=== PATIENT | female | born 1945 | race Caucasian/White ===

== ENCOUNTER 2016-05-12 14:23 | Inpatient (IN) | payer OTHER, MEDICAID ==
--- NOTE | 2016-05-12 14:24 | EDPHY ---
H & P Time Seen by Provider: 05/12/16 14:24 HPI/ROS: CHIEF COMPLAINT: Respiratory distress HISTORY OF PRESENT ILLNESS: This patient is an anticoagulated (Coumadin) 71 year old female arriving emergently via EMS in respiratory distress secondary to pulmonary aspiration. Per EMS, staff at [facility] witnessed aspiration of her soup during lunch at 1400 today. While she is normally alert and talkative, she became disoriented with decreased responsiveness prior to EMS arrival. She has remained unresponsive in transport. History obtained via EMS. Further history is unobtainable secondary to the patient's condition. Full code status. REVIEW OF SYSTEMS: ROS unobtainable secondary to the patient's condition. Past Medical/Surgical History: Hypertension, chronic hypoxemia, DVT, PE, dysphagia, bipolar disorder, hypothyroid, breast cancer, anemia. FULL CODE STATUS. Social History: Lives at [facility]. Physical Exam: General Appearance: Eyes open, does not look at me when I talk, Respiratory distress Eyes: Pupils equal and round, no conjunctival pallor or injection, left gaze preference ENT, Mouth: Mucous membranes dry Neck: Normal inspection Respiratory: Diminished breath sounds bilaterally Cardiovascular: Regular tachycardia Gastrointestinal: Abdomen is soft Neurological: Good gag reflex, unresponsive to painful stimuli, flaccid Skin: Warm and dry Extremities: No pedal edema Constitutional: Initial Vital Signs O2 Sat (%) 90 L 05/12/16 14:24 O2 Delivery Mode Non-Rebreather Mask O2 (L/minute) 15 Allergies/Adverse Reactions: Penicillins Allergy (Mild, Verified 12/04/15 13:00) Rash REG Inhibitors Allergy (Verified 12/04/15 13:00) Hives clavulanic acid Allergy (Verified 12/04/15 13:00) Home Medications: Medication Instructions Recorded ARIPiprazole [Abilify 10 mg (*)] 10 mg PO DAILY 05/16/15 Acetaminophen [Tylenol ES 500 mg 500 mg PO Q6 PRN 05/16/15 (*)] Albuterol [Proventil Neb] 3 ml IH Q6 PRN 05/16/15 Atorvastatin Calcium [Lipitor 40 40 mg PO HS 05/16/15 mg (*)] Calcium Carbonate [Tums 500MG (*)] 500 mg PO Q2 PRN 05/16/15 Divalproex Sodium [Depakote] 250 mg PO DAILY 05/16/15 Divalproex [Depakote] 500 mg PO HS 05/16/15 Ferrous Sulfate [Ferrous Sulf 325 325 mg PO BID 05/16/15 MG (*)] Gluc Oxid/l-Peroxid/Muramidase 30 ml MM DAILY 05/16/15 [Biotene Mouthwash (*)] LORazepam [Ativan (*)] 0.5 mg PO BID PRN 05/16/15 Levothyroxine [Synthroid 88 mcg 88 mcg PO DAILY06 05/16/15 (*)] Lidocaine [Lidocaine 5% oint] 1 van TP TID 05/16/15 Magnesium Hydroxide [Milk of 30 ml PO Q8 PRN 05/16/15 Magnesia (*)] Melatonin [Melatonin 3 MG (*)] 3 mg PO HS 05/16/15 Memantine HCl [Namenda 5 mg (*)] 10 mg PO BID 05/16/15 Nystatin Powder [Mycostatin Powder] 1 van TP Q6 PRN 05/16/15 Polyethylene Glycol 3350 [Miralax 17 gm PO DAILY 05/16/15 17 gm (*)] Sennosides/Docusate Sodium 2 each PO BID 05/16/15 [Senna-Docusate Sodium Tablet] guaiFENesin [Mucinex 600 MG (*)] 600 mg PO BID 05/16/15 guaiFENesin/DEXTROMETHORPHAN 10 ml PO Q6 PRN 05/16/15 [Robitussin Dm Oral Liquid (*)] Ondansetron HCl [Zofran] 4 mg PO Q4 PRN 08/15/15 Anastrozole [Arimidex 1 mg (*)] 1 mg PO DAILY 12/06/15 Calcium Carbonate [Tums 500MG (*)] 500 mg PO TID 12/06/15 Cholecalciferol Vit D3 [Vitamin D3 5,000 units PO DAILY 12/06/15 (*)] FLUoxetine [Prozac 20 MG (*)] 20 mg PO DAILY 12/06/15 Herbals/Supplements -Info Only 1 ea PO DAILY 12/06/15 Warfarin Sodium [Coumadin 3MG (*)] 6 mg PO DAILY16 12/06/15 oxyCODONE IR [Oxycodone Ir (*)] 5 mg PO BID 12/06/15 oxyCODONE IR [Oxycodone Ir (*)] 5 mg PO Q6 PRN 12/06/15 Loperamide HCl [Loperamide] 2 mg PO PRN PRN 05/12/16 Olopatadine 0.1% [Patanol 0.1% 1 drops EACHEYE BID PRN 05/12/16 Opht Drop (RX)] Sodium Cl Nasal Gel [[place] Saline 1 van TP TID PRN 05/12/16 Nasal Gel] Medical Decision Making - Diagnostics EKG Interpretation: EKG interpreted by me reveals sinus tachycardia, rate 138 left bundle branch block. ED Course/Re-evaluation: 1416: Emergent report obtained by phone from EMS. Respiratory therapy contacted. 1419: Respiratory therapy at bedside. 1423: Met EMS at bedside and took report: 100% O2 sat with BVM. IO in place to left tibia. BGL 103. 130/80. Sinus on monitor. HR 120. Code status: Full code. 1424: Patient placed on bus driver/monitor. HR 139. O2 sat 98% on BVM. Does not need intubation at this point. 1425: The patient is gagging, dry heaving, and vomiting with RTsuctioning. Rolled onto her side, vomiting stopped. She remains unresponsive to painful stimuli. 1427: Vomiting has subsided. Respiratory mask placed. 1429: IV established. Patient started on 1L IV NS. 1430: BP 155/86. HR 150. 1430: 4mg IV Zofran administered. 1431: Chest x-ray obtained and is negative. 1434: EKG obtained. No ischemia or dysrhythmia. Similar to prior EKG. 1440: Patient transferred to imaging for emergent CT of the head without contrast. 1458: CT is negative as reported to me by Dr. Jose Burroughs, radiology. Will proceed with CTA of the head and neck to eval for CVA. Unclear if pt had primary aspiration episode leading to hypoxia/AMS or if had CVA causing aspiration. Dr. Bro consulted for admission to step-down. Differential Diagnosis: Altered mental status including but not limited to CVA, hypoglycemia, infectious process, electrolyte abnormality, head injury and intoxicants. Critical Care Time: Critical care time spent by me, Dr. Armando, exclusively with this patient was 35 minutes, exclusive of PA time and exclusive of procedures. The organ system at risk was the pulmonary system . - Data Points Medications Given: Discontinued Medications Ceftriaxone Sodium/Dextrose (Rocephin 1 Gm (Premix)) 50 mls @ 100 mls/hr IV DAILY LIU PRN Reason: Protocol Stop: 06/11/16 18:59 Last Admin: 05/12/16 19:24 Dose: 50 mls Sodium Chloride (Ns) 2,700 mls @ 0 mls/hr IV ONCE ONE Stop: 05/12/16 18:46 Last Admin: 05/12/16 18:45 Dose: 2,700 mls Levothyroxine Sodium (Synthroid) 88 mcg PO DAILY06 LIU Stop: 11/09/16 05:59 Last Admin: 05/13/16 06:47 Dose: Not Given Naloxone HCl (Narcan) 0.4 mg IVP PRN ONE Stop: 05/12/16 16:21 Last Admin: 05/12/16 16:21 Dose: 0.4 mg Ondansetron HCl (Zofran) 4 mg IVP EDNOW ONE Stop: 05/12/16 14:28 Last Admin: 05/12/16 14:25 Dose: 4 mg Departure - Departure Disposition: [facility] Inpatient Acute Clinical Impression: Respiratory distress Aspiration of food Qualifiers: Encounter type: initial encounter Qualified Code(s): T17.890A - Other foreign object in other parts of respiratory tract causing asphyxiation, initial encounter Altered mental status Qualifiers: Altered mental status type: stupor Qualified Code(s): R40.1 - Stupor Condition: Critical Report Scribed for: Zeenat Armando Report Scribed by: Danyelle Estrada Date of Report: 05/12/16 Time of Report: 14:20 Physician Review and Approval Statement: 05/12/16 14:20 Portions of this note were transcribed by a medical reception. I personally performed a history, physical exam, medical decision making, and confirmed accuracy of information the transcribed note.
[2016-05-12] MEDS ORDERED: ONDANSETRON 4 MG/2 ML VIAL IVP ONE (14:27)
[2016-05-12] MEDS ORDERED: ONDANSETRON 4 MG/2 ML VIAL ONE (14:28)
--- NOTE | 2016-05-12 14:57 | CPEKG ---
Heart Rate: 138 RR Interval: 435 P-R Interval: 108 QRSD Interval: 130 QT Interval: 336 QTC Interval: 509 P Dover: 0 QRS Dover: 24 T Wave Dover: 206 EKG Severity - ABNORMAL ECG - EKG Impression: GIVEN WHAT APPEARS TO BE AV DISSOCIATION, VT IS PROBABLE EKG Impression: LEFT BUNDLE BRANCH BLOCK Electronically Signed By: Don Ruvalcaba 14-May-2016 09:02:33
[2016-05-12 15:21] LABS: % IMMATURE GRANULYOCYTES 0.4 % (0.0-1.1); ABSOLUTE IMMATURE GRANULOCYTES 0.03 10^3/uL (0.00-0.10); ADD DIFF? NO; ADD MORPH? NO; ADD SCAN? NO; ATYPICAL LYMPHOCYTE FLAG 0 (0-99); FRAGMENT RBC FLAG 0 (0-99); HEMOGLOBIN 13.3 g/dL (12.6-16.3); LEFT SHIFT FLG 0 (0-99); LIPEMIA HEMOLYSIS FLAG 80 (0-99); MEAN CELL HEMOGLOBIN 32.5 pg (27.9-34.1); MEAN CELL HEMOGLOBIN CONCENTR. 33.3 g/dL (32.4-36.7); MEAN CELL VOLUME 97.8 fL (81.5-99.8); MEAN PLATELET VOLUME 9.1 fL (8.7-11.7); PLATELET CLUMPS FLAG 0 (0-99); PLATELET COUNT 131 10^3/uL (150-400); RED BLOOD CELL COUNT 4.09 10^6/uL (4.18-5.33); RED CELL DISTRIBUTION WIDTH 13.8 % (11.5-15.2)
[2016-05-12] MEDS ORDERED: ONDANSETRON DISINTEGRATING 4 MG TAB PO PRN (15:26)
[2016-05-12] MEDS ORDERED: ONDANSETRON 4 MG/2 ML VIAL IVP PRN (15:26)
[2016-05-12 15:30] LABS: INR 2.61 (0.83-1.16); PROTIME(PATIENT) 28.2 SEC (12.0-15.0)
[2016-05-12] MEDS ORDERED: NALOXONE HCL 0.4 MG/ML INJ ONE (15:30)
[2016-05-12 15:32] LABS: ANION GAP 10 mEq/L (8-16); CALCIUM 8.8 mg/dL (8.5-10.4); CARBON DIOXIDE 26 mEq/l (22-31); CHLORIDE 99 mEq/L (97-110); CREATININE 0.8 mg/dL (0.6-1.0); GLOMERULAR FILTRATION RATE > 60; GLUCOSE 103 mg/dL (70-100); POTASSIUM 4.2 mEq/L (3.5-5.2); SODIUM 135 mEq/L (134-144)
[2016-05-12] MEDS ORDERED: IOPAMIDOL (ISOVUE 370) 100 ML BTL IV ONE (15:32)
[2016-05-12 15:43] LABS: TROPONIN I 0.016 ng/mL (0-0.034)
[2016-05-12] MEDS ORDERED: ETOMIDATE 40 MG/20 ML INJ ONE (16:15)
--- NOTE | 2016-05-12 16:20 | GHP ---
[f rep st] HISTORY AND PHYSICAL DATE OF ADMISSION: 05/12/2016 CHIEF COMPLAINT: Aspiration, unresponsive. HISTORY OF PRESENT ILLNESS: The patient is a 71-year-old female with history of invasive ductal carcinoma diagnosed September, bipolar disorder, dementia, history of pulmonary embolism, who was brought from [facility] after an aspiration event. Patient was eating soup with noodles at lunchtime and then aspirated. I spoke with RN there, and they stated they suctioned her well, and then she was sent here. Per her report, she was in a normal state of health prior to today. She is normally talkative and responsive. She does have dementia. Her baseline is alert and oriented times 1-2. The report states that she has been coughing for the past couple days. Her son Moreno spoke with on phone yesterday and she was talking like her normal self. REVIEW OF SYSTEMS: I unable to complete a 10-point review of system. History is from nursing staff as well as old medical records. PAST MEDICAL HISTORY: 1. Right renal stone. 2. Invasive ductal carcinoma diagnosed September 2015. 3. Bipolar disorder. 4. History of left bundle-branch block. 5. Dementia (A&O x 1-2 baseline) 6. Wheelchair bound. 7. Chronic pain with chronic narcotic dependency. 8. History of pulmonary embolism. 9.Lymphoma 10. Hypertension 11. HLD PAST SURGICAL HISTORY: 1. Bilateral mastectomy in September 2015. 2. Staghorn stone, status post stents. 3. Spinal fusion. 4. Right TKA. SOCIAL HISTORY: Wheelchair bound, lives at [facility], has to be moved with a Cecy lift. FAMILY HISTORY: Per review of prior H and P, no CAD or diabetes. ALLERGIES: Penicillins, REG inhibitors, clavulanic acid. HOME MEDICATIONS: 1. Oxycodone 5 mg t.i.d. 2. Oxycodone 5 mg p.o. q.6 hours p.r.n. 3. Guaifenesin. 4. Warfarin 3 mg daily. 5. Senna p.r.n. 6. MiraLAX p.r.n. 7. Zofran p.r.n. 8. Nystatin powder. 9. Namenda 10 mg b.i.d. 10. Melatonin as needed. 11. Lidocaine ointment. 12. Synthroid 88 mcg. 13. Lorazepam 0.5 mg b.i.d. p.r.n. 14. Prozac 20 mg daily. 15. Depakote 500 mg p.o. q.h.s. 16. Depakote 250 mg q.8h daily. 17. Tums p.r.n. 18. Lipitor 40. 19. Arimidex 1 mg daily. 20. Albuterol as needed. 21. Tylenol as needed. 22. Abilify 10 mg daily. PHYSICAL EXAM: VITAL SIGNS: Afebrile, heart rate 130s, blood pressure 140s over 80s, respirations 16, 98% on 10 L non-rebreather. GENERAL: Patient is nonresponsive. HEENT: Pupils are small, round, reactive. CV: Tachy, regular. No murmurs, gallops, or rubs. LUNGS: Clear to auscultation anteriorly. ABDOMEN: Obese, soft. No grimace with palpation. MUSCULOSKELETAL : Not participating in exam. NEURO: Nonresponsive, nonverbal, withdraws to noxious stimuli with flu swab. Will not follow simple commands such as grabbing my hands. Will open eyes minimally. LABS: Pending. Chest x-ray personally reviewed by me appears to be bronchitis. No opacity. EKG: Left bundle-branch block. Review of prior EKG shows an IVCD. CTA is pending. ASSESSMENT AND PLAN: 1. Aspiration event: while eating soup with noodles. Suctioned at the nursing facility as well as here in the emergency room. Initially on 8-10 L non- rebreather, now on 2L NC. No evidence of pneumonia on x-ray, afebrile. CBC is pending. Will not treat with antibiotics at this time. 2. Acute encephalopathy: minimally responsive, only withdraws to noxious stimuli. Differential includes aspiration event, CVA, opioid toxicity, infection. CTH/CTA normal. Flu swab, UA pending. Electrolytes WNL, troponin negative. Will admit to step-down for continuous monitoring. Check lactate, TSH. 3. History of pulmonary embolism, on chronic warfarin. INR is pending. 4. History of staghorn stones, status post stent. 5. History of invasive ductal carcinoma, status post bilateral mastectomy September 2015. 6. Dementia. Will hold Namenda. 7. Chronic pain. Will hold opioids. 8. Anxiety. Holding lorazepam with encephalopathy. 9. History of left bundle-branch block on EKG today, has history of this in the past. Troponin is pending. 10. Bipolar disorder. Hold medications until more alert. 11. h/o lymphoma: remission per son 12. Diet: N.p.o. 13. DVT prophylaxis: SCDs. DISPOSITION: Patient warrants inpatient admission given acute encephalopathy warranting step-down for telemetry and further evaluation. /[id number]/MODL MTDD
[2016-05-12] MEDS: NALOXONE HCL 0.4 MG/ML INJ IVP ONE ×2 (16:21→16:44)
[2016-05-12] MEDS ORDERED: OLOPATADINE 0.1% 5 ML OPHT.BTL EACHEYE PRN (17:00)
[2016-05-12] MEDS ORDERED: NYSTATIN POWDER 15 GM BTL TP PRN (17:00)
[2016-05-12 17:36] LABS: COLOR YELLOW; LEUKOCYTE ESTERASE,URINE 2+ (NEGATIVE); NITRITE,URINE POSITIVE (NEGATIVE)
[2016-05-12 17:40] LABS: AMORPHOUS PRESENT /hpf (NONE-1+); BACTERIA 4+ /hpf (NONE SEEN); RBC,URINE 25-50 /hpf (0-3); WBC,URINE 50-182 /hpf (0-3)
[2016-05-12] MEDS ORDERED: NS 2,700 ML IV ONE (18:45)
[2016-05-12] MEDS: NS 1,000 ML IV SCH (19:24)
[2016-05-12] MEDS ORDERED: ACETAMINOPHEN 650 MG SUPP PR PRN (19:35)
[2016-05-12 19:54] LABS: % IMMATURE GRANULYOCYTES 0.6 % (0.0-1.1); ABSOLUTE IMMATURE GRANULOCYTES 0.06 10^3/uL (0.00-0.10); ABSOLUTE NRBC COUNT 0.02 10^3/uL (0-0.01); ADD DIFF? NO; ADD MORPH? NO; ADD SCAN? NO; ATYPICAL LYMPHOCYTE FLAG 0 (0-99); FRAGMENT RBC FLAG 0 (0-99); HEMATOCRIT 35.4 % (38.0-47.0); HEMOGLOBIN 11.7 g/dL (12.6-16.3); LEFT SHIFT FLG 10 (0-99); LIPEMIA HEMOLYSIS FLAG 80 (0-99); MEAN CELL HEMOGLOBIN 32.7 pg (27.9-34.1); MEAN CELL HEMOGLOBIN CONCENTR. 33.1 g/dL (32.4-36.7); MEAN CELL VOLUME 98.9 fL (81.5-99.8); MEAN PLATELET VOLUME 9.4 fL (8.7-11.7); NRBC-AUTO% 0.2 % (0.0-0.2); PLATELET CLUMPS FLAG 0 (0-99); PLATELET COUNT 128 10^3/uL (150-400); RED BLOOD CELL COUNT 3.58 10^6/uL (4.18-5.33); RED CELL DISTRIBUTION WIDTH 13.8 % (11.5-15.2)
[2016-05-12 20:11] LABS: ALANINE AMINOTRANSFERASE 34 IU/L (9-52); ALBUMIN 2.7 g/dL (3.5-5.0); ALKALINE PHOSPHATASE 61 IU/L (38-126); ANION GAP 9 mEq/L (8-16); ASPARTATE AMINOTRANSFERASE 45 IU/L (14-46); BILIRUBIN,TOTAL 0.4 mg/dL (0.1-1.4); BILIRUBIN-CONJUGATED 0.4 mg/dL (0.0-0.5); CALCIUM 8.2 mg/dL (8.5-10.4); CARBON DIOXIDE 23 mEq/l (22-31); CHLORIDE 102 mEq/L (97-110); CREATININE 0.8 mg/dL (0.6-1.0); GLOMERULAR FILTRATION RATE > 60; GLUCOSE 105 mg/dL (70-100); POTASSIUM 3.9 mEq/L (3.5-5.2); SODIUM 134 mEq/L (134-144); TOTAL PROTEIN 5.3 g/dL (6.3-8.2)
[2016-05-12 20:26] LABS: INR 2.85 (0.83-1.16); PROTIME(PATIENT) 30.3 SEC (12.0-15.0)
[2016-05-12 20:27] LABS: APTT 41.9 SEC (23.0-38.0)
[2016-05-12 22:01] LABS: TROPONIN I 0.107 ng/mL (0-0.034)
[2016-05-12 22:17] LABS: MIXED VENOUS O2 SATURATION 65 % (65-75)
[2016-05-12] MEDS ORDERED: NOREPINEPHRINE/NS 500 ML IV SCH (23:00)
[2016-05-12] MEDS ORDERED: PHENYLEPHRINE HCL 50 MG in D5W 250 ML IV SCH (23:00)
[2016-05-12] MEDS ORDERED: DOBUTamine/DEXTROSE 250 ML IV SCH (23:00)
[2016-05-12] MEDS ORDERED: VASOPRESSIN/DEXTROSE 250 ML IV SCH (23:00)
[2016-05-12] MEDS: NOREPINEPHRINE/NS 500 ML IV SCH (23:11)
[2016-05-12 23:32] LABS: MIXED VENOUS O2 SATURATION 76 % (65-75)
[2016-05-13] MEDS: NS 1,000 ML IV SCH ×2 (04:19→14:10)
[2016-05-13 05:38] LABS: HEMATOCRIT 33.6 % (38.0-47.0); HEMOGLOBIN 11.2 g/dL (12.6-16.3); MEAN CELL HEMOGLOBIN 32.9 pg (27.9-34.1); MEAN CELL HEMOGLOBIN CONCENTR. 33.3 g/dL (32.4-36.7); MEAN CELL VOLUME 98.8 fL (81.5-99.8); RED BLOOD CELL COUNT 3.4 10^6/uL (4.18-5.33); RED CELL DISTRIBUTION WIDTH 13.9 % (11.5-15.2)
[2016-05-13 05:48] LABS: INR 2.58 (0.83-1.16)
[2016-05-13 05:58] LABS: ALANINE AMINOTRANSFERASE 85 IU/L (9-52); ALBUMIN 2.5 g/dL (3.5-5.0); ALKALINE PHOSPHATASE 56 IU/L (38-126); ANION GAP 6 mEq/L (8-16); ASPARTATE AMINOTRANSFERASE 100 IU/L (14-46); BILIRUBIN,TOTAL 0.4 mg/dL (0.1-1.4); CALCIUM 7.8 mg/dL (8.5-10.4); CARBON DIOXIDE 25 mEq/l (22-31); CHLORIDE 108 mEq/L (97-110); CREATININE 0.7 mg/dL (0.6-1.0); GLOMERULAR FILTRATION RATE > 60; GLUCOSE 91 mg/dL (70-100); POTASSIUM 3.6 mEq/L (3.5-5.2); SODIUM 139 mEq/L (134-144)
[2016-05-13] MEDS ORDERED: LEVOTHYROXINE 88 MCG TAB PO SCH (06:00)
[2016-05-13 08:09] LABS: BASE EXCESS -2.4 mEq/L (-2.5-2.5); BICARBONATE 22 mEq/L (22-26); MEASURED OXYGEN SATURATION 96 % (92-95); PCO2 42 mmHg (34-38); PO2 96 mmHg (65-75); TCO2 23 mEq/L (23-27)
[2016-05-13] MEDS: VANCOMYCIN 1.25 GM in D5W 250 ML IV SCH (11:35)
--- NOTE | 2016-05-13 13:20 | WOCRNPDOC ---
WOCRN Advanced Assessment Note - Skin Integrity Problem, Advanced Assess Bilateral Upper Ear Dressing Type: Open to Air Integumentary Issue Intervention: Dressing Applied (Mepilex non-bordered foam ) Janneth Wound Tissue: Blanching, Erythema Janneth Wound Swelling: None Site Odor: None Site Measurement - Head-to-Toe Length X Width X Depth (cm): 0.5 cm x 0.2 cm x 0 Skin Integrity Problem Comment: Blanchable erythema above ear, adjacent to elastic band securing O2 mask in place. Applied Cavilon skin prep and small segments of non-bordered foam to protect from pressure. Discussed w/FREDERICK Willoughby. Bilateral Cheek Pressure Sites Dressing Type: Open to Air Integumentary Issue Intervention: Dressing Applied (Mepilex non-bordered foam) Janneth Wound Tissue: Blanching, Erythema Site Measurement - Head-to-Toe Length X Width X Depth (cm): 3.5 x 0.2 x 0 Skin Integrity Problem Comment: Faint pink blanchable erythema at bilateral cheeks, underneath elastic band securing O2 mask in place. Applied Cavilon skin prep and non-bordered foam contoured to protect sites from pressure. Discussed w /FREDERICK Willoughby.
--- NOTE | 2016-05-13 13:22 | GCON ---
[f rep st] CONSULTATION PULMONARY CRITICAL CARE CONSULTATION DATE OF CONSULTATION: 05/13/2016 REASON FOR CONSULTATION: Aspiration, urinary tract infection, altered mental status. HISTORY: The patient is a 71-year old with multiple medical problems, as outlined below. She is a resident of [facility]. She aspirated soup with noodles mid day yesterday. She was suctioned at th e time, but because of ongoing respiratory difficulties and decreased mental status, she was brought to the emergency department. Chest x-ray showed minimal changes. Urinalysis showed pyuria. Her m ental status has remained significantly decreased. CT scan of the head including CT angiogram of th e head and neck were unremarkable. She has remained febrile. She was started on antibiotics, now o n meropenem. She was hypotensive initially with signs and symptoms consistent of sepsis. Hypotensi on has resolved with fluids. She is no longer on norepinephrine. Mental status seems to be somewha t improved but she remains quite lethargic and has a difficult time staying awake, answering questio ns, etc. Blood and urine cultures were obtained in the emergency department and are pending. Over the last year, she has had several hospitalizations for pneumonia and sepsis, presumably second roshan to aspiration. She has also had urinary infections and has a known renal calculus. PAST MEDICAL HISTORY: Remarkable for multiple medical problems including dementia, bed and wheelcha ir bound, chronic pain and narcotic use, previous pulmonary embolism, hypertension, history of lymph carrie, bipolar disorder, carcinoma of the breast and a renal calculus. PAST SURGICAL HISTORY: Ureteral stenting, bilateral mastectomies, spinal fusion, and right TKA. SOCIAL HISTORY: The patient is a resident of [facility], goes from bed to wheelchair with a Cecy l ift. Apparently is oriented x2 at baseline and conversant. She has family in this area, the son jose rafael valerio in earlier but I did not get a chance to talk to him. She is listed as a full COR. FAMILY HISTORY: Noncontributory. REVIEW OF ALLERGIES: Unobtainable. DRUG ALLERGIES: Penicillin, REG inhibitors, clavulanic acid. PHYSICAL EXAMINATION: GENERAL: Reveals an elderly woman who is lying comfortably in bed. She is i n no acute distress. VITAL SIGNS: Blood pressure is 105/60, heart rate 100 with sinus tachycardia on the monitor, respiratory rate is 24, on a 6 L oxy mask saturations are 98%. Her latest temperatu re is 39 degrees. HEENT: Remarkable for somewhat dry mucous membranes. She looks to voice. Pupil s appear equal. NECK: Unremarkable for obvious jugular venous distention. There is no lymphadenop athy or thyromegaly. CHEST: Clear anteriorly. Breath sounds are diminished at the bases and she w ill not take deep breaths. Some mild central congestion is present. There are a few rales at the l eft base. There are no wheezes and no obvious rhonchi. CARDIOVASCULAR: Heart tones are distant. The rhythm is tachycardic. There is a soft systolic murmur without obvious gallop. P2 cannot be as sessed. ABDOMEN: Obese, soft, nontender. Bowel sounds are diminished but present. There is no ob vious organomegaly. EXTREMITIES: Remarkable for trace plus edema. NEUROLOGIC: Remarkable for her obtundation. She will arouse and answer very simple questions prior to falling back to sleep. Joel entation is difficult to assess. She is nonfocal. She moves all extremities weakly to stimulation, perhaps better in the right than the left?. DATABASE: Chest x-ray shows no significant infiltrates or evidence of congestive heart failure. Th ere may be a small infiltrate above the left hemidiaphragm. Heart size appears normal. Hypoventila tory changes are noted. CT scans of the head and neck are as outlined above. LABORATORY: White blood cell count is 14,000, hematocrit 33.6, platelets 114,000. INR on admission was 2.61, 2.58 today. Arterial blood gas is 7.35, pCO2 of 42, and pO2 of 96 on 9 L of oxygen. Sod ium is 139, potassium 3.6, CO2 of 25, BUN 14 with a creatinine of 0.7. Glucose is 91, calcium 7.8, AST 100 with an ALT of 85, slightly elevated. Troponin is 0.1. Albumin 2.5. Urinalysis was positi ve for many white blood cells, as well as bacteria. Influenza was negative. Cultures are pending f rom blood and urine. ASSESSMENT: 1. Status post aspiration, without evidence of significant aspiration pneumonia. However, she does have intermittent cough and pulmonary congestion. Antibiotics for aspiration pneumonia should be c ontinued. She is currently on meropenem, which should adequately cover her for now. Bronchodilator therapy can be added to her regimen. 2. Urinary tract infection. She has pyuria. This is likely the source of sepsis. 3. Severe sepsis. She has received fluids, is on appropriate antibiotics, however, she remains fe rile. Vancomycin will be added to her regimen as she does have a history of methicillin-resistant S taphylococcus aureus in the past. Meropenem will be continued. Cultures will be awaited. Intraven ous fluids will be continued for now. Norepinephrine is currently off. 4. Abnormal mental status secondary to toxic/metabolic encephalopathy. She remains lethargic but a ppears to be somewhat better based on reports from last night. Sedative medications and narcotics a re being currently held. 5. History of multiple medical problems. These include a history of pulmonary embolism with chroni c anticoagulation, bipolar disorder, weakness, obesity, dementia, renal stone, etc. PLAN AND RECOMMENDATIONS: The patient will be kept in the intensive care unit. Intravenous fluids will be continued. Vancomycin will be added to her regimen. Meropenem will be continued. DuoNeb w ill be given. Chest x-ray and laboratory will be followed. Pressors can be restarted if needed for a mean arterial pressure of less than 60. CVP will be monitored. Discussions regarding her COR st atus will be undertaken with the patient's son when he is available. She will be kept n.p.o. for no w as swallow is unsafe. An NG tube will likely be needed. Further plans and recommendations will be made based on her progress over the next 12 to 24 hours. 55 minutes of critical care time was spent directly with the patient during this initial evaluation. /[id number]/MODL
--- NOTE | 2016-05-13 13:36 | HOSPPROG ---
Hospitalist Progress Note Assessment/Plan: * Septic shock - IV Levophed gtt -serial lactate until normalized -source - PNA vs. UTI - NH acquired -empiric meropenem, IV Vanco * UTI - h/o staghorn calculus s/p stent -given urosepsis with persistent fever - check CT eval kidney stone * Dysphagia - NPO until swallow eval * Acute respiratory failure - suspect shunting due to sepsis * Rising troponin - suspect due to sepsis - follow * Dementia with acute metabolic encephalopathy * Breast cancer -holding Arimidex due to NPO * Bipolar -restart Depakote when taking PO * h/o PE -therapeutic INR * Obesity BMI 32 * WC bound - Cecy lift transfers CC time - 40 minutes - initiating pressors, stabilizing sepsis, work-up for source Subjective: non verbal Objective: Vital Signs Temp Pulse Resp BP Pulse Ox 39 C H 100 21 H 109/46 L 100 05/13/16 09:00 05/13/16 13:00 05/13/16 13:00 05/13/16 13:00 05/13/16 13:00 Laboratory Results 05/13/16 05:25 05/13/16 05:25 05/12/16 05/13/16 05/14/16 05:59 05:59 05:59 Intake Total 4044 Output Total 770 Balance 3274 PT 28.0 SEC (12.0-15.0) H 05/13/16 05:25 INR 2.58 (0.83-1.16) H 05/13/16 05:25 CXR: negative - Physical Exam Constitutional: no apparent distress, appears nourished, not in pain Cardiovascular: regular rate and rhythym, no murmur, rub, or gallop Respiratory: no respiratory distress, no rales or rhonchi, clear to auscultation Gastrointestinal: normoactive bowel sounds, soft, non-tender abdomen, no palpable masses Skin: no rashes or abrasions, no fluctuance, no induration Neurologic: weakness, No AAOx3 Psychiatric: encephalopathic, flat affect, poor insight, poor judgement, poor memory, No interacting appropriately, No agitated ICD10 Worksheet Patient Problems: Problems Problem Status Onset Altered mental status Acute Aspiration of food Acute Respiratory distress Acute Altered mental status Acute Chronic Disease Mgmt/Transitional Care Acute History of DVT (deep vein thrombosis) Acute MRSA (methicillin resistant Staphylococcus aureus) Acute 05/16/15 Pneumonia Acute Sepsis Acute UTI (urinary tract infection) Acute
[2016-05-13] MEDS: MEROPENEM 1 GM in NS 100 ML IV SCH ×2 (14:06→21:40)
[2016-05-13] MEDS: LEVOTHYROXINE 100 MCG/5 ML SYR IVP SCH (14:46)
[2016-05-13] MEDS ORDERED: PHYTONADIONE 1 MG in NS 50 ML IV ONE (16:26)
[2016-05-13] MEDS: PANTOPRAZOLE SODIUM 80 MG in NS 100 ML IV SCH (17:34)
[2016-05-14 00:53] LABS: HEMATOCRIT 26.4 % (38.0-47.0); HEMOGLOBIN 8.8 g/dL (12.6-16.3)
[2016-05-14] MEDS: PANTOPRAZOLE SODIUM 80 MG in NS 100 ML IV SCH ×2 (02:01→13:42)
[2016-05-14] MEDS: NS 1,000 ML IV SCH ×2 (02:01→17:28)
[2016-05-14] MEDS: MEROPENEM 1 GM in NS 100 ML IV SCH ×3 (05:03→21:26)
[2016-05-14 05:15] LABS: % IMMATURE GRANULYOCYTES 0.8 % (0.0-1.1); ABSOLUTE IMMATURE GRANULOCYTES 0.04 10^3/uL (0.00-0.10); ADD DIFF? NO; ADD MORPH? NO; ADD SCAN? NO; ATYPICAL LYMPHOCYTE FLAG 0 (0-99); FRAGMENT RBC FLAG 0 (0-99); HEMATOCRIT 26.1 % (38.0-47.0); HEMOGLOBIN 8.6 g/dL (12.6-16.3); LEFT SHIFT FLG 20 (0-99); LIPEMIA HEMOLYSIS FLAG 80 (0-99); MEAN CELL HEMOGLOBIN 32.3 pg (27.9-34.1); MEAN CELL VOLUME 98.1 fL (81.5-99.8); PLATELET CLUMPS FLAG 40 (0-99); PLATELET COUNT 83 10^3/uL (150-400); RED BLOOD CELL COUNT 2.66 10^6/uL (4.18-5.33)
[2016-05-14 05:24] LABS: INR 1.65 (0.83-1.16); PROTIME(PATIENT) 19.6 SEC (12.0-15.0)
[2016-05-14 05:25] LABS: ANION GAP 6 mEq/L (8-16); CALCIUM 6.8 mg/dL (8.5-10.4); CARBON DIOXIDE 23 mEq/l (22-31); CHLORIDE 110 mEq/L (97-110); CREATININE 0.7 mg/dL (0.6-1.0); GLOMERULAR FILTRATION RATE > 60; GLUCOSE 80 mg/dL (70-100); POTASSIUM 3.4 mEq/L (3.5-5.2); SODIUM 139 mEq/L (134-144)
[2016-05-14] MEDS: LEVOTHYROXINE 100 MCG/5 ML SYR IVP SCH (05:53)
[2016-05-14] MEDS ORDERED: PROTOCOL POTASSIUM 1 DOSE MISC PRN (06:19)
[2016-05-14] MEDS ORDERED: PROTOCOL MAGNESIUM 1 DOSE IV PRN (06:19)
[2016-05-14] MEDS: POTASSIUM Cl (KCl) 50 ML IV SCH ×3 (06:42→17:19)
[2016-05-14] MEDS: VANCOMYCIN 1.25 GM in D5W 250 ML IV SCH (10:59)
--- NOTE | 2016-05-14 11:45 | GCON ---
[f rep st] CONSULTATION INFECTIOUS DISEASE CONSULTATION DATE OF CONSULTATION: 05/14/2016 REFERRING PHYSICIAN: Teressa Wiseman MD REASON FOR CONSULTATION: Fever and sepsis of unclear etiology. HISTORY OF PRESENT ILLNESS: A 71-year-old woman with a past medical history of invasive ductal cell carcinoma diagnosed in 09/2015 with bilateral mastectomy in the same month, who also has an underlying diagnosis of bipolar and dementia , who was brought to the emergency room on 05/12/2016 emergently from [facility] after witnessed aspiration and subsequently was unresponsive. Apparently, she was in her normal state of health the day prior. Her baseline is talkative and responsive, oriented times 1-2. Today, patient is complaining of midline back pain and bilateral leg pain. She is also noted to be coughing when she talks. Her son reported she was in her usual state of health on 05/11/2016. HOSPITAL COURSE: On admission, the patient had a workup for acute stroke without specific etiology identified and was admitted to the ICU, started on pressors, given a dose of cefepime, but subsequently transitioned to meropenem and vancomycin. Patient with blood and urine cultures pending. No growth to date. Since admission, patient has been essentially febrile until early on 07/2016. She was also noted to have a mild hepatitis and leukocytosis on admission. Flu swab PCR was negative and chest x-ray was negative for focal infiltrate. Patient with pertinent multiple recent ID issues including MRSA UTI, 05/16/2015 , with a noted staghorn calculus on the right. She received a 2-week course of doxycycline. This was followed by Proteus bacteremia and UTI, 08/15/2015, treated with levofloxacin. Again noted to have a staghorn calculus with hydronephrosis. At that time, a right ureteral stent was placed relieving obstruction. Subsequently, patient had her stone removed, 12/06/2015, which the calculus was sent for culture. Sarah Beth, Bacteroides, and enterococcus was grown. If patient received antibiotics, unclear type. PAST MEDICAL AND SURGICAL HISTORY: 1. Staghorn calculus, status post removal 12/06/2015, as above. 2. Invasive ductal carcinoma, 09/2015, status post bilateral mastectomy. 3. Bipolar disorder. 4. Left bundle branch block. 5. Dementia. 6. Wheelchair bound. 7. Chronic pain and narcotic dependency. 8. Pulmonary embolus. 9. Lymphoma. 10. Hypertension. 11. Spinal fusion. 12. Right total knee arthroplasty. SOCIAL HISTORY: She is wheelchair bound. Lives at [facility]. No current alcohol or tobacco. FAMILY HISTORY: No family history of CAD or diabetes. ALLERGIES: Penicillin, REG inhibitors, clavulanic acid. Unclear reaction. MEDICATIONS: Tylenol, Cathflo, Synthroid 50 mcg IV push, meropenem 1 g IV q.8 started 05/13/2016. Norepinephrine, nystatin, Protonix 80 mg IV, vancomycin 1.25 g IV q.24. REVIEW OF SYSTEMS: Per review of nursing notes and pointed questions to patient is negative. PHYSICAL EXAM: VITAL SIGNS: Blood pressure 118/57, heart rate 98, respiratory rate 19, saturation 95% on 2 L, temperature 37.7. T-max 39. GENERAL: This is an obese woman, sitting in bed, no acute distress. HEENT: She has dry mucous membranes, some crusting around the nares, poor dentition. NECK: Supple. No lymphadenopathy. No meningismus. CARDIOVASCULAR: Regular rate. No murmurs. CHEST: She had coarse breath sounds bilaterally with occasional crackles. ABDOMEN: Soft, nontender. Bowel sounds are present. EXTREMITIES: Revealed diffuse anasarca, 2 to 3+. : Hernández was in place. IV access, right upper extremity PIC, C/D/I. NEUROLOGIC: She is slow to respond to questions, but is able to tell me where she is and give some specific complaints. Appears to be moving all 4 extremities. LABORATORY: White count 14 on admission, 4.9 today. Platelets 114 on admission , 83 today. Creatinine 0.7. AST 100. ALT 85. Influenza PCR negative. Chest x-ray without focal infiltrate. Personally reviewed by me today. Blood and urine cultures were obtained on admission, 05/12/2016, and are no growth to date. CT of abdomen and pelvis, was personally reviewed by me, which shows no residual calculi in the kidneys, no hydronephrosis or ureteral dilation. She did have cholelithiasis without evidence of inflammation. ASSESSMENT: This is a 71-year-old woman who presents after found unresponsive at long-term, witnessed aspiration event, interestingly with no focal infiltrate on chest x-ray. Nonetheless, the patient has been essentially febrile since admission, has cough, and lab disturbances including: leukocytosis, thrombocytopenia, mild hepatitis, urinalysis that shows mild pyuria. Considerations for cause of her fever include viral bronchitis versus pneumonia etiology,aspiration pneumonia, recurrent urinary tract infection and/ or bacteremia. RECOMMENDATIONS: 1. Reasonable to continue meropenem and vancomycin while cultures mature. 2. Vancomycin dose 1.25 IV q.24 is an appropriate dose. check trough before 4th dose. 3. Would send respiratory viral PCR as persistent fever despite antibiotic therapy, mild hepatitis, and mild thrombocytopenia somewhat suggestive of viral etiology. 4. Could consider more extensive evaluation of elevated LFTs including: Hepatitis B, A, C, EBV and CMV. But will wait results of respiratory viral panel PCR. Thank you for this consultation. Care was coordinated with Dr. Wiseman and nursing. We will continue to follow on a daily basis. /[id number]/MODL MTDD
--- NOTE | 2016-05-14 13:58 | PDINTPN ---
Neckties Painter Progress Note Assessment/Plan: Assessment: Sepsis, with hypotension, resolving. Probably more secondary to a urinary source as opposed to pulmonary. However she did aspirate and does have cough and what appears to be an aspiration bronchitis/minimal pneumonia. Altered mental status: Improving. Hard to assess as we do not know her baseline. Apparently she is demented, somewhat slow, but conversant at her halfway. Status post aspiration: Please see the comments above. On appropriate antibiotics or an aspiration pneumonia. Urinary tract infection: No growth so far. On appropriate antibiotics. Id following. Edema/anasarca. She came in with much of this. Input greater than output. Will need diuresis once blood pressure permits. History of multiple medical problems including dementia, bipolar disorder, etc. History of pulmonary embolism: On Coumadin. INR however lower today. GI prophylaxis: Pantoprazole Plan: Continue care in the intensive care unit. Continue active bronchopulmonary therapies as her status is still marginal. Follow x-ray and pulmonary congestion. May need bronchoscopy if congestion continues to worsen. I believe this is secondary to her recent aspiration. Antibiotics will be continued. Avoid excessive intravenous fluids and diurese once possible. Follow chest x-ray and laboratory. Mobilize as possible. 35 minutes of critical care time spent directly with the patient. Discussed with respiratory, nursing, and the ICU multi disciplinary team. Subjective: More alert and more verbal today. Answer simple questions with the delay. Continues to cough. Able to bring up some mucus. Denies significant pain. Objective: Vital Signs Temp Pulse Resp BP Pulse Ox 38.1 C 88 20 108/50 L 93 05/14/16 13:00 05/14/16 13:00 05/14/16 13:00 05/14/16 13:00 05/14/16 13:00 Laboratory Results 05/14/16 05:00 05/14/16 05:00 05/13/16 05/14/16 05/15/16 05:59 05:59 05:59 Intake Total 4044 3334 Output Total 770 825 Balance 3274 2509 PT 19.6 SEC (12.0-15.0) H D 05/14/16 05:00 INR 1.65 (0.83-1.16) H 05/14/16 05:00 Laboratory Tests 05/14/16 05/14/16 05/14/16 00:30 05:00 05:00 PT INR VBG Lactic Acid 0.6 L D Calcium 6.8 L Troponin I 0.108 H 05/14/16 05:00 PT 19.6 H D INR 1.65 H VBG Lactic Acid Calcium Troponin I CXR: Hypoventilatory changes. Cannot rule out a small infiltrate at the left base. Physical Exam - Physical Exam General Appearance: no apparent distress, obese, other (Intermittent coughing) EENT: other (OxyMask in place but only at 2 L) Neck: normal inspection (No obvious JVD, relatively large neck, hard to assess) Respiratory: decreased breath sounds (And excursions), rales (Few rales at the posterior bases), rhonchi (Present with cough), No wheezing Cardiac/Chest: regular rate, rhythm (Distant heart tones. No obvious gallop) Abdomen: non-tender, soft (Obese), No normal bowel sounds Pelvic Exam: other (Hernández catheter in place: Input greater than output by a approximately 5.5 L last 2 days) Skin: warm/dry, pallor Extremities: pedal edema, swelling (2 to 3+) Neuro/Psych: no motor/sensory deficits (Moves all extremities equally, weak), cognition abnormalities (Hard to assess, by report appears to be close to baseline) ICD10 Worksheet Patient Problems: Problems Problem Status Onset Pneumonia Acute History of DVT (deep vein thrombosis) Acute UTI (urinary tract infection) Acute Chronic Disease Mgmt/Transitional Care Acute MRSA (methicillin resistant Staphylococcus aureus) Acute 05/16/15 Sepsis Acute Altered mental status Acute Respiratory distress Acute Aspiration of food Acute Altered mental status Acute
[2016-05-14] MEDS ORDERED: PROPOFOL/EMULSION 500 MG/50 ML BOTTLE IV ONE (13:59)
[2016-05-14] MEDS ORDERED: CALCIUM CARBONATE 500 MG CHEWABLE TAB PO PRN (14:03)
[2016-05-14] MEDS ORDERED: GUAIFENESIN/DM 10 ML UDCUP PO PRN (14:03)
[2016-05-14] MEDS ORDERED: LORazepam 0.5 MG TAB PO PRN (14:03)
[2016-05-14] MEDS: PANTOPRAZOLE SODIUM 40 MG in NS 100 ML IV SCH ×2 (14:34→20:02)
--- NOTE | 2016-05-14 15:01 | GCON ---
[f rep st] CONSULTATION DATE OF CONSULTATION: 05/14/2016 ASSESSMENT: A 71-year-old female with history of breast cancer, mastectomy, dementia, bipolar, history of PE on Coumadin who is presenting after being found unresponsive. She has septic shock and also a drop in hemoglobin. The differential includes esophagitis, gastric ulceration, duodenal ulceration, Dieulafoy's lesion as a cause for upper GI bleed. Small bowel or colonic source of GI bleed are also possible. RECOMMENDATIONS: 1. Continue IV PPI. 2. N.p.o. 3. Plan for emergent upper endoscopy. CHIEF COMPLAINT: I was asked to see the patient in consultation by Dr. Wiseman for a chief complaint of acute GI blood loss suspect upper GI bleeding. HISTORY OF PRESENT ILLNESS: The patient is a 71-year-old patient with a history of breast cancer and bilateral mastectomy, dementia and bipolar, PE with anticoagulation in the form of warfarin, obesity who presents after being found unresponsive and found to be in septic shock. The majority of her history is obtained from her chart, her nurse, and her son. The patient is nonverbal. The patient had 2 black stools overnight and a drop in her hemoglobin. There is suspicion for ongoing GI bleeding. She is afebrile. Her INR is now 1.6. REVIEW OF SYSTEMS: The patient is nonverbal and unable to give a 12 point review of systems. PAST MEDICAL HISTORY: 1. Right renal stone. 2. Invasive ductal carcinoma diagnosed in 2016. 3. Bipolar disorder. 4. History of left bundle branch block. 5. History of dementia. 6. Chronic pain on chronic narcotics. 7. History of pulmonary embolism. 8. Lymphoma. 9. Hypertension. PAST SURGICAL HISTORY: 1. Bilateral mastectomy in 2016. 2. Kidney stones status post stents. 3. Spinal fusion. 4. Right TKA. FAMILY HISTORY: There is no family history related to the patient's chief complaint. SOCIAL HISTORY: The patient is wheelchair bound and lives at [facility]. She does not smoke cigarettes or drink alcohol. ALLERGIES: She has allergies to penicillin, REG inhibitors and clavulanic acid. MEDICATIONS: 1. Tylenol. 2. Levothyroxine. 3. Magnesium sulfate. 4. Morphine. 5. Norepinephrine sodium chloride. 6. Nystatin. 7. Vasopressin. 8. Meropenem. PHYSICAL EXAMINATION: VITAL SIGNS: Blood pressure 97/45, pulse is 91. She is saturating 96% on room air. Her temperature is 38.2. GENERAL: She is asleep in bed, appears critically ill. HEENT: Oral mucosa is moist. CHEST: She has coarse breath sounds bilaterally, is moving air bilaterally. CARDIOVASCULAR: Regular rate and rhythm. No murmurs. ABDOMEN: Obese and distended but nontender. MUSCULOSKELETAL: She has full range of motion. SKIN: [place], warm, well perfused. No rashes. NEUROLOGIC: She has dementia and is nonverbal. LYMPH NODES: No palpable lymph nodes. PSYCHIATRIC: History of bipolar, nonverbal. LABORATORY DATA: Sodium 139, potassium 3.4, chloride 110, CO2 23, calcium 6.8. Troponin 0.1. Glucose is 80. Hemoglobin 8.6, hematocrit 26, platelet count 83. INR is 1.65. /[id number]/MODL MTDD
[2016-05-14 15:44] LABS: MAGNESIUM 1.5 mg/dL (1.6-2.3); POTASSIUM 3.4 mEq/L (3.5-5.2)
[2016-05-14] MEDS ORDERED: LIDOCAINE TP SCH (16:00)
--- NOTE | 2016-05-14 16:25 | HOSPPROG ---
Hospitalist Progress Note Assessment/Plan: * Septic shock (POA) -IV Levophed gtt - still at low dose -source - PNA vs. UTI - NH acquired -empiric meropenem, IV Vanco * Staghorn calculus - removed by Dr. Mcgarry -no recurrent stone on CT * UGIB - EGD without source -IV PPI -may need further investigation for proximal SB bleed of melena continues * ABL anemia - follow * Dysphagia - start PO per ST * Acute respiratory failure - due to sepsis -Improved * Elevated troponin - due to sepsis * Dementia with acute metabolic encephalopathy -returning to baseline * Breast cancer -Arimidex * Bipolar -Depakote * h/o PE -holding warfarin due to GIB * Obesity BMI 32 * WC bound - Cecy lift transfers Subjective: still with intermittent black tarry stools through day today Objective: Vital Signs Temp Pulse Resp BP Pulse Ox 38.1 C 88 20 108/50 L 93 05/14/16 13:00 05/14/16 13:00 05/14/16 13:00 05/14/16 13:00 05/14/16 13:00 Laboratory Results 05/14/16 05:00 05/14/16 05:00 05/13/16 05/14/16 05/15/16 05:59 05:59 05:59 Intake Total 4044 3334 Output Total 770 825 Balance 3274 2509 PT 19.6 SEC (12.0-15.0) H D 05/14/16 05:00 INR 1.65 (0.83-1.16) H 05/14/16 05:00 d/w Dr. calhoun regarding abx plan, d/w dr. moeller regarding GIBleed CXR viewed, my personal interpretation is - possible developing infiltrate - Physical Exam Constitutional: no apparent distress, appears nourished, not in pain Cardiovascular: regular rate and rhythym, no murmur, rub, or gallop Respiratory: no respiratory distress, no rales or rhonchi, clear to auscultation Gastrointestinal: normoactive bowel sounds, soft, non-tender abdomen, no palpable masses Skin: no rashes or abrasions, no fluctuance, no induration Neurologic: weakness, No AAOx3 Psychiatric: flat affect, poor insight, poor judgement, poor memory, No encephalopathic, No agitated ICD10 Worksheet Patient Problems: Problems Problem Status Onset Altered mental status Acute Aspiration of food Acute Respiratory distress Acute Altered mental status Acute Chronic Disease Mgmt/Transitional Care Acute History of DVT (deep vein thrombosis) Acute MRSA (methicillin resistant Staphylococcus aureus) Acute 05/16/15 Pneumonia Acute Sepsis Acute UTI (urinary tract infection) Acute
[2016-05-14] MEDS ORDERED: MAGNESIUM SULF 1 GM/DEXTROSE 100 ML IV ONE (17:24)
[2016-05-14] MEDS: CALCIUM CARBONATE 500 MG CHEWABLE TAB PO SCH ×2 (17:41→21:27)
[2016-05-14] MEDS: LIDOCAINE TP SCH ×2 (17:42→23:43)
[2016-05-14 17:45] LABS: HEMATOCRIT 27.4 % (38.0-47.0)
[2016-05-14] MEDS: SENNOSIDES/DOCUSATE SODIUM TAB PO SCH (19:13)
[2016-05-14] MEDS: MEMANTINE HCL 5 MG TAB PO SCH (20:01)
[2016-05-14] MEDS: oxyCODONE IR 5 MG TAB PO SCH (20:02)
[2016-05-14] MEDS: ATORVASTATIN CALCIUM 40 MG TAB PO SCH (20:02)
[2016-05-14] MEDS: FERROUS SULFATE 325 MG TAB PO SCH (20:02)
[2016-05-14] MEDS: MELATONIN 3 MG TAB PO SCH (20:02)
[2016-05-14] MEDS: guaiFENesin 600 MG TAB.ER PO SCH (20:02)
[2016-05-14] MEDS ORDERED: DIVALPROEX NA 500 MG TAB PO SCH (21:00)
[2016-05-15 02:14] LABS: % IMMATURE GRANULYOCYTES 0.3 % (0.0-1.1); ABSOLUTE IMMATURE GRANULOCYTES 0.02 10^3/uL (0.00-0.10); ADD DIFF? NO; ADD MORPH? NO; ADD SCAN? NO; ATYPICAL LYMPHOCYTE FLAG 50 (0-99); FRAGMENT RBC FLAG 0 (0-99); HEMATOCRIT 26.7 % (38.0-47.0); HEMOGLOBIN 8.7 g/dL (12.6-16.3); LEFT SHIFT FLG 0 (0-99); LIPEMIA HEMOLYSIS FLAG 80 (0-99); MEAN CELL HEMOGLOBIN 32.5 pg (27.9-34.1); MEAN CELL HEMOGLOBIN CONCENTR. 32.6 g/dL (32.4-36.7); MEAN CELL VOLUME 99.6 fL (81.5-99.8); PLATELET CLUMPS FLAG 0 (0-99); PLATELET COUNT 93 10^3/uL (150-400); RED BLOOD CELL COUNT 2.68 10^6/uL (4.18-5.33); RED CELL DISTRIBUTION WIDTH 14.2 % (11.5-15.2)
[2016-05-15 02:22] LABS: INR 1.23 (0.83-1.16); PROTIME(PATIENT) 15.5 SEC (12.0-15.0)
[2016-05-15 02:41] LABS: ALANINE AMINOTRANSFERASE 107 IU/L (9-52); ALBUMIN 2.1 g/dL (3.5-5.0); ALKALINE PHOSPHATASE 51 IU/L (38-126); ASPARTATE AMINOTRANSFERASE 83 IU/L (14-46); BILIRUBIN,TOTAL 0.5 mg/dL (0.1-1.4); BILIRUBIN-CONJUGATED 0.3 mg/dL (0.0-0.5); BILIRUBIN-UNCONJUGATED 0.2 mg/dL (0.0-1.1); CALCIUM 6.9 mg/dL (8.5-10.4); CARBON DIOXIDE 22 mEq/l (22-31); CHLORIDE 112 mEq/L (97-110); CREATININE 0.6 mg/dL (0.6-1.0); GLOMERULAR FILTRATION RATE > 60; GLUCOSE 114 mg/dL (70-100); MAGNESIUM 1.8 mg/dL (1.6-2.3); SODIUM 141 mEq/L (134-144); TOTAL PROTEIN 4.4 g/dL (6.3-8.2)
[2016-05-15 02:49] LABS: ANION GAP 7 mEq/L (8-16); POTASSIUM 3.8 mEq/L (3.5-5.2)
[2016-05-15] MEDS ORDERED: MAGNESIUM SULF 1 GM/DEXTROSE 100 ML IV ONE ×2 (02:51→09:58)
[2016-05-15] MEDS ORDERED: POTASSIUM Cl (KCl) 50 ML IV ONE (02:55)
[2016-05-15] MEDS: NS 1,000 ML IV SCH (03:09)
[2016-05-15] MEDS: NOREPINEPHRINE/NS 500 ML IV SCH (03:18)
[2016-05-15] MEDS: LEVOTHYROXINE 100 MCG/5 ML SYR IVP SCH (05:29)
[2016-05-15] MEDS: MEROPENEM 1 GM in NS 100 ML IV SCH ×3 (05:29→22:17)
[2016-05-15] MEDS ORDERED: ARIPiprazole 10 MG TAB PO SCH (09:00)
[2016-05-15] MEDS ORDERED: DIVALPROEX NA 250 MG TAB PO SCH (09:00)
[2016-05-15] MEDS: ALTEPLASE 2 MG VIAL IVP PRN (09:49)
[2016-05-15] MEDS: SENNOSIDES/DOCUSATE SODIUM TAB PO SCH ×2 (10:00→22:17)
[2016-05-15] MEDS: FERROUS SULFATE 325 MG TAB PO SCH ×2 (11:00→22:16)
[2016-05-15] MEDS: guaiFENesin 600 MG TAB.ER PO SCH ×2 (11:00→22:17)
[2016-05-15] MEDS: FLUoxetine 20 MG CAP PO SCH (11:00)
[2016-05-15] MEDS: CALCIUM CARBONATE 500 MG CHEWABLE TAB PO SCH ×3 (11:02→22:17)
[2016-05-15] MEDS: ANASTROZOLE 1 MG TAB PO SCH (11:02)
[2016-05-15] MEDS: LIDOCAINE TP SCH ×2 (11:03→15:29)
[2016-05-15] MEDS: BIOTENE DRY MOUTH MOUTHWASH 237 ML BTL MM SCH (11:04)
[2016-05-15] MEDS: MEMANTINE HCL 5 MG TAB PO SCH ×2 (11:04→17:32)
[2016-05-15] MEDS: oxyCODONE IR 5 MG TAB PO SCH (11:05)
[2016-05-15] MEDS: POLYETHYLENE GLYCOL 3350 17 GM PKT PO SCH (11:06)
--- NOTE | 2016-05-15 11:15 | PCMIDPN ---
Assessment/Plan: 1. Probable Parainfluenza 3 upper respiratory infection with consequential significant aspiration event: She is improving; Levophed his just been discontinued. Given extent of aspiration event, and the fact that the patient was critically ill on pressors and likely colonized with resistant pathogens, would favor treatment with antibiotics in the form of Meropenem alone for 7 days. Discontinue vancomycin. Continue droplet precautions for paraflu 3. Subjective: Doing better overall. Only on 1-2 L of oxygen. Was never intubated. Levophed was just discontinued this morning. Has significant cough. Parainfluenza 3 isolated from respiratory tract. Objective: Meropenem 1 g IV q.8 hours day 2. Vancomycin 1.25 g IV daily day 3. 99% on 1 L T-max 38.2degrees Vital Signs Temp Pulse Resp BP Pulse Ox 36.7 C 80 10 L 135/61 H 99 05/15/16 06:00 05/15/16 09:00 05/15/16 09:00 05/15/16 09:00 05/15/16 09:00 Microbiology 05/12/16 21:55 Urine Culture - Final Urine,Catheterized Laboratory Results 05/15/16 02:00 05/15/16 02:00 05/14/16 05/15/16 05/16/16 05:59 05:59 05:59 Intake Total 3334 2861 Output Total 825 700 125 Balance 2509 2161 -125 Respiratory viral PCR with para flu type 3 Blood cultures x2 are negative on May 12 as is a urine culture - Physical Exam General Appearance: alert, obese, other (Actively coughing.) EENT: other (Posterior oral for Chris erythema, no exudate or thrush) Respiratory: coarse breath sounds Extremities: other (PICC line right upper extremity. Fingertips both sides are cool and poorly perfused.) Abdomen: non-tender, soft Skin: No rash ICD10 Worksheet Patient Problems: Problems Problem Status Onset Altered mental status Acute Aspiration of food Acute Respiratory distress Acute Altered mental status Acute Chronic Disease Mgmt/Transitional Care Acute History of DVT (deep vein thrombosis) Acute MRSA (methicillin resistant Staphylococcus aureus) Acute 05/16/15 Pneumonia Acute Sepsis Acute UTI (urinary tract infection) Acute
[2016-05-15] MEDS: VANCOMYCIN 1.25 GM in D5W 250 ML IV SCH (11:46)
--- NOTE | 2016-05-15 12:47 | PDINTPN ---
Stencil Printer Progress Note Assessment/Plan: Assessment: Sepsis, with hypotension, resolving, on 1 of norepinephrine. Probably can DC.. Probably more secondary to a urinary source as opposed to pulmonary. However she did aspirate and does have cough and what appears to be an aspiration bronchitis/minimal pneumonia. Altered mental status: Improved. She is on multiple psych medications for bipolar disorder. Her family requests that these be re-evaluated and given only if needed. These may be suppressing her mental status. Will hold these today and see... She does have a diagnosis of underlying dementia and is reportedly oriented times two at baseline, but is conversant. Status post aspiration: Please see the comments above. On appropriate antibiotics for an aspiration pneumonia. Urinary tract infection: No growth so far. On appropriate antibiotics. Id following. Edema/anasarca. She came in with much of this. Input greater than output. Will need diuresis once blood pressure permits. History of multiple medical problems including dementia, bipolar disorder, etc. History of pulmonary embolism: On Coumadin. INR lower today. GI prophylaxis: Pantoprazole Plan: Continue care in the intensive care unit. Continue active bronchopulmonary therapies. I do not think she will need bronchoscopy as she has a good cough and is requiring only low-flow oxygen. Will follow x-ray and pulmonary congestion. Antibiotics will be continued. Avoid excessive intravenous fluids and diurese once possible. Follow chest x-ray and laboratory. Mobilize as possible. 30 minutes of critical care time spent directly with the patient. Discussed with nursing, RT, Hospitalist, and the ICU multi disciplinary team. Subjective: Doing better, more alert. Remains congested, with an adequate cough. She is able to bring up mucus. She denies pain. Objective: Vital Signs Temp Pulse Resp BP Pulse Ox 36.7 C 80 10 L 135/61 H 99 05/15/16 06:00 05/15/16 09:00 05/15/16 09:00 05/15/16 09:00 05/15/16 09:00 Microbiology 05/12/16 21:55 Urine Culture - Final Urine,Catheterized Laboratory Results 05/15/16 02:00 05/15/16 02:00 05/14/16 05/15/16 05/16/16 05:59 05:59 05:59 Intake Total 3334 2861 91 Output Total 825 700 125 Balance 2509 2161 -34 PT 15.5 SEC (12.0-15.0) H 05/15/16 02:00 INR 1.23 (0.83-1.16) H 05/15/16 02:00 Laboratory Tests 05/15/16 05/15/16 02:00 02:00 PT 15.5 H INR 1.23 H Calcium 6.9 L Magnesium 1.8 Conjugated Bilirubin 0.3 AST 83 H ALT 107 H Albumin 2.1 L Respiratory viral panel positive for parainfluenza. This is of unclear clinical significance at this time. Physical Exam - Physical Exam General Appearance: no apparent distress, obese, other (Lethargic, slow in terms a responses but clearly improved today.) EENT: PERRL/EOMI, other (Nasal cannula at 1 L) Neck: normal inspection (No stridor) Respiratory: decreased breath sounds (And excursions), rales (Few rales present at the bases), rhonchi (Rhonchi present centrally, especially with cough), wheezing (Minimal) Cardiac/Chest: regular rate, rhythm Abdomen: normal bowel sounds, non-tender, soft, other (Eating, no evidence of aspiration) Pelvic Exam: other (Hernández catheter in place. Urine output on the low side.) Skin: warm/dry, pallor Extremities: pedal edema, swelling Neuro/Psych: no motor/sensory deficits (Moves all extremities weakly. Sensation intact), No cognition abnormalities (Remains slow to respond. Oriented.) ICD10 Worksheet Patient Problems: Problems Problem Status Onset Pneumonia Acute History of DVT (deep vein thrombosis) Acute UTI (urinary tract infection) Acute Chronic Disease Mgmt/Transitional Care Acute MRSA (methicillin resistant Staphylococcus aureus) Acute 05/16/15 Sepsis Acute Altered mental status Acute Respiratory distress Acute Aspiration of food Acute Altered mental status Acute
[2016-05-15] MEDS ORDERED: WARFARIN SODIUM 5 MG TAB PO ONE (13:03)
--- NOTE | 2016-05-15 13:23 | PDPCPN ---
Palliative Care Progress Note Assessment/Plan: Referring provider: Dr Wiseman Reason for consult: Complex medical decision making Symptom control HPI: Jhonatan Bran is a 71 yo female with PMH dementia, bipolar, invasive ductal carcinoma, remote PE, and chronic pain admitted to the hospital with acute resp distress after aspiration episode during lunch. Being treated for septic shock from UTI vs PNA source. Required bipap support for resp distress now weaned to oxymask. Developed anemia and possible GI bleed. Palliative care consulted for complex medical decision making. Spoke with son moreno outside of the room. He shared that his mother has always had health issues with physical and mental issues her whole life. She was dx with early onset dementia 10 years ago and has lived at [facility] for almost 2 years now. He shared that she has been a very resilient person throughout her life and has always done well after hospitalizations in rehab. He feels she declines when she is not being engaged in therapies that help maintain her mobility. He understands her medical conditions and states his hope is just for maintenance of her life. She is still readily engaged in family and enjoys spending time with her family here in [place]. Her mother is 90 and still alive in [place]. Moreno lives here with his 7 children and who is expecting another child very soon. Moreno states his mother has been looking forward to this child being born for some time. He is hoping for her to improve to be able to go to rehab and then potentially look into private duty help to maintain her mobility. He states last hospitalization she did well with rehab and was able to stand and pivot into a chair and that would be his goal for her mobility now. He hopes for this as this will allow her to spend more time with the family going out to eat and visiting. Assessment: Physical: - Pain: chronic back pain - on oxycodone 5mg BID mauri with PRN available - continue lidocaine onitment - Dyspnea: - oxygen as needed - nebs and antibiotics per primary - a fan can also be helpful for dyspnea if needed - constipation - at risk while on opiates - bowel regimen with senna and colace. Emotional/psychological: Hx of bipolar: medications on hold to see if they are contributing to poor mental status. Advanced Care Planning: Is patient decisional?: no Code Status: Full MD POA: son Moreno is MDPOA. Plan: Would like her to rehab at discharge back at [facility]. Son is also interested in getting more information about possible private duty physical therapy or someone to help her maintain strength after medicare rehab stops. Subjective: I'm ok Objective: Social History: . 1 son involved. 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 Enjoys spending time with her family and soon to be 5th grandchild. Medication list reviewed ROS: General: fatigue, weakness ENT: negative Resp: dyspnea, cough GI: negative : negative MS: chronic back pain Skin: negative Neuro: negative Psych: confusion, short term memory loss Functional assessment: PPS: 40% Functional status: dependent on ADLs, IADLs Vital Signs Temp Pulse Resp BP Pulse Ox 36.7 C 82 10 L 102/63 97 05/15/16 06:00 05/15/16 12:00 05/15/16 12:00 05/15/16 12:00 05/15/16 12:00 Microbiology 05/12/16 21:55 Urine Culture - Final Urine,Catheterized Laboratory Results 05/15/16 02:00 05/15/16 02:00 05/14/16 05/15/16 05/16/16 05:59 05:59 05:59 Intake Total 3334 2861 91 Output Total 825 700 125 Balance 2509 2161 -34 PT 15.5 SEC (12.0-15.0) H 05/15/16 02:00 INR 1.23 (0.83-1.16) H 05/15/16 02:00 Physical Exam - Physical Exam General Appearance: alert, no apparent distress Respiratory: No respiratory distress, No accessory muscle use Skin: normal color, warm/dry Extremities: pedal edema Neuro/Psych: alert, disoriented to place, disoriented to time ICD10 Worksheet Patient Problems: Problems Problem Status Onset Altered mental status Acute Aspiration of food Acute Palliative care encounter Acute Respiratory distress Acute Altered mental status Acute Chronic Disease Mgmt/Transitional Care Acute History of DVT (deep vein thrombosis) Acute MRSA (methicillin resistant Staphylococcus aureus) Acute 05/16/15 Pneumonia Acute Sepsis Acute UTI (urinary tract infection) Acute - ICD10 Problem Qualifiers (1) Palliative care encounter
[2016-05-15] MEDS: PANTOPRAZOLE SODIUM 40 MG in NS 100 ML IV SCH ×2 (13:33→22:17)
[2016-05-15] MEDS: ENOXAPARIN 80 MG/0.8 ML SYR SC SCH ×2 (13:34→22:18)
--- NOTE | 2016-05-15 14:50 | HOSPPROG ---
Hospitalist Progress Note Assessment/Plan: * Septic shock (POA) -IV Levophed gtt - weaned off -source - PNA vs. UTI - NH acquired -empiric meropenem * Staghorn calculus - removed by Dr. Mcgarry -no recurrent stone on CT * UGIB - EGD without source -IV PPI -may need further investigation for proximal SB bleed of melena continues * ABL anemia - follow * Dysphagia - start PO per ST * Acute respiratory failure - due to sepsis -Improved * Parainfluenza - isolation * Elevated troponin - due to sepsis * Edema - start IV lasix * Dementia with acute metabolic encephalopathy -returning to baseline -son feels she is overmedicated at SNF -requests hold of Abilify, Depakote, scheduled narcotics * Breast cancer -Arimidex * Bipolar -hold Depakote * h/o PE -on lovenox - watch for recurrence of GIB -warfarin restarting * Obesity BMI 32 * WC bound - Cecy lift transfers -son desires rehab Subjective: Levophed off since this am, waking up. Objective: Vital Signs Temp Pulse Resp BP Pulse Ox 36.7 C 82 13 102/57 L 94 05/15/16 06:00 05/15/16 13:00 05/15/16 13:00 05/15/16 13:00 05/15/16 13:00 Microbiology 05/12/16 21:55 Urine Culture - Final Urine,Catheterized Laboratory Results 05/15/16 02:00 05/15/16 02:00 05/14/16 05/15/16 05/16/16 05:59 05:59 05:59 Intake Total 3334 2861 91 Output Total 825 700 125 Balance 2509 2161 -34 PT 15.5 SEC (12.0-15.0) H 05/15/16 02:00 INR 1.23 (0.83-1.16) H 05/15/16 02:00 d/w Dr. Gustafson regarding ICU status and progress forward tele reviewed - NSR - Physical Exam Constitutional: no apparent distress, appears nourished, not in pain Cardiovascular: regular rate and rhythym, no murmur, rub, or gallop, edema (3+) Respiratory: no respiratory distress, no rales or rhonchi, clear to auscultation Gastrointestinal: normoactive bowel sounds, soft, non-tender abdomen, no palpable masses Skin: no rashes or abrasions, no fluctuance, no induration Neurologic: weakness, No AAOx3 Psychiatric: encephalopathic, poor insight, poor judgement, poor memory, No interacting appropriately, No agitated ICD10 Worksheet Patient Problems: Problems Problem Status Onset Altered mental status Acute Aspiration of food Acute Palliative care encounter Acute Respiratory distress Acute Altered mental status Acute Chronic Disease Mgmt/Transitional Care Acute History of DVT (deep vein thrombosis) Acute MRSA (methicillin resistant Staphylococcus aureus) Acute 05/16/15 Pneumonia Acute Sepsis Acute UTI (urinary tract infection) Acute
[2016-05-15] MEDS: FUROSEMIDE 20 MG/2 ML VIAL IVP SCH (15:08)
[2016-05-15] MEDS: ACETAMINOPHEN 325 MG TAB PO PRN (15:26)
[2016-05-15] MEDS: WARFARIN SODIUM 3 MG TAB PO SCH (15:26)
[2016-05-15] MEDS ORDERED: WARFARIN SODIUM 4 MG TAB PO SCH (16:00)
[2016-05-15 19:19] LABS: POTASSIUM 3.7 mEq/L (3.5-5.2)
[2016-05-15] MEDS ORDERED: POTASSIUM CL 10 MEQ TAB PO ONE (22:02)
[2016-05-15] MEDS: MELATONIN 3 MG TAB PO SCH (22:16)
[2016-05-15] MEDS: ATORVASTATIN CALCIUM 40 MG TAB PO SCH (22:17)
[2016-05-16] MEDS: LIDOCAINE TP SCH ×4 (01:12→21:09)
[2016-05-16] MEDS: MEROPENEM 1 GM in NS 100 ML IV SCH ×3 (05:36→21:08)
[2016-05-16] MEDS: LEVOTHYROXINE 88 MCG TAB PO SCH (05:36)
[2016-05-16] MEDS: LEVOTHYROXINE 100 MCG/5 ML SYR IVP SCH (06:00)
[2016-05-16 06:05] LABS: % IMMATURE GRANULYOCYTES 0.3 % (0.0-1.1); ABSOLUTE IMMATURE GRANULOCYTES 0.01 10^3/uL (0.00-0.10); ADD DIFF? NO; ADD MORPH? YES; ADD SCAN? NO; ATYPICAL LYMPHOCYTE FLAG 90 (0-99); FRAGMENT RBC FLAG 0 (0-99); HEMATOCRIT 21.1 % (38.0-47.0); LEFT SHIFT FLG 0 (0-99); LIPEMIA HEMOLYSIS FLAG 80 (0-99); MEAN CELL HEMOGLOBIN 32.2 pg (27.9-34.1); MEAN CELL HEMOGLOBIN CONCENTR. 32.2 g/dL (32.4-36.7); MEAN PLATELET VOLUME 9.4 fL (8.7-11.7); PLATELET CLUMPS FLAG 0 (0-99); PLATELET COUNT 76 10^3/uL (150-400); RED BLOOD CELL COUNT 2.11 10^6/uL (4.18-5.33); RED CELL DISTRIBUTION WIDTH 14.1 % (11.5-15.2)
[2016-05-16 06:06] LABS: HEMOGLOBIN 6.8 g/dL (12.6-16.3)
[2016-05-16 06:14] LABS: INR 1.23 (0.83-1.16); PROTIME(PATIENT) 15.5 SEC (12.0-15.0)
[2016-05-16 06:17] LABS: ANION GAP 7 mEq/L (8-16); CALCIUM 6.2 mg/dL (8.5-10.4); CARBON DIOXIDE 20 mEq/l (22-31); CHLORIDE 118 mEq/L (97-110); CREATININE 0.5 mg/dL (0.6-1.0); GLOMERULAR FILTRATION RATE > 60; GLUCOSE 74 mg/dL (70-100); MAGNESIUM 1.7 mg/dL (1.6-2.3); POTASSIUM 3.3 mEq/L (3.5-5.2); SODIUM 145 mEq/L (134-144)
[2016-05-16 06:45] LABS: PLATELET ESTIMATE DECREASED (ADEQ); POLYCHROMASIA 1+
[2016-05-16 08:07] LABS: HEMATOCRIT 25.2 % (38.0-47.0); HEMOGLOBIN 8.3 g/dL (12.6-16.3); MEAN CELL HEMOGLOBIN CONCENTR. 32.9 g/dL (32.4-36.7); MEAN CELL VOLUME 97.3 fL (81.5-99.8); RED BLOOD CELL COUNT 2.59 10^6/uL (4.18-5.33); RED CELL DISTRIBUTION WIDTH 13.9 % (11.5-15.2)
[2016-05-16 08:54] LABS: ANION GAP 4 mEq/L (8-16); CALCIUM 7.2 mg/dL (8.5-10.4); CARBON DIOXIDE 23 mEq/l (22-31); CHLORIDE 115 mEq/L (97-110); CREATININE 0.6 mg/dL (0.6-1.0); GLOMERULAR FILTRATION RATE > 60; GLUCOSE 79 mg/dL (70-100); POTASSIUM 3.7 mEq/L (3.5-5.2); SODIUM 142 mEq/L (134-144)
[2016-05-16] MEDS ORDERED: PANTOPRAZOLE SODIUM 40 MG TAB PO SCH (09:00)
[2016-05-16] MEDS: guaiFENesin 600 MG TAB.ER PO SCH ×2 (10:25→21:07)
[2016-05-16] MEDS: ANASTROZOLE 1 MG TAB PO SCH (10:25)
[2016-05-16] MEDS: FLUoxetine 20 MG CAP PO SCH (10:26)
[2016-05-16] MEDS: MEMANTINE HCL 5 MG TAB PO SCH ×2 (10:26→21:07)
[2016-05-16] MEDS: CALCIUM CARBONATE 500 MG CHEWABLE TAB PO SCH ×3 (10:26→21:08)
[2016-05-16] MEDS: ENOXAPARIN 80 MG/0.8 ML SYR SC SCH ×2 (10:26→21:08)
[2016-05-16] MEDS: FERROUS SULFATE 325 MG TAB PO SCH ×2 (10:26→21:07)
[2016-05-16] MEDS: FUROSEMIDE 20 MG/2 ML VIAL IVP SCH (10:28)
[2016-05-16] MEDS: SENNOSIDES/DOCUSATE SODIUM TAB PO SCH ×2 (10:29→21:08)
[2016-05-16] MEDS: POLYETHYLENE GLYCOL 3350 17 GM PKT PO SCH (10:29)
[2016-05-16] MEDS ORDERED: POTASSIUM CL 10 MEQ TAB PO ONE ×3 (10:33→21:10)
[2016-05-16] MEDS: BIOTENE DRY MOUTH MOUTHWASH 237 ML BTL MM SCH (10:35)
[2016-05-16] MEDS ORDERED: FUROSEMIDE 20 MG/2 ML VIAL IVP SCH (11:25)
--- NOTE | 2016-05-16 13:38 | PCMIDPN ---
Assessment/Plan: 1. Parainfluenza 3 upper respiratory infection with secondary aspiration pneumonia: She is much better. Continue droplet precautions for parainfluenza. Continue meropenem to complete a 7 day course in the setting of a significant aspiration event and critical illness upon presentation. She is now off pressors, and doing much better. 05/16/16 13:34 Subjective: Psychiatric medications have been removed; the patient is much more alert and able to have a conversation with me. States she is only coughing when she moves. Overall feels much better. Denies diarrhea. Objective: Vital Signs Meropenem 1 g IV q.8 hours day 3 Out of 7 T-max 37.1degrees 94% on 2 L Temp Pulse Resp BP Pulse Ox 36.4 C 72 16 116/62 94 05/16/16 04:00 05/16/16 08:00 05/16/16 08:00 05/16/16 08:00 05/16/16 08:00 Laboratory Results 05/16/16 08:00 05/16/16 08:00 05/15/16 05/16/16 05/17/16 05:59 05:59 05:59 Intake Total 2861 1431 Output Total 700 125 Balance 2161 1306 Cultures negative, urine cultures negative Respiratory viral PCR positive for parainfluenza 3 - Physical Exam General Appearance: no apparent distress, obese EENT: No scleral icterus, No thrush Respiratory: crackles (Bilateral lung hector) Cardiac/Chest: regular rate, rhythm Extremities: other Abdomen: non-tender, soft Skin: No rash ICD10 Worksheet Patient Problems: Problems Problem Status Onset Altered mental status Acute Aspiration of food Acute Palliative care encounter Acute Respiratory distress Acute Altered mental status Acute Chronic Disease Mgmt/Transitional Care Acute History of DVT (deep vein thrombosis) Acute MRSA (methicillin resistant Staphylococcus aureus) Acute 05/16/15 Pneumonia Acute Sepsis Acute UTI (urinary tract infection) Acute
--- NOTE | 2016-05-16 14:27 | PDINTPN ---
Diving Board Assembler Progress Note Assessment/Plan: Assessment: Sepsis, with hypotension, resolved. Admitted from senior care on 05/12. Probably more secondary to a urinary source as opposed to pulmonary. However she did aspirate and does have cough and what appears to be an aspiration bronchitis/minimal pneumonia. Altered mental status: Improved. She is on multiple psych medications for bipolar disorder. Her family requests that these be re-evaluated and given only if needed. 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 She does have a diagnosis of underlying dementia as well as bipolar, but apparently no significant adjustments in medications have been made for many years. Status post aspiration: Improving pulmonary status. Please see the comments above. On appropriate antibiotics for an aspiration pneumonia. Urinary tract infection: No growth but clear pyuria on admission. On appropriate antibiotics. Id following. Edema/anasarca. She came in with much of this. Input greater than output. Will need diuresis. History of multiple medical problems including dementia, bipolar disorder, etc. History of pulmonary embolism: On Coumadin. INR remains low. On enoxaparin as well until INR comes up.. GI prophylaxis: Pantoprazole Plan: Can transfer to a medical-surgical bed today. Continue active bronchopulmonary therapies. Antibiotics will be continued to complete a 7 day course. Per Infectious Disease. Avoid excessive intravenous fluids and continue diuresis. Follow chest x-ray intermittently and laboratory. Mobilize as possible. 35 minutes of critical care time spent directly with the patient. Discussed with patient's son, nursing, RT, Hospitalist, and the ICU multi disciplinary team. Subjective: Feels better. More alert. Much less coughing. No mucus. Denies shortness of breath. Denies significant pain Objective: Vital Signs Temp Pulse Resp BP Pulse Ox 36.4 C 72 16 116/62 94 05/16/16 04:00 05/16/16 08:00 05/16/16 08:00 05/16/16 08:00 05/16/16 08:00 Laboratory Results 05/16/16 08:00 05/16/16 08:00 05/15/16 05/16/16 05/17/16 05:59 05:59 05:59 Intake Total 2861 1431 Output Total 700 125 Balance 2161 1306 PT 15.5 SEC (12.0-15.0) H 05/16/16 05:50 INR 1.23 (0.83-1.16) H 05/16/16 05:50 Physical Exam - Physical Exam General Appearance: alert, no apparent distress, obese EENT: PERRL/EOMI, other (Nasal cannula in place at 2 L) Neck: normal inspection (Large neck, short. No obvious JVD) Respiratory: lungs clear (Anteriorly), decreased breath sounds (At bases), rales (Few, present at bases), No rhonchi, No wheezing Cardiac/Chest: regular rate, rhythm Abdomen: normal bowel sounds, non-tender, soft (Obese) Pelvic Exam: other (Hernández catheter in place, decreased urine output. Input greater than output over the last several days.) Skin: warm/dry, pallor Extremities: pedal edema, swelling (Anasarca) Neuro/Psych: no motor/sensory deficits (Moves all extremities weakly), alert, oriented x 3, No cognition abnormalities (Much improved, brighter, quicker responses) ICD10 Worksheet Patient Problems: Problems Problem Status Onset Pneumonia Acute History of DVT (deep vein thrombosis) Acute UTI (urinary tract infection) Acute Chronic Disease Mgmt/Transitional Care Acute MRSA (methicillin resistant Staphylococcus aureus) Acute 05/16/15 Sepsis Acute Altered mental status Acute Respiratory distress Acute Aspiration of food Acute Altered mental status Acute Palliative care encounter Acute
[2016-05-16] MEDS: FUROSEMIDE 40 MG/4 ML VIAL IVP SCH ×2 (14:43)
--- NOTE | 2016-05-16 14:46 | HOSPPROG ---
Hospitalist Progress Note Assessment/Plan: * Septic shock (POA) -IV Levophed gtt - weaned off -source - PNA vs. UTI - NH acquired -empiric meropenem x 7 days * Staghorn calculus - removed by Dr. Mcgarry -no recurrent stone on CT * UGIB - EGD without source - unclear if truely GIB vs. iron therapy -PPI -tolerating resumption of anticoagulation * ABL anemia - follow * Acute respiratory failure - due to sepsis -Improved * Parainfluenza - isolation * Elevated troponin - due to sepsis * Edema - IV lasix * Metabolic encephalopathy -son feels she is overmedicated at [facility] -requests hold of Abilify, Depakote, scheduled narcotics * Breast cancer -Arimidex * Bipolar -hold Depakote * h/o PE -on lovenox - watch for recurrence of GIB -warfarin restarting * Obesity BMI 32 * WC bound - Cecy lift transfers -son desires rehab Subjective: no new complaints Objective: Vital Signs Temp Pulse Resp BP Pulse Ox 36.4 C 72 16 116/62 92 05/16/16 04:00 05/16/16 08:00 05/16/16 08:00 05/16/16 08:00 05/16/16 11:33 Laboratory Results 05/16/16 08:00 05/16/16 08:00 05/15/16 05/16/16 05/17/16 05:59 05:59 05:59 Intake Total 2861 1431 Output Total 700 125 Balance 2161 1306 PT 15.5 SEC (12.0-15.0) H 05/16/16 05:50 INR 1.23 (0.83-1.16) H 05/16/16 05:50 d/w Alexander Gustafson regarding stability for med/surg tele: NSR - Physical Exam Constitutional: no apparent distress, appears nourished, not in pain Cardiovascular: regular rate and rhythym, no murmur, rub, or gallop, edema (3+) Respiratory: no respiratory distress, no rales or rhonchi, clear to auscultation Gastrointestinal: normoactive bowel sounds, soft, non-tender abdomen, no palpable masses Skin: no rashes or abrasions, no fluctuance, no induration Neurologic: AAOx3, sensation intact bilaterally Psychiatric: interacting appropriately, not anxious, not encephalopathic, thought process linear ICD10 Worksheet Patient Problems: Problems Problem Status Onset Altered mental status Acute Aspiration of food Acute Palliative care encounter Acute Respiratory distress Acute Altered mental status Acute Chronic Disease Mgmt/Transitional Care Acute History of DVT (deep vein thrombosis) Acute MRSA (methicillin resistant Staphylococcus aureus) Acute 05/16/15 Pneumonia Acute Sepsis Acute UTI (urinary tract infection) Acute
[2016-05-16] MEDS: WARFARIN SODIUM 3 MG TAB PO SCH (15:47)
[2016-05-16 21:00] LABS: POTASSIUM 3.5 mEq/L (3.5-5.2)
[2016-05-16] MEDS: MELATONIN 3 MG TAB PO SCH (21:07)
[2016-05-16] MEDS: ATORVASTATIN CALCIUM 40 MG TAB PO SCH (21:07)
[2016-05-16] MEDS: oxyCODONE IR 5 MG TAB PO PRN (21:26)
[2016-05-17 04:20] LABS: % IMMATURE GRANULYOCYTES 0.5 % (0.0-1.1); ABSOLUTE IMMATURE GRANULOCYTES 0.02 10^3/uL (0.00-0.10); ADD DIFF? NO; ADD MORPH? NO; ADD SCAN? NO; ATYPICAL LYMPHOCYTE FLAG 90 (0-99); FRAGMENT RBC FLAG 0 (0-99); HEMATOCRIT 26.7 % (38.0-47.0); HEMOGLOBIN 8.9 g/dL (12.6-16.3); LEFT SHIFT FLG 0 (0-99); LIPEMIA HEMOLYSIS FLAG 80 (0-99); MEAN CELL HEMOGLOBIN CONCENTR. 33.3 g/dL (32.4-36.7); MEAN PLATELET VOLUME 9.4 fL (8.7-11.7); PLATELET CLUMPS FLAG 30 (0-99); PLATELET COUNT 112 10^3/uL (150-400); RED BLOOD CELL COUNT 2.78 10^6/uL (4.18-5.33); RED CELL DISTRIBUTION WIDTH 13.6 % (11.5-15.2)
[2016-05-17 04:29] LABS: INR 1.12 (0.83-1.16); PROTIME(PATIENT) 14.3 SEC (12.0-15.0)
[2016-05-17 04:37] LABS: ANION GAP 8 mEq/L (8-16); CALCIUM 7.4 mg/dL (8.5-10.4); CARBON DIOXIDE 25 mEq/l (22-31); CHLORIDE 111 mEq/L (97-110); CREATININE 0.6 mg/dL (0.6-1.0); GLOMERULAR FILTRATION RATE > 60; GLUCOSE 82 mg/dL (70-100); MAGNESIUM 1.6 mg/dL (1.6-2.3); POTASSIUM 3.5 mEq/L (3.5-5.2); SODIUM 144 mEq/L (134-144)
[2016-05-17] MEDS: MEROPENEM 1 GM in NS 100 ML IV SCH ×3 (06:25→21:45)
[2016-05-17] MEDS: LEVOTHYROXINE 88 MCG TAB PO SCH (06:25)
[2016-05-17] MEDS ORDERED: POTASSIUM CL 10 MEQ TAB PO ONE (07:13)
[2016-05-17] MEDS: ANASTROZOLE 1 MG TAB PO SCH (08:21)
[2016-05-17] MEDS: SENNOSIDES/DOCUSATE SODIUM TAB PO SCH (08:21)
[2016-05-17] MEDS: PANTOPRAZOLE SODIUM 40 MG TAB PO SCH (08:22)
[2016-05-17] MEDS: MEMANTINE HCL 5 MG TAB PO SCH ×2 (08:22→21:44)
[2016-05-17] MEDS: FERROUS SULFATE 325 MG TAB PO SCH ×2 (08:22→21:44)
[2016-05-17] MEDS: ENOXAPARIN 80 MG/0.8 ML SYR SC SCH ×2 (08:22→21:44)
[2016-05-17] MEDS: FLUoxetine 20 MG CAP PO SCH (08:22)
[2016-05-17] MEDS: FUROSEMIDE 40 MG/4 ML VIAL IVP SCH ×2 (08:23→14:08)
[2016-05-17] MEDS: POLYETHYLENE GLYCOL 3350 17 GM PKT PO SCH (08:30)
[2016-05-17] MEDS: guaiFENesin 600 MG TAB.ER PO SCH ×2 (08:33→21:44)
[2016-05-17] MEDS: BIOTENE DRY MOUTH MOUTHWASH 237 ML BTL MM SCH (08:33)
[2016-05-17] MEDS: CALCIUM CARBONATE 500 MG CHEWABLE TAB PO SCH ×3 (08:33→21:44)
[2016-05-17] MEDS: LIDOCAINE TP SCH ×3 (08:34→17:20)
--- NOTE | 2016-05-17 12:18 | PCMIDPN ---
Assessment/Plan: 1. Parainfluenza 3 upper respiratory infection with secondary aspiration pneumonia: She is much better. Continue droplet precautions for parainfluenza. Continue meropenem to complete a 7 day course in the setting of a significant aspiration event and critical illness upon presentation. No new recommendations. 05/16/16 13:34 05/17/16 12:16 Subjective: Much better overall. Still coughing, but less. No diarrhea. Marked improvement in her level of alertness after antipsychotics were stopped. Objective: Meropenem 1 g IV q.8 hours day 4. Out of 7 Afebrile Vital Signs Temp Pulse Resp BP Pulse Ox 36.5 C 78 16 115/71 97 05/17/16 07:59 05/17/16 07:59 05/17/16 07:59 05/17/16 07:59 05/17/16 07:59 Laboratory Results 05/17/16 04:10 05/17/16 04:10 05/16/16 05/17/16 05/18/16 05:59 05:59 05:59 Intake Total 1431 880 Output Total 125 Balance 1306 880 - Physical Exam General Appearance: alert, no apparent distress, obese Respiratory: crackles (Poor inspiratory effort) Skin: other (PICC line right upper extremity looks fine.), No rash ICD10 Worksheet Patient Problems: Problems Problem Status Onset Altered mental status Acute Aspiration of food Acute Palliative care encounter Acute Respiratory distress Acute Altered mental status Acute Chronic Disease Mgmt/Transitional Care Acute History of DVT (deep vein thrombosis) Acute MRSA (methicillin resistant Staphylococcus aureus) Acute 05/16/15 Pneumonia Acute Sepsis Acute UTI (urinary tract infection) Acute
--- NOTE | 2016-05-17 12:58 | PDINTPN ---
Employment Manager Progress Note Assessment/Plan: Assessment: Sepsis, with hypotension, resolved. Admitted from longterm on 05/12. Probably more secondary to a urinary source as opposed to pulmonary. However she did aspirate and did have a clinical aspiration bronchitis/minimal pneumonia. Altered mental status: Improved. She was on multiple psych medications for bipolar disorder. Her family has requested that these be re-evaluated and given only if needed. 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 She does have a diagnosis of underlying dementia as well as bipolar, but apparently no significant adjustments in medications have been made for many years. Status post aspiration: Improving pulmonary status. Please see the comments above. On meropenem. She has some residual congestion on the right side but relatively normal pulmonary status otherwise. Urinary tract infection: No growth but clear pyuria on admission. On meropenem. Id following. Edema/anasarca. She came in with much of this. On Lasix. Will need ongoing diuresis.. History of multiple medical problems including dementia, bipolar disorder, wheelchair bound, obesity, etc. History of pulmonary embolism: On Coumadin. INR continues to drop despite increased Coumadin. On enoxaparin as well until INR comes up.. GI prophylaxis: Pantoprazole Plan: Can transfer to a medical-surgical bed today. Continue active bronchopulmonary therapies. Antibiotics will be continued to complete a 7 day course. Per Infectious Disease. Avoid excessive intravenous fluids and continue diuresis. Follow chest x-ray intermittently as needed, and laboratory. Mobilize as possible. 30 minutes of critical care time spent directly with the patient. Discussed with pt, nursing, RT, Hospitalist, and the ICU multi disciplinary team. Subjective: Up in the chair. Brighter, quicker in her responses. Appropriate. Denies significant pulmonary congestion. Still has some. Able to bring up a small amount of mucus. Objective: Vital Signs Temp Pulse Resp BP Pulse Ox 36.5 C 78 16 115/71 97 05/17/16 07:59 05/17/16 07:59 05/17/16 07:59 05/17/16 07:59 05/17/16 07:59 Laboratory Results 05/17/16 04:10 05/17/16 04:10 05/16/16 05/17/16 05/18/16 05:59 05:59 05:59 Intake Total 1431 880 Output Total 125 Balance 1306 880 PT 14.3 SEC (12.0-15.0) 05/17/16 04:10 INR 1.12 (0.83-1.16) 05/17/16 04:10 Laboratory Tests 05/17/16 04:10 Calcium 7.4 L Magnesium 1.6 Physical Exam - Physical Exam General Appearance: alert, no apparent distress, obese EENT: PERRL/EOMI, other (Nasal cannula at 2 L) Neck: normal inspection (Short neck, no obvious JVD) Respiratory: decreased breath sounds (In decreased exertion), rhonchi (Some rhonchi, congestion on the right side), No wheezing Cardiac/Chest: regular rate, rhythm, other (Distant heart tones) Abdomen: normal bowel sounds, non-tender, soft (Obese) Pelvic Exam: other Skin: warm/dry, pallor Extremities: pedal edema, swelling Neuro/Psych: cognition abnormalities (Improving mental status. Still responds slowly), No no motor/sensory deficits (Moves slowly, tremor more on the left, globally weak) ICD10 Worksheet Patient Problems: Problems Problem Status Onset Pneumonia Acute History of DVT (deep vein thrombosis) Acute UTI (urinary tract infection) Acute Chronic Disease Mgmt/Transitional Care Acute MRSA (methicillin resistant Staphylococcus aureus) Acute 05/16/15 Sepsis Acute Altered mental status Acute Respiratory distress Acute Aspiration of food Acute Altered mental status Acute Palliative care encounter Acute
[2016-05-17] MEDS ORDERED: WARFARIN SODIUM 3 MG TAB PO SCH (13:00)
[2016-05-17] MEDS ORDERED: POLYETHYLENE GLYCOL 3350 17 GM PKT PO PRN (13:00)
--- NOTE | 2016-05-17 13:04 | HOSPPROG ---
Hospitalist Progress Note Assessment/Plan: * Septic shock (POA) -IV Levophed gtt - weaned off -source - aspiration PNA vs. UTI - NH acquired -empiric meropenem x 7 days * Acute respiratory failure - due to sepsis -Improved * Parainfluenza - isolation * Elevated troponin - due to sepsis * Edema - IV lasix -check US RUE * Metabolic encephalopathy -son feels she is overmedicated at SNF -requests hold of Abilify, Depakote, scheduled narcotics -much more alert - now alert and orientated x 4 -son requests PT/OT at discharge * Staghorn calculus - removed by Dr. Mcgarry -no recurrent stone on CT * UGIB - EGD without source - unclear if truely GIB vs. iron therapy -PPI -tolerating resumption of anticoagulation * ABL anemia - follow * Breast cancer -Arimidex * Bipolar -hold Depakote as above -has been on Depakote for years with re-evaluation of ongoing need * h/o PE -on lovenox - watch for recurrence of GIB -warfarin restarting * Non-Hodgkin lymphoma s/p stem cell transplant -in remission for years * Obesity BMI 32 * WC bound - Cecy lift transfers -son desires rehab - PT/OT * Diarrhea - hold scheduled laxatives -check Cdiff Subjective: No complaints. Objective: Vital Signs Temp Pulse Resp BP Pulse Ox 36.5 C 78 16 115/71 97 05/17/16 07:59 05/17/16 07:59 05/17/16 07:59 05/17/16 07:59 05/17/16 07:59 Laboratory Results 05/17/16 04:10 05/17/16 04:10 05/16/16 05/17/16 05/18/16 05:59 05:59 05:59 Intake Total 1431 880 Output Total 125 Balance 1306 880 PT 14.3 SEC (12.0-15.0) 05/17/16 04:10 INR 1.12 (0.83-1.16) 05/17/16 04:10 case d/w Dr. Baxter - patient has PICC and my go back to SNF any time from ID standpoint - Physical Exam Constitutional: no apparent distress, appears nourished, not in pain Cardiovascular: regular rate and rhythym, no murmur, rub, or gallop, edema (3+) Respiratory: no respiratory distress, no rales or rhonchi, clear to auscultation Gastrointestinal: normoactive bowel sounds, soft, non-tender abdomen, no palpable masses Skin: no rashes or abrasions, no fluctuance, no induration Neurologic: AAOx3, sensation intact bilaterally Psychiatric: interacting appropriately, not anxious, not encephalopathic, thought process linear ICD10 Worksheet Patient Problems: Problems Problem Status Onset Altered mental status Acute Aspiration of food Acute Palliative care encounter Acute Respiratory distress Acute Altered mental status Acute Chronic Disease Mgmt/Transitional Care Acute History of DVT (deep vein thrombosis) Acute MRSA (methicillin resistant Staphylococcus aureus) Acute 05/16/15 Pneumonia Acute Sepsis Acute UTI (urinary tract infection) Acute
[2016-05-17] MEDS: WARFARIN SODIUM 4 MG TAB PO SCH (17:04)
[2016-05-17 19:10] LABS: POTASSIUM 3.6 mEq/L (3.5-5.2)
[2016-05-17] MEDS: ATORVASTATIN CALCIUM 40 MG TAB PO SCH (21:44)
[2016-05-17] MEDS: MELATONIN 3 MG TAB PO SCH (21:44)
[2016-05-18] MEDS ORDERED: POTASSIUM CL 10 MEQ TAB PO ONE ×3 (00:08→20:00)
[2016-05-18 04:44] LABS: % IMMATURE GRANULYOCYTES 1.1 % (0.0-1.1); ABSOLUTE IMMATURE GRANULOCYTES 0.05 10^3/uL (0.00-0.10); ABSOLUTE NRBC COUNT 0.03 10^3/uL (0-0.01); ADD DIFF? NO; ADD MORPH? NO; ADD SCAN? NO; ATYPICAL LYMPHOCYTE FLAG 70 (0-99); FRAGMENT RBC FLAG 0 (0-99); HEMATOCRIT 26.8 % (38.0-47.0); LEFT SHIFT FLG 10 (0-99); LIPEMIA HEMOLYSIS FLAG 80 (0-99); MEAN CELL HEMOGLOBIN 32.6 pg (27.9-34.1); MEAN CELL HEMOGLOBIN CONCENTR. 33.6 g/dL (32.4-36.7); MEAN CELL VOLUME 97.1 fL (81.5-99.8); MEAN PLATELET VOLUME 9.8 fL (8.7-11.7); NRBC-AUTO% 0.7 % (0.0-0.2); PLATELET CLUMPS FLAG 0 (0-99); PLATELET COUNT 126 10^3/uL (150-400); RED BLOOD CELL COUNT 2.76 10^6/uL (4.18-5.33); RED CELL DISTRIBUTION WIDTH 13.4 % (11.5-15.2)
[2016-05-18] MEDS: LEVOTHYROXINE 88 MCG TAB PO SCH (05:03)
[2016-05-18] MEDS: MEROPENEM 1 GM in NS 100 ML IV SCH ×2 (05:03→14:57)
[2016-05-18 05:04] LABS: ANION GAP 6 mEq/L (8-16); CALCIUM 7.6 mg/dL (8.5-10.4); CARBON DIOXIDE 31 mEq/l (22-31); CHLORIDE 107 mEq/L (97-110); CREATININE 0.6 mg/dL (0.6-1.0); GLOMERULAR FILTRATION RATE > 60; GLUCOSE 85 mg/dL (70-100); MAGNESIUM 1.4 mg/dL (1.6-2.3); POTASSIUM 3.5 mEq/L (3.5-5.2); SODIUM 144 mEq/L (134-144)
[2016-05-18 05:08] LABS: INR 1.17 (0.83-1.16); PROTIME(PATIENT) 14.9 SEC (12.0-15.0)
[2016-05-18] MEDS: HYDROCORTISONE 100 MG/2 ML VIAL IVP SCH (07:43)
--- NOTE | 2016-05-18 08:25 | HOSPPROG ---
Hospitalist Progress Note Assessment/Plan: #Septic shock: UTI vs. Aspiration PNA. Meropenem x 7 days #Acute hypoxemic resp failure: improved, on 1L #Acute metabolic/toxic encephalopathy: resolved -per son, overmedicated at SNF #Edema -RUE U/S negative. Cont IV lasix #UGIB: unclear source. Cont PPI, H/H stable #Staghorn calculus: removed by Dr. Mcgarry #Elevated troponin: due to demand with acute critical illness #Breast cancer: Arimidex #h/o PE: restarted coumadin, on Lovenox. Watch for bleeding #Bipolar: per son, requests Abilify and Depakote to be held due to oversedation #Non-Hodgkins: s/p stem cell transplant, remission #Wheelchair bound #Acute blood loss anemia: H/H stable #Diet: dysphagia #DVT ppx: coumadin, Lovenox #Disp: med-surg Patient is new to my care today; I have reviewed prior notes, lab, and imaging. Subjective: mild cough today Objective: Vital Signs Temp Pulse Resp BP Pulse Ox 36.4 C 83 16 155/83 H 94 05/18/16 07:48 05/18/16 07:48 05/18/16 07:48 05/18/16 07:48 05/18/16 07:48 Microbiology 05/12/16 19:15 Blood Culture - Final Blood 05/12/16 18:40 Blood Culture - Final Blood Laboratory Results 05/18/16 04:23 05/18/16 04:23 05/17/16 05/18/16 05/19/16 05:59 05:59 05:59 Intake Total 880 436 Output Total 1 Balance 880 435 PT 14.9 SEC (12.0-15.0) 05/18/16 04:23 INR 1.17 (0.83-1.16) H 05/18/16 04:23 - Physical Exam Constitutional: no apparent distress, other (sitting up in chair) Eyes: PERRL, EOMI Ears, Nose, Mouth, Throat: moist mucous membranes, hearing normal Cardiovascular: regular rate and rhythym, no murmur, rub, or gallop, edema ( ankles, BL feet) Respiratory: no respiratory distress, reduced air movement (decreased at bases) Gastrointestinal: normoactive bowel sounds Genitourinary: no bladder fullness Skin: warm Musculoskeletal: generalized weakness Neurologic: AAOx3, CN II-XII Intact ICD10 Worksheet Patient Problems: Problems Problem Status Onset Altered mental status Acute Aspiration of food Acute Palliative care encounter Acute Respiratory distress Acute Altered mental status Acute Chronic Disease Mgmt/Transitional Care Acute History of DVT (deep vein thrombosis) Acute MRSA (methicillin resistant Staphylococcus aureus) Acute 05/16/15 Pneumonia Acute Sepsis Acute UTI (urinary tract infection) Acute
[2016-05-18] MEDS: PANTOPRAZOLE SODIUM 40 MG TAB PO SCH (08:47)
[2016-05-18] MEDS: ANASTROZOLE 1 MG TAB PO SCH (08:47)
[2016-05-18] MEDS: FERROUS SULFATE 325 MG TAB PO SCH ×2 (08:47→21:23)
[2016-05-18] MEDS: ENOXAPARIN 80 MG/0.8 ML SYR SC SCH ×2 (08:47→21:22)
[2016-05-18] MEDS: CALCIUM CARBONATE 500 MG CHEWABLE TAB PO SCH ×3 (08:47→21:22)
[2016-05-18] MEDS: MEMANTINE HCL 5 MG TAB PO SCH ×2 (08:48→22:36)
[2016-05-18] MEDS: FUROSEMIDE 40 MG/4 ML VIAL IVP SCH ×2 (08:48→16:03)
[2016-05-18] MEDS: FLUoxetine 20 MG CAP PO SCH (08:48)
[2016-05-18] MEDS: guaiFENesin 600 MG TAB.ER PO SCH ×2 (08:48→21:23)
[2016-05-18] MEDS: BIOTENE DRY MOUTH MOUTHWASH 237 ML BTL MM SCH (08:48)
[2016-05-18] MEDS ORDERED: MAGNESIUM SULF 2 GM/WATER 50 ML IV ONE (10:21)
[2016-05-18] MEDS: LIDOCAINE TP SCH ×3 (10:52→22:43)
--- NOTE | 2016-05-18 12:03 | PCMIDPN ---
Assessment/Plan: Assessment/Plan: * Parainfluenza pneumonitis with superimposed aspiration pneumonia: Now completed 5 days of meropenem. White blood cell count decreased with more lymphocytic predominance. 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 Will therefore discontinue meropenem after 5 days given prominent diarrhea and clinical improvement. * Diarrhea: Likely antibiotic associated. C difficile toxin is negative. Will sign off. Please call with questions or for recurrent symptomatology. 05/18/16 11:59 Subjective: Patient feels clinically improved with decreased cough. Complains of frequent diarrhea. Objective: Vital Signs Temp Pulse Resp BP Pulse Ox 36.4 C 83 16 155/83 H 94 05/18/16 07:48 05/18/16 07:48 05/18/16 07:48 05/18/16 07:48 05/18/16 07:48 Microbiology 05/12/16 19:15 Blood Culture - Final Blood 05/12/16 18:40 Blood Culture - Final Blood Laboratory Results 05/18/16 04:23 05/18/16 04:23 05/17/16 05/18/16 05/19/16 05:59 05:59 05:59 Intake Total 880 436 Output Total 1 Balance 880 435 Meropenem # 5 Stool C difficile toxin PCR negative - Physical Exam General Appearance: alert, no apparent distress EENT: No scleral icterus, No thrush Respiratory: coarse breath sounds (Bilaterally) Cardiac/Chest: regular rate, rhythm, systolic murmur (2/6 left upper sternal border) Extremities: No inflammation Abdomen: non-tender, No distended ICD10 Worksheet Patient Problems: Problems Problem Status Onset Altered mental status Acute Aspiration of food Acute Palliative care encounter Acute Respiratory distress Acute Altered mental status Acute Chronic Disease Mgmt/Transitional Care Acute History of DVT (deep vein thrombosis) Acute MRSA (methicillin resistant Staphylococcus aureus) Acute 05/16/15 Pneumonia Acute Sepsis Acute UTI (urinary tract infection) Acute
[2016-05-18] MEDS: WARFARIN SODIUM 4 MG TAB PO SCH (15:59)
[2016-05-18 19:04] LABS: POTASSIUM 3.5 mEq/L (3.5-5.2)
[2016-05-18] MEDS: MELATONIN 3 MG TAB PO SCH (21:22)
[2016-05-18] MEDS: ATORVASTATIN CALCIUM 40 MG TAB PO SCH (21:22)
[2016-05-19] MEDS: LEVOTHYROXINE 88 MCG TAB PO SCH (05:59)
[2016-05-19 06:12] LABS: HEMATOCRIT 27.6 % (38.0-47.0); HEMOGLOBIN 9.1 g/dL (12.6-16.3); MEAN CELL HEMOGLOBIN 32.4 pg (27.9-34.1); MEAN CELL VOLUME 98.2 fL (81.5-99.8); RED BLOOD CELL COUNT 2.81 10^6/uL (4.18-5.33); RED CELL DISTRIBUTION WIDTH 13.6 % (11.5-15.2)
[2016-05-19 06:54] LABS: MAGNESIUM 1.8 mg/dL (1.6-2.3); POTASSIUM 4.1 mEq/L (3.5-5.2)
--- NOTE | 2016-05-19 08:38 | HOSPPROG ---
Hospitalist Progress Note Assessment/Plan: #Septic shock: UTI vs. Aspiration PNA. Meropenem x 7 days #Acute hypoxemic resp failure: improved, on 1L #Acute metabolic/toxic encephalopathy: resolved -per son, overmedicated at [facility] #Septic shock: resolved. From parainfluenza and superimposed PNA. Completed 5- days Meropenem #Edema -RUE U/S negative. Cont IV lasix #UGIB: unclear source. Cont PPI, H/H stable #Staghorn calculus: removed by Dr. Mcgarry #Elevated troponin: due to demand with acute critical illness #Breast cancer: Arimidex #h/o PE: restarted coumadin, on Lovenox. Watch for bleeding #Bipolar: per son, requests Abilify and Depakote to be held due to oversedation #Non-Hodgkins: s/p stem cell transplant, remission #Wheelchair bound #Acute blood loss anemia: H/H stable #Diet: dysphagia #DVT ppx: coumadin, Lovenox #Disp: med-surg Patient is new to my care today; I have reviewed prior notes, lab, and imaging. Objective: Vital Signs Temp Pulse Resp BP Pulse Ox 36.3 C 73 18 152/86 H 93 05/19/16 08:00 05/19/16 08:00 05/19/16 08:00 05/19/16 08:00 05/19/16 08:00 Microbiology 05/12/16 19:15 Blood Culture - Final Blood 05/12/16 18:40 Blood Culture - Final Blood Laboratory Results 05/19/16 06:00 05/19/16 06:00 05/18/16 05/19/16 05/20/16 05:59 05:59 05:59 Intake Total 436 118 Output Total 1 Balance 435 118 PT 14.9 SEC (12.0-15.0) 05/18/16 04:23 INR 1.17 (0.83-1.16) H 05/18/16 04:23 ICD10 Worksheet Patient Problems: Problems Problem Status Onset Altered mental status Acute Aspiration of food Acute Palliative care encounter Acute Respiratory distress Acute Altered mental status Acute Chronic Disease Mgmt/Transitional Care Acute History of DVT (deep vein thrombosis) Acute MRSA (methicillin resistant Staphylococcus aureus) Acute 05/16/15 Pneumonia Acute Sepsis Acute UTI (urinary tract infection) Acute
[2016-05-19] MEDS ORDERED: MAGNESIUM SULF 1 GM/DEXTROSE 100 ML IV ONE (09:32)
--- NOTE | 2016-05-19 09:48 | WOCRNPDOC ---
WOCRN Advanced Assessment Note - Skin Integrity Problem, Advanced Assess Pannus Dermatitis Dressing Type: Open to Air Exudate Amount: None Exudate Characteristic(s): None Janneth Wound Tissue: Intact Janneth Wound Swelling: None Wound Bed Color: Red Skin Integrity Problem Comment: Partial-thickness tissue loss noted in base of pannus crease, consistent in appearance with itertriginous dermatitis. Supplied cytotechnologist/cytology supervisorFREDERICK Vanegas with clear zinc to reduce moisture and friction.
[2016-05-19] MEDS: guaiFENesin 600 MG TAB.ER PO SCH ×2 (10:18→21:21)
[2016-05-19] MEDS: ANASTROZOLE 1 MG TAB PO SCH (10:19)
[2016-05-19] MEDS: PANTOPRAZOLE SODIUM 40 MG TAB PO SCH (10:19)
[2016-05-19] MEDS: CALCIUM CARBONATE 500 MG CHEWABLE TAB PO SCH ×3 (10:19→21:28)
[2016-05-19] MEDS: FERROUS SULFATE 325 MG TAB PO SCH ×2 (10:20→21:21)
[2016-05-19] MEDS: FLUoxetine 20 MG CAP PO SCH (10:20)
[2016-05-19] MEDS: ACETAMINOPHEN 325 MG TAB PO PRN ×2 (10:23→18:33)
[2016-05-19] MEDS: ENOXAPARIN 80 MG/0.8 ML SYR SC SCH ×2 (10:27→21:21)
[2016-05-19] MEDS: FUROSEMIDE 40 MG/4 ML VIAL IVP SCH (10:28)
[2016-05-19] MEDS: BIOTENE DRY MOUTH MOUTHWASH 237 ML BTL MM SCH (10:46)
--- NOTE | 2016-05-19 11:10 | HOSPPROG ---
Hospitalist Progress Note Assessment/Plan: #Septic shock: UTI vs. Aspiration PNA. Meropenem x 7 days #Acute hypoxemic resp failure: improved, on 1L #Acute metabolic/toxic encephalopathy: resolved -per son, overmedicated at SNF -cont only Prozac #Septic shock: resolved. From parainfluenza and superimposed PNA. Completed 5- days Meropenem #Edema -RUE U/S negative. Change to PO Lasix #UGIB: unclear source. Cont PPI, H/H stable #Staghorn calculus: removed by Dr. Mcgarry #Elevated troponin: due to demand with acute critical illness #Breast cancer: Arimidex. Followed by [facility]. Per son has CT scan scheduled outpatient that she missed #h/o PE: restarted coumadin, on Lovenox. Will take time since was reversed with Vit K Watch for bleeding #Bipolar: per son, requests Abilify and Depakote to be held due to oversedation. Cont Prozac only #Non-Hodgkins: s/p stem cell transplant, remission #Wheelchair bound #Pannus dermatitis: wound care consulting #Acute blood loss anemia: H/H stable #Diet: dysphagia #DVT ppx: coumadin, Lovenox #Disp: if clinically stable, will DC to SNF tomorrow Goals: I spoke with son and updated him on clinical status and DC plan and he agreed with plan Subjective: minimal cough Objective: Vital Signs Temp Pulse Resp BP Pulse Ox 36.3 C 73 18 152/86 H 93 05/19/16 08:00 05/19/16 08:00 05/19/16 08:00 05/19/16 08:00 05/19/16 08:00 Microbiology 05/12/16 19:15 Blood Culture - Final Blood 05/12/16 18:40 Blood Culture - Final Blood Laboratory Results 05/19/16 06:00 05/19/16 06:00 05/18/16 05/19/16 05/20/16 05:59 05:59 05:59 Intake Total 436 118 Output Total 1 Balance 435 118 PT 14.9 SEC (12.0-15.0) 05/18/16 04:23 INR 1.17 (0.83-1.16) H 05/18/16 04:23 - Physical Exam Constitutional: no apparent distress Eyes: PERRL Ears, Nose, Mouth, Throat: moist mucous membranes Cardiovascular: regular rate and rhythym, edema (+2-3 edema in feet and ankles) Respiratory: no respiratory distress, rhonchi Gastrointestinal: normoactive bowel sounds, soft, non-tender abdomen Genitourinary: no bladder fullness Skin: warm Neurologic: AAOx3, CN II-XII Intact Psychiatric: interacting appropriately ICD10 Worksheet Patient Problems: Problems Problem Status Onset Altered mental status Acute Aspiration of food Acute Palliative care encounter Acute Respiratory distress Acute Altered mental status Acute Chronic Disease Mgmt/Transitional Care Acute History of DVT (deep vein thrombosis) Acute MRSA (methicillin resistant Staphylococcus aureus) Acute 05/16/15 Pneumonia Acute Sepsis Acute UTI (urinary tract infection) Acute
[2016-05-19] MEDS: MEMANTINE HCL 5 MG TAB PO SCH ×2 (12:59→21:21)
[2016-05-19] MEDS: LIDOCAINE TP SCH ×3 (12:59→21:29)
[2016-05-19] MEDS: ALTEPLASE 2 MG VIAL IVP PRN (13:01)
[2016-05-19 15:35] LABS: INR 1.49 (0.83-1.16)
[2016-05-19] MEDS: FUROSEMIDE 40 MG TAB PO SCH (18:31)
[2016-05-19] MEDS: WARFARIN SODIUM 4 MG TAB PO SCH (18:31)
[2016-05-19] MEDS: oxyCODONE IR 5 MG TAB PO PRN (19:53)
[2016-05-19] MEDS: ATORVASTATIN CALCIUM 40 MG TAB PO SCH (21:21)
[2016-05-19] MEDS: MELATONIN 3 MG TAB PO SCH (21:21)
[2016-05-20] MEDS: LEVOTHYROXINE 88 MCG TAB PO SCH (04:50)
[2016-05-20 05:05] LABS: INR 1.75 (0.83-1.16); PROTIME(PATIENT) 20.5 SEC (12.0-15.0)
[2016-05-20 08:26] VITALS: BP 133/88; PULSE 75; RESP 18; TEMP 97.9; O2SAT 94
[2016-05-20] MEDS: MEMANTINE HCL 5 MG TAB PO SCH (08:40)
[2016-05-20] MEDS: FERROUS SULFATE 325 MG TAB PO SCH (08:42)
[2016-05-20] MEDS: FLUoxetine 20 MG CAP PO SCH (08:43)
[2016-05-20] MEDS: ANASTROZOLE 1 MG TAB PO SCH (08:43)
[2016-05-20] MEDS: FUROSEMIDE 40 MG TAB PO SCH (08:44)
[2016-05-20] MEDS: guaiFENesin 600 MG TAB.ER PO SCH (08:46)
[2016-05-20] MEDS: PANTOPRAZOLE SODIUM 40 MG TAB PO SCH (08:46)
[2016-05-20] MEDS: ENOXAPARIN 80 MG/0.8 ML SYR SC SCH (08:47)
[2016-05-20] MEDS: CALCIUM CARBONATE 500 MG CHEWABLE TAB PO SCH (08:49)
[2016-05-20] MEDS: BIOTENE DRY MOUTH MOUTHWASH 237 ML BTL MM SCH (08:51)
--- NOTE | 2016-05-20 09:37 | PDIAF ---
- Diagnosis Diagnosis: Sepsis, Parainfluenza Code Status: Full Code - Medication Management Discharge Medications: Medications to Continue on Transfer Acetaminophen [Tylenol ES 500 mg (*)] 500 mg PO Q6 PRN 05/16/15 [Last Taken ] Albuterol [Proventil Neb] 3 ml IH Q6 PRN 05/16/15 [Last Taken Unknown] Atorvastatin Calcium [Lipitor 40 mg (*)] 40 mg PO HS 05/16/15 [Last Taken ] Calcium Carbonate [Tums 500MG (*)] 500 mg PO Q2 PRN 05/16/15 [Last Taken Unknown ] Ferrous Sulfate [Ferrous Sulf 325 MG (*)] 325 mg PO BID 05/16/15 [Last Taken 09:00] Gluc Oxid/l-Peroxid/Muramidase [Biotene Mouthwash (*)] 30 ml MM DAILY 05/16/15 [ Last Taken 12/06/15] LORazepam [Ativan (*)] 0.5 mg PO BID PRN 05/16/15 [Last Taken 12/05/15] Levothyroxine [Synthroid 88 mcg (*)] 88 mcg PO DAILY06 05/16/15 [Last Taken ] Lidocaine [Lidocaine 5% oint] 1 van TP TID 05/16/15 [Last Taken 12/06/15 12:00] Magnesium Hydroxide [Milk of Magnesia (*)] 30 ml PO Q8 PRN 05/16/15 [Last Taken 11/19/15] Melatonin [Melatonin 3 MG (*)] 3 mg PO HS 05/16/15 [Last Taken 12/05/15] Nystatin Powder [Mycostatin Powder] 1 van TP Q6 PRN 05/16/15 [Last Taken Unknown ] Sennosides/Docusate Sodium [Senna-Docusate Sodium Tablet] 2 each PO BID [Last Taken Unknown] guaiFENesin [Mucinex 600 MG (*)] 600 mg PO BID 05/16/15 [Last Taken 12/06/15 09: 00] guaiFENesin/DEXTROMETHORPHAN [Robitussin Dm Oral Liquid (*)] 10 ml PO Q6 PRN 08/23 [Last Taken Unknown] Ondansetron HCl [Zofran] 4 mg PO Q4 PRN 08/15/15 [Last Taken 11/20/15] Anastrozole [Arimidex 1 mg (*)] 1 mg PO DAILY 12/06/15 [Last Taken 12/06/15] Cholecalciferol Vit D3 [Vitamin D3 (*)] 5,000 units PO DAILY 12/06/15 [Last Taken 12/06/15] FLUoxetine [Prozac 20 MG (*)] 20 mg PO DAILY 12/06/15 [Last Taken 12/06/15] Herbals/Supplements -Info Only 1 ea PO DAILY 12/06/15 [Last Taken Unknown] oxyCODONE IR [Oxycodone Ir (*)] 5 mg PO BID 12/06/15 [Last Taken 12/06/15 12:00] oxyCODONE IR [Oxycodone Ir (*)] 5 mg PO Q6 PRN 12/06/15 [Last Taken Unknown] Loperamide HCl [Loperamide] 2 mg PO PRN PRN 05/12/16 [Last Taken Unknown] Olopatadine 0.1% [Patanol 0.1%] 1 drops EACHEYE BID PRN 05/12/16 [Last Taken Unknown] Sodium Cl Nasal Gel [Pulteney Saline Nasal Gel] 1 van TP TID PRN 05/12/16 [Last Taken Unknown] Calcium Carbonate [Tums 500MG (*)] 500 mg PO TID #0 tab.chew 05/19/16 [Last Taken Unknown] Enoxaparin [Lovenox 80 MG (*)] 80 mg SC BID #0 syr 05/19/16 [Last Taken Unknown] Melatonin [Melatonin 3 MG (*)] 3 mg PO HS #0 tab 05/19/16 [Last Taken Unknown] Memantine HCl [Namenda 5 mg (*)] 10 mg PO BID #0 tab 05/19/16 [Last Taken Unknown] Pantoprazole Sodium [Protonix 40mg (*)] 40 mg PO DAILY #0 tab 05/19/16 [Last Taken Unknown] Warfarin Sodium [Coumadin 4MG (*)] 8 mg PO DAILY16 #0 tab 05/19/16 [Last Taken Unknown] Discharge Medications: Refer to the Discharge Home Medication list for PRN reason. - Orders Services needed: Registered Nurse, Certified Gis Geographer, Master Malt House Kiln Operator , Physical Therapy, Occupational Therapy Diet Recommendation: other (dysphagia) Diet Texture: Dysphagia 3 - Advanced - Moist, Bite-Size, Thin Liquids, Meds Whole in Puree - Labs/Radiology PT/INR Date: 05/21/16 (goal 2-3 with h/o PE. ) - Follow Up Care Current Providers and Referrals: Patient,NotPresent [Unknown] - As per Instructions Cory Sharpe MD [Medical Doctor] -
[2016-05-20] MEDS: LIDOCAINE TP SCH (10:49)
[2016-05-20] MEDS: oxyCODONE IR 5 MG TAB PO PRN (12:51)
--- NOTE | 2016-05-20 13:27 | GDS ---
[f rep st] DISCHARGE SUMMARY DISCHARGE DIAGNOSES: 1. Septic shock. 2. Acute hypoxemic respiratory failure. 3. Parainfluenza. 4. Acute metabolic/toxic encephalopathy. 5. Edema. 6. Upper GI bleed. 7. Staghorn calculus. 8. Elevated troponin. 9. Breast cancer. 10. History of pulmonary embolism. 11. Bipolar disorder. 12. History of non Hodgkin disease status post stem cell transplant, in remission. 13. Wheelchair bound. 14. Pannus dermatitis. 15. Acute blood loss anemia. HISTORY OF PRESENT ILLNESS: Patient is a 71-year-old female with history of invasive ductal carcinoma, bipolar disorder, dementia and history of PE who was brought from [facility] after an aspiration event. She was eating soup with noodles at lunchtime and then aspirated. She was suctioned well but was subsequently sent here. Per nurse at [facility], patient was in normal state of health the day prior and she is normally talkative and responsive. She does have dementia but she is normally alert and oriented times 1-2. Also reports of a cough for the past several days. HOSPITAL COURSE BY PROBLEM: 1. Aspiration event: Patient was initially requiring 8-10 L on nonrebreather at admission. There was no evidence of pneumonia initially on x-ray. 2. Acute hypoxemic respiratory failure secondary to parainfluenza pneumonitis and superimposed aspiration pneumonia: Patient was evaluated by Infectious Disease. Completed 5 days of meropenem. 3. Diarrhea likely secondary to antibiotics: C difficile was negative. 4. Acute metabolic/toxic encephalopathy: This is secondary initially to infection. Also per son's report, she is overmedicated at the SNF with her bipolar medications. This has since resolved. Patient is now alert and oriented x3. The only psych medication we will continue at this time will be Prozac and Namenda. 5. Septic shock secondary to parainfluenza and superimposed pneumonia. Completed antibiotics as stated above. 6. Edema: There was more concern of the right upper extremity. Ultrasound was negative for DVT. Patient was diuresed with IV Lasix here. Will change to low-dose oral at discharge. 7. Staghorn calculus: This was removed by Dr. Badillo. 8. Elevated troponin: Initially elevated to 0.1. This is likely demand in the setting of acute illness. No ischemic changes on EKG. Patient does not warrant further cardiac evaluation at this time. On second day of admission, patient had a significant drop in her hemoglobin with less than 7. EGD was performed without evidence of acute bleeding. Patient's H and H has been stable. 9. Acute blood loss anemia: Again suspected upper GI bleed with no evidence of active bleeding on scope. 10. Dysphagia: Continue dysphagia diet. 11. Dementia: Just continuing her Namenda. 12. History of breast cancer: Continue Arimidex. Patient is followed by Dr. Sharpe and is to follow up for CT in next couple of weeks. 13. History of pulmonary embolism: Coumadin was reversed with FFP given and has required a bridge. INR today is 1.75. Stop Lovenox once INR 2. 14. Bipolar disease: was on several sedating medications and son voiced concerned. Have held most of her medications and her mental status is the best he has seen in years. Per discussion, will continue Namenda and Prozac. 15. Wheelchair bound: Continue PT/OT as tolerated. 16. Patient is stable for discharge. FOLLOWUP: 1. Check INR. Once 2, may discontinue low. 2. Follow up with Dr. Sharpe for routine screening CT for breast cancer. 3. CBC to ensure anemia is stable. /[id number]/MODL MTDD
--- NOTE | 2016-05-20 14:29 | HOSPPROG ---
Hospitalist Progress Note Assessment/Plan: S: minimal cough today O: Gen NAD HEENT: PERRLA, EOMI CV: RRR, +1- ankle/pedal edema Lungs: few crackles at bases GI: soft, NT, ND, +BS : no lo [place]: moving all 4 extremities Neuro: no focal deficits Psych: A&O x 3 Plan: see DC summary. DC to [facility] care today Objective: Vital Signs Temp Pulse Resp BP Pulse Ox 36.6 C 75 18 133/88 H 94 05/20/16 08:00 05/20/16 08:00 05/20/16 08:00 05/20/16 08:00 05/20/16 08:00 Laboratory Results 05/19/16 06:00 05/19/16 06:00 05/19/16 05/20/16 05/21/16 05:59 05:59 05:59 Intake Total 768 Balance 768 PT 20.5 SEC (12.0-15.0) H 05/20/16 04:45 INR 1.75 (0.83-1.16) H 05/20/16 04:45 ICD10 Worksheet Patient Problems: Problems Problem Status Onset Altered mental status Acute Altered mental status Acute Aspiration of food Acute Chronic Disease Mgmt/Transitional Care Acute History of DVT (deep vein thrombosis) Acute MRSA (methicillin resistant Staphylococcus aureus) Acute 05/16/15 Palliative care encounter Acute Pneumonia Acute Respiratory distress Acute Sepsis Acute UTI (urinary tract infection) Acute
--- NOTE | 2016-06-09 08:44 | GPN ---
[f rep st] PROCEDURE NOTE DATE OF PROCEDURE: 05/14/2016 PREPROCEDURE DIAGNOSIS: Upper gastrointestinal bleeding. POSTPROCEDURE DIAGNOSIS: Normal upper endoscopy, unexplained source of gastrointestinal bleeding. PROCEDURE: Upper endoscopy. MEDICATIONS: Monitored anesthesia care. INDICATIONS: The patient is a 71-year-old female with a history of breast cancer, mastectomy, dementia, bipolar, and history of pulmonary embolism on Coumadin, who was unresponsive and in septic shock. She also had a drop in hemoglobin and melena. We were asked to do an emergent upper endoscopy for evaluation of possible upper GI blood loss. The risks and the benefits of the procedure were discussed with the patient's power of attorney lawyer and consent obtained. The risks include, but not limited to, bleeding, perforation, and risk related to sedation. The patient is ASA class 3. DESCRIPTION OF PROCEDURE: The upper endoscope was inserted into the esophagus, into the stomach, and the second portion of the duodenum. The esophagus appears normal. There is no evidence of esophagitis, varices, or Rosas's. The stomach is normal. There is no evidence of a bleeding source. The duodenum and second portion were normal. No blood found in the upper GI tract. IMPRESSION: Normal upper endoscopy without source of gastrointestinal bleeding found. RECOMMENDATIONS: 1. Continue IV PPI drip. 2. Serial hemoglobin checks. 3. Depending on her clinical course and if she bleeding continues, we may need to proceed with further investigation for the source of GI bleeding, which may include a tagged red blood cell scan versus capsule endoscopy. 4. Thank you for the consultation. /[id number]/MODL MTDD
== END 2016-05-20 13:43 | DRG 871 ==
LOC: EDUNIT# → F2N 16:33 → F3E 05-18 14:45
PROVIDERS: ADMIT Internal Medicine; ATTEND Internal Medicine
PROC: 02HV33Z Insertion of Infusion Device into Superior Vena Cava, Percutaneous Approach (ICD-10-PCS; 2016-05-12)
PROC: 0DJ08ZZ Inspection of Upper Intestinal Tract, Via Natural or Artificial Opening Endoscopic (ICD-10-PCS; principal; 2016-05-15)
DX: A41.9 Sepsis, unspecified organism (principal); R65.21 Severe sepsis with septic shock; N39.0 Urinary tract infection, site not specified; J69.0 Pneumonitis due to inhalation of food and vomit; J10.1 Influenza due to other identified influenza virus with other respiratory manifestations; J96.01 Acute respiratory failure with hypoxia; G92 Toxic encephalopathy; R13.10 Dysphagia, unspecified; K92.2 Gastrointestinal hemorrhage, unspecified; D62 Acute posthemorrhagic anemia; N20.0 Calculus of kidney; I10 Essential (primary) hypertension; M79.3 Panniculitis, unspecified; F31.9 Bipolar disorder, unspecified; E03.9 Hypothyroidism, unspecified; F03.90 Unspecified dementia, unspecified severity, without behavioral disturbance, psychotic disturbance, mood disturbance, and anxiety; Z86.711 Personal history of pulmonary embolism; Z79.01 Long term (current) use of anticoagulants; Z85.72 Personal history of non-Hodgkin lymphomas; Z99.3 Dependence on wheelchair; Z85.3 Personal history of malignant neoplasm of breast
CPT/HCPCS: 82947-QW; 92523-GN; 92526-GN; 92610-GN; 96374; 97110-GP; 97162-GP; 97167-GO; 97530-GO; 97530-GP; 97532-GO; 97535-GO; C1751; G8978-GP-CN; G8979-GP-CL; G8987-GO-CL; G8988-GO-CJ; G8996-GN-CJ; G8997-GN-CI; G9168-GO-CI; G9169-GN-CI; G9170-GN-CI; J0171; J0696; J1650; J2185; J2310; J2405; J2704; J2997; J3370; J3430; J3475; P9017; Q9967

== ENCOUNTER → 2016-12-30 | Outpatient (CLI) | payer OTHER, MEDICAID | LOC: BRMIMAGING 13:01 | PROVIDERS: ATTEND Internal Medicine Hematology & Oncology | DX: Z13.820 Encounter for screening for osteoporosis (principal); M81.0 Age-related osteoporosis without current pathological fracture; C50.411 Malignant neoplasm of upper-outer quadrant of right female breast; E07.9 Disorder of thyroid, unspecified ==

== ENCOUNTER 2017-05-26 08:38 | Inpatient (IN) | payer MEDICAID, OTHER ==
[2017-05-26] MEDS ORDERED: NS 1,000 ML IV ONE (08:54)
--- NOTE | 2017-05-26 08:54 | EDPHY ---
[facility] Time Seen by Provider: 05/26/17 08:38 HPI/ROS: CHIEF COMPLAINT: Altered mental status HISTORY OF PRESENT ILLNESS: Patient was brought in by EMS after being found altered at [facility]. Apparently she was her normal self at 7:30 a.m.. On arrival the EMS reports a lateral gaze and unresponsive not moving any extremities. Further history and review of systems is unobtainable on arrival because the patient is obtunded. PAST MEDICAL HISTORY: History and physical dated 05/12/2016 and discharge summary dated 05/23/2016 personally reviewed includes breast cancer, bipolar, left bundle branch block, dementia, wheelchair bound with chronic pain, history of pulmonary embolism, lymphoma, hypertension. Bilateral mastectomy, spinal fusion, right total knee. Social history: Social history from the &P notes wheelchair bound and lives at [facility]. Per EMS she is still full code. General Appearance: Patient is obtunded Eyes: Pupils are reactive but right lateral gaze intermittently on my exam ENT, Mouth: Patient has some blood in her oral pharynx from a nasal airway placed in the pre-hospital setting. Respiratory: Bilateral rhonchi and abdominal breathing with increased respiratory rate and decreased air movement. Cardiovascular: Regular rate and rhythm. Tachycardic Gastrointestinal: Abdomen is soft and non tender. Neurological: Patient is obtunded and will not open her eyes spontaneously or to voice or to pain. Will not move any extremity. Does not vocalize. Skin: Warm and dry, no rashes. Musculoskeletal: No peripheral edema. Psychiatric: Unobtainable, nonverbal. Emergency Department course/MDM: Patient is gurgling on arrival and is not protecting her airway. Patient is intubated emergently for airway protection and transport to CT delayed because of that. Her temperature initially is 40.5 degrees C rectally, I think that acute infection is much more likely than stroke, stroke activation is downgraded. 914: Patient has bilateral chest infiltrates on x-ray, had tolerated meropenem during previous admission. Most likely to be aspiration as this happened just after eating. IV meropenem 1 g after blood and urine cultures. 924: Lactate noted as 2.2, repeated with sepsis fluid bolus. ICU admission. Discussed with the son who is present at this time. He does relate a history of her having some respiratory distress yesterday or even the day before and chest x-ray being performed yesterday. His account is that the symptoms of lethargy and respiratory difficulty of been going on for more than just this morning. 1005: 93% oxygen saturation on 60% FiO2, urinalysis reviewed but should be covered by meropenem. Culture sent, her elevated temperature could be due to urosepsis or also pulmonary infection. On Xarelto, PE would be unlikely. 1036: Up until now patient has been tolerating the endotracheal tube but now has a couple extra spontaneous breaths, 50 mcg IV fentanyl. Smoking Status: Never smoked Constitutional: Initial Vital Signs Temperature (C) 40.5 C H 05/26/17 08:40 Heart Rate 132 H 05/26/17 08:40 Respiratory Rate 14 05/26/17 08:40 Blood Pressure 148/80 H 05/26/17 08:40 O2 Sat (%) 99 05/26/17 08:40 O2 Delivery Mode Ventilator,Humidified O2 (L/minute) 15 Allergies/Adverse Reactions: Penicillins Allergy (Mild, Verified 12/04/15 13:00) Rash REG Inhibitors Allergy (Verified 12/04/15 13:00) Hives clavulanic acid Allergy (Verified 12/04/15 13:00) Home Medications: Medication Instructions Recorded Acetaminophen [Tylenol ES 500 mg 500 mg PO Q6 PRN 05/16/15 (*)] Albuterol [Proventil Neb] 3 ml IH Q6HRS 05/16/15 Atorvastatin Calcium [Lipitor 40 40 mg PO HS 05/16/15 mg (*)] Calcium Carbonate [Tums 500MG (*)] 500 mg PO Q2 PRN 05/16/15 Ferrous Sulfate [Ferrous Sulf 325 325 mg PO BID 05/16/15 MG (*)] Gluc Oxid/l-Peroxid/Muramidase 30 ml MM DAILY 05/16/15 [Biotene Mouthwash (*)] LORazepam [Ativan (*)] 0.5 mg PO HS 05/16/15 Levothyroxine [Synthroid 88 mcg 88 mcg PO DAILY06 05/16/15 (*)] Lidocaine [Lidocaine 5% oint] 1 van TP TID 05/16/15 Magnesium Hydroxide [Milk of 30 ml PO Q8 PRN 05/16/15 Magnesia (*)] Melatonin [Melatonin 3 MG (*)] 3 mg PO HS 05/16/15 guaiFENesin [Mucinex 600 MG (*)] 600 mg PO BID 05/16/15 guaiFENesin/DEXTROMETHORPHAN 10 ml PO Q6 PRN 05/16/15 [Robitussin Dm Oral Liquid (*)] Ondansetron HCl [Zofran] 4 mg PO Q4 PRN 08/15/15 Anastrozole [Arimidex 1 mg (*)] 1 mg PO DAILY 12/06/15 Cholecalciferol Vit D3 [Vitamin D3 5,000 units PO DAILY 12/06/15 (*)] FLUoxetine [Prozac 20 MG (*)] 20 mg PO DAILY 12/06/15 oxyCODONE IR [Oxycodone Ir (*)] 5 mg PO BID 12/06/15 oxyCODONE IR [Oxycodone Ir (*)] 5 mg PO Q6 PRN 12/06/15 Loperamide HCl [Loperamide] 2 mg PO PRN PRN 05/12/16 Olopatadine 0.1% [Patanol 0.1%] 1 drops EACHEYE BID PRN 05/12/16 Sodium Cl Nasal Gel [Lithia Saline 1 van TP TID PRN 05/12/16 Nasal Gel] Pantoprazole Sodium [Protonix 40mg 40 mg PO DAILY #0 tab 05/19/16 (*)] Furosemide [Lasix 20 MG (*)] 20 mg PO DAILY #30 tab 05/20/16 ARIPiprazole [Abilify 10 mg (*)] 10 mg PO DAILY 05/26/17 Carboxymethylcellulose 1% [Refresh 1 drop EACHEYE TID 05/26/17 Celluvisc (*)] Diclofenac Sodium 1% [Voltaren Gel 4 gm TD TID 05/26/17 (*)] Divalproex ER [Depakote ER 250 MG 250 mg PO DAILY 05/26/17 (*)] Divalproex ER [Depakote ER 500 MG 500 mg PO HS 05/26/17 (*)] Memantine HCl [Namenda 10 mg] 10 mg PO BID 05/26/17 Polyethylene Glycol 3350 [Miralax 17 gm PO DAILY PRN 05/26/17 17 gm (*)] Rivaroxaban [Xarelto 10mg (*)] 20 mg PO DAILY@14 05/26/17 Medical Decision Making - Diagnostics EKG Interpretation: 12-lead EKG interpreted by me; official reading is in trace master. My interpretation is sinus tachycardia rate 134 with left bundle branch block. Imaging Results: Imaging Impressions Chest X-Ray 05/26/17 08:54 Impression: Acceptable ET tube position. Head CT 05/26/17 08:54 Impression: 1. No acute intracranial pathology. 2. Stable mild parenchymal atrophy and chronic microvascular white matter changes. 3. Chronic fluid opacification of the mastoid air cells. Findings were communicated by telephone with Dr. SUHA EDWARDS at 05/26/2017 9:18 Imaging: Discussed imaging studies w/ family practice nurse practitioner Radiologist, I viewed and interpreted images myself Procedures: Indication for the procedure was airway protection. Consent is implied as the patient is obtunded and per EMS she is full cor. The patient was preoxygenated with 100% oxygen by face mask. The patient was sedated with etomidate and paralyzed with Justin around a.m.. The patient was orally endotracheally intubated under direct visualization with a 8.0 ETT. Tracheal intubation was confirmed with misting on the tube; breath sounds were auscultated equally bilaterally; appropriate color change with [place] Tidal CO2 detector, capnography waveform is appropriate, oxygen saturation after procedure is 98%. Chest X-ray shows ETT in good position. The procedure was performed by myself. Consult/Admit Bed Type: [place] [id number] Critical Care Time: Critical care time spent by me, Dr. Edwards, exclusively with the care of this patient was 45 minutes, exclusive of PA or PRODUCT MARKETING CONSULTANT time and exclusive of separate procedures including intubation. The organ system at risk was pulmonary and infectious and I ordered IV fluids and multiple diagnostics, IV antibiotics, supplemental oxygen to stabilize the patient and prevent worsening of the patient's condition. - Data Points Laboratory Results: Laboratory Results 05/26/17 08:45 05/26/17 08:45 05/26/17 05/26/17 05/26/17 09:20 09:20 08:49 WBC RBC Hgb POC Hgb 13.9 gm/dL gm/dL (12.6-16.3) Hct POC Hct 41 % % (38-47) MCV MCH MCHC RDW Plt Count MPV Neut % (Auto) Lymph % (Auto) [place] % (Auto) Eos % (Auto) Baso % (Auto) Nucleat RBC Rel Count Absolute Neuts (auto) Absolute Lymphs (auto) Absolute Monos (auto) Absolute Eos (auto) Absolute Basos (auto) Absolute Nucleated RBC Immature Gran % Immature Gran # PT INR APTT Puncture Site RIGHT RADIAL Patient Temperature 40.0 DEGREES DEGREES pCO2 53 mmHg H mmHg (34-38) pO2 217 mmHg H mmHg (65-75) Total CO2 26 mEq/L mEq/L (23-27) ABG pH 7.31 L (7.35-7.45) ABG PO2/FiO2 Ratio 217 RATIO RATIO ABG HCO3 25 mEq/L mEq/L (22-26) ABG O2 Saturation 99 % H % (92-95) ABG Base Excess -0.5 mEq/L mEq/L (-2.5-2.5) VBG Lactic Acid 2.7 mmol/L H mmol/L (0.7-2.1) O2 Concentration % 100 % % (0-100) Set Respiration Rate 12 SIMV YES Tidal Volume 440 PEEP 5 Pressure Support 7 POC Sodium 133 mEq/L L mEq/L (135-145) Sodium POC Potassium 4.0 mEq/L mEq/L (3.3-5.0) Potassium POC Chloride 92 mEq/L L mEq/L (97-110) Chloride Carbon Dioxide Anion Gap POC BUN 19 mg/dL mg/dL (7-23) BUN Creatinine POC Creatinine 1.0 mg/dL mg/dL (0.6-1.0) Estimated GFR Glucose POC Glucose 106 mg/dL H mg/dL (70-100) Calcium Total Bilirubin Troponin I 05/26/17 05/26/17 05/26/17 08:45 08:45 08:45 WBC 7.97 10^3/uL 10^3/uL (3.80-9.50) RBC 3.87 10^6/uL L 10^6/uL (4.18-5.33) Hgb 13.1 g/dL g/dL (12.6-16.3) POC Hgb Hct 39.0 % % (38.0-47.0) POC Hct MCV 100.8 fL H fL (81.5-99.8) MCH 33.9 pg pg (27.9-34.1) MCHC 33.6 g/dL g/dL (32.4-36.7) RDW 13.2 % % (11.5-15.2) Plt Count 103 10^3/uL L 10^3/uL (150-400) MPV 9.4 fL fL (8.7-11.7) Neut % (Auto) 64.4 % % (39.3-74.2) Lymph % (Auto) 29.9 % % (15.0-45.0) [place] % (Auto) 3.8 % L % (4.5-13.0) Eos % (Auto) 1.1 % % (0.6-7.6) Baso % (Auto) 0.3 % % (0.3-1.7) Nucleat RBC Rel Count 0.0 % % (0.0-0.2) Absolute Neuts (auto) 5.14 10^3/uL 10^3/uL (1.70-6.50) Absolute Lymphs (auto) 2.38 10^3/uL 10^3/uL (1.00-3.00) Absolute Monos (auto) 0.30 10^3/uL 10^3/uL (0.30-0.80) Absolute Eos (auto) 0.09 10^3/uL 10^3/uL (0.03-0.40) Absolute Basos (auto) 0.02 10^3/uL 10^3/uL (0.02-0.10) Absolute Nucleated RBC 0.00 10^3/uL 10^3/uL (0-0.01) Immature Gran % 0.5 % % (0.0-1.1) Immature Gran # 0.04 10^3/uL 10^3/uL (0.00-0.10) PT 18.4 SEC H SEC (12.0-15.0) INR 1.51 H (0.83-1.16) APTT 40.5 SEC H SEC (23.0-38.0) Puncture Site Patient Temperature pCO2 pO2 Total CO2 ABG pH ABG PO2/FiO2 Ratio ABG HCO3 ABG O2 Saturation ABG Base Excess VBG Lactic Acid O2 Concentration % Set Respiration Rate SIMV Tidal Volume PEEP Pressure Support POC Sodium Sodium 132 mEq/L L mEq/L (135-145) POC Potassium Potassium 4.6 mEq/L mEq/L (3.5-5.2) POC Chloride Chloride 92 mEq/L L mEq/L (97-110) Carbon Dioxide 27 mEq/l mEq/l (22-31) Anion Gap 13 mEq/L mEq/L (8-16) POC BUN BUN 18 mg/dL mg/dL (7-23) Creatinine 0.9 mg/dL mg/dL (0.6-1.0) POC Creatinine Estimated GFR > 60 Glucose 95 mg/dL mg/dL (70-100) POC Glucose Calcium 8.7 mg/dL mg/dL (8.5-10.4) Total Bilirubin 0.7 mg/dL mg/dL (0.1-1.4) Troponin I 0.025 ng/mL ng/mL (0.000-0.034) 05/26/17 08:45 WBC RBC Hgb POC Hgb Hct POC Hct MCV MCH MCHC RDW Plt Count MPV Neut % (Auto) Lymph % (Auto) [place] % (Auto) Eos % (Auto) Baso % (Auto) Nucleat RBC Rel Count Absolute Neuts (auto) Absolute Lymphs (auto) Absolute Monos (auto) Absolute Eos (auto) Absolute Basos (auto) Absolute Nucleated RBC Immature Gran % Immature Gran # PT INR APTT Puncture Site Patient Temperature pCO2 pO2 Total CO2 ABG pH ABG PO2/FiO2 Ratio ABG HCO3 ABG O2 Saturation ABG Base Excess VBG Lactic Acid 2.2 mmol/L H mmol/L (0.7-2.1) O2 Concentration % Set Respiration Rate SIMV Tidal Volume PEEP Pressure Support POC Sodium Sodium POC Potassium Potassium POC Chloride Chloride Carbon Dioxide Anion Gap POC BUN BUN Creatinine POC Creatinine Estimated GFR Glucose POC Glucose Calcium Total Bilirubin Troponin I Medications Given: Acetaminophen (Tylenol Rectal) 650 mg [place] Q4HRS PRN PRN Reason: Pain, Mild/Fever,Can't Take PO Stop: 11/22/17 10:10 Last Admin: 05/26/17 10:13 Dose: 650 mg Discontinued Medications Fentanyl (Sublimaze) 50 mcg IVP EDNOW ONE Stop: 05/26/17 10:35 Last Admin: 05/26/17 10:37 Dose: 50 mcg Sodium Chloride (Ns) 1,000 mls @ 0 mls/hr IV ONCE ONE; Wide Open PRN Reason: Protocol Stop: 05/26/17 08:55 Last Admin: 05/26/17 08:54 Dose: 1,000 mls Meropenem 1 gm/ Sterile Water 20 mls @ 240 mls/hr IV EDNOW ONE PRN Reason: Protocol Stop: 05/26/17 09:24 Last Admin: 05/26/17 09:36 Dose: 20 mls Sodium Chloride (Ns) 2,800 mls @ 5,600 mls/hr 30 ml/kg infuse over 30 min ( 2800 ml) IV EDNOW ONE PRN Reason: Protocol Stop: 05/26/17 10:03 Last Admin: 05/26/17 09:40 Dose: 2,800 mls Point of Care Test Results: 05/26/17 08:49 POC Sodium 133 L POC Potassium 4.0 POC Chloride 92 L POC BUN 19 POC Creatinine 1.0 POC Glucose 106 H Departure - Departure Disposition: [facility] Inpatient Acute Clinical Impression: Encephalopathy acute Pneumonia Qualifiers: Pneumonia type: aspiration pneumonia Aspiration pneumonia type: unspecified Laterality: bilateral Lung location: unspecified part of lung Qualified Code(s) : J69.0 - Pneumonitis due to inhalation of food and vomit Sepsis Qualifiers: Sepsis type: sepsis due to unspecified organism Qualified Code(s): A41.9 - Sepsis, unspecified organism Urinary tract infection Qualifiers: Urinary tract infection type: site unspecified Hematuria presence: with hematuria Qualified Code(s): N39.0 - Urinary tract infection, site not specified ; R31.9 - Hematuria, unspecified; R31.9 - Hematuria, unspecified Respiratory failure Qualifiers: Chronicity: acute on chronic Respiratory failure complication: hypoxia Qualified Code(s): J96.21 - Acute and chronic respiratory failure with hypoxia Condition: Critical
[2017-05-26] MEDS ORDERED: ROCURONIUM 100 MG/10 ML VIAL IVP ONE (08:55)
[2017-05-26] MEDS ORDERED: ETOMIDATE 40 MG/20 ML INJ IVP ONE ×2 (08:55→16:00)
[2017-05-26 09:00] LABS: PLATELET COUNT 103 10^3/uL (150-400)
[2017-05-26 09:11] LABS: INR 1.51 (0.83-1.16); PROTIME(PATIENT) 18.4 SEC (12.0-15.0)
[2017-05-26] MEDS ORDERED: MEROPENEM 1 GM in STERILE WATER INJ 20 ML IV ONE (09:20)
--- NOTE | 2017-05-26 09:27 | CPEKG ---
Heart Rate: 134 RR Interval: 448 P-R Interval: 224 QRSD Interval: 128 QT Interval: 348 QTC Interval: 520 P [place]: 0 QRS [place]: 12 T Wave [place]: 174 EKG Severity - ABNORMAL ECG - EKG Impression: SINUS TACHYCARDIA EKG Impression: FIRST DEGREE AV BLOCK EKG Impression: SHABBIR, CONSIDER BIATRIAL ABNORMALITIES EKG Impression: LEFT BUNDLE BRANCH BLOCK Electronically Signed By: Eamon Maldonado 26-May-2017 09:34:22
[2017-05-26] MEDS ORDERED: NS 2,800 ML IV ONE (09:34)
[2017-05-26] MEDS ORDERED: ALTEPLASE 2 MG VIAL IVP PRN (09:50)
[2017-05-26] MEDS ORDERED: ACETAMINOPHEN 650 MG SUPP PR PRN (10:11)
[2017-05-26] MEDS ORDERED: ACETAMINOPHEN 650 MG SUPP PR ONE (10:12)
[2017-05-26] MEDS ORDERED: fentaNYL 100 MCG/2 ML INJ IVP ONE (10:34)
[2017-05-26] MEDS ORDERED: ONDANSETRON 4 MG/2 ML VIAL IVP PRN (11:17)
[2017-05-26] MEDS ORDERED: ONDANSETRON DISINTEGRATING 4 MG TAB PO PRN (11:17)
[2017-05-26] MEDS ORDERED: ACETAMINOPHEN 325 MG TAB PO PRN (11:17)
[2017-05-26] MEDS: ENOXAPARIN 100 MG/ML SYR SC SCH ×2 (11:42→22:14)
[2017-05-26] MEDS: NS 1,000 ML IV SCH (11:51)
[2017-05-26] MEDS: VANCOMYCIN 1 GM in NS 250 ML IV SCH (12:01)
--- NOTE | 2017-05-26 12:05 | GHP ---
[f rep st] HISTORY AND PHYSICAL DATE OF ADMISSION: 05/26/2017 CHIEF COMPLAINT: Stroke alert. HISTORY OF PRESENT ILLNESS: This is a 72-year-old female who resides at [facility], who was brought in after being found unresponsive. EMS reported a lateral gaze, not moving any extremities. Thus, s he was brought in as a stroke alert. Apparently she was eating breakfast. There was some questionab le coughing prior to her becoming unresponsive. Also per chart review, her son had noted that she bass d been having some shortness of breath for a few days. When I am seeing her, she is completely unres ponsive. Notably, she is on Xarelto. She was last seen normal at 7:30 this morning. She had a similar sounding presentation here approximately 1 year ago. Her diagnoses at that time we re septic shock, respiratory failure and encephalopathy. Report per discharge summary that she was a lert and oriented x3 at baseline. She arrived to the ED with a nasal trumpet in place. There was noted to be some nasal trauma with so me bleeding. She was intubated shortly after arriving in the ED. PAST MEDICAL/SURGICAL HISTORY: 1. History of a right renal stone. 2. Invasive ductal carcinoma, status post mastectomy. 3. Bipolar disorder. 4. History of left bundle branch block. 5. Dementia. Reported in previous H and P as A and O x1-2 at baseline. 6. Wheelchair bound. 7. Chronic pain with continuous narcotic use. 8. History of pulmonary embolism, on anticoagulation. 9. Lymphoma. 10. Hypertension. 11. Hyperlipidemia. 12. Renal stents. 13. Spinal fusion. 14. Right TKA. MEDICATIONS: Please see medication reconciliation. ALLERGIES: Penicillin, REG inhibitors and clavulanic acid. SOCIAL HISTORY: She lives at [facility]. She is wheelchair bound. FAMILY HISTORY: Reviewed and noncontributory. REVIEW OF SYSTEMS: 10-point review of systems is unobtainable, given her current obtundation. PHYSICAL EXAM: VITAL SIGNS: Blood pressure 128/88, heart rate 138, respiration rate 16, saturating at 93% on ventilator settings 40% FiO2 and 5 of PEEP, temperature is 40.2. GENERAL: The patient is an obtunded female who is lying in bed. She opens her left eye to loud voice as well as a sternal ru b. HEENT: Shows her to have an endotracheal tube in place. She has some mild nasal trauma in her r ight naris. OG tube is being placed. CARDIOVASCULAR: Shows her to be tachycardic. I do not apprec iate any murmurs, rubs, or gallops. PULMONARY: Shows her to have diffuse rhonchi versus rales. She has coarse breath sounds. ABDOMEN: Soft. She does not grimace to deep palpation. SKIN: Shows no rash. : Shows no Hernández in place. NEUROLOGIC: Shows her to be completely obtunded. She did ope n her left eye to loud voice. I have not seen her move any extremities. LABS: White count is 7.9, platelets are 103. INR is 1.5. ABG is 7.31/53/25. Sodium is 132, creati nine is 0.9, potassium 4.6. Urinalysis shows 50-182 reds as well as whites, 3+ blood, 4+ bacteria. DATA: 1. I reviewed her chart including her previous admission as well as previous microbiology. 2. Head CT shows nothing acute. 3. Chest x-ray, which I personally reviewed and interpreted, shows potentially bilateral infiltrates , though she does not have a deep inspiration. Given everything, however, I do think that there are true infiltrates here. 4. EKG, which I personally reviewed and interpreted, shows sinus tachycardia with left bundle branch block, which is chronic. IMPRESSION AND PLAN: 1. Acute encephalopathy. Suspect that this is likely due to infection, given her significant fever. She is anticoagulated which would give her an absolute contraindication to tPA regardless. There w as no seizure-like activity reported. I think it is reasonable to treat her infection at this point and follow her clinical course. 2. Suspected aspiration pneumonia. Agree with Merrem as ordered in the emergency department. She h as previously had MRSA in her urine. Given her degree of illness, I will add vancomycin for coverage at this point. Blood cultures have been drawn and are pending. Respiratory pathogen panel is also pending at this time. 3. Acute hypoxic respiratory failure likely secondary to the above. She is currently intubated for airway protection. Will continue mechanical ventilation. Appreciate Pulmonary involvement. 4. Severe sepsis likely due to aspiration pneumonia. Also, consider urinary tract infection given t he appearance of her UA. She is broadly covered with antibiotics. She has received an appropriate b olus. She continues to be tachycardic, which may be either due to ongoing sepsis. Would consider an emia given her bleeding with what I believe is nasal trauma during potentially intubation. I think p ulmonary embolus is unlikely given her Xarelto use. Will follow her heart rate with appropriate flui d resuscitation. 5. Lactic acidosis. Lactate was rising after her initial check. Will put in a repeat check after h er fluid bolus is completed. 6. History of pulmonary embolism. She is on Xarelto. I will put her on Lovenox while she is intuba emma. 7. Dementia, holding Namenda. Will need to get her baseline. I am seeing differing reports in the chart of either A and O x1-2 versus A and O x3. 8. Chronic pain. Will hold opioids in the setting of encephalopathy. 9. Anxiety. Will hold her Ativan. 10. Bipolar disorder. Will give her psychiatric medications through her tube. 11. Left bundle branch block. Her EKG appears very similar to her previous. Will trend troponins. BILLING: I spent a total of 60 minutes of floor critical care time managing encephalopathy as well a s respiratory failure. /[id number]/MODL
[2017-05-26] MEDS ORDERED: NS 500 ML IV ONE (13:30)
[2017-05-26] MEDS: NOREPINEPHRINE BITARTRATE 4 MG in D5W 500 ML IV SCH ×2 (13:43→19:39)
[2017-05-26] MEDS: LANSOPRAZOLE SUSP 30MG/10ML UDSYR (Adult) TUBE SCH (14:05)
[2017-05-26] MEDS: VALPROIC ACID 250 MG/5 ML UDCUP TUBE SCH ×3 (14:05→22:59)
[2017-05-26] MEDS: PROPOFOL/EMULSION 100 ML IV SCH (14:06)
[2017-05-26] MEDS ORDERED: ACETAMINOPHEN 650 MG/20.3 ML UDCUP PO PRN (14:15)
[2017-05-26] MEDS ORDERED: LIDOCAINE 2% JELLY 5 ML TUBE TP ONE ×2 (14:15→14:20)
[2017-05-26] MEDS ORDERED: LIDOCAINE 1% 300 MG/30 ML SDV MISC ONE ×2 (14:15→14:20)
[2017-05-26] MEDS: MEROPENEM 1 GM in STERILE WATER INJ 20 ML IV SCH ×2 (14:55→22:59)
[2017-05-26] MEDS ORDERED: ONDANSETRON DISINTEGRATING 4 MG TAB TUBE PRN (15:00)
--- NOTE | 2017-05-26 15:06 | GCON ---
[f rep st] CONSULTATION CRITICAL CARE CONSULT DATE OF CONSULTATION: 05/26/2017 HISTORY OF PRESENT ILLNESS: This patient is a 72-year-old female, who is wheelchair bound, living, I believe, at [facility], who was brought in by EMS today because of obtundation and respiratory distr ess. She is intubated in the emergency department, so historical details are obtained from the emerg ency department records, as well as the patient's son. He said that he last spoke to her about a wee k ago. She seemed to be doing quite fine, was her normal self, with some fluctuation in mental statu s. Today, she apparently was found to be obtunded during shift change, but the ED report says that s he was her normal self at 0730. In any case, EMS was called and brought her to the hospital. Appare ntly, a nasal airway was attempted in route, resulting in some epistaxis and, when she arrived in the emergency department, was not protecting her airway and required intubation without difficulty. The re was blood reported in the posterior pharynx. In any case, she was also febrile to 40.5, and chest x-ray showed probable early perihilar infiltrates, though Radiology thought the x-ray was clear. Diana irizarry had a head CT which was negative. There was some discussion about whether or not she had been eati ng just prior to this event. It is very unclear to me if this is true. Last year in May, she did have an aspiration event, was treated with meropenem, needed a non-rebreather, but was not intubated. She had parainfluenza at that time. During that hospital stay, her hematocrit did drop. She had a n EGD which was negative. She was brought up to the intensive care unit, where she appeared to be relatively stable. Some darin r adjustments were made to her ventilator, but her blood pressure, which was normal on arrival, had d ropped to the mid 60s. She was given 500 of normal saline. Levophed was started but only 2 mcg/kg p er minute, and a NICOM showed a 30% improvement in stroke volume with a volume challenge. At that po int, she had already received a total of 4 L of normal saline. Additional volume was, therefore, rec ommended at that time. REVIEW OF SYSTEMS: Otherwise negative. PAST MEDICAL HISTORY: Includes: 1. Breast cancer which has been in remission, and she had mastectomies and Arimidex therapy. 2. She also had lymphoma quite a few years ago and eventually underwent chemotherapy and a stem cell transplant. Had no evidence of disease since 2008. 3. She has had frequent urinary tract infections. She did not have a indwelling catheter, but this is a frequent occurrence, according to her son. 4. Kidney stones. 5. Bipolar disorder. 6. Pulmonary embolism, the details of which are uncertain, but I think she was on Xarelto at the [facility]. There was oxygen involved in her care, but it is very unclear to me if that was daytime oxygen, n ighttime oxygen, or just with ambulation. 7. Left bundle branch block. 8. Chronic pain and some narcotic usage. 9. Hypertension. 10. Hyperlipidemia. 11. Dementia. 12. Thrombocytopenia. Her platelets were 118 in January of 2017, have been in the low 80s in the d istan past, and details of that are certainly unknown at this time. PAST SURGICAL HISTORY: Includes: 1. Bilateral mastectomy. 2. Total knee arthroplasty on the right. 3. Spinal fusion in the past. SOCIAL HISTORY: She is a nonsmoker. No alcohol or IV drug use and is wheelchair bound as described. FAMILY HISTORY: Noncontributory at this time. MEDICATIONS: Include Arimidex, Abilify, Lovenox, Prozac, Prevacid, Synthroid, meropenem, Levophed at 2 mcg as described, Zofran p.r.n., propofol drip, normal saline at 125 cc/hour, Depakene, and vancom ycin. PHYSICAL EXAMINATION: VITAL SIGNS: Her T-max and T current are 40.7. Blood pressure now is 93/60, heart rate of 124, appears to be sinus rhythm, respiratory rate 28, oxygen saturation 98% on 60% and 5 of PEEP on the ventilator. GENERAL: She was sedated and in no apparent distress at the time of my evaluation. HEENT: Pupils are equally round and reactive to light, nonicteric, and noninjected. T here was some blood in her Hi-Lo endotracheal tube output but none around her nares at this time. NE CK: Supple without adenopathy or jugular vein distention. LUNGS: Breath sounds were coarse bilater al without wheezing. HEART: Appeared to have a regular rate and rhythm without obvious murmur. ABD OMEN: Soft, nontender, nondistended without hepatosplenomegaly or palpable masses. EXTREMITIES: 2+ edema bilaterally without venous stasis changes. NEUROLOGIC: Grossly nonfocal. SKIN: Warm and dr y without rash. DATA REVIEWED: Includes the chest x-ray as described above. White count 7.9, hematocrit 39, platele ts of 103. INR 1.5. Blood gas shows pH 7.31, pCO2 of 53, PO2 of 217, bicarb 25, saturation 99% on V C Plus with a rate of 12, tidal volume 440, PEEP of 5. Sodium was 132, potassium 4.6, chloride 92, b icarb 27, BUN 18, creatinine 0.9, total bilirubin 0.7. Troponin was negative. Urinalysis shows 50-1 80 red cells and white cells, but 3+ leukocyte esterase and 4+ bacteria. Head CT was negative. EKG was negative. ASSESSMENT/PLAN: 1. Septic shock. She is certainly febrile at this time and has dropped her blood pressure since arr ival in the intensive care unit. Sepsis protocol has been initiated. Repeat lactate was 2.7 which w as the same as the initial lactate. She appears to be fluid responsive by noninvasive testing and so will give her some more fluids now, though her Levophed requirement is fairly low. I will also chec k an echocardiogram to make sure that there are no issues related to that. She will continue with Le vophed. We should titrate to a systolic blood pressure of at least 90. Continue with her antibiotic s. Follow up on her cultures. 2. Acute respiratory failure, requiring mechanical ventilation. This could be related to her human metapneumovirus or an as yet determined bacterial infection and/or pneumonia. She has had aspiration issues in the past that were quite similar, though did not require a ventilator. I think a bronchos copy is warranted at this time to either remove any blood that may be there and look for other food p articles. I discussed that with her son. He has given consent to do so. She is being treated with meropenem and vancomycin which I think is appropriate at this time. Her support currently is not exc essive. There is no evidence of adult respiratory distress syndrome at this time. 3. Positive urinalysis. This may be a urinary tract infection. She is treated with reasonable anti biotics. Will follow up on her urine cultures. 4. History of pulmonary embolism and possibly deep venous thrombosis in the past. She apparently wa s on Xarelto coming in. She is on Lovenox now. I will discuss this with the hospitalist team about w merrillher ongoing anticoagulation would be indicated. She already got the dose of Lovenox but, if she h as a lot of blood in her airways and shows evidence of ongoing bleeding, will have to hold that and ladonna yañezue other ideas. 5. Hypertension. She is obviously hypotensive now. Will continue to hold her medications. 6. Thrombocytopenia. This appears to be quite stable, chronic of hers. I am not sure exactly where that is from, but it has been there for several years and is at its baseline. A total of 75 minutes of critical care time was required in the evaluation of this patient, separate from procedures which are dictated separately. /[id number]/MODL
--- NOTE | 2017-05-26 15:11 | GPN ---
[f rep st] PROCEDURE NOTE DATE OF PROCEDURE: 05/26/2017 PROCEDURE PERFORMED: Bronchial washings. INDICATION: Respiratory failure and suspicion for aspiration. CONSENT: Informed consent was obtained from the patient's son prior to the administration of anesthe preston. The risks and benefits of conscious sedation, as well as the procedure, were explained in detai l. He agreed to proceed. SEDATION: Achieved using an existing propofol drip and topical lidocaine only. DESCRIPTION OF PROCEDURE: The bronchoscope was easily passed through a recently placed endotracheal tube without difficulty. The main trachea appeared to be relatively normal, though there were frothy , somewhat bloody secretions seen throughout the bronchial tree. There was no active bleeding seen. There were no clots within the airways. There were no food particles observed in either lung down t o the segmental airways. Specimens were collected and sent for culture, but otherwise, the patient t olerated the procedure well and there were no complications. /[id number]/MODL
[2017-05-26] MEDS ORDERED: ETOMIDATE 40 MG/20 ML INJ ONE (15:14)
--- NOTE | 2017-05-26 15:14 | PDMN ---
Medical Necessity Medical necessity: Pt meets IP criteria per MD; est los >2 mn for eval/tx of severe sepsis likely r/t suspected aspiration pneumonia, acute encephalopathy & hypoxic respiratory failure requiring mechanical ventilation; admit to ICU for further workup/close monitoring, Pulmonary consult, IV Propofol, IV abx & IVFs ; hx breast cancer, dementia, wheelchair bound, PE on AC, lymphoma, HTN; per H& P & order 05/26/17
[2017-05-26] MEDS ORDERED: ROCURONIUM 100 MG/10 ML VIAL ONE (15:15)
[2017-05-26] MEDS: ACETAMINOPHEN 650 MG/20.3 ML UDCUP TUBE PRN ×2 (15:53→23:44)
[2017-05-26] MEDS ORDERED: IBUPROFEN 600 MG TAB PO PRN (16:29)
[2017-05-26] MEDS ORDERED: IBUPROFEN SUSP 100 MG/5 ML UDCUP TUBE PRN (16:36)
[2017-05-26] MEDS ORDERED: VASOPRESSIN 25 UNIT in NS 250 ML IV SCH (19:00)
[2017-05-26] MEDS ORDERED: ALBUMIN 5% 500 ML BOTTLE IV ONE (21:09)
[2017-05-26] MEDS ORDERED: ALBUMIN 5% 500 ML IV ONE ×2 (21:30→23:00)
[2017-05-26] MEDS: CHLORHEXIDINE GLUCONATE 15 ML UDL PO SCH (22:59)
[2017-05-27] MEDS: VANCOMYCIN 1 GM in NS 250 ML IV SCH ×2 (00:39→12:14)
[2017-05-27] MEDS: NOREPINEPHRINE BITARTRATE 4 MG in D5W 500 ML IV SCH ×3 (03:08→15:11)
[2017-05-27] MEDS: VALPROIC ACID 250 MG/5 ML UDCUP TUBE SCH ×3 (05:52→22:50)
[2017-05-27] MEDS: MEROPENEM 1 GM in STERILE WATER INJ 20 ML IV SCH ×3 (06:00→23:38)
[2017-05-27] MEDS: LEVOTHYROXINE 88 MCG TAB TUBE SCH (06:00)
[2017-05-27] MEDS: PROPOFOL/EMULSION 100 ML IV SCH (06:18)
[2017-05-27 06:34] LABS: PLATELET COUNT 79 10^3/uL (150-400)
[2017-05-27 07:23] LABS: INR 1.56 (0.83-1.16); PROTIME(PATIENT) 18.8 SEC (12.0-15.0)
[2017-05-27] MEDS: ENOXAPARIN 100 MG/ML SYR SC SCH (08:51)
[2017-05-27] MEDS: ACETAMINOPHEN 650 MG/20.3 ML UDCUP TUBE PRN ×3 (08:56→21:16)
[2017-05-27] MEDS: CHLORHEXIDINE GLUCONATE 15 ML UDL PO SCH ×2 (08:56→21:18)
[2017-05-27] MEDS: FLUoxetine 20 MG CAP TUBE SCH (08:56)
[2017-05-27] MEDS: LANSOPRAZOLE SUSP 30MG/10ML UDSYR (Adult) TUBE SCH (08:56)
[2017-05-27] MEDS: ARIPiprazole 10 MG TAB TUBE SCH (08:56)
[2017-05-27] MEDS: ANASTROZOLE 1 MG TAB TUBE SCH (08:56)
[2017-05-27] MEDS: NS 1,000 ML IV SCH (08:58)
--- NOTE | 2017-05-27 11:06 | PDINTPN ---
Qa Test Lead Progress Note Assessment/Plan: Assessment/plan: 72 F with history of aspiration PNA 2017 admitted 05/25/17 after being found obtunded at SNF with rumor of additional aspiration (undocumented). An attempt at nasal intubation en route was unsucessful and she required ETT in the ED for airway protection. She apparently had cough several days prior to arival and has tested for human metapneumovirus. She also has a GNR growing from her urine with a history of frequent UTIs, and is wheel chair bound for unclear reasons ( no spinal cord injury). Shortly after arrival she became hypotensive with a lactate of 2.7 and required levophed to maintain BP. * Septic shock presumably from cystitis/UTI as well as hMPV. Her levo is at 8 mcg and vasopressin was added last PM. Target BP should be SBP>90. UOP OK and no KHUSHI. Echo pending * Acute respiratory failure with hypoxia and ventilatory support 2/2 MPV and contribution from epistaxis. She is more stable today and has been weaning on PS5/CPAP5 with an acceptable ABG. CXR with pulmonary edema likely from IVF ( additional albumin given last pm) vs MPV. S/P bronch 05/26 with thin frothy and bloody secretions c/w edema. Continue weaning for now until epistaxis addressed * epistaxis- likely related to traumatic nasal airway attempt. Hold lovenox and place rhino rocket for next 1-2 days. * UTI with GNR covered with meropenem. DC vancomycin. Interesting finding that procalcitonin is 0.09 in setting of UTI * Anemia- she was aggressively volume resuscitated and her epistaxis would not account for her drop in Hct from 39 to 27. No GIB apparent. Recheck HH this afternoon. * LFTs mildly elevated likely related to shock. Continue to observe. * thrombocytopenia- appears chronic and mild, though slightly lower today (? LMWH effect). Continue to observe * * critical care time 75 minutes 05/27/17 11:08 Subjective: Required increasing pressors overnight Objective: Vital Signs Temp Pulse Resp BP Pulse Ox 37.8 C 100 18 99/59 L 98 05/27/17 10:00 05/27/17 10:00 05/27/17 10:00 05/27/17 10:00 05/27/17 10:00 Microbiology 05/26/17 14:45 Gram Stain - Final Lung Bilateral - Bronchial Washings 05/26/17 09:43 Respiratory Panel (PCR) - Final Nasal, Sinus - Swab Human Metapneumovirus Detected Laboratory Results 05/27/17 06:12 05/27/17 06:12 05/26/17 05/27/17 05/28/17 05:59 05:59 05:59 Intake Total 4695.3 Output Total 725 Balance 3970.3 PT 18.8 SEC (12.0-15.0) H 05/27/17 06:45 INR 1.56 (0.83-1.16) H 05/27/17 06:45 Physical Exam - Physical Exam General Appearance: alert, no apparent distress EENT: PERRL/EOMI, ET tube Neck: supple Respiratory: lungs clear, normal breath sounds, decreased breath sounds, No respiratory distress, No accessory muscle use, No wheezing Cardiac/Chest: regular rate, rhythm, edema Abdomen: non-tender, soft, No distended Skin: normal color, warm/dry, No cyanosis Lymphatic: no adenopathy Extremities: pedal edema Neuro/Psych: alert, cognition abnormalities ICD10 Worksheet Patient Problems: Problems Problem Status Onset Encephalopathy acute Acute Pneumonia Acute Respiratory failure Acute Sepsis Acute UTI (urinary tract infection) Acute Altered mental status Acute Altered mental status Acute Aspiration of food Acute Chronic Disease Mgmt/Transitional Care Acute History of DVT (deep vein thrombosis) Acute MRSA (methicillin resistant Staphylococcus aureus) Acute 05/16/15 Palliative care encounter Acute Respiratory distress Acute
[2017-05-27] MEDS ORDERED: PROTOCOL POTASSIUM 1 DOSE MISC PRN (11:15)
--- NOTE | 2017-05-27 11:17 | HOSPPROG ---
Hospitalist Progress Note Assessment/Plan: # septic shock (fever, tachycardia, source UTI or pna) with lactic acidosis - cont levophed - adequately volume resuscitated - cont abx; consider stopping vanc soon - low procalcitonin noted, but would not stop abx at this point given severity of illness # viral pneumonia with hMNV - cont supportive care # possible aspiration pna - covered with merrem and vanc # possible UTI with 2 GNR's - covered with merrem and vanc (hx MRSA in urine) # bilat pulm infiltrates - echo pending, but suspect more d/t viral pna or aspiration than pulm eedma # acute hypoxic resp failure - d/t above; cont mechanical ventilation # type II NSTEMI - echo pending; continue to trend trops until peak - LBBB is chronic # acute encephalopathy - likely d/t above # epistaxis - likely d/t nasal trauma (either attempt at intubation or placement of trumpet) - will place rhino rocket - hold lovenox # hx PE - was on xarelto - hold AC until epistaxis resolves # dementia - on namenda # chronic pain on continuous narcotics - restart when taking PO # bipolar d/o - cont home meds # LFTs - d/t shock # ppx - lansoprazole and SCDs (start AC madelyn when epistaxis better) Subjective: more alert today Objective: Vital Signs Temp Pulse Resp BP Pulse Ox 37.8 C 100 18 99/59 L 98 05/27/17 10:00 05/27/17 10:00 05/27/17 10:00 05/27/17 10:00 05/27/17 10:00 Microbiology 05/26/17 14:45 Gram Stain - Final Lung Bilateral - Bronchial Washings 05/26/17 09:43 Respiratory Panel (PCR) - Final Nasal, Sinus - Swab Human Metapneumovirus Detected Laboratory Results 05/27/17 06:12 05/27/17 06:12 05/26/17 05/27/17 05/28/17 05:59 05:59 05:59 Intake Total 4695.3 Output Total 725 Balance 3970.3 PT 18.8 SEC (12.0-15.0) H 05/27/17 06:45 INR 1.56 (0.83-1.16) H 05/27/17 06:45 40 mins of floor CC time spent managing septic shock and resp failure - Physical Exam Constitutional: uncomfortable Ears, Nose, Mouth, Throat: other (ETT) Respiratory: other (coarse, no rales/rhonchi), No reduced air movement, No aegophony Gastrointestinal: soft, non-tender abdomen, no palpable masses, No guarding, No rebound, No distension Genitourinary: lo in urethra ICD10 Worksheet Patient Problems: Problems Problem Status Onset Pneumonia Acute History of DVT (deep vein thrombosis) Acute UTI (urinary tract infection) Acute Chronic Disease Mgmt/Transitional Care Acute MRSA (methicillin resistant Staphylococcus aureus) Acute 05/16/15 Sepsis Acute Altered mental status Acute Respiratory distress Acute Aspiration of food Acute Altered mental status Acute Palliative care encounter Acute Respiratory failure Acute Encephalopathy acute Acute
[2017-05-27] MEDS: POTASSIUM Cl (KCl) 50 ML IV SCH ×4 (14:08→23:00)
--- NOTE | 2017-05-27 15:04 | ASMTCMCOM ---
CM Note CM Note Notes: Patient admitted with septic shock, viral PNA, possible aspiration PNA, and possible UTI. She is intubated and sedated. Patient resides at [facility] where she is wheelchair bound. Her son Moreno is her MDPOA. He says "unfortunately, this happens about once a year." Patient should return to [facility] when medically stable. Date Signed: 05/27/2017 03:04 PM Electronically Signed By:Otilia Lopez RN
[2017-05-28] MEDS: VANCOMYCIN 1 GM in NS 250 ML IV SCH (01:00)
[2017-05-28 04:40] LABS: PLATELET COUNT 101 10^3/uL (150-400)
[2017-05-28] MEDS: MEROPENEM 1 GM in STERILE WATER INJ 20 ML IV SCH ×3 (06:52→20:50)
[2017-05-28] MEDS: LEVOTHYROXINE 88 MCG TAB TUBE SCH (06:52)
[2017-05-28] MEDS: NS 1,000 ML IV SCH (06:52)
[2017-05-28] MEDS: VALPROIC ACID 250 MG/5 ML UDCUP TUBE SCH (06:54)
[2017-05-28] MEDS: ACETAMINOPHEN 650 MG/20.3 ML UDCUP TUBE PRN (06:57)
[2017-05-28] MEDS: ANASTROZOLE 1 MG TAB TUBE SCH (08:01)
[2017-05-28] MEDS: FLUoxetine 20 MG CAP TUBE SCH (08:01)
[2017-05-28] MEDS: ARIPiprazole 10 MG TAB TUBE SCH (08:01)
[2017-05-28] MEDS: CHLORHEXIDINE GLUCONATE 15 ML UDL PO SCH ×2 (08:01→19:23)
[2017-05-28] MEDS: LANSOPRAZOLE SUSP 30MG/10ML UDSYR (Adult) TUBE SCH (09:57)
--- NOTE | 2017-05-28 10:52 | HOSPPROG ---
Hospitalist Progress Note Assessment/Plan: 72 y/o female new to my care 05/28/17 # septic shock (fever, tachycardia, source UTI or pna) with lactic acidosis - cont levophed - adequately volume resuscitated - dc vanco. BAL with MSSA. will cont merrem - low procalcitonin noted, but would not stop abx at this point given severity of illness # viral pneumonia with hMNV - cont supportive care # possible aspiration pna - covered with merrem (pcn allergy) # possible UTI with 2 GNR's - covered with merrem # bilat pulm infiltrates - echo pending, but suspect more d/t viral pna or aspiration than pulm eedma # acute hypoxic resp failure - d/t above; cont mechanical ventilation # type II NSTEMI - echo pending; continue to trend trops until peak - LBBB is chronic # acute encephalopathy - likely d/t above # epistaxis - likely d/t nasal trauma (either attempt at intubation or placement of trumpet) - will place rhino rocket - hold lovenox # hx PE - was on xarelto - will resume AC with lovenox 05/28 # dementia - on namenda # chronic pain on continuous narcotics - restart when taking PO # bipolar d/o - cont home meds # LFTs - d/t shock # ppx - lansoprazole and SCDs (start AC madelyn when epistaxis better) Subjective: pt is somnolent. not answeing questions. Objective: Vital Signs Temp Pulse Resp BP Pulse Ox 37.4 C 93 22 H 99/52 L 98 05/28/17 10:00 05/28/17 10:00 05/28/17 10:00 05/28/17 10:00 05/28/17 10:00 Microbiology 05/26/17 14:45 Gram Stain - Final Lung Bilateral - Bronchial Washings Laboratory Results 05/28/17 04:00 05/28/17 04:00 05/27/17 05/28/17 05/29/17 05:59 05:59 05:59 Intake Total 4695.3 3352.4 Output Total 725 1675 Balance 3970.3 1677.4 PT 18.8 SEC (12.0-15.0) H 05/27/17 06:45 INR 1.56 (0.83-1.16) H 05/27/17 06:45 - Physical Exam Constitutional: no apparent distress, appears nourished, not in pain Cardiovascular: regular rate and rhythym, no murmur, rub, or gallop, edema ( bilat feet) Respiratory: no respiratory distress, no rales or rhonchi, clear to auscultation , reduced air movement Gastrointestinal: normoactive bowel sounds, soft, non-tender abdomen, no palpable masses, No guarding, No rebound Skin: other (cool extremities) Neurologic: other (aaox0 not following commands) ICD10 Worksheet Patient Problems: Problems Problem Status Onset Pneumonia Acute History of DVT (deep vein thrombosis) Acute UTI (urinary tract infection) Acute Chronic Disease Mgmt/Transitional Care Acute MRSA (methicillin resistant Staphylococcus aureus) Acute 05/16/15 Sepsis Acute Altered mental status Acute Respiratory distress Acute Aspiration of food Acute Altered mental status Acute Palliative care encounter Acute Respiratory failure Acute Encephalopathy acute Acute
--- NOTE | 2017-05-28 13:26 | PDINTPN ---
Heel Cover Splitter Progress Note Assessment/Plan: Assessment/plan: 72 F with history of aspiration PNA 2017 admitted 05/25/17 after being found obtunded at SNF with rumor of additional aspiration (undocumented). An attempt at nasal intubation en route was unsucessful and she required ETT in the ED for airway protection. She apparently had cough several days prior to arival and has tested for human metapneumovirus. She also has a GNR growing from her urine with a history of frequent UTIs, and is wheel chair bound for unclear reasons ( no spinal cord injury). Shortly after arrival she became hypotensive with a lactate of 2.7 and required levophed to maintain BP. * Septic shock presumably from cystitis/UTI as well as hMPV. Her pressor requirement is improving. Target BP should be SBP>90. UOP OK and no KHUSHI. Echo pending * Acute respiratory failure with hypoxia and ventilatory support 2/2 MPV and contribution from epistaxis. Extubated today without difficulty. CXR with pulmonary edema likely from IVF (additional albumin given last pm) vs MPV, but hesitant to give diuretics given pressors. S/P bronch 05/26 with thin frothy and bloody secretions c/w edema. * epistaxis- likely related to traumatic nasal airway attempt. Resolved * UTI with GNR covered with meropenem. DC vancomycin. Interesting finding that procalcitonin is 0.09 in setting of UTI * Anemia- she was aggressively volume resuscitated and her epistaxis would not account for her drop in Hct from 39 to 27. No GIB apparent. Recheck HH this afternoon. * LFTs mildly elevated likely related to shock. Continue to observe. * thrombocytopenia- appears chronic and mild, though slightly lower today (? LMWH effect). Continue to observe * * critical care time 35 minutes 05/27/17 11:08 05/28/17 13:23 Subjective: Extubated this am Objective: Vital Signs Temp Pulse Resp BP Pulse Ox 37.9 C 106 H 25 H 122/79 H 96 05/28/17 13:00 05/28/17 13:00 05/28/17 13:00 05/28/17 13:00 05/28/17 13:00 Microbiology 05/26/17 14:45 Gram Stain - Final Lung Bilateral - Bronchial Washings Laboratory Results 05/28/17 04:00 05/28/17 04:00 05/27/17 05/28/17 05/29/17 05:59 05:59 05:59 Intake Total 4695.3 3352.4 Output Total 725 1675 Balance 3970.3 1677.4 PT 18.8 SEC (12.0-15.0) H 05/27/17 06:45 INR 1.56 (0.83-1.16) H 05/27/17 06:45 Physical Exam - Physical Exam General Appearance: no apparent distress, obtunded EENT: PERRL/EOMI, ET tube Neck: supple Respiratory: lungs clear, normal breath sounds, No respiratory distress, No accessory muscle use Cardiac/Chest: regular rate, rhythm, No edema Abdomen: non-tender, soft, No distended Skin: normal color, warm/dry, No cyanosis Lymphatic: no adenopathy Extremities: No pedal edema Neuro/Psych: cognition abnormalities ICD10 Worksheet Patient Problems: Problems Problem Status Onset Encephalopathy acute Acute Pneumonia Acute Respiratory failure Acute Sepsis Acute UTI (urinary tract infection) Acute Altered mental status Acute Altered mental status Acute Aspiration of food Acute Chronic Disease Mgmt/Transitional Care Acute History of DVT (deep vein thrombosis) Acute MRSA (methicillin resistant Staphylococcus aureus) Acute 05/16/15 Palliative care encounter Acute Respiratory distress Acute
[2017-05-28] MEDS: ALBUTEROL 3 ML DEYVIAL IH PRN (13:28)
[2017-05-28] MEDS ORDERED: IBUPROFEN 600 MG TAB PO PRN (13:40)
[2017-05-28] MEDS ORDERED: ONDANSETRON DISINTEGRATING 4 MG TAB PO PRN (14:00)
[2017-05-28] MEDS: ACETAMINOPHEN 325 MG TAB PO PRN (14:37)
[2017-05-28] MEDS: NOREPINEPHRINE BITARTRATE 4 MG in D5W 500 ML IV SCH (18:24)
[2017-05-28] MEDS: ENOXAPARIN 100 MG/ML SYR SC SCH (20:50)
[2017-05-28] MEDS ORDERED: DIVALPROEX ER 500 MG TAB PO SCH (21:00)
[2017-05-28] MEDS: POTASSIUM Cl (KCl) 10 MEQ in NS 50 ML IV SCH ×3 (22:04→23:18)
[2017-05-29] MEDS: ALBUTEROL 3 ML DEYVIAL IH PRN (00:34)
[2017-05-29] MEDS: MEROPENEM 1 GM in STERILE WATER INJ 20 ML IV SCH ×3 (06:18→23:09)
[2017-05-29] MEDS: LEVOTHYROXINE 88 MCG TAB PO SCH (06:18)
[2017-05-29] MEDS ORDERED: POTASSIUM Cl (KCl) 50 ML IV SCH (06:30)
[2017-05-29] MEDS: POTASSIUM Cl (KCl) 10 MEQ in D5W 50 ML IV SCH ×3 (07:29→09:38)
[2017-05-29] MEDS: NOREPINEPHRINE BITARTRATE 4 MG in D5W 500 ML IV SCH (08:26)
[2017-05-29] MEDS ORDERED: DIVALPROEX ER 250 MG TAB PO SCH (09:00)
[2017-05-29] MEDS ORDERED: PANTOPRAZOLE SODIUM 40 MG TAB PO SCH (09:00)
[2017-05-29 09:51] LABS: PLATELET COUNT 85 10^3/uL (150-400)
[2017-05-29] MEDS ORDERED: ALBUMIN 25% 100 ML IV ONE (10:45)
[2017-05-29] MEDS ORDERED: FUROSEMIDE 40 MG/4 ML VIAL IVP ONE (10:45)
[2017-05-29] MEDS: CHLORHEXIDINE GLUCONATE 15 ML UDL PO SCH ×2 (10:53→23:12)
[2017-05-29] MEDS: FLUoxetine 20 MG CAP PO SCH (10:54)
[2017-05-29] MEDS: ARIPiprazole 10 MG TAB PO SCH (10:54)
[2017-05-29] MEDS: ENOXAPARIN 100 MG/ML SYR SC SCH ×2 (10:55→23:06)
--- NOTE | 2017-05-29 11:13 | PDINTPN ---
[employer] Progress Note Assessment/Plan: Assessment/plan: 72 F with history of aspiration PNA 2017 admitted 05/25/17 after being found obtunded at SNF with rumor of additional aspiration (undocumented). An attempt at nasal intubation en route was unsucessful and she required ETT in the ED for airway protection. She apparently had cough several days prior to arival and has tested for human metapneumovirus. She also has a GNR growing from her urine with a history of frequent UTIs, and is wheel chair bound for unclear reasons ( no spinal cord injury). Shortly after arrival she became hypotensive with a lactate of 2.7 and required levophed to maintain BP. * Septic shock presumably from cystitis/UTI as well as hMPV. Her pressor requirement is improving. Target BP should be SBP>90. UOP OK and no KHUSHI. Echo pending * Acute respiratory failure with hypoxia and ventilatory support 2/2 MPV and contribution from epistaxis. Extubated 05/28 without difficulty. CXR with pulmonary edema likely from IVF (additional albumin given 05/27) vs MPV. S/P bronch 05/26 with thin frothy and bloody secretions c/w edema. Albumin and lasix given this am for persistent edema/wheezing * epistaxis- likely related to traumatic nasal airway attempt. Resolved * UTI with GNR covered with meropenem. Interesting finding that procalcitonin is 0.09 in setting of UTI. Still febrile but wbc decreased. Continue cristiano * Anemia- stable. * LFTs mildly elevated likely related to shock. Continue to observe. * thrombocytopenia- appears chronic and mild, though slightly lower today (? LMWH effect). Continue to observe * Subjective: somnolent, but conversant Objective: Vital Signs Temp Pulse Resp BP Pulse Ox 37.9 C 93 30 H 112/64 99 05/29/17 10:00 05/29/17 11:00 05/29/17 11:00 05/29/17 11:00 05/29/17 11:00 Microbiology 05/26/17 09:43 Urine Culture - Final Urine,Clean Catch Escherichia Coli Klebsiella Pneumoniae Ssp Pneu 05/26/17 14:45 Gram Stain - Final Lung Bilateral - Bronchial Washings Bronchial Washings Culture - Final Staphylococcus Aureus Laboratory Results 05/29/17 09:40 05/29/17 04:35 0405/29/17 05/30/17 05:59 05:59 05:59 Intake Total 3352.4 3196 Output Total 1675 1475 Balance 1677.4 1721 PT 18.8 SEC (12.0-15.0) H 05/27/17 06:45 INR 1.56 (0.83-1.16) H 05/27/17 06:45 Physical Exam - Physical Exam General Appearance: no apparent distress, other (somnolent) EENT: PERRL/EOMI Neck: supple Respiratory: respiratory distress, decreased breath sounds, wheezing (diffuse bilateral), No accessory muscle use Cardiac/Chest: regular rate, rhythm, edema Abdomen: non-tender, soft, No distended Skin: normal color, warm/dry, No cyanosis Lymphatic: no adenopathy Extremities: pedal edema Neuro/Psych: alert, normal mood/affect, cognition abnormalities ICD10 Worksheet Patient Problems: Problems Problem Status Onset Encephalopathy acute Acute Pneumonia Acute Respiratory failure Acute Sepsis Acute UTI (urinary tract infection) Acute Altered mental status Acute Altered mental status Acute Aspiration of food Acute Chronic Disease Mgmt/Transitional Care Acute History of DVT (deep vein thrombosis) Acute MRSA (methicillin resistant Staphylococcus aureus) Acute 05/16/15 Palliative care encounter Acute Respiratory distress Acute
--- NOTE | 2017-05-29 12:22 | HOSPPROG ---
Hospitalist Progress Note Assessment/Plan: 72 y/o female new to my care 05/28/17 # septic shock (fever, tachycardia, source UTI or pna) with lactic acidosis - cont levophed - adequately volume resuscitated - dc vanco. BAL with MSSA. will cont merrem - low procalcitonin noted, but would not stop abx at this point given severity of illness # viral pneumonia with hMNV - cont supportive care # persistent fever most likely due to above versus drug fever # diarrhea (C diff negative) -consider viral PCR if persistent # hypoalbuminemia with swelling -agree with trying IV albumin and Lasix per Dr. Tenorio # possible aspiration pna - covered with merrem (pcn allergy) # possible UTI with 2 GNR's - covered with merrem # bilat pulm infiltrates - echo pending, but suspect more d/t viral pna or aspiration than pulm eedma # acute hypoxic resp failure - d/t above; cont mechanical ventilation # type II NSTEMI - echo pending; continue to trend trops until peak - LBBB is chronic # acute encephalopathy - likely d/t above # epistaxis - likely d/t nasal trauma (either attempt at intubation or placement of trumpet) - will place rhino rocket # hx PE - was on xarelto - continue lovenox # chronic pain on continuous narcotics - restart when taking PO # bipolar d/o - cont home meds # LFTs - d/t shock # ppx - lansoprazole and SCDs Subjective: Patient is still minimally responsive. Not answering questions or following commands Objective: Vital Signs Temp Pulse Resp BP Pulse Ox 37.9 C 93 30 H 112/64 99 05/29/17 10:00 05/29/17 11:00 05/29/17 11:00 05/29/17 11:00 05/29/17 11:00 Microbiology 05/26/17 09:43 Urine Culture - Final Urine,Clean Catch Escherichia Coli Klebsiella Pneumoniae Ssp Pneu 05/26/17 14:45 Gram Stain - Final Lung Bilateral - Bronchial Washings Bronchial Washings Culture - Final Staphylococcus Aureus Laboratory Results 05/29/17 09:40 05/29/17 04:35 05/28/17 05/29/17 05/30/17 05:59 05:59 05:59 Intake Total 3352.4 3196 Output Total 1675 1475 Balance 1677.4 1721 PT 18.8 SEC (12.0-15.0) H 05/27/17 06:45 INR 1.56 (0.83-1.16) H 05/27/17 06:45 - Physical Exam Constitutional: chronically ill appearing Ears, Nose, Mouth, Throat: moist mucous membranes, hearing normal, ears appear normal, no oral mucosal ulcers Cardiovascular: regular rate and rhythym, no murmur, rub, or gallop Respiratory: no respiratory distress, no rales or rhonchi, clear to auscultation Gastrointestinal: normoactive bowel sounds, soft, non-tender abdomen, no palpable masses, No guarding, No rebound Neurologic: CN II-XII Intact, other (aaox0) ICD10 Worksheet Patient Problems: Problems Problem Status Onset Pneumonia Acute History of DVT (deep vein thrombosis) Acute UTI (urinary tract infection) Acute Chronic Disease Mgmt/Transitional Care Acute MRSA (methicillin resistant Staphylococcus aureus) Acute 05/16/15 Sepsis Acute Altered mental status Acute Respiratory distress Acute Aspiration of food Acute Altered mental status Acute Palliative care encounter Acute Respiratory failure Acute Encephalopathy acute Acute
[2017-05-29] MEDS: ANASTROZOLE 1 MG TAB PO SCH (12:43)
--- NOTE | 2017-05-29 13:05 | ASMTCMCOM ---
CM Note CM Note Notes: Spoke with Jayshree Rock from [facility] and forwarded clinical info on pt at her request. Date Signed: 05/29/2017 01:05 PM Electronically Signed By:LUCIUS Roca
[2017-05-29] MEDS: DIVALPROEX NA 125 MG CAP.SPRINKLE PO SCH ×2 (13:11→23:07)
[2017-05-29] MEDS: PANTOPRAZOLE SODIUM 40 MG VIAL IVP SCH (13:12)
[2017-05-29] MEDS ORDERED: POTASSIUM Cl (KCl) 100 ML IV ONE (21:00)
[2017-05-29] MEDS ORDERED: POTASSIUM Cl (KCl) 10 MEQ in NS 50 ML IV SCH (23:00)
[2017-05-30 05:54] LABS: PLATELET COUNT 66 10^3/uL (150-400)
[2017-05-30] MEDS: LEVOTHYROXINE 88 MCG TAB PO SCH (07:03)
[2017-05-30] MEDS: MEROPENEM 1 GM in STERILE WATER INJ 20 ML IV SCH ×3 (07:03→21:00)
[2017-05-30] MEDS: CHLORHEXIDINE GLUCONATE 15 ML UDL PO SCH (09:29)
[2017-05-30] MEDS: DIVALPROEX NA 125 MG CAP.SPRINKLE PO SCH ×2 (09:29→20:49)
[2017-05-30] MEDS: PANTOPRAZOLE SODIUM 40 MG VIAL IVP SCH (09:30)
[2017-05-30] MEDS: ARIPiprazole 10 MG TAB PO SCH (09:30)
[2017-05-30] MEDS: FLUoxetine 20 MG CAP PO SCH (09:30)
--- NOTE | 2017-05-30 09:31 | PDINTPN ---
[employer] Progress Note Assessment/Plan: Assessment/plan: 72 F with history of aspiration PNA 2017 admitted 05/25/17 after being found obtunded at SNF with rumor of additional aspiration (undocumented). An attempt at nasal intubation en route was unsucessful and she required ETT in the ED for airway protection. She apparently had cough several days prior to arival and has tested for human metapneumovirus. She also has a GNR growing from her urine with a history of frequent UTIs, and is wheel chair bound for unclear reasons ( no spinal cord injury). Shortly after arrival she became hypotensive with a lactate of 2.7 and required levophed to maintain BP. * Septic shock presumably from cystitis/UTI as well as hMPV. Her pressor requirement has resolved. Target BP should be SBP>90. UOP OK and no KHUSHI. Echo pending * Acute respiratory failure with hypoxia and ventilatory support 2/2 MPV and contribution from epistaxis. Extubated 05/28 without difficulty. CXR with pulmonary edema likely from IVF (additional albumin given 05/27) vs MPV. S/P bronch 05/26 with thin frothy and bloody secretions c/w edema. Albumin and lasix given 05/29 with significant improvement in BP, wheezing, and O2 requirement. No additional diuretic necessary today * epistaxis- likely related to traumatic nasal airway attempt. Resolved * UTI with E. Coli, Klebsiella; covered with meropenem. Interesting finding that procalcitonin is 0.09 in setting of UTI. Afebrile. Continue cristiano for ?days * Anemia- stable. * LFTs mildly elevated likely related to shock. Continue to observe. * thrombocytopenia- appears chronic and mild, though slightly lower today (? LMWH effect). Continue to observe * OK for SDU 05/30/17 09:28 Subjective: complain of mild abdominal pain. Decreased stool output last 24 hrs. Objective: Vital Signs Temp Pulse Resp BP Pulse Ox 37.3 C 101 H 22 H 108/61 95 05/30/17 08:00 05/30/17 08:00 05/30/17 08:00 05/30/17 08:00 05/30/17 08:00 Microbiology 05/26/17 09:43 Urine Culture - Final Urine,Clean Catch Escherichia Coli Klebsiella Pneumoniae Ssp Pneu Laboratory Results 05/30/17 05:20 05/30/17 05:20 05/29/17 05/30/17 05/31/17 05:59 05:59 05:59 Intake Total 3196 885 Output Total 1475 2800 Balance 1721 -1915 PT 18.8 SEC (12.0-15.0) H 05/27/17 06:45 INR 1.56 (0.83-1.16) H 05/27/17 06:45 Physical Exam - Physical Exam General Appearance: alert, no apparent distress EENT: PERRL/EOMI Neck: supple Respiratory: lungs clear, normal breath sounds, No respiratory distress, No accessory muscle use Cardiac/Chest: regular rate, rhythm, edema Abdomen: non-tender, soft, No distended Skin: normal color, warm/dry, No cyanosis Lymphatic: no adenopathy Extremities: No pedal edema Neuro/Psych: alert, normal mood/affect, cognition abnormalities ICD10 Worksheet Patient Problems: Problems Problem Status Onset Encephalopathy acute Acute Pneumonia Acute Respiratory failure Acute Sepsis Acute UTI (urinary tract infection) Acute Altered mental status Acute Altered mental status Acute Aspiration of food Acute Chronic Disease Mgmt/Transitional Care Acute History of DVT (deep vein thrombosis) Acute MRSA (methicillin resistant Staphylococcus aureus) Acute 05/16/15 Palliative care encounter Acute Respiratory distress Acute
[2017-05-30] MEDS: ENOXAPARIN 100 MG/ML SYR SC SCH ×2 (10:39→20:48)
[2017-05-30] MEDS: ANASTROZOLE 1 MG TAB PO SCH (11:51)
--- NOTE | 2017-05-30 12:38 | HOSPPROG ---
Hospitalist Progress Note Assessment/Plan: 72 y/o female new to my care 05/28/17 # septic shock (fever, tachycardia, source UTI or pna) with lactic acidosis - levophed now off - adequately volume resuscitated - dc vanco. BAL with MSSA. will cont merrem day 06/14 - low procalcitonin noted, but would not stop abx at this point given severity of illness # viral pneumonia with hMNV - cont supportive care # persistent fever (imprvoing) # diarrhea (C diff negative) -consider viral PCR if persistent #thrombocytopenia -agree with holding lmwh for now # hypoalbuminemia with swelling -improving s/p IV albumin and Lasix 05/29 # possible aspiration pna - covered with merrem (pcn allergy) # possible UTI with 2 GNR's - covered with merrem # bilat pulm infiltrates - echo pending, but suspect more d/t viral pna or aspiration than pulm eedma # acute hypoxic resp failure - d/t above; cont mechanical ventilation # type II NSTEMI - echo pending; continue to trend trops until peak - LBBB is chronic # acute encephalopathy - likely d/t above # epistaxis - likely d/t nasal trauma (either attempt at intubation or placement of trumpet) - will place rhino rocket # hx PE -hold anticoagulation today and plan on resuming doac tomorrow # chronic pain on continuous narcotics - restart when taking PO # bipolar d/o - cont home meds # LFTs - d/t shock # ppx - lansoprazole and SCDs Subjective: reports to be doing better today. wants to eat. continues to have diarrhea. improved fevers. Objective: Vital Signs Temp Pulse Resp BP Pulse Ox 37.5 C 92 22 H 115/84 H 95 05/30/17 12:00 05/30/17 12:00 05/30/17 12:00 05/30/17 12:00 05/30/17 12:00 Microbiology 05/26/17 09:43 Urine Culture - Final Urine,Clean Catch Escherichia Coli Klebsiella Pneumoniae Ssp Pneu Laboratory Results 05/30/17 05:20 05/30/17 05:20 05/29/17 05/30/17 05/31/17 05:59 05:59 05:59 Intake Total 3196 885 Output Total 6285 2800 Balance 1721 -1915 PT 18.8 SEC (12.0-15.0) H 05/27/17 06:45 INR 1.56 (0.83-1.16) H 05/27/17 06:45 - Physical Exam Constitutional: chronically ill appearing Cardiovascular: regular rate and rhythym, no murmur, rub, or gallop Respiratory: no respiratory distress, no rales or rhonchi, clear to auscultation Gastrointestinal: normoactive bowel sounds, soft, non-tender abdomen, no palpable masses, other (rectal tube in place) ICD10 Worksheet Patient Problems: Problems Problem Status Onset Pneumonia Acute History of DVT (deep vein thrombosis) Acute UTI (urinary tract infection) Acute Chronic Disease Mgmt/Transitional Care Acute MRSA (methicillin resistant Staphylococcus aureus) Acute 05/16/15 Sepsis Acute Altered mental status Acute Respiratory distress Acute Aspiration of food Acute Altered mental status Acute Palliative care encounter Acute Respiratory failure Acute Encephalopathy acute Acute
[2017-05-31 05:47] LABS: PLATELET COUNT 73 10^3/uL (150-400)
[2017-05-31] MEDS: MEROPENEM 1 GM in STERILE WATER INJ 20 ML IV SCH (06:43)
[2017-05-31] MEDS: LEVOTHYROXINE 88 MCG TAB PO SCH (06:44)
[2017-05-31] MEDS: ANASTROZOLE 1 MG TAB PO SCH (09:04)
[2017-05-31] MEDS: DIVALPROEX NA 125 MG CAP.SPRINKLE PO SCH ×2 (09:04→21:24)
[2017-05-31] MEDS: ARIPiprazole 10 MG TAB PO SCH (09:04)
[2017-05-31] MEDS: ENOXAPARIN 100 MG/ML SYR SC SCH (09:05)
[2017-05-31] MEDS: FLUoxetine 20 MG CAP PO SCH (09:05)
[2017-05-31] MEDS: LANSOPRAZOLE SUSP 30MG/10ML UDSYR (Adult) TUBE SCH (09:05)
[2017-05-31] MEDS ORDERED: POTASSIUM CL 10 MEQ TAB PO ONE ×2 (09:07→21:25)
--- NOTE | 2017-05-31 09:44 | PDINTPN ---
[employer] Progress Note Assessment/Plan: Assessment: 72 F with history of aspiration PNA 2017 admitted 05/25/17 after being found obtunded at SNF with rumor of additional aspiration (undocumented). An attempt at nasal intubation en route was unsuccessful and she required ETT in the ED for airway protection. She apparently had cough several days prior to arrival and has tested for human metapneumovirus. She also has a GNR growing from her urine with a history of frequent UTIs, and is wheel chair bound for unclear reasons (no spinal cord injury). Shortly after arrival she became hypotensive with a lactate of 2.7 and required levophed to maintain BP. * Septic shock presumably from cystitis/UTI as well as hMPV. Her pressor requirement has resolved. Target BP should be SBP>90. UOP OK and no KHUSHI. Echo pending * Acute respiratory failure with hypoxia and ventilatory support 2/2 MPV and contribution from epistaxis. Extubated 05/28 without difficulty. CXR with pulmonary edema likely from IVF (additional albumin given 05/27) vs MPV. S/P bronch 05/26 with thin frothy and bloody secretions c/w edema. Albumin and lasix given 05/29 with significant improvement in BP, wheezing, and O2 requirement. * epistaxis- likely related to traumatic nasal airway attempt. Resolved * UTI with E. Coli, Klebsiella; covered with meropenem, day# 6. Interesting finding that procalcitonin is 0.09 in setting of UTI. Afebrile. * Anemia- trending down. * LFTs mildly elevated likely related to shock. Continue to observe. * thrombocytopenia- appears chronic and mild, though slightly lower today (? LMWH effect). * Diarrhea: 200ml out overnight. C. diff negative Plan: Increae activity Imodium, then d/c/ rectal tube. Lasix/albumin. Follow Hgb. hopefully will increase with diuresis. FeSO4 Follow platelets. Probably can change Lovenox to Xarelto Probably can stop Meropenem. 05/31/17 09:58 Subjective: C/O thirst, cough. Minimal pain Objective: Vital Signs Temp Pulse Resp BP Pulse Ox 36.4 C 85 17 106/54 L 97 05/31/17 08:00 05/31/17 08:00 05/31/17 08:00 05/31/17 08:00 05/31/17 08:00 Laboratory Results 05/31/17 05:40 05/31/17 05:40 05/30/17 05/31/17 06/01/17 05:59 05:59 05:59 Intake Total 885 1218 Output Total 2800 1275 Balance -1915 -57 PT 18.8 SEC (12.0-15.0) H 05/27/17 06:45 INR 1.56 (0.83-1.16) H 05/27/17 06:45 Physical Exam - Physical Exam General Appearance: alert, no apparent distress EENT: normal ENT inspection Neck: normal inspection Respiratory: chest non-tender, normal breath sounds Cardiac/Chest: regular rate, rhythm, edema (2+) Abdomen: normal bowel sounds, non-tender Skin: normal color, warm/dry Extremities: normal inspection Neuro/Psych: alert, normal mood/affect, oriented x 3 ICD10 Worksheet Patient Problems: Problems Problem Status Onset Encephalopathy acute Acute Pneumonia Acute Respiratory failure Acute Sepsis Acute UTI (urinary tract infection) Acute Altered mental status Acute Altered mental status Acute Aspiration of food Acute Chronic Disease Mgmt/Transitional Care Acute History of DVT (deep vein thrombosis) Acute MRSA (methicillin resistant Staphylococcus aureus) Acute 05/16/15 Palliative care encounter Acute Respiratory distress Acute
[2017-05-31] MEDS ORDERED: ALBUMIN 25% 200 ML IV ONE (10:00)
[2017-05-31] MEDS ORDERED: FUROSEMIDE 40 MG/4 ML VIAL IVP ONE (10:00)
[2017-05-31] MEDS: LOPERAMIDE HCL 1 MG/5 ML UDL PO PRN ×2 (10:31→15:36)
[2017-05-31] MEDS: FERROUS SULFATE 325 MG TAB PO SCH ×2 (10:31→21:24)
--- NOTE | 2017-05-31 12:32 | HOSPPROG ---
Hospitalist Progress Note Assessment/Plan: 72 y/o female new to my care 05/28/17 # septic shock (fever, tachycardia, source UTI or pna) with lactic acidosis - levophed now off - adequately volume resuscitated - dc vanco. BAL with MSSA. will merrem day 6 -Will DC merrem and monitor off antibiotics # viral pneumonia with hMNV - cont supportive care # persistent fever (improving) # diarrhea (C diff negative) -consider viral PCR if persistent -dc rectal tube #thrombocytopenia -agree with holding lmwh for now but will resume oral anticoagulation # hypoalbuminemia with swelling -improving s/p IV albumin and Lasix # possible aspiration pna - covered with merrem (pcn allergy) # possible UTI with 2 GNR's s/p 6 days of Merrem # bilat pulm infiltrates -will repeat cxr today # acute hypoxic resp failure s/p extubation # type II NSTEMI - echo pending; continue to trend trops until peak - LBBB is chronic # acute encephalopathy - likely d/t above (improving) # epistaxis - likely d/t nasal trauma (resolved) # hx PE -resume anticoagulation today # chronic pain on continuous narcotics # bipolar d/o - cont home meds # LFTs - d/t shock # ppx - lansoprazole and SCDs dispo transfer out of ICU in the next 24-48 hours. Subjective: still very weak. Pt without new complaints today Objective: Vital Signs Temp Pulse Resp BP Pulse Ox 36.8 C 97 17 149/102 H 93 05/31/17 11:31 05/31/17 11:31 05/31/17 11:31 05/31/17 11:31 05/31/17 11:31 Microbiology 05/26/17 09:34 Blood Culture - Final Blood Laboratory Results 05/31/17 05:40 05/31/17 05:40 05/30/17 05/31/17 06/01/17 05:59 05:59 05:59 Intake Total 885 1218 200 Output Total 2800 1275 900 Balance -1915 -57 -700 PT 18.8 SEC (12.0-15.0) H 05/27/17 06:45 INR 1.56 (0.83-1.16) H 05/27/17 06:45 - Physical Exam Constitutional: chronically ill appearing Ears, Nose, Mouth, Throat: moist mucous membranes, hearing normal, ears appear normal, no oral mucosal ulcers Cardiovascular: regular rate and rhythym, no murmur, rub, or gallop, edema ( bilat feet) Respiratory: no respiratory distress, no rales or rhonchi, clear to auscultation Gastrointestinal: normoactive bowel sounds, soft, non-tender abdomen, no palpable masses, No guarding, No rebound Genitourinary: no bladder fullness, no bladder tenderness, no renal bruits, lo in urethra Skin: no rashes or abrasions, no fluctuance, no induration Neurologic: CN II-XII Intact, No facial droop Psychiatric: flat affect ICD10 Worksheet Patient Problems: Problems Problem Status Onset Pneumonia Acute History of DVT (deep vein thrombosis) Acute UTI (urinary tract infection) Acute Chronic Disease Mgmt/Transitional Care Acute MRSA (methicillin resistant Staphylococcus aureus) Acute 05/16/15 Sepsis Acute Altered mental status Acute Respiratory distress Acute Aspiration of food Acute Altered mental status Acute Palliative care encounter Acute Respiratory failure Acute Encephalopathy acute Acute
--- NOTE | 2017-05-31 14:06 | WOCRNPDOC ---
WOCRN Advanced Assessment Note - Skin Integrity Problem, Advanced Assess Bilateral Perineum Denuded Janneth Wound Tissue: Erythema, Raw Wound Bed Color: Lazear, Red Skin Integrity Problem Comment: Patient has mild to moderate incontinence associated dermatitis with small areas of partial thickness openings bilaterally to buttocks and perineum. Requested MD for order for MAD cream to be applied to area BID. No pressure injury present. Stephani LAY assisted/ supervised. Wound care will sign off on this patient.
[2017-05-31] MEDS: RIVAROXABAN 20 MG TAB PO SCH (18:28)
[2017-06-01 04:35] LABS: PLATELET COUNT 74 10^3/uL (150-400)
[2017-06-01] MEDS: LEVOTHYROXINE 88 MCG TAB PO SCH (06:38)
[2017-06-01] MEDS: DIVALPROEX NA 125 MG CAP.SPRINKLE PO SCH ×2 (08:27→21:43)
[2017-06-01] MEDS: FLUoxetine 20 MG CAP PO SCH (08:27)
[2017-06-01] MEDS: ANASTROZOLE 1 MG TAB PO SCH (08:28)
[2017-06-01] MEDS: FERROUS SULFATE 325 MG TAB PO SCH ×2 (08:28→21:43)
[2017-06-01] MEDS: ARIPiprazole 10 MG TAB PO SCH (08:28)
[2017-06-01] MEDS: LANSOPRAZOLE SUSP 30MG/10ML UDSYR (Adult) TUBE SCH (10:02)
[2017-06-01] MEDS ORDERED: FUROSEMIDE 40 MG/4 ML VIAL IVP ONE ×2 (10:17→13:11)
[2017-06-01] MEDS: PANTOPRAZOLE SODIUM 40 MG TAB PO SCH (11:00)
--- NOTE | 2017-06-01 11:07 | ASMTCMCOM ---
CM Note CM Note Notes: Patient has a rectal tube, red skin-followed by wound care, Patient is Full Cor, Son is her MPOA. Palliative brought up in ICU Rounds, to talk to son. Date Signed: 06/01/2017 11:06 AM Electronically Signed By:Kanika Manley LCSW
[2017-06-01] MEDS: ACETAMINOPHEN 325 MG TAB PO PRN (11:31)
--- NOTE | 2017-06-01 11:31 | HOSPPROG ---
Hospitalist Progress Note Assessment/Plan: DIAGNOSES: # septic shock (fever, tachycardia, source UTI or pna) with lactic acidosis -pressure is now stable off pressors; some post resuscitation edema present -status post vanco, meropenem # viral pneumonia with hMNV; ? Also possible aspiration pna # acute hypoxemic respiratory failure due to above; requiring mechanical ventilation, now extubated # possible UTI (E coli and Klebsiella in urine) s/p 6 days of Merrem # anemia, macrocytic -worsening with hemoglobin now below 7 -her macrocytosis has worsened over the past 2 years as I review her previous blood tests; I do not see that she has been tested for B12 or folate deficiency though given her age would suspect this is more likely a marrow disorder then add vitamin deficiency # hypoalbuminemia with swelling -improving s/p IV albumin and Lasix # acute encephalopathy - multifactorial etiology from above -still does not have normal mentation and conversation, question what her baseline is and if there could be some dementia underlying -would also be concerned about possible nutritional factors acute and chronic -? Impact of her chronic narcotics on this issue # type II NSTEMI (myocardial strain from acute noncardiac illness) - echo pending; continue to trend trops until peak - LBBB is chronic # severe deconditioning and gait instability, multifactorial -at present largely bed-bound at least on her own # hx PE -is on her usual anticoagulant -will need to follow closely due to her low platelets; is more anemic at this time but currently no signs of bleeding # chronic pain on continuous narcotics -given her mentation issues, her severely impaired mobility and high fall risk, and her bipolar disorder I believe that ongoing use of narcotics should be stopped if possible # bipolar d/o - cont home meds # elevated hepatic transaminases- d/t shock; resolved # ppx - lansoprazole and SCDs Aside from hospitalist rounds I did see this patient on multidisciplinary rounds today and I reviewed in detail with Dr. Castro We did have discussion about palliative issues. This patient lives in a nursing facility, has been here for multiple hospital admissions. Her functional status is very poor at this point in her recovery as far as that goes is expected to be limited. Future hospitalizations will be highly likely. At this point we do not feel that she is able to productive leading engage in a palliative discussion. Will try and contact her son and review these ideas with him. PLANS: -continue supportive care -continue diuresis -transfusion 1 unit red blood cells today and follow hemoglobin closely -check B12 levels and will give her some B12 supplementation -check folate levels -check valproate level as she is on that and make sure that she is not elevated which would affect her mentation -continue off narcotics, which she had been taking at home chronically but is doing well without at this time -palliative discussion with son if we can contact him, and with patient if she improves and is able to engage productively in that schedule in SUBJECTIVE: States she feels better today Unable however to describe in what way she feels better Very difficult to get a meaningful conversation from her still OBJECTIVE Vitals reviewed: Blood pressures remain somewhat low in the 90s but otherwise stable vitals without fever Skiver Counter, my review: Sinus Remains on 2 L nasal cannula oxygen Exam: alert somewhat disoriented, very slow in conversation and clearly not entirely aware of her full situation skin warm dry color ok resps mildly labored lungs very diminished but otherwise clear BSs heart regular abd soft nondistended nontender, bowel sounds present limbs warm, still with diffuse anasarca iv site ok Laboratory data: Hemoglobin continues to decrease now that 6.8 MCV is at 1:03 a.m., and I have reviewed her previous records from the outpatient and inpatient setting, this has gradually increased over the last 2 years from the mid Platelets still low but stable at 74 Sodium has increased to 147 today but chemistries otherwise stable Objective: Vital Signs Temp Pulse Resp BP Pulse Ox 36.7 C 74 16 94/56 L 91 L 06/01/17 07:37 06/01/17 11:01 06/01/17 07:37 06/01/17 11:01 06/01/17 07:37 Microbiology 05/26/17 09:34 Blood Culture - Final Blood Laboratory Results 06/01/17 04:20 06/01/17 04:20 05/31/17 06/01/17 06/02/17 06:59 06:59 06:59 Intake Total 1218 1235 Output Total 1275 2800 Balance -57 -1565 PT 18.8 SEC (12.0-15.0) H 05/27/17 06:45 INR 1.56 (0.83-1.16) H 05/27/17 06:45 - Time Spent With Patient Time Spent with Patient: greater than 35 minutes Time Spent with Patient: Greater than 35 minutes spent on this patients care, greater than 50% of time spent counseling, educating, and coordinating care regarding the above mentioned plan. ICD10 Worksheet Patient Problems: Problems Problem Status Onset Encephalopathy acute Acute Pneumonia Acute Respiratory failure Acute Sepsis Acute UTI (urinary tract infection) Acute Altered mental status Acute Altered mental status Acute Aspiration of food Acute Chronic Disease Mgmt/Transitional Care Acute History of DVT (deep vein thrombosis) Acute MRSA (methicillin resistant Staphylococcus aureus) Acute 05/16/15 Palliative care encounter Acute Respiratory distress Acute
--- NOTE | 2017-06-01 12:54 | PDINTPN ---
[employer]ce[employer] Executive Progress Note Assessment/Plan: Assessment: 72 F with history of aspiration PNA 2017 admitted 05/25/17 after being found obtunded at SNF with rumor of additional aspiration (undocumented). An attempt at nasal intubation en route was unsuccessful and she required ETT in the ED for airway protection. She apparently had cough several days prior to arrival and has tested for human metapneumovirus. She also has a GNR growing from her urine with a history of frequent UTIs, and is wheel chair bound for unclear reasons (no spinal cord injury). Shortly after arrival she became hypotensive with a lactate of 2.7 and required levophed to maintain BP. * Septic shock presumably from cystitis/UTI as well as hMPV. Her pressor requirement has resolved. Target BP should be SBP>90. UOP OK and no KHUSHI. * Acute respiratory failure with hypoxia and ventilatory support 2/2 MPV and contribution from epistaxis. Extubated 05/28 without difficulty. CXR with pulmonary edema likely from IVF (additional albumin given 05/27) vs MPV. S/P bronch 05/26 with thin frothy and bloody secretions c/w edema. Albumin and lasix given 05/29 with significant improvement in BP, wheezing, and O2 requirement. * epistaxis- likely related to traumatic nasal airway attempt. Resolved * UTI with E. Coli, Klebsiella; Completed 6d of meropenem. Interesting finding that procalcitonin is 0.09 in setting of UTI. Afebrile. * Anemia- trending down. * LFTs mildly elevated likely related to shock. Continue to observe. * thrombocytopenia- appears chronic and mild, stable. * Diarrhea: Improved. Rectal tube out. * Bipolar: On Prozac, Abilify * Hypernatremia: Likely hypervolemic Plan: Increase activity Lasix, PRBCs. Follow Hgb. Continue FeSO4 Follow platelets. Will give D5 for hypernatremia Transfer to Medical/Surgical floor 06/01/17 13:06 Subjective: Denies pain. Poor appetite. Objective: Vital Signs Temp Pulse Resp BP Pulse Ox 36.7 C 74 16 94/56 L 91 L 06/01/17 07:37 06/01/17 11:01 06/01/17 07:37 06/01/17 11:01 06/01/17 07:37 Microbiology 05/26/17 09:34 Blood Culture - Final Blood Laboratory Results 06/01/17 04:20 06/01/17 04:20 05/31/17 06/01/17 06/02/17 05:59 05:59 05:59 Intake Total 1218 1235 Output Total 1275 2800 Balance -57 -1565 PT 18.8 SEC (12.0-15.0) H 05/27/17 06:45 INR 1.56 (0.83-1.16) H 05/27/17 06:45 Physical Exam - Physical Exam General Appearance: alert, no apparent distress EENT: normal ENT inspection Neck: normal inspection Respiratory: normal breath sounds Cardiac/Chest: regular rate, rhythm, No edema Abdomen: normal bowel sounds, non-tender Skin: normal color, warm/dry Extremities: normal inspection Neuro/Psych: alert, motor weakness, No normal mood/affect ICD10 Worksheet Patient Problems: Problems Problem Status Onset Encephalopathy acute Acute Pneumonia Acute Respiratory failure Acute Sepsis Acute UTI (urinary tract infection) Acute Altered mental status Acute Altered mental status Acute Aspiration of food Acute Chronic Disease Mgmt/Transitional Care Acute History of DVT (deep vein thrombosis) Acute MRSA (methicillin resistant Staphylococcus aureus) Acute 05/16/15 Palliative care encounter Acute Respiratory distress Acute
[2017-06-01] MEDS ORDERED: D5W 1,000 ML IV SCH (13:15)
[2017-06-01] MEDS: RIVAROXABAN 20 MG TAB PO SCH (17:56)
[2017-06-01] MEDS ORDERED: POTASSIUM CL 10 MEQ TAB PO ONE (21:55)
[2017-06-02 05:07] LABS: PLATELET COUNT 79 10^3/uL (150-400)
[2017-06-02] MEDS: LEVOTHYROXINE 88 MCG TAB PO SCH (06:06)
[2017-06-02] MEDS ORDERED: POTASSIUM CL 10 MEQ TAB PO ONE ×2 (08:26→19:26)
[2017-06-02] MEDS: DIVALPROEX NA 125 MG CAP.SPRINKLE PO SCH ×2 (08:53→21:03)
[2017-06-02] MEDS: FERROUS SULFATE 325 MG TAB PO SCH ×2 (08:53→21:03)
[2017-06-02] MEDS: PANTOPRAZOLE SODIUM 40 MG TAB PO SCH (08:53)
[2017-06-02] MEDS: ARIPiprazole 10 MG TAB PO SCH (08:53)
[2017-06-02] MEDS: ANASTROZOLE 1 MG TAB PO SCH (08:53)
[2017-06-02] MEDS: FLUoxetine 20 MG CAP PO SCH (08:53)
--- NOTE | 2017-06-02 12:58 | ECHO ---
[email or web address] [address] [address] Main: [phone] Fax: [email or web address] Echocardiogram Name: YANICK RODRIGUEZ MR#: [id number] Study Date: 05/26/2017 Study Time: 03:08 PM Date of : 1945 Age: 72 year(s) Height: 175.3 cm (69 in.) Weight: 91.17 kg (201 lb.) BSA: 2.07 m2 Gender: Female Examination: Echo Indication: Image Quality: Adequate Contrast: Requested by: Mainor Tenorio BP: / Heart Rate: Rhythm: Indication: Procedure Staff Consumer Recruiter: Ann Marie Farah [facility] Reading Physician: Don Ruvalcaba MD Requesting Provider: Conclusions: Normal size left ventricle. Borderline concentric LV hypertrophy. Normal global systolic LV function. EF is 35 %. Regional wall motion abnormality noted. Basal, mid, apical septum appear hypokinetic. Mild mitral valve regurgitation is present. The aortic valve is normal in appearance and function. Mild-moderate aortic valve stenosis. The tricuspid valve is normal in appearance and function. Mild tricuspid regurgitation is present. Right ventricular systolic pressure measures 39mmHg. There is no pulmonic regurgitation seen. Normal size ascending aorta measuring 2.5 cm. No pericardial effusion. Measurements: Chambers Valvular Assessment AV/MV Valvular Assessment TV/PV Normal Normal Normal Name Value Range Name Value Range Name Value Range Ao Felisa (2D): 3.1 cm (1.4 cm-2.6 AV meanP mmHg ( - ) TR Vmax: 2.92 mm/s ( - ) cm) CJ (VTI): 0.9 cm ( - ) TR PGmax: 34 mmHg ( - ) IVSd (2D): 1.2 cm (0.6 cm-1.1 MV E Vmax: 1.18 m/s ( - ) syst. PAP: 39 mmHg ( - ) cm) MV PHT: 0.039 s ( - ) PV Vmax: 1.26 m/s (0.6 m/s-0.9 LVDd (2D): 3.5 cm (3.9 cm-5.3 MVA (PHT): 5.6 s ( - ) m/s) cm) PV PGmax: 6 mmHg ( - ) LVDs (2D): 2.5 cm (2.1 cm-4 cm) LVPWd (2D): 1.1 cm ( - ) LVOTd 2.0 cm 2.0 cm mm Patient: YANICK RODRIGUEZ Study Date: 05/26/2017 Page 1 of 2 03:08 PM LVEF (BP): 35 % (>=55 %) RVDd(2D): 3.1 cm (1.9 cm-3.8 cmmm) Continued Measurements: Chambers Valvular Assessment AV/MV Valvular Assessment TV/PV Name Value Name Value Name Value LADs: 3.9 cm MV DecTime: 116 m/s CVP (est.): 5 mmHg LADs Lon.9 cm MV E' Septal: 0.11 m/s LA Area: 17.3 cm2 MV E/E' Septal: 10.90 LA Volume: 64 ml MV E/E' Lateral: 8.30 LA Volume Index: 30.9 ml/m2 RA Area: 13.0 cm2 Additional Vessels Name Value Ao Ascendin.5 cm Inferior Vena Cava: 1.1 cm Findings: Left Ventricle: Normal size left ventricle. Borderline concentric LV hypertrophy. Normal global systolic LV function. EF is 35 %. Regional wall motion abnormality noted. Unable to assess diastolic dysfunction. Basal, mid, apical septum appear hypokinetic. Right Ventricle: Normal size right ventricle. Normal RV function. Left Atrium: The left atrium is normal in size. Right Atrium: The right atrium is normal in size. Mitral Valve: The mitral valve is normal in appearance and function. Mild mitral valve regurgitation is present. No mitral stenosis is present. Aortic Valve: The aortic valve is normal in appearance and function. Mild-moderate aortic valve stenosis. There is no significant aortic valve regurgitation. Tricuspid Valve: The tricuspid valve is normal in appearance and function. Mild tricuspid regurgitation is present. The pulmonary artery pressure is normal. Right ventricular systolic pressure measures 39mmHg. Pulmonic Valve: Pulmonary valve not well visualized. There is no pulmonic regurgitation seen. Aorta: The aorta is normal. Normal size aortic root measuring 3.1 cm. Normal size ascending aorta measuring 2.5 cm. IVC: The IVC is normal sized. Pericardium: No pericardial effusion. No pleural effusion. Exam Comments: Patient supine on vent in ICU. (No Signature Object) Patient: YANICK RODRIGUEZ Study Date: 05/26/2017 Page 2 of 2 03:08 PM [id number]
--- NOTE | 2017-06-02 15:26 | HOSPPROG ---
Hospitalist Progress Note Assessment/Plan: DIAGNOSES: # septic shock (fever, tachycardia, source UTI or pna) with lactic acidosis -pressure is now stable off pressors; some post resuscitation edema present -status post vanco, meropenem # viral pneumonia with hMNV; ? Also possible aspiration pna # acute hypoxemic respiratory failure due to above; requiring mechanical ventilation, now extubated # possible UTI (E coli and Klebsiella in urine) s/p 6 days of Merrem # anemia, macrocytic -suspected marrow disease underlying disorder along with acute inflammatory affects of her present illness as causes -normal B12 levels -improved after transfusion from yesterday # volume overload/anasarca related to resuscitation fluids, malnutrition, inflammation, etc -improving s/p IV albumin and Lasix # acute encephalopathy - multifactorial etiology from above -still does not have normal mentation and conversation, question what her baseline is and if there could be some dementia underlying -would also be concerned about possible nutritional factors acute and chronic -? Impact of her chronic narcotics on this issue # type II NSTEMI (myocardial strain from acute noncardiac illness) with minimal elevations of troponin -suspect this is all due to her severe acute noncardiac illness -however she does have reduced ejection fraction 35% with wall motion abnormalities noted; concern for underlying coronary disease which will need further assessment # severe deconditioning and gait instability, multifactorial -at present largely bed-bound at least on her own # hx PE -is on her usual anticoagulant -will need to follow closely due to her low platelets; is more anemic at this time but currently no signs of bleeding # chronic pain on continuous narcotics -given her mentation issues, her severely impaired mobility and high fall risk, and her bipolar disorder I believe that ongoing use of narcotics should be stopped if possible (is not on them now and I will not plan on resuming them) # bipolar d/o - cont home meds # elevated hepatic transaminases- d/t shock; resolved # ppx - lansoprazole and SCDs Aside from hospitalist rounds I did see this patient on multidisciplinary rounds today and I reviewed in detail with Dr. Castro Little change overall between yesterday and today though she has responded to diuresis and her blood count is better after transfusion. PLANS: -continue supportive care -continue diuresis -follow hemoglobin closely; depending on her recovery and care plan decision process, could consider Hematology consult for the cause of her macrocytosis -for her wall motion abnormalities and minimally elevated troponins here,, would consider myocardial perfusion imaging stress test if that fits in with the overall goals and care plan decision process that we come to with her over time -continue off narcotics, which she had been taking at home chronically but is doing well without at this time -continue anticoagulant -continue PT, OT, fall risk precautions -nutritional support -palliative discussion with son if we can contact him, and with patient if she improves and is able to engage productively in that schedule in SUBJECTIVE: States she feels better today Again today is unable to describe to me in what way she feels better Does admit to some discomfort but unable to elaborate where in her body or what it feels like OBJECTIVE Vitals reviewed: Blood pressures notably better today, T-max 37.5 degrees, otherwise stable vitals Color Corrector, my review: Sinus Remains on 2 L nasal cannula oxygen Exam: alert still with some degree of disorientation, very slow in conversation and clearly not entirely aware of her full situation skin warm dry color ok resps mildly labored lungs very diminished but otherwise clear BSs heart regular abd soft nondistended nontender, bowel sounds present limbs warm, still with diffuse anasarca iv site ok Laboratory data: Hemoglobin better today at 8+ Otherwise stable CBC and chemistry panels B12 levels normal at 800+ Valproic acid level 18.6 Objective: Vital Signs Temp Pulse Resp BP Pulse Ox 37.5 C 85 19 117/70 92 06/02/17 07:43 06/02/17 07:43 06/02/17 07:43 06/02/17 07:43 06/02/17 07:43 Laboratory Results 06/02/17 04:40 06/02/17 04:40 06/01/17 06/02/17 06/03/17 06:59 06:59 06:59 Intake Total 1235 2816 Output Total 2800 7855 Balance -1565 -2209 PT 18.8 SEC (12.0-15.0) H 05/27/17 06:45 INR 1.56 (0.83-1.16) H 05/27/17 06:45 - Time Spent With Patient Time Spent with Patient: greater than 35 minutes Time Spent with Patient: Greater than 35 minutes spent on this patients care, greater than 50% of time spent counseling, educating, and coordinating care regarding the above mentioned plan. ICD10 Worksheet Patient Problems: Problems Problem Status Onset Encephalopathy acute Acute Pneumonia Acute Respiratory failure Acute Sepsis Acute UTI (urinary tract infection) Acute Altered mental status Acute Altered mental status Acute Aspiration of food Acute Chronic Disease Mgmt/Transitional Care Acute History of DVT (deep vein thrombosis) Acute MRSA (methicillin resistant Staphylococcus aureus) Acute 05/16/15 Palliative care encounter Acute Respiratory distress Acute
[2017-06-02] MEDS: RIVAROXABAN 20 MG TAB PO SCH (18:37)
[2017-06-03] MEDS: LEVOTHYROXINE 88 MCG TAB PO SCH (05:16)
[2017-06-03 05:59] LABS: PLATELET COUNT 73 10^3/uL (150-400)
[2017-06-03] MEDS ORDERED: POTASSIUM CL 10 MEQ TAB PO ONE ×2 (07:46→20:56)
--- NOTE | 2017-06-03 08:39 | HOSPPROG ---
Hospitalist Progress Note Assessment/Plan: # septic shock (fever, tachycardia, source UTI or pna) with lactic acidosis, off pressors. -status post vanco, meropenem # viral pneumonia with hMNV; Also possible aspiration pna # acute hypoxemic respiratory failure due to above; required mechanical ventilation, now extubated, stable on 2 LPM # possible UTI (E coli and Klebsiella in urine) s/p 6 days of Merrem # pancytopenia - plts chronically low, around baseline. anemia is chronic. unclear if she has had previous GI evaluation. -consider marrow dz, recommend outpt hematology f/u # volume overload/anasarca related to resuscitation fluids, malnutrition, inflammation, etc -improving s/p IV albumin and Lasix # acute encephalopathy - multifactorial etiology from above, possible underlying dementia, malnutrition may be playing a role. Seems she may be near baseline -off opiates # type II NSTEMI (myocardial strain from acute noncardiac illness), trop peaked at 1.2. Suspect related to acute illness. Echo reviewed, EF 35% with hypokinesis, so concern for CAD exists. Likely warrants angiogram vs alexa depending on goals of care. She is currently full code. Chest pain free. -requested cardiology consult for opinion regarding inpt vs outpt risk stratification noting chronic anemia -need to better define goals of care # severe deconditioning and gait instability, multifactorial -wheelchair bound at baseline # hx PE - tolerating anticoagulation despite low plts -monitor closely for bleeding -if plts drop below 50, would reduce xarelto dose or hold # chronic pain on continuous narcotics - she has been weaned off opiates, agree with this given concern for dementia, bipolar and acute encephalopathy # bipolar d/o - cont home meds # elevated hepatic transaminases- d/t shock; resolved # ppx - lansoprazole and SCDs # dispo - cont inpt, needs PT/OT, ordered today. Lives at [facility]. Subjective: Pt feels fine. She is awake, alert to person and place. Denies pain. No fevers. No CP or SOB. Has a bit of a wet cough. Objective: Vital Signs Temp Pulse Resp BP Pulse Ox 37.1 C 88 16 108/61 100 06/03/17 08:00 06/03/17 08:00 06/03/17 08:00 06/03/17 08:00 06/03/17 08:00 Laboratory Results 06/03/17 05:20 06/03/17 05:20 06/02/17 06/03/17 06/04/17 05:59 05:59 05:59 Intake Total 2816 Output Total 5025 1000 Balance -2209 -1000 PT 18.8 SEC (12.0-15.0) H 05/27/17 06:45 INR 1.56 (0.83-1.16) H 05/27/17 06:45 - Physical Exam Constitutional: no apparent distress Eyes: PERRL Ears, Nose, Mouth, Throat: moist mucous membranes Cardiovascular: regular rate and rhythym Respiratory: no respiratory distress, reduced air movement Gastrointestinal: normoactive bowel sounds, soft, non-tender abdomen Skin: warm Musculoskeletal: generalized weakness Neurologic: AAOx3 Psychiatric: interacting appropriately, poor memory ICD10 Worksheet Patient Problems: Problems Problem Status Onset Encephalopathy acute Acute Pneumonia Acute Respiratory failure Acute Sepsis Acute UTI (urinary tract infection) Acute Altered mental status Acute Altered mental status Acute Aspiration of food Acute Chronic Disease Mgmt/Transitional Care Acute History of DVT (deep vein thrombosis) Acute MRSA (methicillin resistant Staphylococcus aureus) Acute 05/16/15 Palliative care encounter Acute Respiratory distress Acute
[2017-06-03] MEDS: FERROUS SULFATE 325 MG TAB PO SCH ×2 (10:02→22:05)
[2017-06-03] MEDS: PANTOPRAZOLE SODIUM 40 MG TAB PO SCH (10:02)
[2017-06-03] MEDS: FLUoxetine 20 MG CAP PO SCH (10:02)
[2017-06-03] MEDS: ARIPiprazole 10 MG TAB PO SCH (11:01)
[2017-06-03] MEDS: ANASTROZOLE 1 MG TAB PO SCH (11:02)
[2017-06-03] MEDS: DIVALPROEX NA 125 MG CAP.SPRINKLE PO SCH ×2 (11:02→22:05)
[2017-06-03] MEDS: RIVAROXABAN 20 MG TAB PO SCH (17:31)
[2017-06-04] MEDS: LEVOTHYROXINE 88 MCG TAB PO SCH (05:33)
[2017-06-04 05:52] LABS: PLATELET COUNT 71 10^3/uL (150-400)
[2017-06-04] MEDS: DIVALPROEX NA 125 MG CAP.SPRINKLE PO SCH ×2 (09:00→20:38)
[2017-06-04] MEDS: ARIPiprazole 10 MG TAB PO SCH (09:00)
[2017-06-04] MEDS: FLUoxetine 20 MG CAP PO SCH (09:01)
[2017-06-04] MEDS: ANASTROZOLE 1 MG TAB PO SCH (09:01)
[2017-06-04] MEDS: PANTOPRAZOLE SODIUM 40 MG TAB PO SCH (09:01)
[2017-06-04] MEDS: FERROUS SULFATE 325 MG TAB PO SCH ×2 (09:01→20:37)
--- NOTE | 2017-06-04 15:20 | HOSPPROG ---
Hospitalist Progress Note Assessment/Plan: 72 yo F with hx of dementia, chronic pain on cont narcs presenting with septic shock in setting of respiratory source # septic shock (fever, tachycardia, source UTI or pna) with lactic acidosis, off pressors. -status post vanco, meropenem # viral pneumonia with hMNV; Also component of aspiration pna # acute hypoxemic respiratory failure due to above also possible component of chf; required mechanical ventilation, now extubated, stable on 2 LPM and continuing to wean # possible UTI (E coli and Klebsiella in urine) s/p 6 days of Merrem # pancytopenia - plts chronically low, around baseline. anemia is chronic. unclear if she has had previous GI evaluation. Given stability this can likely be deferred to OP setting, she shows no signs of active bleeding # volume overload/anasarca related to resuscitation fluids, malnutrition, inflammation, etc, improving # acute on chronic encephalopathy - with underlying dementia and reportedly a & o x 0-1 at baseline, seems to be back to baseline, acute decline on presentation with lack of responsiveness likely due to sepsis # acute systolic heart failure: new EF of 35% from prior 60% with regional wall motion abnormality and trop elevation during this stay. Notes report cardiology was consulted but do not see any report from them--will re consult cardiology in am. # NSTEMI : trop peaked at 1.2. Suspect related to acute illness however given regional wall motion changes and drop in EF concern for ACS. As above, will ask cardiology to weigh in. # severe deconditioning and gait instability, multifactorial -wheelchair bound at baseline # hx PE - tolerating anticoagulation despite low plts -monitor closely for bleeding -if plts drop below 50, would reduce xarelto dose or hold # chronic pain on continuous narcotics - she has been weaned off opiates, agree with this given concern for dementia, bipolar and acute encephalopathy # bipolar d/o - cont home meds # elevated hepatic transaminases- d/t shock; resolved # ppx - lansoprazole and SCDs # dispo - cont inpt, needs further eval of cardiac issues etc Lives at [facility]. [place] to [facility] [place]. Old records reviewed and summarized as above. Subjective: no signfiicant overnight events, patient states she is feeling better, notes her bottom hurts Objective: Vital Signs Temp Pulse Resp BP Pulse Ox 36.7 C 91 18 123/77 H 96 04/27/18 08:00 06/04/17 08:00 06/04/17 08:00 06/04/17 08:00 06/04/17 08:00 Laboratory Results 06/04/17 05:30 06/04/17 05:30 06/03/17 06/04/17 06/05/17 05:59 05:59 05:59 Intake Total 700 Output Total 1000 1100 Balance -1000 -400 PT 18.8 SEC (12.0-15.0) H 05/27/17 06:45 INR 1.56 (0.83-1.16) H 05/27/17 06:45 awake alert oriented x 1 anicteric op clear rrr no mrg coarse upper airway bs soft nt nd no cce warm dry well perfused oriented x 1, pleasant ICD10 Worksheet Patient Problems: Problems Problem Status Onset Encephalopathy acute Acute Pneumonia Acute Respiratory failure Acute Sepsis Acute UTI (urinary tract infection) Acute Altered mental status Acute Altered mental status Acute Aspiration of food Acute Chronic Disease Mgmt/Transitional Care Acute History of DVT (deep vein thrombosis) Acute MRSA (methicillin resistant Staphylococcus aureus) Acute 05/16/15 Palliative care encounter Acute Respiratory distress Acute
--- NOTE | 2017-06-04 16:37 | ASMTCMCOM ---
ELISSA Note CM Note Notes: Pt lives at [facility], will return when medically stable, update faxed to ELISSA ZAMARRIPA w/f. DC Plan: SNF/ LTC [facility] Date Signed: 06/04/2017 04:36 PM Electronically Signed By:Sanjuanita Allen RN
[2017-06-04] MEDS: RIVAROXABAN 20 MG TAB PO SCH (18:31)
[2017-06-04] MEDS: ACETAMINOPHEN 325 MG TAB PO PRN (21:03)
[2017-06-05] MEDS: LEVOTHYROXINE 88 MCG TAB PO SCH (05:04)
[2017-06-05 05:35] LABS: PLATELET COUNT 64 10^3/uL (150-400)
[2017-06-05] MEDS ORDERED: POTASSIUM CL 10 MEQ TAB PO ONE (08:44)
[2017-06-05] MEDS: DIVALPROEX NA 125 MG CAP.SPRINKLE PO SCH ×2 (09:57→21:14)
[2017-06-05] MEDS: ARIPiprazole 10 MG TAB PO SCH (09:57)
[2017-06-05] MEDS: FERROUS SULFATE 325 MG TAB PO SCH ×2 (09:57→21:14)
[2017-06-05] MEDS: PANTOPRAZOLE SODIUM 40 MG TAB PO SCH (09:57)
[2017-06-05] MEDS: FLUoxetine 20 MG CAP PO SCH (09:57)
[2017-06-05] MEDS: ANASTROZOLE 1 MG TAB PO SCH (09:57)
[2017-06-05] MEDS: ACETAMINOPHEN 325 MG TAB PO PRN ×2 (10:19→21:14)
[2017-06-05] MEDS ORDERED: ASPIRIN 81 MG CHEWABLE TAB PO SCH (13:45)
--- NOTE | 2017-06-05 14:53 | GCON ---
[f rep st] CONSULTATION CARDIOLOGY CONSULT DATE OF CONSULTATION: 06/05/2017 PRIMARY CARE: Unknown. CHIEF COMPLAINT: Cardiomyopathy. HISTORY OF PRESENT ILLNESS: We were asked by Dr. Santiago to visit with the patient. The patient i s a 72-year-old female with known left bundle branch block, dementia, bipolar disease, valvular heart disease, mild to moderate aortic stenosis. She denies any known history of coronary disease or hear t failure. She was admitted on May 26 from [facility] where she was found to have altered mental status and respiratory distress. She was intubated in the emergency department and found to have sepsis related to a UTI as well as aspiration and viral pneumonia. She was in the ICU and ultimately extubated. Her course has further been complicated by anemia of unclear etiology, requiring 1 unit of packed red blood cells. She did have a peak troponin of 1.2 and an echocardiogram the day of admission showed a new cardiomyopathy with an ejection fraction of 35% and anterior, anteroseptal, apical, and mid to distal inferior hypokinesis. She does have gcnl-lf-nzztvyep aortic stenosis. We are therefore asked to comment further on cardiac management of her new echocardiographic finding. Her cardiomyopathy i s new compared to 2016 echo. Upon my evaluation today, she reports that she is not having any angina. She gives a history of shor tness of breath that she states started 6 months ago. She also states that sometimes her lower extre mities do swell at home. She occasionally gets palpitations as well. Given her history of dementia, I am not sure how accurate her history is. REVIEW OF SYSTEMS: Unable. PAST MEDICAL HISTORY: 1. Left bundle branch block. 2. Mild to moderate aortic stenosis. 3. Bipolar disease. 4. Chronic pain on narcotics. 5. Breast cancer. 6. Lymphoma. 7. History of PE, previously on Xarelto therapy as an outpatient. 8. Hypothyroidism. 9. Dementia. 10. Hypertension. SURGICAL HISTORY: Mastectomy, spinal fusion, and right total knee replacement. OUTPATIENT MEDICATIONS: Are reviewed and not repeated here. SOCIAL HISTORY: The patient lives at [facility]. FAMILY HISTORY: Not applicable to the current case. PHYSICAL EXAMINATION: VITAL SIGNS: Blood pressure 130/77, heart rate oxygen saturation i s 93% on room air. She is afebrile. GENERAL: Chronically ill-appearing older female. Overweight. HEENT: Sclerae clear and free of jaundice. Mucous membranes are moist. CARDIOVASCULAR: JVP is le ss than 10. Regular rate and rhythm. A 2/6 systolic ejection murmur at the base. No rub or gallop. LUNGS: Clear to auscultation without wheeze or rales. ABDOMEN: Slightly distended but nontender. No obvious masses or hepatosplenomegaly. EXTREMITIES: Warm and perfused with trace bilateral lower extremity edema. EKG upon admission shows sinus tachycardia with left bundle branch block. Also EKG reviewed by me. Chest x-ray reviewed by me. ET tube in place. Fullness in the yudelka. Head CT: Stable parenchymal atrophy and chronic microvascular change. Echocardiogram reviewed by me: LV systolic function is depressed at 35% with regional wall motion ab normalities as detailed above. Mild to moderate aortic stenosis. Top normal estimated pulmonary pre ssure at 39. LABORATORY: White count 2.59, hematocrit 26.6, and platelets are 64. INR 1.56. Sodium 140, potassi um 3.8, chloride 105, BUN 13, creatinine 0.6, and ALT 53. Albumin is 2.7. Urinalysis showed white c ells and red cells as well as leukocyte esterase upon admission. Stool occult blood is negative and Clostridium difficile is negative. Troponin peak was 1.2 on May 26. ASSESSMENT AND PLAN: A 72-year-old female with multiple medical problems, admitted with sepsis from urinary and lung source. She was found to have new onset cardiomyopathy and a minimally elevated tro ponin. It is possible that this is a takotsubo stress-induced cardiomyopathy related to her infectio n. She is currently not having chest discomfort and does not appear overtly volume overloaded. 1. Cardiomyopathy: Coronary artery disease versus takotsubo. Would repeat limited echocardiogram in the morning. We will add low-dose aspirin in the event that this is coronary disease, with careful attention to her platelet count. If her ejection fraction remains low, would consider adding lisinop ril and beta ruthie therapy. Would favor medical management given her multiple comorbidities and wh eelchair-bound status. 2. Positive troponin: Likely demand in the setting of sepsis and tachycardia. Could have underlyin g coronary disease. Add low-dose aspirin. Consideration for beta blockers and REG inhibitors as det qiana above. 3. Sepsis: Resolved. On appropriate antibiotic therapy per Internal Medicine. 4. Valvular heart disease: Mild to moderate aortic stenosis. This can be followed serially. 5. Hypothyroidism: Check TSH. 6. Bipolar disease: She is on medical therapy for this. Thank you for allowing us to participate in the patient's care. Will follow with you. /[id number]/MODL
--- NOTE | 2017-06-05 15:17 | HOSPPROG ---
Hospitalist Progress Note Assessment/Plan: 72 yo F with hx of dementia, chronic pain on cont narcs presenting with septic shock in setting of respiratory source # septic shock: resolved(fever, tachycardia, source UTI or pna) with lactic acidosis, off pressors. # viral pneumonia with hMNV; Also component of aspiration pna, sp merrem/vanc. # acute hypoxemic respiratory failure due to above also possible component of chf; required mechanical ventilation, now extubated, stable on 2 LPM and continuing to wean # possible UTI (E coli and Klebsiella in urine) s/p 6 days of Merrem # pancytopenia - plts chronically low, around baseline. anemia is chronic. unclear if she has had previous GI evaluation. Given stability this can likely be deferred to OP setting, she shows no signs of active bleeding # volume overload/anasarca related to resuscitation fluids, malnutrition, inflammation, etc, improving # acute on chronic encephalopathy - with underlying dementia and reportedly a & o x 0-1 at baseline, seems to be back to baseline, acute decline on presentation with lack of responsiveness likely due to sepsis # acute systolic heart failure: new EF of 35% from prior 60% with regional wall motion abnormality and trop elevation during this stay. Consulted cardiology and appreciate their input, per Dr. Ram possibly related to Takotsubo's in setting of sepsis. Will need repeat echo. # NSTEMI : trop peaked at 1.2. Suspect related to acute illness however given regional wall motion changes and drop in EF concern for ACS. given her baseline functional status and lack of chest pain no plan for cath. # severe deconditioning and gait instability, multifactorial, wheelchair bound at baseline, resides in SNF and will return there at baseline # hx PE - tolerating anticoagulation despite low plts, monitoring # chronic pain on continuous narcotics - she has been weaned off opiates, agree with this given concern for dementia, bipolar and acute encephalopathy # bipolar d/o - cont home meds # elevated hepatic transaminases- d/t shock; resolved # ppx - lansoprazole and SCDs # dispo - cont inpt, needs further eval of cardiac issues etc Lives at [facility]. [place] new to [facility] [place]. Old records reviewed and summarized as above. Objective: Vital Signs Temp Pulse Resp BP Pulse Ox 36.7 C 81 16 137/87 H 93 06/05/17 14:37 06/05/17 14:37 06/05/17 14:37 06/05/17 14:37 06/05/17 14:37 Laboratory Results 06/05/17 05:23 06/05/17 05:23 06/04/17 06/05/17 06/06/17 05:59 05:59 05:59 Intake Total 700 400 300 Output Total 1100 1450 Balance -400 -1050 300 PT 18.8 SEC (12.0-15.0) H 05/27/17 06:45 INR 1.56 (0.83-1.16) H 05/27/17 06:45 awake alert oriented x 1 anicteric op clear rrr no mrg coarse upper airway bs soft nt nd no cce warm dry well perfused oriented x 1, pleasant ICD10 Worksheet Patient Problems: Problems Problem Status Onset Pneumonia Acute History of DVT (deep vein thrombosis) Acute UTI (urinary tract infection) Acute Chronic Disease Mgmt/Transitional Care Acute MRSA (methicillin resistant Staphylococcus aureus) Acute 05/16/15 Sepsis Acute Altered mental status Acute Respiratory distress Acute Aspiration of food Acute Altered mental status Acute Palliative care encounter Acute Respiratory failure Acute Encephalopathy acute Acute
[2017-06-05] MEDS: RIVAROXABAN 20 MG TAB PO SCH (17:53)
[2017-06-06] MEDS: LEVOTHYROXINE 88 MCG TAB PO SCH (05:26)
[2017-06-06] MEDS: ANASTROZOLE 1 MG TAB PO SCH (08:43)
[2017-06-06] MEDS: ACETAMINOPHEN 325 MG TAB PO PRN ×2 (08:43→20:51)
[2017-06-06] MEDS: FLUoxetine 20 MG CAP PO SCH (08:43)
[2017-06-06] MEDS: PANTOPRAZOLE SODIUM 40 MG TAB PO SCH (08:44)
[2017-06-06] MEDS: DIVALPROEX NA 125 MG CAP.SPRINKLE PO SCH ×2 (08:44→20:51)
[2017-06-06] MEDS: ARIPiprazole 10 MG TAB PO SCH (08:44)
[2017-06-06] MEDS: FERROUS SULFATE 325 MG TAB PO SCH ×2 (08:44→20:51)
--- NOTE | 2017-06-06 11:04 | ECHO ---
[email or web address] [address] [address] Main: [phone] Fax: Transthoracic Echocardiogram Name: YANICK RODRIGUEZ MR#: [id number] Study Date: 06/06/2017 Study Time: 09:48 AM Date of : 1945 Age: 72 year(s) Height: 175.3 cm (69 in.) Weight: 95.71 kg (211 lb.) BSA: 2.11 m2 Gender: Female Examination: Limited Echo Indication: Cardiomyopathy Image Quality: Contrast: Requested by: Keisha Ram BP: 119 mmHg/70 mmHg Heart Rate: Rhythm: Indication: Cardiomyopathy Procedure Staff Utility System Operator: Ann Marie Farah [facility] Reading Physician: Keisha Ram MD Requesting Provider: Sheryl Santiago Conclusions: Normal size left ventricle. Low normal left ventricular systolic function. The ejection fraction is visually estimated to be 50 %. Septal dyskinesis and mild apical hypokinesis. Directed study to re-evaluate LV systolic function. Compared with 05/26/2017 LVEF and wall motion abnormalities have improved. Measurements: Chambers Valvular Assessment AV/MV Valvular Assessment TV/PV Normal Normal Normal Name Value Range Name Value Range Name Value Range Visual EF: 50 % Continued Measurements: Findings: Left Ventricle: Normal size left ventricle. No LV hypertrophy. Low normal left ventricular systolic function. The ejection fraction is visually estimated to be 50 %. Septal dyskinesis and mild apical hypokinesis. Right Ventricle: Normal size right ventricle. Left Atrium: The left atrium is normal in size. Right Atrium: The right atrium is normal in size. Mitral Valve: The mitral valve is normal in appearance and function. Aortic Valve: Patient: YANICK RODRIGUEZ Study Date: 06/06/2017 Page 1 of 2 09:48 AM The aortic valve is normal in appearance and function. Tricuspid Valve: The tricuspid valve is normal in appearance and function. Pulmonic Valve: The pulmonic valve is normal in appearance and function. Aorta: The aorta is normal. Pericardium: No pericardial effusion. (No Signature Object) Patient: YANICK RODRIGUEZ Study Date: 06/06/2017 Page 2 of 2 09:48 AM [id number]
--- NOTE | 2017-06-06 11:34 | PDCARPN ---
Cardiology Progress Note Assessment/Plan: Assessment/Plan: 72-year-old female with past history of left bundle branch block, dementia, chronic pain. She was admitted on May 26 with septic shock related to UTI and pneumonia and respiratory failure requiring intubation. She is now recovering on the floor overall doing clinically fairly well. The day of admission she did have an echocardiogram with an ejection fraction of 35% and regional wall motion abnormalities. Peak troponin was 1.2. Repeat echocardiogram today shows improvement in ejection fraction and improvement in wall motion abnormalities. Other history includes mild-to- moderate aortic stenosis. 1. CMP: Echo today is improved. She may have had takotsubo/stress related, myopathy in the setting of sepsis. Not a candidate for aspirin therapy given her thrombocytopenia and the fact that she is already on Xarelto for past history of pulmonary emboli. Would also not add beta blockers to her regimen given polypharmacy at this time. Not a candidate for stress testing or coronary angiography given her baseline functional status and multiple medical problems. 2. Positive troponin: Type 2 MT in the setting of sepsis and respiratory distress. No further evaluation at this time. She is not having chest pain. 3. Hypertension: Currently well controlled 4. Aortic stenosis [id number] and unlikely to have contributed to her initial picture. 5. Sepsis and respiratory failure now resolved 6. Pancytopenia: This is chronic. Outpatient evaluation. 7. Hypothyroidism: TSH is slightly elevated this admission. Will defer to Hospital Medicine. Will sign off, please call with questions or concerns. Thank you 06/06/17 11:31 Subjective: She denies chest pain. She reports a little bit of dyspnea which is chronic. Objective: Vital Signs (8 Hrs) Temp Pulse Resp BP Pulse Ox 06/06/17 08:00 36.6 C 80 16 119/70 94 Intake/Output (24 Hrs) 06/05/17 06/06/17 06/07/17 05:59 05:59 05:59 Intake Total 400 550 Output Total 1450 650 Balance -1050 -100 Intake: Oral (ml) 400 550 Output: Urine (ml) 1450 650 Catheter 1450 650 Other: Intake Quantity Yes Sufficient Number of Stools Incontinence 2 No acute distress. Regular rate and rhythm with 2/6 early peaking systolic ejection murmur at the base. Lungs clear bilaterally without wheeze rhonchi or rales Trace lower extremity edema bilaterally Result Diagrams: 06/05/17 05:23 06/05/17 17:17 Echocardiogram: Reviewed: Improvement in LV systolic function to 50%. Septal dyskinesis and mild apical hypokinesis. ICD10 Worksheet Patient Problems: Problems Problem Status Onset Pneumonia Acute History of DVT (deep vein thrombosis) Acute UTI (urinary tract infection) Acute Chronic Disease Mgmt/Transitional Care Acute MRSA (methicillin resistant Staphylococcus aureus) Acute 05/16/15 Sepsis Acute Altered mental status Acute Respiratory distress Acute Aspiration of food Acute Altered mental status Acute Palliative care encounter Acute Respiratory failure Acute Encephalopathy acute Acute
--- NOTE | 2017-06-06 16:53 | HOSPPROG ---
Hospitalist Progress Note Assessment/Plan: 72 yo F with hx of dementia, chronic pain on cont narcs presenting with septic shock in setting of respiratory source # septic shock: resolved, source UTI or pna # viral pneumonia with hMNV; Also component of aspiration pna, sp merrem/vanc. # acute hypoxemic respiratory failure: due to above, required mechanical ventilation, now extubated, stable on 2 LPM and continuing to wean # possible UTI (E coli and Klebsiella in urine) s/p 6 days of Merrem # pancytopenia - plts chronically low, around baseline. anemia is chronic. unclear if she has had previous GI evaluation. Given stability this can likely be deferred to OP setting, she shows no signs of active bleeding # volume overload/anasarca related to resuscitation fluids, malnutrition, inflammation, etc, improving # acute on chronic encephalopathy - with underlying dementia and reportedly a & o x 0-1 at baseline, seems to be back to baseline, acute decline on presentation with lack of responsiveness likely due to sepsis # acute systolic heart failure: repeat echo today showing EF has improved form 35 to 50%, this is c/w Takotsubo's/stress CM due to sepsis. Appreciate cardiology consultation. No asa given low plts # NSTEMI : trop peaked at 1.2. No further testing or intervention given her baseline functional status and lack of sxs # severe deconditioning and gait instability, multifactorial, wheelchair bound at baseline, resides in SNF and will return there at baseline # hx PE - tolerating anticoagulation despite low plts, monitoring # chronic pain on continuous narcotics - she has been weaned off opiates, agree with this given concern for dementia, bipolar and acute encephalopathy # bipolar d/o - cont home meds # elevated hepatic transaminases- d/t shock; resolved # ppx - lansoprazole and SCDs # dispo - cont inpt, needs further eval of cardiac issues etc Lives at [facility]. Likely dc in am back to [facility] Subjective: no significant overnight events, patient denies any complaints currently Objective: Vital Signs Temp Pulse Resp BP Pulse Ox 36.6 C 83 16 121/78 H 92 06/06/17 15:24 06/06/17 15:24 06/06/17 15:24 06/06/17 15:24 06/06/17 15:24 Laboratory Results 06/05/17 05:23 06/05/17 17:17 06/05/17 06/06/17 06/07/17 05:59 05:59 05:59 Intake Total 400 550 Output Total 1450 650 Balance -1050 -100 PT 18.8 SEC (12.0-15.0) H 05/27/17 06:45 INR 1.56 (0.83-1.16) H 05/27/17 06:45 awake alert oriented x 1 anicteric op clear rrr no mrg coarse upper airway bs soft nt nd no cce warm dry well perfused oriented x 1, pleasant ICD10 Worksheet Patient Problems: Problems Problem Status Onset Encephalopathy acute Acute Pneumonia Acute Respiratory failure Acute Sepsis Acute UTI (urinary tract infection) Acute Altered mental status Acute Altered mental status Acute Aspiration of food Acute Chronic Disease Mgmt/Transitional Care Acute History of DVT (deep vein thrombosis) Acute MRSA (methicillin resistant Staphylococcus aureus) Acute 05/16/15 Palliative care encounter Acute Respiratory distress Acute
[2017-06-06] MEDS: RIVAROXABAN 20 MG TAB PO SCH (17:09)
[2017-06-07] MEDS: LEVOTHYROXINE 88 MCG TAB PO SCH (05:56)
[2017-06-07] MEDS: FLUoxetine 20 MG CAP PO SCH (09:12)
[2017-06-07] MEDS: ANASTROZOLE 1 MG TAB PO SCH (09:13)
[2017-06-07] MEDS: FERROUS SULFATE 325 MG TAB PO SCH (09:13)
[2017-06-07] MEDS: DIVALPROEX NA 125 MG CAP.SPRINKLE PO SCH (09:13)
[2017-06-07] MEDS: PANTOPRAZOLE SODIUM 40 MG TAB PO SCH (09:13)
[2017-06-07] MEDS: ARIPiprazole 10 MG TAB PO SCH (09:14)
[2017-06-07 09:34] VITALS: BP 130/79
--- NOTE | 2017-06-07 13:05 | PDDCSUM ---
Discharge Summary Discharge Summary: Dates of service 05/26-06/07/17 Discharge dx: # septic shock # viral (hMNV) pnemonia # AHRF # pancytopenia # UTI # acute encephalopathy # type 2 NSTEMI # acute systolic CHF # chronic pain with continuous narcotic use and dependency Consultations: cardiology, pulmonary Procedures performed: PICC line placement, ETT placement, bronchoscopy, echocardiogram Hospital course by problem: 72 yo F with hx of dementia, chronic pain on cont narcs presenting with septic shock in setting of respiratory source # septic shock: resolved, source UTI or pna # viral pneumonia with hMNV; Also component of aspiration pna, sp merrem/vanc. # acute hypoxemic respiratory failure: due to above, required mechanical ventilation, now extubated, stable on 2 LPM # possible UTI (E coli and Klebsiella in urine) s/p 6 days of Merrem # pancytopenia - plts chronically low, around baseline. anemia is chronic. unclear if she has had previous GI evaluation. Given stability this will be deferred to OP setting, she shows no signs of active bleeding # volume overload/anasarca related to resuscitation fluids, malnutrition, inflammation, etc, improving # acute on chronic encephalopathy - with underlying dementia and reportedly a & o x 0-1 at baseline, seems to be back to baseline, acute decline on presentation with lack of responsiveness likely due to sepsis # acute systolic heart failure: repeat echo today showing EF has improved form 35 to 50%, this is c/w Takotsubo's/stress CM due to sepsis. Appreciate cardiology consultation. No asa given low plts, no BB given polypharmacy. # NSTEMI : trop peaked at 1.2. No further testing or intervention given her baseline functional status and lack of sxs # severe deconditioning and gait instability, multifactorial, wheelchair bound at baseline, resides in SNF and will return there at baseline # hx PE - tolerating anticoagulation despite low plts, monitoring # chronic pain on continuous narcotics - she has been weaned off opiates, agree with this given concern for dementia, bipolar and acute encephalopathy # bipolar d/o - cont home meds # elevated hepatic transaminases- d/t shock; resolved # ppx - lansoprazole and SCDs DC back to SNF Items for f/u: further w/u of anemia > 35 min spent in dc more than half in coordination of care
--- NOTE | 2017-06-07 13:05 | PDIAF ---
- Diagnosis Code Status: Full Code - Medication Management Discharge Medications: Medications to Continue on Transfer Acetaminophen [Tylenol ES 500 mg (*)] 500 mg PO Q6 PRN 05/16/15 [Last Taken ] Albuterol [Proventil Neb] 3 ml IH Q6HRS 05/16/15 [Last Taken Unknown] Atorvastatin Calcium [Lipitor 40 mg (*)] 40 mg PO HS 05/16/15 [Last Taken ] Calcium Carbonate [Tums 500MG (*)] 500 mg PO Q2 PRN 05/16/15 [Last Taken Unknown ] Ferrous Sulfate [Ferrous Sulf 325 MG (*)] 325 mg PO BID 05/16/15 [Last Taken 09:00] Gluc Oxid/l-Peroxid/Muramidase [Biotene Mouthwash (*)] 30 ml MM DAILY 05/16/15 [ Last Taken 12/06/15] LORazepam [Ativan (*)] 0.5 mg PO HS 05/16/15 [Last Taken 12/05/15] Levothyroxine [Synthroid 88 mcg (*)] 88 mcg PO DAILY06 05/16/15 [Last Taken ] Lidocaine [Lidocaine 5% oint] 1 van TP TID 05/16/15 [Last Taken 12/06/15 12:00] Magnesium Hydroxide [Milk of Magnesia (*)] 30 ml PO Q8 PRN 05/16/15 [Last Taken 11/19/15] Melatonin [Melatonin 3 MG (*)] 3 mg PO HS 05/16/15 [Last Taken 12/05/15] guaiFENesin [Mucinex 600 MG (*)] 600 mg PO BID 05/16/15 [Last Taken 12/06/15 09: 00] guaiFENesin/DEXTROMETHORPHAN [Robitussin Dm Oral Liquid (*)] 10 ml PO Q6 PRN 08/23 [Last Taken Unknown] Ondansetron HCl [Zofran] 4 mg PO Q4 PRN 08/15/15 [Last Taken 11/20/15] Anastrozole [Arimidex 1 mg (*)] 1 mg PO DAILY 12/06/15 [Last Taken 12/06/15] Cholecalciferol Vit D3 [Vitamin D3 (*)] 5,000 units PO DAILY 12/06/15 [Last Taken 12/06/15] FLUoxetine [Prozac 20 MG (*)] 20 mg PO DAILY 12/06/15 [Last Taken 12/06/15] Loperamide HCl [Loperamide] 2 mg PO PRN PRN 05/12/16 [Last Taken Unknown] Olopatadine 0.1% [Patanol 0.1%] 1 drops EACHEYE BID PRN 05/12/16 [Last Taken Unknown] Sodium Cl Nasal Gel [[place] Saline Nasal Gel] 1 van TP TID PRN 05/12/16 [Last Taken Unknown] Pantoprazole Sodium [Protonix 40mg (*)] 40 mg PO DAILY #0 tab 05/19/16 [Last Taken Unknown] Furosemide [Lasix 20 MG (*)] 20 mg PO DAILY #30 tab 05/20/16 [Last Taken Unknown ] ARIPiprazole [Abilify 10 mg (*)] 10 mg PO DAILY 05/26/17 [Last Taken Unknown] Carboxymethylcellulose 1% [Refresh Celluvisc (*)] 1 drop EACHEYE TID 05/26/17 [ Last Taken Unknown] Diclofenac Sodium 1% [Voltaren Gel (*)] 4 gm TD TID 05/26/17 [Last Taken Unknown ] Memantine HCl [Namenda 10 mg] 10 mg PO BID 05/26/17 [Last Taken Unknown] Polyethylene Glycol 3350 [Miralax 17 gm (*)] 17 gm PO DAILY PRN 05/26/17 [Last Taken Unknown] Rivaroxaban [Xarelto 10mg (*)] 20 mg PO DAILY@14 05/26/17 [Last Taken Unknown] Divalproex Sodium 250 mg PO DAILY 05/29/17 [Last Taken Unknown] Divalproex Sodium 500 mg PO HS 05/29/17 [Last Taken Unknown] Acetaminophen [Tylenol 325mg (*)] 650 mg PO Q4HRS PRN tab 06/07/17 [Last Taken Unknown] Acetaminophen [Tylenol Rectal] 650 mg MO Q4HRS PRN supp 06/07/17 [Last Taken Unknown] Albuterol [Proventil Neb] 3 ml IH Q4 PRN deyvial 06/07/17 [Last Taken Unknown] Ferrous Sulfate [Ferrous Sulf 325 MG (*)] 325 mg PO BID tab 06/07/17 [Last Taken Unknown] Ondansetron Odt [Zofran Odt 4 mg (*)] 4 mg PO Q4HRS PRN tab 06/07/17 [Last Taken Unknown] Discharge Medications: Refer to the Discharge Home Medication list for PRN reason. - Orders Services needed: Registered Nurse, Certified Metalizer, Physical Therapy, Occupational Therapy Isolation Type: Chemotherapy Isolation, Contact Isolation, Droplet Isolation Diet Texture: Dysphagia 3 - Advanced - Moist, Bite-Size, Thin Liquids, Meds Whole in Puree - Follow Up Care Current Providers and Referrals: Patient,NotPresent [Unknown] - As per Instructions
--- NOTE | 2017-06-07 15:35 | ASDISCHSUM ---
Discharge Information Plan Status:SNF Medically Cleared to Leave:06/07/2017 Discharge Date:06/07/2017 03:23 PM CM D/C Disposition: ADT D/C Disposition:[facility] Facility Projected Discharge Date:06/07/2017 11:00 AM Transportation at D/C: Discharge Delay Reason: Follow-Up Date:06/07/2017 11:00 AM Discharge Slot: Final Diagnosis:Septic shock, Tachy, UTI, PNA Placement Information Referral Type:*Fpc/SNF Referral ID:[facility]-[id number] Provider Name:[facility] Address 1:[address] Address 2: City:[place] Selection Factors: State:[place] Patient Contact Information Contact Name:SANIA Relationship:Son Address: Work Phone: [facility]:[place] Alternate Phone: [facility]/Zip Code:[place] [address] Email: Financial Information Financial Class:Medicare Primary Plan Desc:MEDICARE INPATIENT Primary Plan Number:[id number] Secondary Plan Desc: Secondary Plan Number: Assessment Information [facility] CM Progress Note CM Note CM Note Notes: Patient admitted with septic shock, viral PNA, possible aspiration PNA, and possible UTI. She is intubated and sedated. Patient resides at [facility] where she is wheelchair bound. Her son Moreno is her MDPOA. He says "unfortunately, this happens about once a year." Patient should return to [facility] when medically stable. Date Signed: 05/27/2017 03:04 PM Electronically Signed By:Otilia Lopez RN [facility] CM Progress Note CM Note CM Note Notes: Spoke with Jayshree Rock from [facility] and forwarded clinical info on pt at her request. Date Signed: 05/29/2017 01:05 PM Electronically Signed By:LUCIUS Roca [facility] CM Progress Note CM Note CM Note Notes: Patient has a rectal tube, red skin-followed by wound care, Patient is Full Cor, Son is her MPOA. Palliative brought up in ICU Rounds, to talk to son. Date Signed: 06/01/2017 11:06 AM Electronically Signed By:Kanika Manley LCSW [facility] CM Progress Note CM Note CM Note Notes: Pt lives at [facility], will return when medically stable, update faxed to ELISSA ZAMARRIPA w/miky [facility] Plan: SNF/ LTC [facility] Date Signed: 06/04/2017 04:36 PM Electronically Signed By:Sanjuanita Allen RN Case Management Discharge Plan Note Case Management Discharge Discharge Order Complete? Answers: Yes Patient to Obtain Answers: Other Notes: [facility] Medications Transportation Arranged Answers: Other Notes: [facility] EMTALA Complete Answers: No Case Management Transport Answers: Yes Form Complete Faxed Final Orders Answers: Yes Agency/Facility Transfer Answers: Yes Report Printed & Faxed to Receiving Agency Family Notified Answers: No Discharge Comments Notes: CM spoke w/ FREDERICK Narvaez and Dr. Santiago regarding d/c POC. Pt is being discharged today back to [facility]. CM sent d/c orders. CM provided FREDERICK Narvaez w/ phone number to give report. CM completed the PCS form and a copy is in pts chart. CM available for changes. Plan: [facility] Date Signed: 06/07/2017 02:18 PM Electronically Signed By:CORRY Xiong Intervention Information Intervention Type:*IM-Signed Date of Service:06/07/2017 02:30 PM Patient Type:Inpatient Staff Member:Rula Villasenor Hours: Discipline: Severity: Comment:
== END 2017-06-07 15:23 | DRG 871 ==
LOC: EDBD → EDUNIT# → F2N 10:50 → F3E 06-02 17:17
PROVIDERS: ADMIT Student in an Organized Health Care Education/Training Program; ATTEND Internal Medicine
PROC: 5A1945Z Respiratory Ventilation, 24-96 Consecutive Hours (ICD-10-PCS; principal; 2017-05-26)
PROC: 0BH17EZ Insertion of Endotracheal Airway into Trachea, Via Natural or Artificial Opening (ICD-10-PCS; principal; 2017-05-26)
PROC: 3E043XZ Introduction of Vasopressor into Central Vein, Percutaneous Approach (ICD-10-PCS; principal; 2017-05-26)
PROC: 3E1F88Z Irrigation of Respiratory Tract using Irrigating Substance, Via Natural or Artificial Opening Endoscopic (ICD-10-PCS; 2017-05-26)
PROC: 02HV33Z Insertion of Infusion Device into Superior Vena Cava, Percutaneous Approach (ICD-10-PCS; 2017-05-26)
PROC: 2Y41X5Z Packing of Nasal Region using Packing Material (ICD-10-PCS; 2017-05-27)
PROC: 30233N1 Transfusion of Nonautologous Red Blood Cells into Peripheral Vein, Percutaneous Approach (ICD-10-PCS; 2017-06-01)
DX: A41.9 Sepsis, unspecified organism (principal); R65.21 Severe sepsis with septic shock; E87.2 Acidosis; J12.3 Human metapneumovirus pneumonia; J96.01 Acute respiratory failure with hypoxia; J69.0 Pneumonitis due to inhalation of food and vomit; N39.0 Urinary tract infection, site not specified; B96.20 Unspecified Escherichia coli [E. coli] as the cause of diseases classified elsewhere; B96.1 Klebsiella pneumoniae [K. pneumoniae] as the cause of diseases classified elsewhere; R31.0 Gross hematuria; G93.41 Metabolic encephalopathy; I21.A1 Myocardial infarction type 2; I50.21 Acute systolic (congestive) heart failure; I42.8 Other cardiomyopathies; I35.0 Nonrheumatic aortic (valve) stenosis; R04.0 Epistaxis; I44.7 Left bundle-branch block, unspecified; D64.9 Anemia, unspecified; D69.6 Thrombocytopenia, unspecified; F03.90 Unspecified dementia, unspecified severity, without behavioral disturbance, psychotic disturbance, mood disturbance, and anxiety; E87.0 Hyperosmolality and hypernatremia; I11.0 Hypertensive heart disease with heart failure; F31.9 Bipolar disorder, unspecified; G89.29 Other chronic pain; Z79.891 Long term (current) use of opiate analgesic; Z99.3 Dependence on wheelchair; E03.9 Hypothyroidism, unspecified; Z86.711 Personal history of pulmonary embolism; Z79.01 Long term (current) use of anticoagulants; Z85.3 Personal history of malignant neoplasm of breast; Z90.13 Acquired absence of bilateral breasts and nipples; Z85.72 Personal history of non-Hodgkin lymphomas; Z94.84 Stem cells transplant status; Z96.651 Presence of right artificial knee joint; Z98.1 Arthrodesis status
CPT/HCPCS: 82607-90; 82947-QW; 92526-GN; 92610-GN; 96374; C1751; G8996-GN-CH; G8996-GN-CJ; G8996-GN-CK; G8997-GN-CH; G8997-GN-CI; G8998-GN-CH; J1650; J1940; J2185; J2704; J3010; J3370; J3480; J7613; P9016; P9041; P9047

== ENCOUNTER 2017-11-25 09:46 | Inpatient (IN) | payer OTHER ==
--- NOTE | 2017-11-25 09:57 | EDPHY ---
H & P Stated Complaint: fever, AMS Time Seen by Provider: 11/25/17 09:52 HPI/ROS: CHIEF COMPLAINT: Fever, altered mental status Limitations: Altered mental status, unable to provide any clinical history HISTORY OF PRESENT ILLNESS: 72-year-old female presents with fever and altered mental status. She was found by senior living staff this morning in bed and unresponsive. She had a fever and rectal Tylenol was given. On EMS arrival, pt obtunded, NPA was placed. Blood pressure adequate, patient was tachycardiac and febrile. Per senior living staff, no known recent fever or cough. She is usually ambulatory and talkative. REVIEW OF SYSTEMS: Unable to obtain Source: EMS - Personal History Tetanus Vaccine Date: < 10 YEARS - Medical/Surgical History Hx Asthma: No Hx Chronic Respiratory Disease: Yes Hx Diabetes: Yes Hx Cardiac Disease: Yes Hx Renal Disease: No Hx Cirrhosis: No Hx Alcoholism: No Hx HIV/AIDS: No Hx Splenectomy or Spleen Trauma: No Other PMH: PMH: UTI, Bipolar, DVT, HTN, Hypoxemia, breast cancer and double mastectomy, dysphagia, difficulty walking, non- hodkins lymphoma, right knee replacement, right ankle reconstruction, spinal fusion, PE, total hysterectomy, MRSA 05/2015 - Social History Smoking Status: Never smoked - Physical Exam Exam: General Appearance: Lethargic, looks at me when I speak to her, but does not speak Eyes: Pupils equal and round, no conjunctival pallor or injection ENT, Mouth: Mucous membranes dry Neck: Normal inspection Respiratory: Lungs are clear to auscultation anteriorly Cardiovascular: Regular rate and rhythm Gastrointestinal: Abdomen is soft and nontender Neurological: Lethargic, not moving extremities and not moving to command Skin: Warm and dry, no rash Extremities: Her right hip is externally rotated, no apparent pain with right hip range of motion Psychiatric: unable to determine Constitutional: Initial Vital Signs Temperature (C) 38.1 C 11/25/17 09:47 Heart Rate 120 H 11/25/17 09:47 Respiratory Rate 18 11/25/17 09:47 Blood Pressure 110/93 H 11/25/17 09:47 O2 Sat (%) 93 11/25/17 09:47 O2 Delivery Mode Nasal Cannula O2 (L/minute) 2 Allergies/Adverse Reactions: Penicillins Allergy (Mild, Verified 11/25/17 09:49) Rash REG Inhibitors Allergy (Verified 11/25/17 09:49) Hives clavulanic acid Allergy (Verified 11/25/17 09:49) Home Medications: Medication Instructions Recorded Acetaminophen [Tylenol ES 500 mg 500 mg PO Q6 PRN 05/16/15 (*)] Albuterol [Proventil Neb] 3 ml IH Q6HRS 05/16/15 Atorvastatin Calcium [Lipitor 40 40 mg PO HS 05/16/15 mg (*)] Calcium Carbonate [Tums 500MG (*)] 500 mg PO Q2 PRN 05/16/15 LORazepam [Ativan (*)] 0.5 mg PO HS 05/16/15 Levothyroxine [Synthroid 88 mcg 88 mcg PO DAILY06 05/16/15 (*)] Lidocaine [Lidocaine 5% oint] 1 van TP TID PRN 05/16/15 Magnesium Hydroxide [Milk of 30 ml PO Q8 PRN 05/16/15 Magnesia (*)] Melatonin [Melatonin 3 MG (*)] 6 mg PO HS 05/16/15 guaiFENesin [Mucinex 600 MG (*)] 600 mg PO BID 05/16/15 guaiFENesin/DEXTROMETHORPHAN 10 ml PO Q6 PRN 05/16/15 [Robitussin Dm Oral Liquid (*)] Anastrozole [Arimidex 1 mg (*)] 1 mg PO DAILY 12/06/15 Cholecalciferol Vit D3 [Vitamin D3 5,000 units PO DAILY 12/06/15 (*)] FLUoxetine [Prozac 20 MG (*)] 20 mg PO DAILY 12/06/15 Olopatadine 0.1% [Patanol 0.1%] 1 drops EACHEYE BID PRN 05/12/16 Sodium Cl Nasal Gel [[place] Saline 1 van TP TID PRN 05/12/16 Nasal Gel] Pantoprazole Sodium [Protonix 40mg 40 mg PO DAILY #0 tab 05/19/16 (*)] ARIPiprazole [Abilify 10 mg (*)] 10 mg PO DAILY 05/26/17 Carboxymethylcellulose 1% [Refresh 1 drop EACHEYE TID 05/26/17 Celluvisc (*)] Diclofenac Sodium 1% [Voltaren Gel 4 gm TD TID 05/26/17 (*)] Memantine HCl [Namenda 10 mg] 10 mg PO BID 05/26/17 Polyethylene Glycol 3350 [Miralax 17 gm PO DAILY PRN 05/26/17 17 gm (*)] Rivaroxaban [Xarelto 10mg (*)] 20 mg PO DAILY@14 05/26/17 Divalproex Sodium 250 mg PO DAILY 05/29/17 Divalproex Sodium 500 mg PO HS 05/29/17 Ferrous Sulfate [Ferrous Sulf 325 325 mg PO BID tab 06/07/17 MG (*)] Ondansetron Odt [Zofran Odt 4 mg 4 mg PO Q4HRS PRN tab 06/07/17 (*)] FENOFIBRATE 160 mg PO DAILY 11/25/17 Nystatin Powder [Mycostatin Powder 1 van TP Q8HRS PRN 11/25/17 (RX)] Polyethylene Glycol 3350 [Miralax 8.5 gm PO DAILY 11/25/17 17 gm (*)] Saliva Substitute Combo No.9 30 ml MM DAILY 11/25/17 [Biotene (*)] diphenhydrAMINE [Benadryl 25 MG 25 mg PO HS PRN 11/25/17 (*)] traMADol [Ultram 50 mg (*)] 50 mg PO BID 11/25/17 Medical Decision Making - Diagnostics Imaging Results: Chest X-Ray 11/25/17 09:51 Impression: 1. Poor inspiration with compressive changes at the lung bases right side greater than left. Imaging: I viewed and interpreted images myself ED Course/Re-evaluation: This pt presents with fever and AMS. Nasal airway removed on arrival, pt maintaining O2 sat 90%, placed on O2 NC. 1030: more alert, answers a few questions with one word answers, BP stable, HR 112, initial lactate normal. 1045: UA c/w UTI. Meets SIRS criteria, normal lactate and normal BP. Urine and blood cultures sent. Ceftriaxone 1 g IV given. The hospitalist service was consulted for admission. Vital signs remained stable throughout. Differential Diagnosis: Differential diagnosis includes pyelonephritis, cholecystitis, influenza, cellulitis, pneumonia, abscess, meningitis. - Data Points Laboratory Results: Laboratory Results 11/25/17 10:30 11/25/17 09:57 Microbiology Results: MICROBIOLOGY 11/25/17 10:20 Urine,Catheterized Urine Culture - Preliminary Gram Neg Jayson Lactose Ctrs Gram Neg Jayson Nonlactose Ferm. 11/25/17 10:30 Blood Blood Culture - Preliminary Escherichia Coli 11/25/17 10:30 Blood Blood Panel (PCR) - Final Escherichia Coli Medications Given: Acetaminophen (Tylenol Rectal) 650 mg IA Q4HRS PRN PRN Reason: Pain, Mild/Fever,Can't Take PO Stop: 05/24/18 12:20 Last Admin: 11/26/17 12:21 Dose: 650 mg Anastrozole (Arimidex) 1 mg PO DAILY LIU Stop: 05/25/18 08:59 Last Admin: 11/26/17 07:41 Dose: Not Given Aripiprazole (Abilify) 10 mg PO DAILY LIU Stop: 05/25/18 08:59 Last Admin: 11/26/17 07:41 Dose: Not Given Atorvastatin Calcium (Lipitor) 40 mg PO HS LIU Stop: 05/24/18 20:59 Last Admin: 11/26/17 22:28 Dose: 40 mg Carboxymethylcellulose (Refresh Celluvisc) 1 drop EACHEYE TID LIU Stop: 05/24/18 15:59 Last Admin: 11/26/17 15:42 Dose: 1 drop Cholecalciferol (Vitamin D) 5,000 units PO DAILY LIU Stop: 05/25/18 08:59 Last Admin: 11/26/17 07:41 Dose: Not Given Diclofenac Sodium (Diclofenac Sodium 1% Gel) 4 gm TP TID LIU Stop: 05/24/18 15:59 Last Admin: 11/26/17 15:43 Dose: 4 gm Divalproex Sodium (Depakote) 250 mg PO DAILY LIU Stop: 05/25/18 08:59 Last Admin: 11/26/17 07:42 Dose: Not Given Divalproex Sodium (Depakote) 500 mg PO HS LIU Stop: 05/24/18 20:59 Last Admin: 11/26/17 22:27 Dose: 500 mg Fenofibrate (Tricor) 145 mg PO DAILY LIU Stop: 05/25/18 08:59 Last Admin: 11/26/17 07:42 Dose: Not Given Ferrous Sulfate (Ferrous Sulfate) 325 mg PO BID LIU Stop: 05/24/18 20:59 Last Admin: 11/26/17 22:29 Dose: 325 mg Fluoxetine HCl (Prozac) 20 mg PO DAILY LIU Stop: 05/25/18 08:59 Last Admin: 11/26/17 07:42 Dose: Not Given Sodium Chloride (Ns) 1,000 mls @ 100 mls/hr IV CONT LIU Stop: 05/24/18 12:44 Last Admin: 11/26/17 22:19 Dose: 1,000 mls Ertapenem 1 gm/ Sodium (Chloride) 100 mls @ 200 mls/hr IV DAILY@2100 LIU PRN Reason: Protocol Stop: 12/25/17 22:14 Last Admin: 11/26/17 22:18 Dose: 100 mls Levothyroxine Sodium (Synthroid) 88 mcg PO DAILY06 LIU Stop: 05/25/18 05:59 Last Admin: 11/26/17 05:55 Dose: Not Given Melatonin (Melatonin) 6 mg PO HS LIU Stop: 05/24/18 20:59 Last Admin: 11/26/17 22:28 Dose: 6 mg Memantine (Namenda) 10 mg PO BID LIU Stop: 05/24/18 20:59 Last Admin: 11/26/17 22:26 Dose: 10 mg Pantoprazole Sodium (Protonix) 40 mg PO DAILY LIU Stop: 05/25/18 08:59 Last Admin: 11/26/17 07:42 Dose: Not Given Rivaroxaban (Xarelto) 20 mg PO DAILY@14 LIU Stop: 05/24/18 13:59 Last Admin: 11/26/17 13:35 Dose: Not Given Saliva Substitute (Biotene) 30 ml MM DAILY LIU Stop: 05/25/18 08:59 Last Admin: 11/26/17 07:42 Dose: Not Given Discontinued Medications Albuterol (Proventil Neb) 3 ml IH Q6HRS LIU Stop: 05/24/18 17:59 Last Admin: 11/26/17 10:08 Dose: 3 ml Ceftriaxone Sodium/Dextrose (Rocephin 1 Gm (Premix)) 50 mls @ 100 mls/hr IV EDNOW ONE PRN Reason: Protocol Stop: 11/25/17 11:17 Last Admin: 11/25/17 11:04 Dose: 50 mls Sodium Chloride (Ns) 500 mls @ 1,500 mls/hr IV ONCE ONE Stop: 11/25/17 13:00 Last Admin: 11/25/17 13:35 Dose: 500 mls Departure - Departure Disposition: [facility] Acute Clinical Impression: UTI (urinary tract infection) Qualifiers: Urinary tract infection type: acute pyelonephritis Qualified Code(s): N10 - Acute pyelonephritis Condition: Fair
[2017-11-25 10:47] LABS: PLATELET COUNT 136 10^3/uL (150-400)
[2017-11-25] MEDS ORDERED: ONDANSETRON 4 MG/2 ML VIAL IVP PRN (11:26)
[2017-11-25] MEDS ORDERED: ONDANSETRON DISINTEGRATING 4 MG TAB PO PRN (11:26)
--- NOTE | 2017-11-25 11:58 | ASMTCMCOM ---
CM Note CM Note Notes: Pt presented to the ED via EMS from [facility] after she was found unresponsive in her bed by staff. Pt admitted for AMS, fever, UTI/acute pyelonephritis. ED RN spoke w/pt's son and Moreno ZHOU ([phone]); notified of pt's status and admission; Moreno said he will be coming to [facility] later today. Pt was admitted to [facility] ICU back in May 2017 for septic shock, PNA, and UTI. If pt stabilizes, anticipate DC back to [facility]. CM to follow. Date Signed: 11/25/2017 11:58 AM Electronically Signed By:Naty Pascual RN
--- NOTE | 2017-11-25 12:18 | ASMTLACE ---
NANCY Acuity / Level of Answers: Yes Care: Did the patient have an inpatient admission? Comorbidities - select Answers: Any tumor (including all that apply lymphoma or leukemia) Opioid dependence / Chronic pain Other Notes: HTN, hypoxemia, dysphag ia, Hx of breast cancer, H x of DVT, spinal fusion, right knee and ankle ortho surgeries, hysterectomy , # of Emergency department Answers: 1-2 visits in the last 6 months Social determinants Answers: Mental health diagnosis (anxiety, depression, pers onality disorders, etc.) Score: 14 Date Signed: 11/25/2017 12:17 PM Electronically Signed By:Naty Pascual RN
[2017-11-25] MEDS ORDERED: ACETAMINOPHEN 650 MG SUPP PR ONE (12:24)
[2017-11-25] MEDS: ACETAMINOPHEN 650 MG SUPP PR PRN (12:30)
[2017-11-25] MEDS ORDERED: NS 500 ML IV ONE (12:41)
--- NOTE | 2017-11-25 12:42 | PDGENHP ---
History and Physical - Chief Complaint Fever, AMS - History of Present Illness Jhonatan Bran is a 72-year-old female with a PMHx of bipolar d/o, hx of PE, admission 06/07/2017 with sepstic shock 2/2 to UTI/PNA, CHF who presents to [facility] with fever and altered mental status. Per ED report, patient was found by long-term staff this morning in bed and unresponsive. She had a fever and rectal Tylenol was given. On EMS arrival, pt obtunded, NPA was placed. Patient remains obtunded at my time of examination, unable to obtain additional HPI. History Information - Allergies/Home Medication List Allergies/Adverse Reactions: Penicillins Allergy (Mild, Verified 11/25/17 09:49) Rash REG Inhibitors Allergy (Verified 11/25/17 09:49) Hives clavulanic acid Allergy (Verified 11/25/17 09:49) Home Medications: Acetaminophen [Tylenol ES 500 mg (*)] 500 mg PO Q6 PRN 05/16/15 [Last Taken ] Albuterol [Proventil Neb] 3 ml IH Q6HRS 05/16/15 [Last Taken Unknown] Atorvastatin Calcium [Lipitor 40 mg (*)] 40 mg PO HS 05/16/15 [Last Taken ] Calcium Carbonate [Tums 500MG (*)] 500 mg PO Q2 PRN 05/16/15 [Last Taken Unknown ] LORazepam [Ativan (*)] 0.5 mg PO HS 05/16/15 [Last Taken 12/05/15] Levothyroxine [Synthroid 88 mcg (*)] 88 mcg PO DAILY06 05/16/15 [Last Taken ] Lidocaine [Lidocaine 5% oint] 1 van TP TID PRN 05/16/15 [Last Taken 12/06/15 12: 00] Magnesium Hydroxide [Milk of Magnesia (*)] 30 ml PO Q8 PRN 05/16/15 [Last Taken 11/19/15] Melatonin [Melatonin 3 MG (*)] 6 mg PO HS 05/16/15 [Last Taken 12/05/15] guaiFENesin [Mucinex 600 MG (*)] 600 mg PO BID 05/16/15 [Last Taken 12/06/15 09: 00] guaiFENesin/DEXTROMETHORPHAN [Robitussin Dm Oral Liquid (*)] 10 ml PO Q6 PRN 08/23 [Last Taken Unknown] Anastrozole [Arimidex 1 mg (*)] 1 mg PO DAILY 12/06/15 [Last Taken 12/06/15] Cholecalciferol Vit D3 [Vitamin D3 (*)] 5,000 units PO DAILY 12/06/15 [Last Taken 12/06/15] FLUoxetine [Prozac 20 MG (*)] 20 mg PO DAILY 12/06/15 [Last Taken 12/06/15] Olopatadine 0.1% [Patanol 0.1%] 1 drops EACHEYE BID PRN 05/12/16 [Last Taken Unknown] Sodium Cl Nasal Gel [Sebago Saline Nasal Gel] 1 van TP TID PRN 05/12/16 [Last Taken Unknown] ARIPiprazole [Abilify 10 mg (*)] 10 mg PO DAILY 05/26/17 [Last Taken Unknown] Carboxymethylcellulose 1% [Refresh Celluvisc (*)] 1 drop EACHEYE TID 05/26/17 [ Last Taken Unknown] Diclofenac Sodium 1% [Voltaren Gel (*)] 4 gm TD TID 05/26/17 [Last Taken Unknown ] Memantine HCl [Namenda 10 mg] 10 mg PO BID 05/26/17 [Last Taken Unknown] Polyethylene Glycol 3350 [Miralax 17 gm (*)] 17 gm PO DAILY PRN 05/26/17 [Last Taken Unknown] Rivaroxaban [Xarelto 10mg (*)] 20 mg PO DAILY@14 05/26/17 [Last Taken Unknown] Divalproex Sodium 250 mg PO DAILY 05/29/17 [Last Taken Unknown] Divalproex Sodium 500 mg PO HS 05/29/17 [Last Taken Unknown] FENOFIBRATE 160 mg PO DAILY 11/25/17 [Last Taken Unknown] Nystatin Powder [Mycostatin Powder (RX)] 1 van TP Q8HRS PRN 11/25/17 [Last Taken Unknown] Polyethylene Glycol 3350 [Miralax 17 gm (*)] 8.5 gm PO DAILY 11/25/17 [Last Taken Unknown] Saliva Substitute Combo No.9 [Biotene (*)] 30 ml MM DAILY 11/25/17 [Last Taken Unknown] diphenhydrAMINE [Benadryl 25 MG (*)] 25 mg PO HS PRN 11/25/17 [Last Taken Unknown] traMADol [Ultram 50 mg (*)] 50 mg PO BID 11/25/17 [Last Taken Unknown] I have personally reviewed and updated: family history, medical history, social history, surgical history - Past Medical History dementia, pulmonary embolism Additional medical history: Bipolar d/o, invasiva ductal carcinoma - Surgical History Reports: mastectomy - Family History Positive for: non-pertinent - Social History Smoking Status: Never smoked Review of Systems Review of Systems: Unable to obtain 2/2 to AMS Physical Exam Physical Exam: Temp Pulse Resp BP Pulse Ox 39.0 C H 109 H 18 126/86 H 100 11/25/17 12:12 11/25/17 12:12 11/25/17 12:12 11/25/17 12:12 11/25/17 12:12 O2 (L/minute) 2 Constitutional: chronically ill appearing, obese, unkempt Eyes: anicteric sclera Ears, Nose, Mouth, Throat: dry mucous membranes Cardiovascular: tachycardia Respiratory: no respiratory distress, reduced air movement Gastrointestinal: soft, non-tender abdomen Genitourinary: lo in urethra Skin: warm Musculoskeletal: no joint effusions Neurologic: No AAOx3 Psychiatric: encephalopathic, No interacting appropriately Lab Data & Imaging Review 11/25/17 10:30 11/25/17 09:57 WBC 10.66 10^3/uL (3.80-9.50) H 11/25/17 10:30 RBC 3.20 10^6/uL (4.18-5.33) L 11/25/17 10:30 Hgb 10.9 g/dL (12.6-16.3) L 11/25/17 10:30 Hct 33.3 % (38.0-47.0) L 11/25/17 10:30 MCV 104.1 fL (81.5-99.8) H 11/25/17 10:30 MCH 34.1 pg (27.9-34.1) 11/25/17 10:30 MCHC 32.7 g/dL (32.4-36.7) 11/25/17 10:30 RDW 13.6 % (11.5-15.2) 11/25/17 10:30 Plt Count 136 10^3/uL (150-400) L 11/25/17 10:30 MPV 9.0 fL (8.7-11.7) 11/25/17 10:30 Neut % (Auto) 77.9 % (39.3-74.2) H 11/25/17 10:30 Lymph % (Auto) 12.0 % (15.0-45.0) L 11/25/17 10:30 Ogle % (Auto) 9.5 % (4.5-13.0) 11/25/17 10:30 Eos % (Auto) 0.0 % (0.6-7.6) L 11/25/17 10:30 Baso % (Auto) 0.1 % (0.3-1.7) L 11/25/17 10:30 Nucleat RBC Rel Count 0.0 % (0.0-0.2) 11/25/17 10:30 Absolute Neuts (auto) 8.31 10^3/uL (1.70-6.50) H 11/25/17 10:30 Absolute Lymphs (auto) 1.28 10^3/uL (1.00-3.00) 11/25/17 10:30 Absolute Monos (auto) 1.01 10^3/uL (0.30-0.80) H 11/25/17 10:30 Absolute Eos (auto) 0.00 10^3/uL (0.03-0.40) L 11/25/17 10:30 Absolute Basos (auto) 0.01 10^3/uL (0.02-0.10) L 11/25/17 10:30 Absolute Nucleated RBC 0.00 10^3/uL (0-0.01) 11/25/17 10:30 Immature Gran % 0.5 % (0.0-1.1) 11/25/17 10:30 Immature Gran # 0.05 10^3/uL (0.00-0.10) 11/25/17 10:30 VBG Lactic Acid 0.9 mmol/L (0.7-2.1) 11/25/17 09:57 Sodium 134 mEq/L (135-145) L 11/25/17 09:57 Potassium 4.6 mEq/L (3.3-5.0) 11/25/17 09:57 Chloride 103 mEq/L (97-110) 11/25/17 09:57 Carbon Dioxide 20 mEq/l (22-31) L 11/25/17 09:57 Anion Gap 11 mEq/L (6-14) 11/25/17 09:57 BUN 31 mg/dL (7-23) H 11/25/17 09:57 Creatinine 1.5 mg/dL (0.6-1.0) H 11/25/17 09:57 Estimated GFR 34 11/25/17 09:57 Glucose 95 mg/dL (70-100) 11/25/17 09:57 Calcium 8.5 mg/dL (8.5-10.4) 11/25/17 09:57 Urine Color SONIA 11/25/17 10:20 Urine Appearance TURBID 11/25/17 10:20 Urine pH 7.0 (5.0-7.5) 11/25/17 10:20 Ur Specific Harmony 1.015 (1.002-1.030) 11/25/17 10:20 Urine Protein 2+ (NEGATIVE) H 11/25/17 10:20 Urine Ketones NEGATIVE (NEGATIVE) 11/25/17 10:20 Urine Blood 3+ (NEGATIVE) H 11/25/17 10:20 Urine Nitrate NEGATIVE (NEGATIVE) 11/25/17 10:20 Urine Bilirubin NEGATIVE (NEGATIVE) 11/25/17 10:20 Urine Urobilinogen NEGATIVE EU (0.2-1.0) 11/25/17 10:20 Ur Leukocyte Esterase 2+ (NEGATIVE) H 11/25/17 10:20 Urine RBC 50-182 /hpf (0-3) H 11/25/17 10:20 Urine WBC 50-182 /hpf (0-3) H 11/25/17 10:20 Ur Epithelial Cells NONE SEEN /lpf (NONE-1+) 11/25/17 10:20 Urine Bacteria 4+ /hpf (NONE SEEN) H 11/25/17 10:20 Urine Mucus TRACE /lpf (NONE-1+) 11/25/17 10:20 Urine Glucose NEGATIVE (NEGATIVE) 11/25/17 10:20 Nasal Influenza A PCR NEGATIVE FOR FLU A (NEGATIVE) 11/25/17 10:05 Nasal Influenza B PCR NEGATIVE FOR FLU B (NEGATIVE) 11/25/17 10:05 Visualized and Interpreted Chest x-ray results: Yes Chest X-Ray results: no infiltrate Assessment & Plan Assessment: Sepsis - Febrile on admission with tachycardia, WBC 10.6 - Source likely UTI given positive UA - Treatment of UTI as below, s/p dose fo Ceftriaxone in ED - Will give 500 ml fluid bolus (hx of CHF), no IVF given in ED, 30 cc/kg per sepsis protocol - Blood cultures collected - BP WNL - Tylenol PRN for fever - LA 0.9 on admission UTI (urinary tract infection) (Acute) - Not able to obtain hx of dysuria - UA 2+ LE, 50-182 WBC, 4+ Bacteria - S/p dose of Rocephin in ED, will continue for now - Urine cultures collected Encephalopathy - Obtunded upon arrival, per ED MD, Dr. Armando, she was able to speak and make eye contact at one point, obtunded at my time of evaluation - Likely 2/2 to UTI/Sepsis as above - Hx of dementia, unsure of baseline mental status - Ordered CT Head w/o IVC to further evaluate, if mental status does not improve with tx of infection, perform Brain MRI - Will order TSH - Patient is on multiple psychoactive medications including Abilify, Divalproex , Prozac, Tramadol, Namenda, Ativan at home which may be contributing, will hold Tramadol and Ativan, continue other medications, if no improvement in MS consider d/c KHUSHI - Cr 1.5 on admission (baseline 0.6) - Likely elevated in setting of UTI/Sepsis - IVF as above - Continue to monitor BMP, I/O, avoid nephrotoxins Hyponatremia - Na 134 on admission - Likely hypotonic hyponatremia - Continue to monitor Bipolar d/o - Continue home medications Abilify, Prozac, Divalproex Hx of PE - Continue home Xarelto Dementia - Continue home Namenda Anemia - H/H appears at baseline - Continue home Fe Sulfate Hx of Invasive Ductal Carcinoma - Continue home Anastrazole Hypothyroidism - Continue home Synthroid - Checking TSH as above FEN: IVF, NPO until MS improves Ppx: Patient was on AC at time of last discharge, await med reconciliation Code: FULL per MOST form Dispo: Admit to Medicine, pending clinical course
[2017-11-25] MEDS ORDERED: LIDOCAINE 5% TP PRN (13:23)
[2017-11-25] MEDS ORDERED: OLOPATADINE 0.1% 5 ML OPHT.BTL EACHEYE PRN (13:23)
[2017-11-25] MEDS ORDERED: SODIUM CL NASAL GEL 14.1 GM TUBE TP PRN (13:23)
[2017-11-25] MEDS ORDERED: diphenhydrAMINE 25 MG CAP PO PRN (13:23)
[2017-11-25] MEDS ORDERED: CALCIUM CARBONATE 500 MG CHEWABLE TAB PO PRN (13:23)
--- NOTE | 2017-11-25 14:27 | CPEKG ---
Test Reason : OPEN Blood Pressure : / mmHG Vent. Rate : 110 BPM Atrial Rate : 110 BPM P-R Int : 142 ms QRS Dur : 144 ms QT Int : 373 ms P-R-T Axes : -35 001 181 degrees QTc Int : 505 ms Sinus tachycardia Left bundle branch block Confirmed by Zeenat Armando ([id number]) on 11/25/2017 2:26:59 PM Referred By: Confirmed By:Zeenat Armando
[2017-11-25] MEDS: RIVAROXABAN 10 MG TAB PO SCH (16:00)
--- NOTE | 2017-11-25 16:25 | PDMN ---
Medical Necessity Medical necessity: Pt meets IP criteria per MD & MCG M-160; est los >2 mn for eval/tx of sepsis likely r/t UTI w/tachycardia, fever, elevated WBC, encephalopathy & acute kidney injury; requiring further workup/monitoring, IVFs & IV abx; comorbid advanced age, dementia, PE on AC, invasive ductal carcinoma; per H&P & order 11/25/17
[2017-11-25] MEDS: ALBUTEROL 3 ML DEYVIAL IH SCH ×2 (16:43→22:14)
[2017-11-25] MEDS: CARBOXYMETHYLCELLULOSE 1% 0.4 ML DROPERETTE EACHEYE SCH ×2 (17:24→21:58)
[2017-11-25] MEDS: DICLOFENAC SODIUM 1% 100 GM GEL TP SCH ×2 (17:25→22:00)
[2017-11-25] MEDS: ATORVASTATIN CALCIUM 40 MG TAB PO SCH (21:57)
[2017-11-25] MEDS: DIVALPROEX NA 500 MG TAB PO SCH (22:01)
[2017-11-25] MEDS: MELATONIN 3 MG TAB PO SCH (22:01)
[2017-11-25] MEDS: FERROUS SULFATE 325 MG TAB PO SCH (22:01)
[2017-11-25] MEDS: MEMANTINE HCL 5 MG TAB PO SCH (22:01)
--- NOTE | 2017-11-25 22:05 | HOSPPROG ---
Hospitalist Progress Note Assessment/Plan: Called by lab for BCID of E coli. Given her past history of E coli and living in [facility], she is at risk for resistant organism so will broaden to ertapenem. Objective: Vital Signs Temp Pulse Resp BP Pulse Ox 36.9 C 111 H 20 116/64 96 11/25/17 20:19 11/25/17 20:19 11/25/17 20:19 11/25/17 20:19 11/25/17 20:19 11/24/17 11/25/17 11/26/17 05:59 05:59 05:59 Output Total 250 Balance -250 ICD10 Worksheet Patient Problems: Problems Problem Status Onset UTI (urinary tract infection) Acute Altered mental status Acute Altered mental status Acute Aspiration of food Acute Chronic Disease Mgmt/Transitional Care Acute Encephalopathy acute Acute History of DVT (deep vein thrombosis) Acute MRSA (methicillin resistant Staphylococcus aureus) Acute 05/16/15 Palliative care encounter Acute Pneumonia Acute Respiratory distress Acute Respiratory failure Acute Sepsis Acute
[2017-11-25] MEDS: ERTAPENEM 1 GM in NS 100 ML IV SCH (22:24)
[2017-11-26 05:13] LABS: PLATELET COUNT 148 10^3/uL (150-400)
[2017-11-26] MEDS: LEVOTHYROXINE 88 MCG TAB PO SCH (05:55)
[2017-11-26] MEDS: ALBUTEROL 3 ML DEYVIAL IH SCH ×2 (06:05→10:08)
[2017-11-26] MEDS: ANASTROZOLE 1 MG TAB PO SCH (07:41)
[2017-11-26] MEDS: DICLOFENAC SODIUM 1% 100 GM GEL TP SCH ×2 (07:41→15:43)
[2017-11-26] MEDS: CHOLECALCIFEROL VIT D3 1,000 UNITS TAB PO SCH (07:41)
[2017-11-26] MEDS: ARIPiprazole 10 MG TAB PO SCH (07:41)
[2017-11-26] MEDS: FERROUS SULFATE 325 MG TAB PO SCH ×2 (07:42→22:29)
[2017-11-26] MEDS: PANTOPRAZOLE SODIUM 40 MG TAB PO SCH (07:42)
[2017-11-26] MEDS: FENOFIBRATE 145 MG TAB PO SCH (07:42)
[2017-11-26] MEDS: MEMANTINE HCL 5 MG TAB PO SCH ×2 (07:42→22:26)
[2017-11-26] MEDS: DIVALPROEX NA 250 MG TAB PO SCH (07:42)
[2017-11-26] MEDS: FLUoxetine 20 MG CAP PO SCH (07:42)
[2017-11-26] MEDS: BIOTENE DRY MOUTH ORAL RINSE 237 ML BTL MM SCH (07:42)
[2017-11-26] MEDS: CARBOXYMETHYLCELLULOSE 1% 0.4 ML DROPERETTE EACHEYE SCH ×2 (07:53→15:42)
[2017-11-26] MEDS: NS 1,000 ML IV SCH ×2 (10:36→22:19)
[2017-11-26] MEDS: ACETAMINOPHEN 650 MG SUPP PR PRN (12:21)
[2017-11-26] MEDS: RIVAROXABAN 10 MG TAB PO SCH (13:35)
--- NOTE | 2017-11-26 16:32 | HOSPPROG ---
Hospitalist Progress Note Assessment/Plan: Sepsis, E-Coli Bacteremia - Febrile on admission with tachycardia, WBC 10.6 - Source likely UTI - Ertapenem, (ab change last night) -IVF Hypotension from Sepsis: persists. cont with IVF UTI causing sepsis: -E coli -abx per above -await sensitivities Dehydration acute Encephalopathy due to infection/sepsis - Hx of dementia, unsure of baseline mental status - Patient is on multiple psychoactive medications including Abilify, Divalproex , Prozac, Tramadol, Namenda, Ativan at home which may be contributing, will hold Tramadol and Ativan, continue other medications, if no improvement in MS consider d/c KHUSHI - persists Hyponatremia -improved Bipolar d/o - Continue home medications Abilify, Prozac, Divalproex Hx of PE - Continue home Xarelto Dementia - Continue home Namenda Anemia - H/H appears at baseline - Continue home Fe Sulfate Hx of Invasive Ductal Carcinoma - Continue home Anastrazole Hypothyroidism - Continue home Synthroid - Checking TSH as above FEN: IVF, NPO until MS improves Code: FULL per MOST form Dispo: The patient is very ill. cont with IVF. Will need to monitor closely given her cardiac history. cont abx. She is still hypotensive. total critical care time spent on the mgmt of this pt with active sepsis is 40 mins. d/w nurse, pharmacy, cm. Subjective: bp still soft. follows some commands. no cp or sob Objective: Vital Signs Temp Pulse Resp BP Pulse Ox 36.6 C 77 16 93/56 L 99 11/26/17 16:14 11/26/17 16:14 11/26/17 16:14 11/26/17 16:14 11/26/17 16:14 Laboratory Results 11/26/17 04:44 11/26/17 04:44 11/25/17 11/26/17 11/27/17 05:59 05:59 05:59 Output Total 600 Balance -600 - Physical Exam Constitutional: no apparent distress, chronically ill appearing Eyes: PERRL Ears, Nose, Mouth, Throat: moist mucous membranes Cardiovascular: regular rate and rhythym, edema Respiratory: reduced air movement Gastrointestinal: normoactive bowel sounds, soft, non-tender abdomen, No rebound , No distension Skin: warm Musculoskeletal: generalized weakness Neurologic: No AAOx3 Psychiatric: encephalopathic Lymph, Heme, Immunologic: No petechiae ICD10 Worksheet Patient Problems: Problems Problem Status Onset UTI (urinary tract infection) Acute Altered mental status Acute Altered mental status Acute Aspiration of food Acute Chronic Disease Mgmt/Transitional Care Acute Encephalopathy acute Acute History of DVT (deep vein thrombosis) Acute MRSA (methicillin resistant Staphylococcus aureus) Acute 05/16/15 Palliative care encounter Acute Pneumonia Acute Respiratory distress Acute Respiratory failure Acute Sepsis Acute
[2017-11-26] MEDS: ERTAPENEM 1 GM in NS 100 ML IV SCH (22:18)
[2017-11-26] MEDS: DIVALPROEX NA 500 MG TAB PO SCH (22:27)
[2017-11-26] MEDS: ATORVASTATIN CALCIUM 40 MG TAB PO SCH (22:28)
[2017-11-26] MEDS: MELATONIN 3 MG TAB PO SCH (22:28)
[2017-11-27 04:59] LABS: PLATELET COUNT 107 10^3/uL (150-400)
[2017-11-27] MEDS: LEVOTHYROXINE 88 MCG TAB PO SCH (05:33)
[2017-11-27] MEDS: DICLOFENAC SODIUM 1% 100 GM GEL TP SCH ×4 (05:33→22:30)
[2017-11-27] MEDS: CARBOXYMETHYLCELLULOSE 1% 0.4 ML DROPERETTE EACHEYE SCH ×4 (05:33→22:30)
--- NOTE | 2017-11-27 09:52 | ASMTCMCOM ---
CM Note CM Note Notes: Chart reviewed. Patient cognitive baseline is questionable. May be at baseline. CM to follow for needs. Plan to SNF when medically cleared for discharge. Plan: Back to [facility] when cleared for dc. Date Signed: 11/27/2017 09:51 AM Electronically Signed By:Kathrin Santamaria RN
[2017-11-27] MEDS: ARIPiprazole 10 MG TAB PO SCH (10:33)
[2017-11-27] MEDS: FLUoxetine 20 MG CAP PO SCH (10:33)
[2017-11-27] MEDS: ANASTROZOLE 1 MG TAB PO SCH (10:34)
[2017-11-27] MEDS: CHOLECALCIFEROL VIT D3 1,000 UNITS TAB PO SCH (10:34)
[2017-11-27] MEDS: MEMANTINE HCL 5 MG TAB PO SCH ×2 (10:34→21:36)
[2017-11-27] MEDS: DIVALPROEX NA 250 MG TAB PO SCH (10:34)
[2017-11-27] MEDS: PANTOPRAZOLE SODIUM 40 MG TAB PO SCH (10:35)
[2017-11-27] MEDS: FENOFIBRATE 145 MG TAB PO SCH (10:35)
[2017-11-27] MEDS: FERROUS SULFATE 325 MG TAB PO SCH ×2 (10:35→21:35)
--- NOTE | 2017-11-27 15:13 | HOSPPROG ---
Hospitalist Progress Note Assessment/Plan: Sepsis, E-Coli Bacteremia - Febrile on admission with tachycardia, WBC 10.6 - Source likely UTI - Rocephin -IVF Hypotension from Sepsis: improved UTI causing sepsis: -E coli -abx per above Dehydration: resolved acute Encephalopathy due to infection/sepsis - Hx of dementia, unsure of baseline mental status -improving KHUSHI - improving Hyponatremia -improved Bipolar d/o - Continue home medications Abilify, Prozac, Divalproex Hx of PE - Continue home Xarelto Dementia - Continue home Namenda Anemia - H/H appears at baseline - Continue home Fe Sulfate Hx of Invasive Ductal Carcinoma - Continue home Anastrazole Hypothyroidism - Continue home Synthroid - Checking TSH as above FEN: IVF, NPO until MS improves Code: FULL per MOST form Plan: per above decrease IVF start a regular diet as mentation has improved cont IV abx. change to Rocephin Objective: Vital Signs Temp Pulse Resp BP Pulse Ox 36.3 C 62 16 117/64 98 11/27/17 12:00 11/27/17 12:00 11/27/17 12:00 11/27/17 12:00 11/27/17 12:00 Laboratory Results 11/27/17 04:52 11/27/17 04:52 11/26/17 11/27/17 11/28/17 05:59 05:59 05:59 Intake Total 2237 Output Total 600 850 Balance -600 1387 - Physical Exam Constitutional: chronically ill appearing Eyes: PERRL Ears, Nose, Mouth, Throat: moist mucous membranes, hearing normal Cardiovascular: regular rate and rhythym, No edema Respiratory: no respiratory distress, no rales or rhonchi, clear to auscultation Gastrointestinal: normoactive bowel sounds, soft, non-tender abdomen Skin: warm Psychiatric: encephalopathic Lymph, Heme, Immunologic: No petechiae ICD10 Worksheet Patient Problems: Problems Problem Status Onset UTI (urinary tract infection) Acute Altered mental status Acute Altered mental status Acute Aspiration of food Acute Chronic Disease Mgmt/Transitional Care Acute Encephalopathy acute Acute History of DVT (deep vein thrombosis) Acute MRSA (methicillin resistant Staphylococcus aureus) Acute 05/16/15 Palliative care encounter Acute Pneumonia Acute Respiratory distress Acute Respiratory failure Acute Sepsis Acute
[2017-11-27] MEDS: BIOTENE DRY MOUTH ORAL RINSE 237 ML BTL MM SCH (17:35)
[2017-11-27] MEDS: RIVAROXABAN 10 MG TAB PO SCH (17:35)
[2017-11-27] MEDS: MELATONIN 3 MG TAB PO SCH (21:35)
[2017-11-27] MEDS: DIVALPROEX NA 500 MG TAB PO SCH (21:35)
[2017-11-27] MEDS: ATORVASTATIN CALCIUM 40 MG TAB PO SCH (21:35)
[2017-11-27] MEDS: ACETAMINOPHEN 325 MG TAB PO PRN (21:36)
[2017-11-28] MEDS: LEVOTHYROXINE 88 MCG TAB PO SCH (06:14)
[2017-11-28] MEDS: ARIPiprazole 10 MG TAB PO SCH (11:22)
[2017-11-28] MEDS: FLUoxetine 20 MG CAP PO SCH (11:22)
[2017-11-28] MEDS: FENOFIBRATE 145 MG TAB PO SCH (11:22)
[2017-11-28] MEDS: FERROUS SULFATE 325 MG TAB PO SCH ×2 (11:23→21:36)
[2017-11-28] MEDS: MEMANTINE HCL 5 MG TAB PO SCH ×2 (11:23→21:36)
[2017-11-28] MEDS: PANTOPRAZOLE SODIUM 40 MG TAB PO SCH (11:24)
[2017-11-28] MEDS: ANASTROZOLE 1 MG TAB PO SCH (11:25)
[2017-11-28] MEDS: CARBOXYMETHYLCELLULOSE 1% 0.4 ML DROPERETTE EACHEYE SCH ×3 (11:26→21:38)
[2017-11-28] MEDS: CHOLECALCIFEROL VIT D3 1,000 UNITS TAB PO SCH (11:32)
[2017-11-28] MEDS: LOPERAMIDE HCL 1 MG/5 ML UDL PO PRN ×2 (11:36→21:34)
[2017-11-28] MEDS: DIVALPROEX NA 250 MG TAB PO SCH (11:40)
[2017-11-28] MEDS: DICLOFENAC SODIUM 1% 100 GM GEL TP SCH ×3 (11:46→21:38)
[2017-11-28] MEDS: BIOTENE DRY MOUTH ORAL RINSE 237 ML BTL MM SCH (11:47)
[2017-11-28] MEDS: RIVAROXABAN 10 MG TAB PO SCH (16:46)
[2017-11-28] MEDS: NS 1,000 ML IV SCH (18:41)
--- NOTE | 2017-11-28 19:36 | HOSPPROG ---
Hospitalist Progress Note Assessment/Plan: #Diarrhea: likely from abx. C diff negative. Loperamide #Sepsis: from E-Coli Bacteremia. Day 4 abx #Hypotension from Sepsis: improved UTI causing sepsis: -E coli -abx per above Dehydration: resolved #Acute encephalopathy: improving. Underlying dementia #KHUSHI: Cr 1.1. Will stop IVFs #Hyponatremia: resolved #Bipolar d/o Abilify, Prozac, Divalproex #Hx of PE Xarelto #Dementia -Namenda #Anemia - H/H appears at baseline - Continue home Fe Sulfate #Hx of Invasive Ductal Carcinoma: Anastrazole Hypothyroidism - Continue home Synthroid - TSH pending FEN: dysphagia Inpatient admission for IV abx, PT/OT Subjective: several loose stools this morning Objective: Vital Signs Temp Pulse Resp BP Pulse Ox 36.7 C 62 17 121/57 H 98 11/28/17 19:31 11/28/17 19:31 11/28/17 19:31 11/28/17 19:31 11/28/17 19:31 Microbiology 11/27/17 16:00 Gastrointestinal Tract Panel (PCR) - Final Stool No Organism Detected Laboratory Results 11/27/17 04:52 11/27/17 04:52 11/27/17 11/28/17 11/29/17 05:59 05:59 05:59 Intake Total 2237 3042 1254 Output Total 850 675 545 Balance 1387 2367 709 - Time Spent With Patient Time Spent with Patient: greater than 35 minutes Time Spent with Patient: Greater than 35 minutes spent on this patients care, greater than 50% of time spent counseling, educating, and coordinating care regarding the above mentioned plan. ICD10 Worksheet Patient Problems: Problems Problem Status Onset UTI (urinary tract infection) Acute Altered mental status Acute Altered mental status Acute Aspiration of food Acute Chronic Disease Mgmt/Transitional Care Acute Encephalopathy acute Acute History of DVT (deep vein thrombosis) Acute MRSA (methicillin resistant Staphylococcus aureus) Acute 05/16/15 Palliative care encounter Acute Pneumonia Acute Respiratory distress Acute Respiratory failure Acute Sepsis Acute
[2017-11-28] MEDS: MELATONIN 3 MG TAB PO SCH (21:36)
[2017-11-28] MEDS: ATORVASTATIN CALCIUM 40 MG TAB PO SCH (21:36)
[2017-11-28] MEDS: DIVALPROEX NA 500 MG TAB PO SCH (21:36)
[2017-11-29] MEDS: LEVOTHYROXINE 88 MCG TAB PO SCH (06:35)
[2017-11-29] MEDS: MEMANTINE HCL 5 MG TAB PO SCH ×2 (09:10→20:55)
[2017-11-29] MEDS: LOPERAMIDE HCL 1 MG/5 ML UDL PO PRN ×2 (09:11→20:55)
[2017-11-29] MEDS: CHOLECALCIFEROL VIT D3 1,000 UNITS TAB PO SCH (09:16)
[2017-11-29] MEDS: ANASTROZOLE 1 MG TAB PO SCH (09:18)
[2017-11-29] MEDS: PANTOPRAZOLE SODIUM 40 MG TAB PO SCH (09:18)
[2017-11-29] MEDS: FERROUS SULFATE 325 MG TAB PO SCH ×2 (09:21→20:55)
[2017-11-29] MEDS: ARIPiprazole 10 MG TAB PO SCH (09:21)
[2017-11-29] MEDS: FLUoxetine 20 MG CAP PO SCH (09:22)
[2017-11-29] MEDS: DIVALPROEX NA 250 MG TAB PO SCH (09:22)
[2017-11-29] MEDS: FENOFIBRATE 145 MG TAB PO SCH (09:23)
[2017-11-29] MEDS: CARBOXYMETHYLCELLULOSE 1% 0.4 ML DROPERETTE EACHEYE SCH ×3 (09:25→20:44)
[2017-11-29] MEDS: DICLOFENAC SODIUM 1% 100 GM GEL TP SCH ×3 (09:25→20:44)
[2017-11-29] MEDS: BIOTENE DRY MOUTH ORAL RINSE 237 ML BTL MM SCH (09:27)
[2017-11-29] MEDS: NYSTATIN POWDER 15 GM BTL TP PRN ×2 (09:28→15:23)
--- NOTE | 2017-11-29 10:55 | HOSPPROG ---
Hospitalist Progress Note Assessment/Plan: #Sepsis: from E-Coli Bacteremia 2/2 UTI. -cont ceftriaxone, day 06/17 -may need PICC as she is difficult IV stick and will need IV replaced tomorrow #Hypotension from Sepsis: resolved #Acute encephalopathy: improving. Underlying dementia noted #KHUSHI: resolved with IVF's #Hyponatremia: resolved #Bipolar d/o -cont Abilify, Prozac, Divalproex #Hx of PE -cont Xarelto #Dementia -cont Namenda #Anemia - H/H appears at baseline - Continue home Fe Sulfate #Hx of Invasive Ductal Carcinoma: Anastrazole Hypothyroidism - TSH elevation noted - Continue home Synthroid, recommend rechecking TSH when acute infection resolved and adjust synthroid as indicated FEN: dysphagia Inpatient admission for IV abx, PT/OT, back to [facility] in 1-2 days Subjective: Pt doing ok, feels weak and tired. Denies abdominal pain, N/V. Feels a little chilled currently, but no fevers or rigors. No CP or SOB. Taking po fairly well. Objective: Vital Signs Temp Pulse Resp BP Pulse Ox 36.4 C 66 16 129/64 H 92 11/29/17 08:16 11/29/17 08:16 11/29/17 08:16 11/29/17 08:16 11/29/17 08:16 Microbiology 11/27/17 16:00 Gastrointestinal Tract Panel (PCR) - Final Stool No Organism Detected Laboratory Results 11/27/17 04:52 11/29/17 04:32 11/28/17 11/29/17 11/30/17 05:59 05:59 05:59 Intake Total 3042 2149 300 Output Total 675 1145 Balance 2367 1004 300 - Physical Exam Constitutional: no apparent distress Eyes: PERRL Ears, Nose, Mouth, Throat: moist mucous membranes Cardiovascular: regular rate and rhythym Respiratory: no respiratory distress, clear to auscultation Gastrointestinal: normoactive bowel sounds, soft, non-tender abdomen Skin: warm Musculoskeletal: full muscle strength Neurologic: AAOx3 Psychiatric: interacting appropriately ICD10 Worksheet Patient Problems: Problems Problem Status Onset UTI (urinary tract infection) Acute Altered mental status Acute Altered mental status Acute Aspiration of food Acute Chronic Disease Mgmt/Transitional Care Acute Encephalopathy acute Acute History of DVT (deep vein thrombosis) Acute MRSA (methicillin resistant Staphylococcus aureus) Acute 05/16/15 Palliative care encounter Acute Pneumonia Acute Respiratory distress Acute Respiratory failure Acute Sepsis Acute
--- NOTE | 2017-11-29 14:03 | ASMTCMCOM ---
CM Note CM Note Notes: Patient plan of care reviewed in interdisciplinary rounds. Her mentation is greatly improved. She is alert and oriented. Still requires toal care for ADLS but this is baseline for her at [facility]. She is still on IV antibiotics. Transition to oral per ID recommendations. CM to follow. Plan: Return to [facility] when medically cleared for discharge. Date Signed: 11/29/2017 02:02 PM Electronically Signed By:Kathrin Santamaria RN
[2017-11-29] MEDS: RIVAROXABAN 10 MG TAB PO SCH (14:52)
[2017-11-29] MEDS: ATORVASTATIN CALCIUM 40 MG TAB PO SCH (20:55)
[2017-11-29] MEDS: DIVALPROEX NA 500 MG TAB PO SCH (20:55)
[2017-11-29] MEDS: MELATONIN 3 MG TAB PO SCH (20:55)
[2017-11-30] MEDS: ACETAMINOPHEN 325 MG TAB PO PRN (00:39)
[2017-11-30] MEDS: LEVOTHYROXINE 88 MCG TAB PO SCH (05:12)
[2017-11-30] MEDS ORDERED: ALTEPLASE 2 MG VIAL IVP PRN (06:52)
[2017-11-30] MEDS: ANASTROZOLE 1 MG TAB PO SCH (09:12)
[2017-11-30] MEDS: FENOFIBRATE 145 MG TAB PO SCH (09:12)
[2017-11-30] MEDS: PANTOPRAZOLE SODIUM 40 MG TAB PO SCH (09:12)
[2017-11-30] MEDS: FERROUS SULFATE 325 MG TAB PO SCH (09:12)
[2017-11-30] MEDS: CARBOXYMETHYLCELLULOSE 1% 0.4 ML DROPERETTE EACHEYE SCH (09:12)
[2017-11-30] MEDS: CHOLECALCIFEROL VIT D3 1,000 UNITS TAB PO SCH (09:12)
[2017-11-30] MEDS: FLUoxetine 20 MG CAP PO SCH (09:13)
[2017-11-30] MEDS: ARIPiprazole 10 MG TAB PO SCH (09:13)
[2017-11-30] MEDS: LOPERAMIDE HCL 1 MG/5 ML UDL PO PRN (09:13)
[2017-11-30] MEDS: DIVALPROEX NA 250 MG TAB PO SCH (09:13)
[2017-11-30] MEDS: BIOTENE DRY MOUTH ORAL RINSE 237 ML BTL MM SCH (09:15)
[2017-11-30] MEDS: DICLOFENAC SODIUM 1% 100 GM GEL TP SCH (09:15)
[2017-11-30] MEDS: MEMANTINE HCL 5 MG TAB PO SCH (09:19)
--- NOTE | 2017-11-30 10:52 | PDIAF ---
- Diagnosis Diagnosis: E coli bacteremia secondary to UTI Code Status: Full Code - Medication Management Discharge Medications: Medications to Continue on Transfer Acetaminophen [Tylenol ES 500 mg (*)] 500 mg PO Q6 PRN 05/16/15 [Last Taken ] Albuterol [Proventil Neb] 3 ml IH Q6HRS 05/16/15 [Last Taken Unknown] Atorvastatin Calcium [Lipitor 40 mg (*)] 40 mg PO HS 05/16/15 [Last Taken ] Calcium Carbonate [Tums 500MG (*)] 500 mg PO Q2 PRN 05/16/15 [Last Taken Unknown ] LORazepam [Ativan (*)] 0.5 mg PO HS 05/16/15 [Last Taken 12/05/15] Levothyroxine [Synthroid 88 mcg (*)] 88 mcg PO DAILY06 05/16/15 [Last Taken ] Lidocaine [Lidocaine 5% oint] 1 van TP TID PRN 05/16/15 [Last Taken 12/06/15 12: 00] Magnesium Hydroxide [Milk of Magnesia (*)] 30 ml PO Q8 PRN 05/16/15 [Last Taken 11/19/15] Melatonin [Melatonin 3 MG (*)] 6 mg PO HS 05/16/15 [Last Taken 12/05/15] guaiFENesin [Mucinex 600 MG (*)] 600 mg PO BID 05/16/15 [Last Taken 12/06/15 09: 00] guaiFENesin/DEXTROMETHORPHAN [Robitussin Dm Oral Liquid (*)] 10 ml PO Q6 PRN 08/23 [Last Taken Unknown] Anastrozole [Arimidex 1 mg (*)] 1 mg PO DAILY 12/06/15 [Last Taken 12/06/15] Cholecalciferol Vit D3 [Vitamin D3 (*)] 5,000 units PO DAILY 12/06/15 [Last Taken 12/06/15] FLUoxetine [Prozac 20 MG (*)] 20 mg PO DAILY 12/06/15 [Last Taken 12/06/15] Olopatadine 0.1% [Patanol 0.1%] 1 drops EACHEYE BID PRN 05/12/16 [Last Taken Unknown] Sodium Cl Nasal Gel [[place] Saline Nasal Gel] 1 van TP TID PRN 05/12/16 [Last Taken Unknown] Pantoprazole Sodium [Protonix 40mg (*)] 40 mg PO DAILY #0 tab 05/19/16 [Last Taken Unknown] ARIPiprazole [Abilify 10 mg (*)] 10 mg PO DAILY 05/26/17 [Last Taken Unknown] Carboxymethylcellulose 1% [Refresh Celluvisc (*)] 1 drop EACHEYE TID 05/26/17 [ Last Taken Unknown] Diclofenac Sodium 1% [Voltaren Gel (*)] 4 gm TD TID 05/26/17 [Last Taken Unknown ] Memantine HCl [Namenda 10 mg] 10 mg PO BID 05/26/17 [Last Taken Unknown] Polyethylene Glycol 3350 [Miralax 17 gm (*)] 17 gm PO DAILY PRN 05/26/17 [Last Taken Unknown] Rivaroxaban [Xarelto 10mg (*)] 20 mg PO DAILY@14 05/26/17 [Last Taken Unknown] Divalproex Sodium 250 mg PO DAILY 05/29/17 [Last Taken Unknown] Divalproex Sodium 500 mg PO HS 05/29/17 [Last Taken Unknown] Ferrous Sulfate [Ferrous Sulf 325 MG (*)] 325 mg PO BID tab 06/07/17 [Last Taken Unknown] Ondansetron Odt [Zofran Odt 4 mg (*)] 4 mg PO Q4HRS PRN tab 06/07/17 [Last Taken Unknown] FENOFIBRATE 160 mg PO DAILY 11/25/17 [Last Taken Unknown] Nystatin Powder [Mycostatin Powder] 1 van TP Q8HRS PRN 11/25/17 [Last Taken Unknown] Polyethylene Glycol 3350 [Miralax 17 gm (*)] 8.5 gm PO DAILY 11/25/17 [Last Taken Unknown] Saliva Substitute Combo No.9 [Biotene (*)] 30 ml MM DAILY 11/25/17 [Last Taken Unknown] diphenhydrAMINE [Benadryl 25 MG (*)] 25 mg PO HS PRN 11/25/17 [Last Taken Unknown] traMADol [Ultram 50 mg (*)] 50 mg PO BID 11/25/17 [Last Taken Unknown] cefTRIAXone 1 GM/DEXTROSE [Rocephin 1 gm (Premix)] 50 ml IV DAILY #4 bag [Last Taken Unknown] Discharge Medications: Refer to the Discharge Home Medication list for PRN reason. PICC Care - Routine: Yes - Orders Services needed: Registered Nurse, Physical Therapy, Occupational Therapy Isolation Type: Chemotherapy Isolation Oxygen: 2 LPM Diet Recommendation: no restrictions on diet Diet Texture: Dysphagia 3 - Advanced - Moist, Bite-Size, Thin Liquids, Meds Whole in Puree Additional Instructions: REMOVE PICC ON 12/04 AFTER FINAL CEFTRIAXONE DOSE - Follow Up Care Current Providers and Referrals: Patient,NotPresent [Unknown] - As per Instructions
--- NOTE | 2017-11-30 10:56 | WOCRNPDOC ---
WOCRN Advanced Assessment Note - Skin Integrity Problem, Advanced Assess Coccyx Pressure Injury Dressing Type: Open to Air Exudate Amount: Scant Exudate Characteristic(s): Serous Wound Bed Color: Purple Wound Bed Constitution: Red/[place] - Non Granular Tissue (10%) Site Measurement - Head-to-Toe Length X Width X Depth (cm): Area of purple discoloration [id number]. Center is open and measures 0.5x0.5x0.1 Pressure Injury Stage: Deep Tissue Injury (DTI) Pressure Injury Present on Admit: Yes Skin Integrity Problem Comment: Area of purple discoloration that is primarily intact skin with a small area that is open in the center. This is a deep tissue injury that likely presented 48 to 72 hours after injury and is present on admission. Cleaned with NS and gauze. This wound will continue to evolve and likely will open up. Patient educated on the need to offload the area. Offloading measures already in place. Wound care will round again next week unless wound evolves further. If the wound does evolve, please notify wound care. Right Buttock Pressure Injury Dressing Type: Open to Air Exudate Amount: None Wound Bed Color: Purple Site Measurement - Head-to-Toe Length X Width X Depth (cm): Overall area measures 8x2.5xintact with the largest area of discoloration measuring 4.5x2.5xintact Pressure Injury Stage: Deep Tissue Injury (DTI) Pressure Injury Present on Admit: Yes Skin Integrity Problem Comment: Area of purple discoloration on right buttock that is a deep tissue injury. Injury likely occured 48-72 hours prior to when discoloration first documented and is present on admission. There are 3 areas of discoloration that are by less than 1cm. Discussed with the patient the need to offload the area and that to prevent the development of pressure injuries in the future, to continue offloading measures once discharged. These wounds will likely evolve and may open. Please notify wound care if the wounds do open. Wound care will round again next week. Left Buttock Pressure Injury Dressing Type: Open to Air Exudate Amount: None Wound Bed Color: Purple Site Measurement - Head-to-Toe Length X Width X Depth (cm): 0.5x0.5xintact Pressure Injury Stage: Deep Tissue Injury (DTI) Pressure Injury Present on Admit: Yes Skin Integrity Problem Comment: Small area on left buttock of purple discoloration that is a present on admission deep tissue injury. Wound care will round again next week. Please let wound care know if the wound opens up.
[2017-11-30 11:59] VITALS: BP 142/84
[2017-11-30] MEDS: RIVAROXABAN 10 MG TAB PO SCH (13:53)
--- NOTE | 2017-12-01 06:15 | GDS ---
DISCHARGE DIAGNOSES: 1. Sepsis secondary to urinary tract infection. 2. Acute encephalopathy, likely secondary to infection, improved. 3. Dementia. 4. Acute kidney injury, resolved. 5. Hyponatremia, resolved. 6. Bipolar disorder. 7. History of pulmonary embolism. 8. Chronic anticoagulation. 9. Chronic anemia. 10. History of invasive ductal carcinoma. 11. Hypothyroidism. CONSULTANTS: None. HISTORY: For details, please see history and physical dated November 25, 2017. In brief, the patient is a 72-year-old female who resides at [facility], presented to the emergency department with fever and altered mental status. Workup revealed urinary tract infection. She was admitted to the [facility] for further management. HOSPITAL COURSE: The patient was admitted to the med/surg unit. She did meet criteria for sepsis on arrival with fever, tachycardia. She was treated with fluid bolus and started on IV ceftriaxone. H er urine culture grew both Escherichia coli and Proteus mirabilis. Her blood cultures grew Proteus i n 1 bottle and Escherichia coli in another bottle. Both of these were sensitive to ceftriaxone. She received 6 days of IV ceftriaxone during this hospitalization. Her organisms were not sensitive to fluoroquinolone or Bactrim therapy she will need ongoing IV antibiotics. She has been dif ficult to maintain IV access. Therefore, she will discharge to intermediate facility with a PICC line which should be discontinued on Wednesday, December 04 after she receives her final ceftriaxone dose. I discussed this plan with Infectious Disease including duration of treatment. Also of note, her TSH was elevated at 10.6. I opted not to increase her Synthroid at this time, but rather recomme nd be rechecked in a couple of weeks when her acute infectious issues are resolved. If her TSH persi sts elevated, then adjustment in her Synthroid is indicated. She did have some loose stools during h ospitalization and Clostridium difficile was negative. She has been afebrile for greater than 72 trini rs at the time of discharge. DISPOSITION: Patient is discharged to intermediate facility in stable condition. DISCHARGE MEDICATIONS: Please see BlogCN completed outpatient medication list. New medications on discharge include ceftriaxone 1 g IV daily for 4 more days, last dose December 04 at which time her PICC line should be removed. FOLLOWUP: 1. Recommend followup TSH level in 2 weeks with adjustment in her Synthroid dose as indicated. 2. Followup primary care. /[id number]/MODL
== END 2017-11-30 15:00 | DRG 871 ==
LOC: EDUNIT# → F1N 14:10
PROVIDERS: ADMIT Internal Medicine; ATTEND Internal Medicine
PROC: 02HV33Z Insertion of Infusion Device into Superior Vena Cava, Percutaneous Approach (ICD-10-PCS; principal; 2017-11-30)
DX: A41.51 Sepsis due to Escherichia coli [E. coli] (principal); A41.89 Other specified sepsis; N39.0 Urinary tract infection, site not specified; G93.41 Metabolic encephalopathy; N17.9 Acute kidney failure, unspecified; E03.9 Hypothyroidism, unspecified; E87.1 Hypo-osmolality and hyponatremia; D50.9 Iron deficiency anemia, unspecified; R19.7 Diarrhea, unspecified; T36.1X5A Adverse effect of cephalosporins and other beta-lactam antibiotics, initial encounter; L89.150 Pressure ulcer of sacral region, unstageable; L89.310 Pressure ulcer of right buttock, unstageable; F31.9 Bipolar disorder, unspecified; F03.90 Unspecified dementia, unspecified severity, without behavioral disturbance, psychotic disturbance, mood disturbance, and anxiety; Z86.711 Personal history of pulmonary embolism; Z79.01 Long term (current) use of anticoagulants; Z85.3 Personal history of malignant neoplasm of breast; Z90.10 Acquired absence of unspecified breast and nipple
CPT/HCPCS: 92526-GN; 92610-GN; 96365; 97161-GP; 97166-GO; 97530-GP; C1751; G8978-GP-CM; G8979-GP-CL; G8987-GO-CN; G8988-GO-CM; G8996-GN-CJ; G8997-GN-CI; J0696; J1335; J7613

== ENCOUNTER 2018-05-16 11:31 | Inpatient (IN) | payer OTHER, MEDICAID ==
--- NOTE | 2018-05-16 11:44 | EDPHY ---
H & P Time Seen by Provider: 05/16/18 11:34 HPI/ROS: CHIEF COMPLAINT: Altered mental status Limitations: Altered mental status, answers a few questions HISTORY OF PRESENT ILLNESS: 73-year-old female presents with altered mental status. Last seen normal yesterday evening. The custodial staff today noticed that she was not responding normally. Complaining a headache. On EMS arrival, right sided weakness noted. A stroke alert was called. No recent fall and no known infection. REVIEW OF SYSTEMS: Unable to obtain - Personal History Tetanus Vaccine Date: < 10 YEARS - Medical/Surgical History Hx Asthma: No Hx Chronic Respiratory Disease: Yes Hx Diabetes: Yes Hx Cardiac Disease: Yes Hx Renal Disease: No Hx Cirrhosis: No Hx Alcoholism: No Hx HIV/AIDS: No Hx Splenectomy or Spleen Trauma: No Other PMH: PMH: UTI, Bipolar, DVT, HTN, Hypoxemia, breast cancer and double mastectomy, dysphagia, difficulty walking, non- hodkins lymphoma, right knee replacement, right ankle reconstruction, spinal fusion, PE, total hysterectomy, MRSA 05/2015 - Social History Smoking Status: Never smoked Additional Social History: Lives in a custodial, bed bound - Physical Exam Exam: General Appearance: Eyes open, lethargic, answers a few questions Eyes: Pupils equal and round ENT, Mouth: Mucous membranes dry Neck: Normal inspection Respiratory: Lungs are clear to auscultation anteriorly Cardiovascular: Regular rate and rhythm, 2/6 systolic murmur Gastrointestinal: Abdomen is soft and nontender Neurological: Alert, generalized weakness, bilateral speech language pathologist strength equal, moves all toes normally, unable to lift extremities off gurney, no focal deficit Skin: Warm and dry Extremities: Normal inspection Psychiatric: Flat affect Constitutional: Initial Vital Signs Temperature (C) 37.2 C 05/16/18 11:46 Heart Rate 93 05/16/18 11:46 Respiratory Rate 18 05/16/18 11:46 Blood Pressure 99/68 L 05/16/18 11:46 O2 Sat (%) 94 05/16/18 11:46 O2 Delivery Mode Nasal Cannula O2 (L/minute) 2 Allergies/Adverse Reactions: Penicillins Allergy (Mild, Verified 05/16/18 11:46) Rash REG Inhibitors Allergy (Verified 05/16/18 11:46) Hives clavulanic acid Allergy (Verified 05/16/18 11:46) Home Medications: Medication Instructions Recorded Acetaminophen [Tylenol ES 500 mg 500 mg PO Q6 PRN 05/16/15 (*)] Albuterol [Proventil Neb] 3 ml IH Q6HRS PRN 05/16/15 Atorvastatin Calcium [Lipitor 40 40 mg PO HS 05/16/15 mg (*)] Calcium Carbonate [Tums 500MG (*)] 500 mg PO Q2 PRN 05/16/15 LORazepam [Ativan (*)] 0.5 mg PO HS 05/16/15 Levothyroxine [Synthroid 88 mcg 88 mcg PO DAILY06 05/16/15 (*)] Lidocaine [Lidocaine 5% oint] 1 van TP TID PRN 05/16/15 Magnesium Hydroxide [Milk of 30 ml PO Q8 PRN 05/16/15 Magnesia (*)] Melatonin [Melatonin 3 MG (*)] 6 mg PO HS 05/16/15 guaiFENesin [Mucinex 600 MG (*)] 600 mg PO BID 05/16/15 guaiFENesin/DEXTROMETHORPHAN 10 ml PO Q6 PRN 05/16/15 [Robitussin Dm Oral Liquid (*)] Anastrozole [Arimidex 1 mg (*)] 1 mg PO DAILY 12/06/15 Cholecalciferol Vit D3 [Vitamin D3 5,000 units PO DAILY 12/06/15 (*)] Olopatadine 0.1% [Patanol 0.1%] 1 drops EACHEYE BID PRN 05/12/16 Sodium Cl Nasal Gel [[place] Saline 1 van TP TID PRN 05/12/16 Nasal Gel] Pantoprazole Sodium [Protonix 40mg 40 mg PO DAILY #0 tab 05/19/16 (*)] ARIPiprazole [Abilify 10 mg (*)] 10 mg PO DAILY 05/26/17 Carboxymethylcellulose 1% [Refresh 1 drop EACHEYE TID 05/26/17 Celluvisc (*)] Diclofenac Sodium 1% [Voltaren Gel 4 gm TD TID 05/26/17 (*)] Memantine HCl [Namenda 10 mg] 10 mg PO BID 05/26/17 Polyethylene Glycol 3350 [Miralax 17 gm PO DAILY PRN 05/26/17 17 gm (*)] Rivaroxaban [Xarelto 10mg (*)] 20 mg PO DAILY@14 05/26/17 Divalproex Sodium 250 mg PO DAILY 05/29/17 Divalproex Sodium 500 mg PO HS 05/29/17 Ferrous Sulfate [Ferrous Sulf 325 325 mg PO BID tab 06/07/17 MG (*)] Ondansetron Odt [Zofran Odt 4 mg 4 mg PO Q4HRS PRN tab 06/07/17 (*)] FENOFIBRATE 160 mg PO DAILY 11/25/17 Polyethylene Glycol 3350 [Miralax 8.5 gm PO DAILY 11/25/17 17 gm (*)] Saliva Substitute Combo No.9 30 ml MM DAILY 11/25/17 [Biotene (*)] diphenhydrAMINE [Benadryl 25 MG 25 mg PO HS PRN 11/25/17 (*)] traMADol [Ultram 50 mg (*)] 50 mg PO BID 11/25/17 Bisacodyl [Dulcolax] 10 mg RC DAILY PRN 05/16/18 FLUoxetine HCL [Fluoxetine HCl] 3.75 ml PO DAILY 05/16/18 Hydrocortisone 1% [Hydrocortisone 1 van TP BID PRN 05/16/18 1% cream (*)] Medical Decision Making - Diagnostics Imaging Results: Imaging Impressions Head CT 05/16/18 11:34 Impression: 1. Stable mild to moderate atrophy. 2. No hemorrhage, mass effect, or definite acute peripheral infarct. 3. Stable moderate nonspecific hypodensities in the white matter of bilateral cerebral hemispheres. Differential diagnosis includes microvascular ischemic disease, post-infectious/post-inflammatory sequela, atypical demyelinating disease, or migraine-related sequela. Small white matter lacunar infarcts may also have this appearance. If symptoms worsen, additional imaging may be necessary. Findings discussed with ZEENAT TEAGUE at 11:50 hour, 05/16/2018. Head CTA 05/16/18 11:44 Impression: 1. Scattered mild atherosclerotic calcified plaques involving the carotid system bilaterally as well as proximal left vertebral artery without significant stenoses. 2. Relatively CT angiogram of the [place] with atherosclerotic calcified plaque at the carotid siphon bilaterally, as detailed above. 3. Degenerative disk disease lower cervical spine with associated disk bulge and marginal osteophytes with spinal stenoses present most severe at C6-C7. Note: All calculations were performed using NASCET criteria. Findings discussed with Zeenat Teague M.D. at 12:19 hour, 05/16/2018. Neck CTA 05/16/18 11:44 Impression: 1. Scattered mild atherosclerotic calcified plaques involving the carotid system bilaterally as well as proximal left vertebral artery without significant stenoses. 2. Relatively CT angiogram of the [place] with atherosclerotic calcified plaque at the carotid siphon bilaterally, as detailed above. 3. Degenerative disk disease lower cervical spine with associated disk bulge and marginal osteophytes with spinal stenoses present most severe at C6-C7. Note: All calculations were performed using NASCET criteria. Findings discussed with Zeenat Teague M.D. at 12:19 hour, 05/16/2018. Chest X-Ray 05/16/18 11:45 Impression: Hypoventilatory features with augmentation of the cardiac size and pulmonary vasculature, and some questionable developing airspace disease in the right upper lobe. When clinically feasible, PA and lateral upright views in the department are suggested. Imaging: Discussed imaging studies w/ call center support consultant Radiologist, I viewed and interpreted images myself ED Course/Re-evaluation: This patient presents with altered mental status as a stroke alert. On my initial exam, she is lethargic and has generalized weakness. She is not a tPA candidate, given lack of focal symptoms, on Xarelto and last seen normal greater than [address]/A scan of the brain/neck: unremarkable. Repeat physical exam: Answers a few more questions, otherwise unchanged exam. Cath urinalysis reveals urinary tract infection. She does not meet SIRS criteria. Urine and blood cultures drawn. Rocephin 1 g IV given. Presentation consistent with UTI and acute encephalopathy related to UTI. The hospitalist service was consulted for admission. Differential Diagnosis: Altered mental status including but not limited to hypoglycemia, infectious process, electrolyte abnormality, head injury, CVA, and intoxicants. - Data Points Laboratory Results: Laboratory Results 05/16/18 11:30 05/16/18 11:30 05/16/18 05/16/18 05/16/18 11:55 11:39 11:38 WBC RBC Hgb POC Hgb 11.6 gm/dL L gm/dL (12.6-16.3) Hct POC Hct 34 % L % (38-47) MCV MCH MCHC RDW Plt Count MPV Neut % (Auto) Lymph % (Auto) [place] % (Auto) Eos % (Auto) Baso % (Auto) Nucleat RBC Rel Count Absolute Neuts (auto) Absolute Lymphs (auto) Absolute Monos (auto) Absolute Eos (auto) Absolute Basos (auto) Absolute Nucleated RBC Immature Gran % Immature Gran # PT INR APTT POC Sodium 135 mEq/L mEq/L (135-145) Sodium POC Potassium 4.0 mEq/L mEq/L (3.3-5.0) Potassium POC Chloride 98 mEq/L mEq/L (97-110) Chloride Carbon Dioxide POC Total CO2 24 mEq/L mEq/L (22-31) Anion Gap POC BUN 22 mg/dL mg/dL (7-23) BUN Creatinine POC Creatinine 1.3 mg/dL H mg/dL (0.6-1.0) Estimated GFR Glucose POC Glucose 93 mg/dL mg/dL (70-100) Calcium POC Troponin I 0.03 ng/mL ng/mL (0.00-0.08) Urine Color YELLOW Urine Appearance TURBID Urine pH 6.0 (5.0-7.5) Ur Specific Lane 1.013 (1.002-1.030) Urine Protein 2+ H (NEGATIVE) Urine Ketones NEGATIVE (NEGATIVE) Urine Blood 3+ H (NEGATIVE) Urine Nitrate NEGATIVE (NEGATIVE) Urine Bilirubin NEGATIVE (NEGATIVE) Urine Urobilinogen NEGATIVE EU EU (0.2-1.0) Ur Leukocyte Esterase 2+ H (NEGATIVE) Urine RBC 50-182 /hpf H /hpf (0-3) Urine WBC 50-182 /hpf H /hpf (0-3) Ur Epithelial Cells NONE SEEN /lpf /lpf (NONE-1+) Urine Bacteria 4+ /hpf H /hpf (NONE SEEN) Urine Mucus 1+ /lpf /lpf (NONE-1+) Urine Glucose NEGATIVE (NEGATIVE) 05/16/18 05/16/18 05/16/18 11:30 11:30 11:30 WBC 9.64 10^3/uL H 10^3/uL (3.80-9.50) RBC 3.30 10^6/uL L 10^6/uL (4.18-5.33) Hgb 10.9 g/dL L g/dL (12.6-16.3) POC Hgb Hct 33.4 % L % (38.0-47.0) POC Hct MCV 101.2 fL H fL (81.5-99.8) MCH 33.0 pg pg (27.9-34.1) MCHC 32.6 g/dL g/dL (32.4-36.7) RDW 14.5 % % (11.5-15.2) Plt Count 145 10^3/uL L 10^3/uL (150-400) MPV 9.5 fL fL (8.7-11.7) Neut % (Auto) 72.6 % % (39.3-74.2) Lymph % (Auto) 21.4 % % (15.0-45.0) [place] % (Auto) 5.6 % % (4.5-13.0) Eos % (Auto) 0.0 % L % (0.6-7.6) Baso % (Auto) 0.0 % L % (0.3-1.7) Nucleat RBC Rel Count 0.0 % % (0.0-0.2) Absolute Neuts (auto) 7.00 10^3/uL H 10^3/uL (1.70-6.50) Absolute Lymphs (auto) 2.06 10^3/uL 10^3/uL (1.00-3.00) Absolute Monos (auto) 0.54 10^3/uL 10^3/uL (0.30-0.80) Absolute Eos (auto) 0.00 10^3/uL L 10^3/uL (0.03-0.40) Absolute Basos (auto) 0.00 10^3/uL L 10^3/uL (0.02-0.10) Absolute Nucleated RBC 0.00 10^3/uL 10^3/uL (0-0.01) Immature Gran % 0.4 % % (0.0-1.1) Immature Gran # 0.04 10^3/uL 10^3/uL (0.00-0.10) PT REJ INR REJ APTT REJ POC Sodium Sodium 130 mEq/L L mEq/L (135-145) POC Potassium Potassium 4.4 mEq/L mEq/L (3.5-5.2) POC Chloride Chloride 99 mEq/L mEq/L (97-110) Carbon Dioxide 24 mEq/l mEq/l (22-31) POC Total CO2 Anion Gap 7 mEq/L mEq/L (6-14) POC BUN BUN 23 mg/dL mg/dL (7-23) Creatinine 1.2 mg/dL H mg/dL (0.6-1.0) POC Creatinine Estimated GFR 44 Glucose 87 mg/dL mg/dL (70-100) POC Glucose Calcium 8.7 mg/dL mg/dL (8.5-10.4) POC Troponin I Urine Color Urine Appearance Urine pH Ur Specific Lane Urine Protein Urine Ketones Urine Blood Urine Nitrate Urine Bilirubin Urine Urobilinogen Ur Leukocyte Esterase Urine RBC Urine WBC Ur Epithelial Cells Urine Bacteria Urine Mucus Urine Glucose Medications Given: Discontinued Medications Ceftriaxone Sodium/Dextrose (Rocephin 1 Gm (Premix)) 50 mls @ 100 mls/hr IV EDNOW ONE PRN Reason: Protocol Stop: 05/16/18 12:43 Last Admin: 05/16/18 12:40 Dose: 50 mls Sodium Chloride (Ns) 1,000 mls @ 0 mls/hr IV ONCE ONE; Wide Open PRN Reason: Protocol Stop: 05/16/18 12:32 Last Admin: 05/16/18 12:39 Dose: 1,000 mls Point of Care Test Results: Chemistry 05/16/18 05/16/18 11:39 11:38 POC Sodium 135 mEq/L mEq/L (135-145) POC Potassium 4.0 mEq/L mEq/L (3.3-5.0) POC Chloride 98 mEq/L mEq/L (97-110) POC Total CO2 24 mEq/L mEq/L (22-31) POC BUN 22 mg/dL mg/dL (7-23) POC Creatinine 1.3 mg/dL H mg/dL (0.6-1.0) POC Glucose 93 mg/dL mg/dL (70-100) POC Troponin I 0.03 ng/mL ng/mL (0.00-0.08) ISTAT H&H 05/16/18 11:39 POC Hgb 11.6 gm/dL L gm/dL (12.6-16.3) POC Hct 34 % L % (38-47) Departure - Departure Disposition: [facility] Inpatient Acute Clinical Impression: Acute encephalopathy Urinary tract infection Qualifiers: Urinary tract infection type: acute cystitis Hematuria presence: with hematuria Qualified Code(s): N30.01 - Acute cystitis with hematuria Condition: Fair
[2018-05-16 11:51] LABS: PLATELET COUNT 145 10^3/uL (150-400)
[2018-05-16] MEDS ORDERED: NS 1,000 ML IV ONE (12:31)
[2018-05-16 13:06] LABS: INR 1.35 (0.83-1.16); PROTIME(PATIENT) 16.1 SEC (12.0-15.0)
[2018-05-16] MEDS ORDERED: ONDANSETRON 4 MG/2 ML VIAL IVP PRN (14:50)
[2018-05-16] MEDS ORDERED: ONDANSETRON DISINTEGRATING 4 MG TAB PO PRN ×2 (14:50→15:17)
[2018-05-16] MEDS ORDERED: NS 1,000 ML IV SCH (15:00)
[2018-05-16] MEDS ORDERED: SODIUM CL NASAL GEL 14.1 GM TUBE TP PRN (15:17)
[2018-05-16] MEDS ORDERED: MAGNESIUM HYDROXIDE 30 ML UDCUP PO PRN (15:17)
[2018-05-16] MEDS ORDERED: ALBUTEROL 3 ML DEYVIAL IH PRN (15:17)
[2018-05-16] MEDS ORDERED: CALCIUM CARBONATE 500 MG CHEWABLE TAB PO PRN (15:17)
[2018-05-16] MEDS ORDERED: BISACODYL 10 MG SUPP PR PRN (15:17)
[2018-05-16] MEDS ORDERED: LIDOCAINE TP PRN (15:17)
[2018-05-16] MEDS ORDERED: POLYETHYLENE GLYCOL 3350 17 GM PKT PO PRN (15:17)
[2018-05-16] MEDS ORDERED: ACETAMINOPHEN 500 MG TAB PO PRN (15:17)
[2018-05-16] MEDS ORDERED: diphenhydrAMINE 25 MG CAP PO PRN (15:17)
[2018-05-16] MEDS ORDERED: HYDROCORTISONE 1% CREAM TP PRN (15:17)
[2018-05-16] MEDS ORDERED: OLOPATADINE 0.1% 5 ML OPHT.BTL EACHEYE PRN (15:17)
[2018-05-16] MEDS ORDERED: GUAIFENESIN/DM 10 ML UDCUP PO PRN (15:17)
--- NOTE | 2018-05-16 15:31 | ASMTLACE ---
NANCY Acuity / Level of Answers: Yes Care: Did the patient have an inpatient admission? Comorbidities - select Answers: Any tumor (including all that apply lymphoma or leukemia) Diabetes (uncontrolled or controlled) Opioid dependence / Chronic pain Other Notes: DVT; HTN # of Emergency department Answers: 1-2 visits in the last 6 months Social determinants Answers: Mental health diagnosis (anxiety, depression, pers onality disorders, etc.) Score: 15 Date Signed: 05/16/2018 02:21 PM Electronically Signed By:Rula Villasenor
--- NOTE | 2018-05-16 15:39 | CPEKG ---
Test Reason : OPEN Blood Pressure : / mmHG Vent. Rate : 088 BPM Atrial Rate : 091 BPM P-R Int : 194 ms QRS Dur : 128 ms QT Int : 378 ms P-R-T Axes : 044 -02 095 degrees QTc Int : 458 ms Sinus rhythm Atrial premature complexes Left bundle branch block Confirmed by Zeenat Armando ([id number]) on 05/16/2018 3:38:49 PM Referred By: Zeenat Armando Confirmed By:Zeenat Armando
--- NOTE | 2018-05-16 15:48 | GHP ---
[f rep st] HISTORY AND PHYSICAL DATE OF ADMISSION: 05/16/2018 CHIEF COMPLAINT: Altered mental status. HISTORY OF PRESENT ILLNESS: Mostly obtained from the emergency room physician. 73-year-old female w ith altered mental status. She was last seen normal yesterday evening. The [facility] staff state s that she was not responding appropriately today. She was complaining of a headache. The patient w as brought by EMS to the emergency room. The patient denies any specific complaints at the time of m y assessment. She does state that both of her arms hurt. She has no other complaints. She denies s hortness of breath, chest pain, or dyspnea. She denies any vision changes, nausea, vomiting, or diar shelly. REVIEW OF SYSTEMS: Unobtainable other than what is noted in the HPI. PAST MEDICAL HISTORY: 1. Multiple urinary tract infections. 2. Bipolar disorder. 3. DVT. 4. Hypertension. 5. Hypoxemia. 6. Breast cancer with double mastectomy. 7. Dysphagia. 8. Difficulty walking. 9. Non-Hodgkin's lymphoma. 10. PE. 11. MRSA in 2016. PAST SURGICAL HISTORY: 1. Total hysterectomy. 2. Spinal fusion. 3. Right ankle reconstruction. 4. Right knee replacement. 5. Bilateral mastectomy. SOCIAL HISTORY: The [facility]. She denies any tobacco use. ALLERGIES: Penicillin, REG inhibitors, clavulanic acid. FAMILY HISTORY: Unobtainable. HOME MEDICATIONS: Tylenol, albuterol, Lipitor, Tums, Ativan, Synthroid, lidocaine patch, milk of mag nesia, melatonin, Mucinex, Robitussin, Arimidex, vitamin D3, Prozac, Protonix, Abilify, Voltaren gel, Namenda, MiraLAX, Xarelto, iron, Zofran, divalproex sodium. PHYSICAL EXAM: GENERAL: Patient is arousable, lethargic, answers some questions. HEENT: Pupils eq ual, round, reactive to light. Mucosal membranes are dry. NECK: Supple. Normal inspection. LUNGS : Decreased in the bases. No rhonchi or wheezing appreciated. CARDIOVASCULAR: Regular rate and rh ythm. No gallop noted. There is a systolic murmur identified. ABDOMEN: Bowel sounds are positive. Soft and nontender. There is no guarding, rigidity noted. NEUROLOGICAL: The patient is lethargic . Moves all 4 extremities. Appears focally intact. SKIN: Warm and dry. No rashes identified. EX TREMITIES: Within normal limits. No clubbing or cyanosis noted. VITAL SIGNS: Afebrile at 37.2, pu lse is 93, respiratory rate is 18, blood pressure is 99/68, she is saturating 94% on 2 L. LABORATORY EVALUATION: White count is 9.64 with a hemoglobin of 10.9, hematocrit of 33.4, platelet c ount is 145. Sodium is 130 with a creatinine of 1.2. Abnormal urinalysis. RADIOLOGICAL STUDIES: CT of the head shows mild atrophy. No hemorrhage. Stable moderate nonspecifi c hypodensities. Chest x-ray: Hypoventilatory features. CT angio of the head and neck shows mild p laque. ASSESSMENT AND PLAN: 1. Acute encephalopathy. The patient is responding more verbally than the time of admission. I rev iewed this with Dr. Armando. She answers most questions appropriately. This is in the setting of likel y acute infectious process. 2. Urinary tract infection. She has been treated with 1 dose of Rocephin in the emergency room. We will continue this through the hospitalization. Urine culture is pending at this time. She has had multiple histories of urinary tract infections in the past. We will await culture results and maxim nue Rocephin in the meantime. 3. Acute kidney injury, likely in the setting of infection as well as mild dehydration. She will co ntinue IV fluids and recheck her laboratory evaluation in the morning. 4. Hyponatremia. Again, likely a component of prerenal azotemia and will re-evaluate her kidney fun ction in the morning. 5. History of bipolar disorder. Home medications will be continued. 6. History of pulmonary emboli. Her Xarelto will be continued. 7. Dementia. Home medications will be continued. 8. Anemia. This appears to be at baseline. Her iron supplement will be continued. 9. History of ductal carcinoma. No intervention warranted at this time. 10. Hypothyroidism. Continue her home dose of Synthroid. 11. FEN: The patient will have a speech therapy evaluation and a regular diet when she is more aler t. She will be admitted to General Medicine under inpatient status as I anticipate her recovery well arturo e greater than 24 hours. I have discussed the patient's care with Dr. Brianna Amrando and reviewed patient's past medical history. /[id number]/MODL
[2018-05-16] MEDS: CARBOXYMETHYLCELLULOSE 1% 0.4 ML DROPERETTE EACHEYE SCH (16:52)
[2018-05-16] MEDS: DICLOFENAC SODIUM 1% 100 GM GEL TP SCH (16:52)
[2018-05-16] MEDS: ACETAMINOPHEN 325 MG TAB PO PRN (16:56)
--- NOTE | 2018-05-16 20:11 | HOSPPROG ---
Hospitalist Progress Note Assessment/Plan: Called by cross cover to evaluate patient, patient noted to have been more alert earlier in the day with mental status worsening, now obtunded again in the setting of fever. Reviewed chart--hx of NHL, breast cancer, dementia and recurrent UTI admitted with encephalopathy due to urinary infection presumably. Patient now meeting criteria for sepsis, metabolic encephalopathy worsening with source of infection urinary verus pna (RUL consolidation noted on cxr)-- continued ctx, added levofloxacin. Transfered to SDU for closer monitoring. > 35 min critical care time spent in evaluation of labs/imaging and bedside evaluation of patient, coordination of care with nursing. Objective: Vital Signs Temp Pulse Resp BP Pulse Ox 37.2 C 100 20 108/57 L 90 L 05/16/18 19:49 05/16/18 19:49 05/16/18 19:49 05/16/18 19:49 05/16/18 19:49 05/15/18 05/16/18 05/17/18 05:59 05:59 05:59 Intake Total 1200 Output Total 400 Balance 800 PT 16.1 SEC (12.0-15.0) H 05/16/18 12:40 INR 1.35 (0.83-1.16) H 05/16/18 12:40 ICD10 Worksheet Patient Problems: Problems Problem Status Onset Pneumonia Acute History of DVT (deep vein thrombosis) Acute UTI (urinary tract infection) Acute Chronic Disease Mgmt/Transitional Care Acute MRSA (methicillin resistant Staphylococcus aureus) Acute 05/16/15 Sepsis Acute Altered mental status Acute Respiratory distress Acute Aspiration of food Acute Altered mental status Acute Palliative care encounter Acute Respiratory failure Acute Encephalopathy acute Acute
[2018-05-17] MEDS: MEMANTINE HCL 5 MG TAB PO SCH ×3 (00:34→21:45)
[2018-05-17] MEDS: guaiFENesin 600 MG TAB.ER PO SCH ×3 (00:34→21:45)
[2018-05-17] MEDS: CARBOXYMETHYLCELLULOSE 1% 0.4 ML DROPERETTE EACHEYE SCH ×4 (00:35→21:46)
[2018-05-17] MEDS: DIVALPROEX NA 500 MG TAB PO SCH ×2 (00:35→21:45)
[2018-05-17] MEDS: ATORVASTATIN CALCIUM 40 MG TAB PO SCH ×2 (00:35→21:45)
[2018-05-17] MEDS: FERROUS SULFATE 325 MG TAB PO SCH ×3 (00:35→21:45)
[2018-05-17] MEDS: traMADol 50 MG TAB PO SCH ×3 (00:35→21:46)
[2018-05-17] MEDS: DICLOFENAC SODIUM 1% 100 GM GEL TP SCH ×4 (00:36→21:45)
[2018-05-17] MEDS ORDERED: NS 500 ML IV ONE ×2 (01:13→02:25)
--- NOTE | 2018-05-17 03:46 | HOSPPROG ---
Hospitalist Progress Note Assessment/Plan: XC: Notified by RN of patient exhibiting worsening obtundation. At the time of my initial evaluation patient was minimally responsive to voice but did withdraw from painful stimuli. She did not exhibit any focal neurologic signs. Review of records notable for CTH and CTA head/neck without acute abnormalities. I discussed her care with Dr. Santiago last night and levofloxacin was added for concern of progressive sepsis. I ordered CMP, CBC, lactate, and ABG for further evaluation as I suspected metabolic encephalopathy. These labs returned quite reassuring with normal lactate and compensated ABG. I proceeded with fluid resuscitation and her HR has improved from 120s to 90s and her mental status has also improved. She is now waking to voice and answering questions. Will continue to monitor closely in the SDU. I personally spent 30 minutes of critical care time evaluating patient, interpreting data, and coordinating care. Objective: Vital Signs Temp Pulse Resp BP Pulse Ox 37.1 C 115 H 16 130/85 H 95 05/17/18 00:00 05/17/18 00:00 05/17/18 00:00 05/17/18 00:00 05/17/18 00:00 Laboratory Results 05/17/18 01:30 05/17/18 01:30 05/15/18 05/16/18 05/17/18 05:59 05:59 05:59 Intake Total 1200 Output Total 400 Balance 800 PT 16.1 SEC (12.0-15.0) H 05/16/18 12:40 INR 1.35 (0.83-1.16) H 05/16/18 12:40 ICD10 Worksheet Patient Problems: Problems Problem Status Onset Pneumonia Acute History of DVT (deep vein thrombosis) Acute UTI (urinary tract infection) Acute Chronic Disease Mgmt/Transitional Care Acute MRSA (methicillin resistant Staphylococcus aureus) Acute 05/16/15 Sepsis Acute Altered mental status Acute Respiratory distress Acute Aspiration of food Acute Altered mental status Acute Palliative care encounter Acute Respiratory failure Acute Encephalopathy acute Acute
[2018-05-17 05:30] LABS: INR 1.25 (0.83-1.16); PROTIME(PATIENT) 15.2 SEC (12.0-15.0)
[2018-05-17] MEDS: LEVOTHYROXINE 88 MCG TAB PO SCH (10:54)
[2018-05-17] MEDS: ANASTROZOLE 1 MG TAB PO SCH (10:54)
[2018-05-17] MEDS: ARIPiprazole 10 MG TAB PO SCH (10:54)
[2018-05-17] MEDS: CHOLECALCIFEROL VIT D3 2,000 UNITS TAB/CAP PO SCH (10:54)
[2018-05-17] MEDS: DIVALPROEX NA 250 MG TAB PO SCH (11:06)
[2018-05-17] MEDS: FLUOXETINE 4 MG/ML 30 ML BOTTLE PO SCH (11:07)
[2018-05-17] MEDS: FENOFIBRATE 145 MG TAB PO SCH (11:07)
[2018-05-17] MEDS: PANTOPRAZOLE SODIUM 40 MG TAB PO SCH (11:08)
[2018-05-17] MEDS: BIOTENE DRY MOUTH ORAL RINSE 237 ML BTL MM SCH (11:08)
[2018-05-17] MEDS: POLYETHYLENE GLYCOL 3350 17 GM PKT PO SCH (11:08)
[2018-05-17] MEDS: NS 1,000 ML IV SCH (11:12)
--- NOTE | 2018-05-17 13:49 | ASMTCMCOM ---
CM Note CM Note Notes: Pt is a 73 yo F presents with UTI and acute encephalopy. She lives at [facility]. At this time PT is recommending she return there. CM confirmed this with [facility] and they are coming to see her. CM to follow. Plan: return to [facility] once medically stable. Date Signed: 05/17/2018 01:46 PM Electronically Signed By:CORRY Walton
[2018-05-17] MEDS: RIVAROXABAN 20 MG TAB PO SCH (13:57)
[2018-05-17] MEDS ORDERED: ALTEPLASE 2 MG VIAL IVP PRN (14:52)
[2018-05-17] MEDS: ACETAMINOPHEN 650 MG SUPP PR PRN (15:06)
[2018-05-17] MEDS ORDERED: IOPAMIDOL (ISOVUE-M 300) 15 ML VIAL ONE (16:06)
[2018-05-17] MEDS: VANCOMYCIN HCL/NORMAL SALINE 250 ML IV SCH (16:33)
--- NOTE | 2018-05-17 18:27 | GCON ---
[f rep st] CONSULTATION DATE OF CONSULTATION: 05/17/2018 REFERRING PHYSICIAN: Teressa Wiseman MD REASON FOR CONSULTATION: Sepsis with coagulase-negative staphylococcal bacteremia. HISTORY OF PRESENT ILLNESS: The patient is a 73-year-old female, resident of [facility], who I am asked to see in consultation for sepsis with blood culture showing growth of coagulase-ne gative staphylococcus. The patient has a past medical history significant for recurrent urinary trac t infection, staghorn calculi and bacteremia with both E coli and Proteus. She also has a remote his tory of MRSA dating to 2015. The patient was brought into the hospital yesterday for evaluation of a ltered mental status. The patient was noted to have fever during the course of her hospitalization w ith a temperature of 39.4 yesterday and today. Laboratory assessment revealed a mild leukocytosis. Urinalysis showed 50 to 182 white blood cells and 50 to 182 red blood cells with bacteria being prese nt. Blood cultures were obtained at the time of presentation and 2 of 2 sets are now showing growth of coagulase-negative staphylococcus. Urine culture is showing presence of greater than 100,000 lact ose-fermenting gram-negative rods. Respiratory PCR testing showed no organisms. Over the course of the day, the patient had significant alteration in mental status, prompting lumbar puncture. CSF enzo ws 3 white blood cells with glucose 44 and protein of 41 with no red blood cells being present. Gram stain of the CSF shows no growth. The patient was treated empirically at time of presentation with ceftriaxone, and vancomycin has now been added based on growth of coagulase-negative staphylococcus. Currently, the patient does not have any specific complaints other than being thirsty. Given the pr esence of sepsis with coagulase-negative staphylococcal bacteremia, Infectious Disease consultation i s requested for further assistance in her ongoing management. PAST MEDICAL HISTORY: Recurrent UTI, bacteremia from Proteus and E coli previously, staghorn calculi , DVT, hypertension, breast cancer, non-Hodgkin lymphoma, pulmonary embolism, history of MRSA in 2016 , bipolar disorder. PAST SURGICAL HISTORY: Total hysterectomy, right ankle reconstruction, right knee replacement, bilat eral mastectomy, spinal fusion. CURRENT MEDICATIONS: Ceftriaxone 1 g IV daily, vancomycin 1 g IV q.12 hours, tramadol 50 mg p.o. b.i .d., biotin daily, Xarelto 20 mg p.o. daily, Protonix 40 mg p.o. daily, Namenda 10 mg p.o. b.i.d., Sy nthroid 88 mcg p.o. daily, Mucinex 600 mg p.o. b.i.d., Prozac 50 mg p.o. daily, ferrous sulfate 325 m g p.o. b.i.d., Tricor 145 mg p.o. daily, Depakote 250 mg p.o. daily and 500 mg p.o. h.s., vitamin D 5 000 units p.o. daily, Lipitor 40 mg p.o. h.s., Abilify 10 mg p.o. daily, Arimidex 1 mg p.o. daily. ALLERGIES: Penicillin, REG inhibitors and clavulanic acid listed in her chart, which cannot be furth er characterized. SOCIAL HISTORY: No noted tobacco use. The patient is a resident of a [facility] facility. Rem ainder of her social history cannot be obtained. FAMILY HISTORY: Currently is unobtainable. REVIEW OF SYSTEMS: Currently is unobtainable. PHYSICAL EXAMINATION: VITAL SIGNS: Temperature maximum 39.4, temperature current 38.2, blood pressu re 91/55, respiratory rate 16, heart rate 94, oxygen saturation 99% on 3 L. GENERAL: The patient is an obese female in no acute distress. She appears nontoxic. She is able to follow simple commands. HEENT: There is no scleral icterus, conjunctival injection, or conjunctival petechiae. The oropha rynx shows dry mucous membranes. No thrush noted. No tenderness over the sinuses. No nasal dischar ge. NECK: Supple without meningismus. No palpable thyromegaly or adenopathy. CHEST: Clear to aus cultation bilaterally without adventitious sounds. Respiratory effort is normal. CARDIOVASCULAR: R egular rate and rhythm with a 2-3/6 holosystolic murmur throughout. No gallops or rubs noted. ABDOM EN: Obese, nontender, nondistended. There is no palpable organomegaly. Bowel sounds are present. MUSCULOSKELETAL: There is 1+ lower extremity edema bilaterally. Well-healed incision over the right ankle. Well-healed incision over the right knee. No evidence of erythema or joint effusion. No wa rmth present. No tenderness present. SKIN: Prominent capillaries over both cheeks. No other rashe s noted. No stigmata of endocarditis. Scattered ecchymoses over the left upper extremity. Skin is warm and dry to touch. NEUROLOGIC: The patient is awake, follows simple commands and is able to sta te she is in the hospital. Extraocular muscles are intact. No nystagmus present. LYMPHATICS: No c ervical or supraclavicular nodes noted. LABORATORY DATA: White blood cell count 8.2, hematocrit 30.9, platelets 122, neutrophils 73%. Serum creatinine is 1.1, bicarb 23, bilirubin 0.3, AST 69, ALT 31, alkaline phosphatase 43, albumin 2.3, p rocalcitonin 4.2. Lactic acid is 1.3. CSF shows 3 white blood cells, no red blood cells, glucose 44 , protein 41. Respiratory pathogen panel by PCR testing is negative. Blood cultures with 2 of 2 set s showing coagulase-negative staphylococcus. Blood cultures x2 sets also on 05/16/2018, are pending. CSF Gram stain shows no organisms with culture pending. Chest x-ray shows hypoventilatory change w ith some haziness in the right upper lobe. IMPRESSION: Sepsis with coagulase-negative staphylococcal bacteremia: Two of 2 sets of blood cultur es showing coagulase-negative staphylococcus, making this likely a true pathogen rather than skin con taminant. Additional cultures are pending, which will help further clarify this. Await further spec iation of coagulase-negative staph as Staphylococcus lugdunensis could behave in this fashion. Given her prior history of staghorn calculi, bacteremia associated with nephrolithiasis also could be of c onsideration. The patient also has evidence of lactose-fermenting gram-negative rods in the urine, w hich also could be contributing to current presentation. She has a prior history of both E coli and Proteus. Cerebral spinal fluid studies do not show findings to suggest the presence of meningitis. Given her underlying murmur, we will need echocardiogram to ensure no evidence of endocarditis. RECOMMENDATIONS: 1. Agree with vancomycin 1 g IV q.12 hours. 2. Agree with ceftriaxone, which will be increased to 2 g IV daily (previous E coli and Proteus isol ates are susceptible to ceftriaxone). 3. Follow up repeat blood cultures as available. 4. Echocardiogram. 5. We will plan for noncontrast CT scan of pelvis to assess for any evidence of ongoing nephrolithia sis as contributor to patient's presentation. 6. Thank you for this consultation. We will continue to follow the patient with you. /[id number]/MODL
--- NOTE | 2018-05-17 18:42 | HOSPPROG ---
Hospitalist Progress Note Assessment/Plan: * Severe sepsis -BC + 2 sets with Coag negative staph making contaminant less likely -d/w Dr. Lawrence - IV Vanco started -ECHO ordered r/o endocarditis * Severe metabolic encephalopathy due to sepsis -LP negative for meningitis -consider MRI if mental status doesn't improve -NPO as too sedated to take PO * UTI -IV ceftriaxone pending culture * h/o staghorn calculus -repeat CT a/p to assess for stone reformation * h/o PE -can't take oral meds - holding Xarelto -SQ lovenox until able to take PO * Bipolar -depakote * NHL s/p stem cell transplant * Breast cancer -Arimidex CC time - 40 minutes Subjective: remains completely obtunded, mental status continues to worsen since admission. LP ordered, no evidence for meningitis. Persistent fever. Transfer to SDU. Objective: Vital Signs Temp Pulse Resp BP Pulse Ox 38.2 C 94 16 91/55 L 99 05/17/18 16:20 05/17/18 16:20 05/17/18 16:20 05/17/18 16:20 05/17/18 16:20 Microbiology 05/17/18 15:37 Gram Stain - Final Cerebral Spinal Fluid 05/17/18 14:21 Respiratory Panel (PCR) - Final Nasal, Sinus - Swab No Organism Detected By Pcr Laboratory Results 05/17/18 14:20 05/16/18 05/17/18 05/18/18 05:59 05:59 05:59 Intake Total 1128 Output Total 850 Balance 278 PT REJ 05/17/18 14:20 INR REJ 05/17/18 14:[address] negative d/w DR. lawrence cxr - negative - Physical Exam Constitutional: no apparent distress, appears nourished, not in pain Eyes: PERRL Cardiovascular: regular rate and rhythym, no murmur, rub, or gallop Respiratory: no respiratory distress, no rales or rhonchi, clear to auscultation Gastrointestinal: normoactive bowel sounds, soft, non-tender abdomen, no palpable masses Skin: no rashes or abrasions, no fluctuance, no induration Neurologic: No AAOx3 Psychiatric: encephalopathic, flat affect, poor insight, poor judgement, poor memory, other (near complete obtundation, told me she is having back pain but couldn't elaborate), No interacting appropriately ICD10 Worksheet Patient Problems: Problems Problem Status Onset Pneumonia Acute History of DVT (deep vein thrombosis) Acute UTI (urinary tract infection) Acute Chronic Disease Mgmt/Transitional Care Acute MRSA (methicillin resistant Staphylococcus aureus) Acute 05/16/15 Sepsis Acute Altered mental status Acute Respiratory distress Acute Aspiration of food Acute Altered mental status Acute Palliative care encounter Acute Respiratory failure Acute Encephalopathy acute Acute
[2018-05-18] MEDS: ACETAMINOPHEN 650 MG SUPP PR PRN (02:21)
[2018-05-18] MEDS: NS 1,000 ML IV SCH ×2 (02:23→13:42)
[2018-05-18] MEDS: VANCOMYCIN HCL/NORMAL SALINE 250 ML IV SCH ×2 (04:03→15:59)
[2018-05-18 04:16] LABS: PLATELET COUNT 94 10^3/uL (150-400)
[2018-05-18] MEDS: LEVOTHYROXINE 88 MCG TAB PO SCH (06:08)
[2018-05-18] MEDS ORDERED: ENOXAPARIN 40 MG/0.4 ML SYR SC SCH (09:00)
[2018-05-18] MEDS: DICLOFENAC SODIUM 1% 100 GM GEL TP SCH ×3 (10:25→19:32)
[2018-05-18] MEDS: FLUOXETINE 4 MG/ML 30 ML BOTTLE PO SCH (10:25)
[2018-05-18] MEDS: BIOTENE DRY MOUTH ORAL RINSE 237 ML BTL MM SCH (10:25)
[2018-05-18] MEDS: ANASTROZOLE 1 MG TAB PO SCH (10:36)
[2018-05-18] MEDS: FERROUS SULFATE 325 MG TAB PO SCH ×2 (10:36→19:30)
[2018-05-18] MEDS: FENOFIBRATE 145 MG TAB PO SCH (10:36)
[2018-05-18] MEDS: ARIPiprazole 10 MG TAB PO SCH (10:36)
[2018-05-18] MEDS: CHOLECALCIFEROL VIT D3 2,000 UNITS TAB/CAP PO SCH (10:36)
[2018-05-18] MEDS: guaiFENesin 600 MG TAB.ER PO SCH ×2 (10:36→19:30)
[2018-05-18] MEDS: PANTOPRAZOLE SODIUM 40 MG TAB PO SCH (10:37)
[2018-05-18] MEDS: traMADol 50 MG TAB PO SCH ×2 (10:37→19:29)
[2018-05-18] MEDS: MEMANTINE HCL 5 MG TAB PO SCH ×2 (10:37→19:30)
[2018-05-18] MEDS: CARBOXYMETHYLCELLULOSE 1% 0.4 ML DROPERETTE EACHEYE SCH ×3 (10:38→19:33)
[2018-05-18] MEDS: DIVALPROEX NA 250 MG TAB PO SCH (10:38)
[2018-05-18] MEDS ORDERED: PROTOCOL POTASSIUM 1 DOSE MISC PRN (10:48)
[2018-05-18] MEDS ORDERED: PROTOCOL MAGNESIUM 1 DOSE IV PRN (10:48)
--- NOTE | 2018-05-18 10:56 | HOSPPROG ---
Hospitalist Progress Note Assessment/Plan: * Severe sepsis -BC + 2 sets with Coag negative staph making contaminant less likely -ID following: on IV Vanco 1 g q 12 and Rocephin 2g q 24hr -ECHO ordered r/o endocarditis * Severe metabolic encephalopathy due to sepsis -LP negative for meningitis -no indication for MRI -ok to start regular diet * UTI -IV ceftriaxone per ID * h/o staghorn calculus -repeat CT a/p to assess for stone reformation pending * h/o PE -restart Xarelto -stop lovenox * Bipolar -depakote * NHL s/p stem cell transplant * Breast cancer -Arimidex * Weakness and Deconditioning -PT/OT consults * Anemia, Thrombocytopenia: follow * Hypokalemia, replace per protocol Access: PICC FEN: decrease IVF today, can likely turn off soon. BP still somewhat soft Dispo: con inpatient Subjective: Fever yesterday. more awake and less confused Objective: Vital Signs Temp Pulse Resp BP Pulse Ox 36.7 C 83 16 108/60 99 05/18/18 08:00 05/18/18 08:00 05/18/18 08:00 05/18/18 08:00 05/18/18 08:00 Microbiology 05/17/18 15:37 Gram Stain - Final Cerebral Spinal Fluid 05/17/18 14:21 Respiratory Panel (PCR) - Final Nasal, Sinus - Swab No Organism Detected By Pcr Laboratory Results 05/18/18 04:05 05/18/18 04:05 05/17/18 05/18/18 05/19/18 05:59 05:59 05:59 Intake Total 2828 Output Total 1250 Balance 1578 PT REJ 05/17/18 14:20 INR REJ 05/17/18 14:20 - Physical Exam Constitutional: no apparent distress Eyes: PERRL, EOMI Ears, Nose, Mouth, Throat: moist mucous membranes, hearing normal Cardiovascular: regular rate and rhythym, edema (trace) Respiratory: reduced air movement Gastrointestinal: normoactive bowel sounds, soft, non-tender abdomen Skin: warm Musculoskeletal: generalized weakness Neurologic: No AAOx3 Psychiatric: encephalopathic (improving) Lymph, Heme, Immunologic: No petechiae ICD10 Worksheet Patient Problems: Problems Problem Status Onset Encephalopathy acute Acute UTI (urinary tract infection) Acute Altered mental status Acute Altered mental status Acute Aspiration of food Acute Chronic Disease Mgmt/Transitional Care Acute History of DVT (deep vein thrombosis) Acute MRSA (methicillin resistant Staphylococcus aureus) Acute 05/16/15 Palliative care encounter Acute Pneumonia Acute Respiratory distress Acute Respiratory failure Acute Sepsis Acute
[2018-05-18] MEDS: POLYETHYLENE GLYCOL 3350 17 GM PKT PO SCH (12:09)
--- NOTE | 2018-05-18 12:44 | PDMN ---
Medical Necessity Medical necessity: Change to IP, as of 05/17/18, per MD & MCG M-160; los >2 mn for ongoing management of severe sepsis w/worsening metabolic encephalopathy & UTI; requiring further workup/close SDU monitoring, ID consult & IV abx; comorbid advanced age, staghorn calculus, PE, breast cancer, NHL
--- NOTE | 2018-05-18 13:15 | ECHO ---
[email or web address] [address] [address] Main: [phone] Echocardiography Examination Transthoracic Name: YANICK RODRIGUEZ MR#: [id number] Study Date: 05/18/2018 Study Time: 09:58 AM Date of : 1945 Age: 73 year(s) Height: 175.3 cm (69 in.) Weight: 95.71 kg (211 lb.) BSA: 2.11 m2 Gender: Female Examination: Echo Contrast: Image Quality: Rhythm: Normal sinus rhythm Heart Rate: 71 bpm BP: 122 mmHg/70 mmHg Indication: Staph bacteremia, assess for endocarditis Procedure Staff Referring Physician: Clothing Sorter: Raman Law RD Reading Physician: Dangelo Salazar MD Requesting Provider: Indication: Staph bacteremia, assess for endocarditis Measurements Chambers AV/MV Label Value Normal Value Label Value Normal Value LVOT Vmax 0.76 m/s (0.7m/s - 1.1m/s) AR PHT 0.54 s LVOTd 2 cm (1.8cm - 2cm) AR PHT 538 ms LVOT VTI 17.5 cm (18cm - 22cm) AR Vmax 3.46 m/s LVDd, 2D 3.5 cm (3.9cm - 5.3cm) AR VTI 143 cm LVDs, 2D 2.5 cm (2.1cm - 4cm) AV PGmax 34 mmHg IVSd, 2D 1.2 cm (0.6cm - 1.1cm) AV PGmean 18 mmHg LVPWd, 2D 1.2 cm AV Vmax 2.9 m/s LVEF, 2D 54 % (54% - 74%) CJ (Vmax) 0.8 cm2 LVOT PGmean 1 mmHg JC (VTI) 0.9 cm2 LVOT Vmean 0.5 m/s MV E Vmax 0.79 m/s RVDd, 2D 2 cm (1.9cm - 3.8cm) MV A Vmax 0.92 m/s TAPSE 2.6 cm MV E/A 0.86 Additional Vessels MV E/E' lateral 11.7 Label Value Normal Value MV E/E' septal 13.7 (0.45 - 1.25) AoRoot, MM 3.6 cm (2.2cm - 3.7cm) MV E' septal 0.06 m/s MV E' lateral 0.07 m/s MV E/E' mean 12.15 MV E' mean 0.06 m/s TV/PV Label Value Normal Value Patient: YANICK RODRIGUEZ Study Date: 05/18/2018 Page 1 of 3 09:58 AM RA Pressure 5 mmHg RVSP 44 mmHg TR Pmax 39 mmHg TR Vmax 3.11 m/s PV PGmax 5 mmHg PV Vmax, Caliper 1.09 m/s (0.6m/s - 0.9m/s) Conclusions Left Ventricle: EF range is estimated at 50 % - 55 %. Mitral Valve: Trivial to mild mitral regurgitation. There is mild to moderate mitral calcification. No obvious vegetation is identified on the mitral valve. Aortic Valve: The aortic valve is heavily calcified, there is no obvious vegetation noted, if one is highly suspected consider ERLINDA.. Mild aortic regurgitation is present. There is mild to moderate aortic stenosis. Tricuspid Valve: Mild tricuspid regurgitation. Right Ventricular systolic pressure is measured at 44 mmHg. Findings Left Ventricle: Left ventricle is normal in size. The EF is visually estimated to be 55 %. EF range is estimated at 50 % - 55 %. Cannot determine LAP and Diastolic Dysfunction Grade. No LV hypertrophy. There is subtle apical hypokinesis. Right Ventricle: Normal size right ventricle. Right ventricular wall thickness is normal. Left Atrium: The left atrium is normal in size. Right Atrium: The right atrium is normal in size. Mitral Valve: Trivial to mild mitral regurgitation. No mitral valve stenosis. There is mild to moderate mitral calcification. No obvious vegetation is identified on the mitral valve. Aortic Valve: The aortic valve is heavily calcified, there is no obvious vegetation noted, if one is highly suspected consider ERLINDA.. Mild aortic regurgitation is present. There is mild to moderate aortic stenosis. Aortic leaflets exhibit moderate to marked calcification. No vegetation is identified in the aortic valve. Tricuspid Valve: Mild tricuspid regurgitation. Right Ventricular systolic pressure is measured at 44 mmHg. Pulmonary artery pressure is mildly increased. Pulmonic Valve: Pulmonic leaflets are structurally normal. No significant pulmonic valve regurgitation is evident. Aorta: The aorta is normal. The aortic root size in M-mode measures 3.6 cm. Aorta Measurements AoRoot, MM is 3.6 cm. Pericardium: Patient: YANICK RODRIGUEZ Study Date: 05/18/2018 Page 2 of 3 09:58 AM A pericardial fat pad is present. No pericardial effusion. Exam Details Procedure Ordered: Echo (No Signature Object) Patient: YANICK RODRIGUEZ Study Date: 05/18/2018 Page 3 of 3 09:58 AM [id number]
[2018-05-18] MEDS: RIVAROXABAN 20 MG TAB PO SCH (15:58)
--- NOTE | 2018-05-18 16:52 | PCMIDPN ---
Assessment/Plan: Assessment/Plan: * Coag-negative staphylococcal bacteremia: Initial blood cultures now both showing 2 separate species of coagulase-negative staphylococci. Additionally, subsequent cultures are showing no growth. This makes likelihood that initial cultures represent contamination rather than true bacteremia significantly more likely. Based on this finding, will discontinue vancomycin. * Sepsis: Stronger suspicion this is related to urinary etiology based on above discussion. CT shows presence of nephrolithiasis with a probable stone in the right distal ureter but no evidence of obstructive uropathy. Will continue ceftriaxone based on isolation of E coli and Proteus previously. Await identification and susceptibility of gram-negative jeffry present on urine culture. 05/18/18 16:49 Subjective: Patient significantly more alert today. No specific complaints. Objective: Vital Signs Temp Pulse Resp BP Pulse Ox 36.9 C 85 24 H 108/61 98 05/18/18 16:00 05/18/18 16:00 05/18/18 16:00 05/18/18 16:00 05/18/18 16:00 Microbiology 05/17/18 15:37 Gram Stain - Final Cerebral Spinal Fluid 05/17/18 14:21 Respiratory Panel (PCR) - Final Nasal, Sinus - Swab No Organism Detected By Pcr Laboratory Results 05/18/18 04:05 05/18/18 04:05 05/17/18 05/18/18 05/19/18 05:59 05:59 05:59 Intake Total 2828 Output Total 1250 Balance 1578 Ceftriaxone # 3 Vancomycin # 2 Blood cultures 2/2 sets 05/16/2018 labeled as 12:40/12:48 with growth of Staphylococcus epidermidis and Staphylococcus hominis Blood cultures 2/2 sets 05/16/2018 labeled as 6:53 p.m./7:47 p.m. No growth to date Urine culture greater than 100,000 lactose fermenting gram-negative rods Transthoracic echocardiogram with mild-moderate ; calcification present on aortic valve; no overt vegetation noted - Physical Exam General Appearance: alert, no apparent distress, non-toxic EENT: No scleral icterus, No conjunctival petechiae Respiratory: lungs clear, No respiratory distress Cardiac/Chest: regular rate, rhythm, systolic murmur Abdomen: non-tender, No distended Skin: No embolic lesions Neuro/Psych: other (Oriented times person, place and year) ICD10 Worksheet Patient Problems: Problems Problem Status Onset Encephalopathy acute Acute UTI (urinary tract infection) Acute Altered mental status Acute Altered mental status Acute Aspiration of food Acute Chronic Disease Mgmt/Transitional Care Acute History of DVT (deep vein thrombosis) Acute MRSA (methicillin resistant Staphylococcus aureus) Acute 05/16/15 Palliative care encounter Acute Pneumonia Acute Respiratory distress Acute Respiratory failure Acute Sepsis Acute
[2018-05-18] MEDS: DIVALPROEX NA 500 MG TAB PO SCH (19:30)
[2018-05-18] MEDS: ATORVASTATIN CALCIUM 40 MG TAB PO SCH (19:31)
[2018-05-18] MEDS: ACETAMINOPHEN 325 MG TAB PO PRN (19:31)
[2018-05-18] MEDS ORDERED: POTASSIUM CL 10 MEQ TAB PO ONE (19:49)
[2018-05-19] MEDS: LEVOTHYROXINE 88 MCG TAB PO SCH (05:25)
[2018-05-19 05:45] LABS: PLATELET COUNT 86 10^3/uL (150-400)
[2018-05-19] MEDS: ANASTROZOLE 1 MG TAB PO SCH (09:18)
[2018-05-19] MEDS: ARIPiprazole 10 MG TAB PO SCH (09:18)
[2018-05-19] MEDS: CARBOXYMETHYLCELLULOSE 1% 0.4 ML DROPERETTE EACHEYE SCH ×3 (09:18→20:25)
[2018-05-19] MEDS: CHOLECALCIFEROL VIT D3 2,000 UNITS TAB/CAP PO SCH (09:18)
[2018-05-19] MEDS: DIVALPROEX NA 250 MG TAB PO SCH (09:19)
[2018-05-19] MEDS: traMADol 50 MG TAB PO SCH ×2 (09:21→20:25)
[2018-05-19] MEDS: DICLOFENAC SODIUM 1% 100 GM GEL TP SCH ×4 (09:21→20:25)
[2018-05-19] MEDS: guaiFENesin 600 MG TAB.ER PO SCH ×2 (09:21→20:25)
[2018-05-19] MEDS: FERROUS SULFATE 325 MG TAB PO SCH ×2 (09:21→20:25)
[2018-05-19] MEDS: MEMANTINE HCL 5 MG TAB PO SCH ×2 (09:21→20:25)
[2018-05-19] MEDS: FENOFIBRATE 145 MG TAB PO SCH (09:21)
[2018-05-19] MEDS: PANTOPRAZOLE SODIUM 40 MG TAB PO SCH (09:21)
[2018-05-19] MEDS: FLUOXETINE 4 MG/ML 30 ML BOTTLE PO SCH (09:22)
[2018-05-19] MEDS ORDERED: POTASSIUM CL 10 MEQ TAB PO ONE ×2 (09:39→20:30)
[2018-05-19] MEDS ORDERED: MAGNESIUM SULF 1 GM/DEXTROSE 100 ML IV ONE (09:49)
[2018-05-19] MEDS: POLYETHYLENE GLYCOL 3350 17 GM PKT PO SCH (09:50)
--- NOTE | 2018-05-19 10:46 | HOSPPROG ---
Hospitalist Progress Note Assessment/Plan: * Severe sepsis -BC + 2 sets with Coag negative Staph but different species making the possibility of contamination high -ID following: -IV Vanco 1 g q 12 stopped on 05/18 given possibility of contamination -Rocephin 2g q 24hr. Will await ID reccs on ongoing abx given return of UCx -ECHO with no e/o endocarditis * Severe metabolic encephalopathy due to sepsis -LP negative for meningitis -no indication for MRI -resolved * UTI: -EColi, pansensitive -IV ceftriaxone per ID initially, awaiting further reccs for ongoing treatment * h/o staghorn calculus -CT 05/18 c/w nephrolithiasis with possible stone at right distal ureter. No obstructive uropathy * h/o PE -restarted Xarelto on 05/18 * Bipolar -depakote * NHL s/p stem cell transplant * Breast cancer -Arimidex * Weakness and Deconditioning -chronically wheelchair bound * Anemia, Thrombocytopenia: follow * Hypokalemia, replace per protocol * Insomnia: start Melatonin Access: PICC FEN: Regular Diet, Stop IVF Plan: per above, can likely d/c back to [facility] tomorrow. Monitor off IVF today Subjective: no cp or sob. no n/v. not confused. Objective: Vital Signs Temp Pulse Resp BP Pulse Ox 36.4 C 77 13 127/63 H 99 05/19/18 07:29 05/19/18 07:29 05/19/18 07:29 05/19/18 07:29 05/19/18 07:29 Microbiology 05/17/18 15:37 Gram Stain - Final Cerebral Spinal Fluid Laboratory Results 05/19/18 05:30 05/19/18 05:30 05/18/18 05/19/18 05/20/18 05:59 05:59 05:59 Intake Total 2828 4466 Output Total 1250 150 Balance 1578 4316 PT REJ 05/17/18 14:20 INR REJ 05/17/18 14:20 - Physical Exam Constitutional: no apparent distress Eyes: PERRL, EOMI Ears, Nose, Mouth, Throat: moist mucous membranes, hearing normal Cardiovascular: regular rate and rhythym, edema Respiratory: no respiratory distress, no rales or rhonchi, clear to auscultation Gastrointestinal: normoactive bowel sounds, soft, non-tender abdomen Skin: warm Musculoskeletal: generalized weakness Neurologic: AAOx3 Psychiatric: interacting appropriately, not anxious, not encephalopathic Lymph, Heme, Immunologic: No petechiae ICD10 Worksheet Patient Problems: Problems Problem Status Onset Encephalopathy acute Acute UTI (urinary tract infection) Acute Altered mental status Acute Altered mental status Acute Aspiration of food Acute Chronic Disease Mgmt/Transitional Care Acute History of DVT (deep vein thrombosis) Acute MRSA (methicillin resistant Staphylococcus aureus) Acute 05/16/15 Palliative care encounter Acute Pneumonia Acute Respiratory distress Acute Respiratory failure Acute Sepsis Acute
[2018-05-19] MEDS: BIOTENE DRY MOUTH ORAL RINSE 237 ML BTL MM SCH (11:07)
[2018-05-19] MEDS: RIVAROXABAN 20 MG TAB PO SCH (12:48)
--- NOTE | 2018-05-19 15:44 | PCMIDPN ---
Assessment/Plan: Assessment: 73-year-old woman with severe sepsis manifesting as encephalopathy , acute kidney injury, and thrombocytopenia. She is recovering reasonably well with essentially no concern that the polymicrobial coagulase-negative staphylococcal organisms are true bacteremia. Continue with ceftriaxone treating the E coli isolated from her urine. 1. Severe sepsis, present on admission; improved 2. Probable pyelonephritis secondary to E coli 3. Right distal ureter stone, nonobstructing 4. Polymicrobial skin bacterium contamination of blood cultures 5. Heavily calcified aortic valve without TTE evidence for vegetation 6. Acute kidney injury present on admission, resolved 7. Thrombocytopenia, likely secondary to severe sepsis, stable 8. Leukocytosis present on admission, resolved 9. History of dementia Plan: 1. Continue ceftriaxone 2 g daily 2. No further treatment directed at polymicrobial blood culture contamination 3. Reviewed in detail potential side effects of beta-lactam antibiotics to include: allergy, rash, nausea, antibiotic-associated diarrhea, Clostridioides difficile colitis. Mainor Bonilla MD Infectious Diseases 05/19/18 15:57 Subjective: No fever of the past 24 hr. Continues to have chills although those are less intense than previous. No abdominal pain, does have some loose stools today. No rash, arthralgias, or myalgias. Overall states she feels bit better today overall. Objective: Vital Signs Temp Pulse Resp BP Pulse Ox 36.4 C 76 16 89/44 L 98 05/19/18 07:29 05/19/18 11:57 05/19/18 11:57 05/19/18 11:57 05/19/18 11:57 Microbiology 05/17/18 15:37 Gram Stain - Final Cerebral Spinal Fluid Laboratory Results 05/19/18 05:30 05/19/18 05:30 05/18/18 05/19/18 05/20/18 05:59 05:59 05:59 Intake Total 2828 4466 Output Total 1250 150 Balance 1578 4316 Medications Generic Name Dose Route Start Last Admin Trade Name Freq PRN Reason Stop Dose Admin Ceftriaxone Sodium 2 gm/ 50 mls @ 100 mls/hr 05/18/18 09:00 05/19/18 09:18 Sodium Chloride IV 06/17/18 08:59 50 mls DAILY LIU Protocol Discontinued Medications Generic Name Dose Route Start Last Admin Trade Name Freq PRN Reason Stop Dose Admin Vancomycin/Sodium Chloride 250 mls @ 250 mls/hr 05/17/18 16:30 05/18/18 15:59 Vancomycin 1 Gm (Premix) IV 06/16/18 16:29 250 mls Q12H [facility] Protocol Microbiology 05/17/18 15:37 Cerebral Spinal Fluid Gram Stain - Final 05/17/18 14:21 Nasal, Sinus - Swab Respiratory Panel (PCR) - Final No Organism Detected By Pcr 05/16/18 12:48 Blood Blood Panel (PCR) - Final Staph Coagulase Negative 05/16/18 11:55 Urine,Clean Catch Urine Culture - Final Escherichia Coli 05/17/18 15:37 Cerebral Spinal Fluid CSF Culture - Preliminary 05/16/18 19:47 Blood Blood Culture - Preliminary 05/16/18 18:53 Blood Blood Culture - Preliminary 05/16/18 12:48 Blood Blood Culture - Preliminary 05/16/18 12:48 Blood Staphylococcus Epidermidis Staphylococcus Hominis 05/16/18 12:40 Blood Blood Culture - Preliminary Staphylococcus Hominis Staphylococcus Sp Coag Neg Laboratory Tests 05/16/18 05/17/18 05/17/18 11:55 01:30 04:51 WBC 11.22 H Hgb 11.2 L Plt Count 122 L Creatinine AST ALT Urine RBC 50-182 H Urine WBC 50-182 H 05/17/18 05/18/18 05/19/18 14:20 04:05 05:30 WBC 8.45 Hgb 8.8 L Plt Count 125 L 94 L Creatinine 1.0 AST 64 H ALT 32 Urine RBC Urine WBC 05/19/18 05:30 WBC 5.66 Hgb 8.7 L Plt Count 86 L Creatinine AST ALT Urine RBC Urine WBC - Physical Exam General Appearance: no apparent distress, non-toxic EENT: No scleral icterus Respiratory: No respiratory distress, No accessory muscle use Neck: supple Cardiac/Chest: systolic murmur, No diastolic murmur Extremities: swelling (Anasarca), No erythema Abdomen: non-tender, soft, No distended, No guarding Skin: No erythema (Hypoactive bowel sounds) Neuro/Psych: alert, depressed affect, confused - Time Spent With Patient Time Spent with Patient: greater than 25 minutes Time Spent with Patient: Greater than 25 minutes spent on this patients care, greater than 50% of time spent counseling, educating, and coordinating care regarding the above mentioned plan. ICD10 Worksheet Patient Problems: Problems Problem Status Onset Encephalopathy acute Acute UTI (urinary tract infection) Acute Altered mental status Acute Altered mental status Acute Aspiration of food Acute Chronic Disease Mgmt/Transitional Care Acute History of DVT (deep vein thrombosis) Acute MRSA (methicillin resistant Staphylococcus aureus) Acute 05/16/15 Palliative care encounter Acute Pneumonia Acute Respiratory distress Acute Respiratory failure Acute Sepsis Acute
--- NOTE | 2018-05-19 16:49 | GCON ---
[f rep st] CONSULTATION CRITICAL CARE CONSULTATION HISTORY OF PRESENT ILLNESS: This patient is a 73-year-old female with a history of dementia and freq uent urinary tract infections, who was admitted on 05/16 with mental status changes. At the time, sai irizarry had mild acute kidney injury, a sodium of 130; chest x-ray with infiltrates; and a urinalysis that was positive. She continued to have mental status changes despite antibiotics and was transferred in itially to the PCU for reasons are that are unclear, and was now upgraded to SDU today, again, for un clear reasons. She had an LP when she came in, ruling out meningitis, and was given Levaquin as well . She has had a CT of her head which was unremarkable, but on hospital day #2, she did have blood cu ltures that looked like they were growing Staph epi. There were some concerns about true infection b ecause her fever was 39. In any case, urine cultures eventually grew out E coli. Repeat blood cultu res were negative. Her mental status improved dramatically. When I talked to her this morning, she could not recall most of the details, but did not require any pressors and responded well to IV fluid s. REVIEW OF SYSTEMS: Otherwise negative. PAST MEDICAL HISTORY: Includes frequent urinary tract infections, including bacteremia in the past, known staghorn calculi, anemia, bipolar disorder, DVT, hypertension, hypoxemia, breast cancer, dyspha shona, non-Hodgkin lymphoma with remote stem cell transplant, pulmonary embolism, and MRSA in 2016. PAST SURGICAL HISTORY: Includes hysterectomy, spinal fusion, ankle surgery, total knee arthroplasty, and bilateral mastectomies. SOCIAL HISTORY: Nonsmoker. FAMILY HISTORY: Noncontributory. MEDICATIONS: At this time include Tylenol, Proventil, Cathflo, Arimidex, Abilify, Lipitor, Dulcolax, Tums, ceftriaxone, vitamin D, Benadryl, Depakote, TriCor, iron, Prozac, Mucinex, hydrocortisone crea m, Synthroid, milk of magnesia, melatonin, Namenda, Zofran, Protonix, Xarelto, tramadol. PHYSICAL EXAM: VITAL SIGNS: She had a blood pressure of 127/63, heart rate 77, respirations 13, oxy gen saturation 99% on room air. GENERAL: She was overweight, but awake and alert and in no apparent distress. Able to speak in full sentences without using accessory muscles for breathing. HEENT: P upils equally round and reactive to light. Nonicteric and noninjected. Mucous membranes are moist w ithout erythema or exudate. NECK: Supple without adenopathy or jugular vein distention. LUNGS: Br eath sounds were diminished, but clear to auscultation bilaterally without wheezes, rubs, or rales. HEART: Regular rate and rhythm without murmurs, rubs, or gallops. ABDOMEN: Soft, nontender, nondis tended without hepatosplenomegaly. EXTREMITIES: Show no clubbing, cyanosis, or edema. NEUROLOGIC: Nonfocal, including cranial nerves, deep tendon reflexes. SKIN: Warm and dry, without evidence of rash. OBJECTIVE DATA: Includes that described above with Staph epi in her blood cultures on the 8th, but r epeat cultures negative. Urine culture showing E coli. Respiratory panel was negative. Her white c ount on admission was 9, it went up to 11.2, now is down to 5.6, hematocrit 26.7, platelets of 86. S odium is 132, potassium 3.3, chloride 107, bicarb 20, BUN 18, creatinine 1.0. LFTs were essentially normal, save for an AST of 64. ASSESSMENT AND PLAN: Urosepsis which has responded, as is typical for this disorder, to intravenous fluids. She has not required pressors and can probably downgrade back to floor status. She should c ontinue with antibiotics. She has been followed by Infectious Disease, and I am not sure that she ne eds to get her kidney stone removed at this time given her response. /[id number]/MODL
[2018-05-19] MEDS: DIVALPROEX NA 500 MG TAB PO SCH (20:25)
[2018-05-19] MEDS: ATORVASTATIN CALCIUM 40 MG TAB PO SCH (20:25)
[2018-05-19] MEDS ORDERED: MELATONIN 3 MG TAB PO SCH (21:00)
[2018-05-20] MEDS: LEVOTHYROXINE 88 MCG TAB PO SCH (06:10)
[2018-05-20 08:21] VITALS: BP 106/60
[2018-05-20] MEDS ORDERED: MAGNESIUM SULF 1 GM/DEXTROSE 100 ML IV ONE (09:14)
[2018-05-20] MEDS: guaiFENesin 600 MG TAB.ER PO SCH (09:22)
[2018-05-20] MEDS: FENOFIBRATE 145 MG TAB PO SCH (09:22)
[2018-05-20] MEDS: traMADol 50 MG TAB PO SCH (09:22)
[2018-05-20] MEDS: CHOLECALCIFEROL VIT D3 2,000 UNITS TAB/CAP PO SCH (09:22)
[2018-05-20] MEDS: ANASTROZOLE 1 MG TAB PO SCH (09:22)
[2018-05-20] MEDS: FERROUS SULFATE 325 MG TAB PO SCH (09:22)
[2018-05-20] MEDS: ARIPiprazole 10 MG TAB PO SCH (09:22)
[2018-05-20] MEDS: DIVALPROEX NA 250 MG TAB PO SCH (09:23)
[2018-05-20] MEDS: CARBOXYMETHYLCELLULOSE 1% 0.4 ML DROPERETTE EACHEYE SCH (09:23)
[2018-05-20] MEDS: MEMANTINE HCL 5 MG TAB PO SCH (09:23)
[2018-05-20] MEDS: PANTOPRAZOLE SODIUM 40 MG TAB PO SCH (09:23)
[2018-05-20] MEDS: FLUOXETINE 4 MG/ML 30 ML BOTTLE PO SCH (09:24)
[2018-05-20 09:31] LABS: PLATELET COUNT 86 10^3/uL (150-400)
[2018-05-20] MEDS: DICLOFENAC SODIUM 1% 100 GM GEL TP SCH (09:48)
[2018-05-20] MEDS: POLYETHYLENE GLYCOL 3350 17 GM PKT PO SCH (09:48)
--- NOTE | 2018-05-20 10:35 | PDIAF ---
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 PICC Care - Routine: Yes - Orders Isolation Type: Chemotherapy Isolation Diet Texture: Dysphagia 3 - Advanced - Moist, Bite-Size, Thin Liquids, Meds Whole in Puree - Follow Up Care Current Providers and Referrals: Patient,NotPresent [Primary Care Provider] - As per Instructions Adolfo Lawrence MD [Medical Doctor] - 06/06/18 2:00 pm
--- NOTE | 2018-05-20 10:38 | PDIAF ---
- Diagnosis Diagnosis: Pyelonephritis Code Status: Full Code - Medication Management Lease Out Man Antibiotics: Ceftriaxone 2 g IV Q 24 hr [facility] Antibiotic Stop Date: 05/25/18 Discharge Medications: electronically signed and located in the Home Medication List. PICC Care - Routine: Yes - Orders Isolation Type: Chemotherapy Isolation Diet Texture: Dysphagia 3 - Advanced - Moist, Bite-Size, Thin Liquids, Meds Whole in Puree - Follow Up Care Current Providers and Referrals: Adolfo Lawrence MD [Medical Doctor] - 06/06/18 2:00 pm Patient,NotPresent [Primary Care Provider] - As per Instructions
[2018-05-20] MEDS: BIOTENE DRY MOUTH ORAL RINSE 237 ML BTL MM SCH (11:07)
--- NOTE | 2018-05-20 11:13 | ASDISCHSUM ---
Discharge Information Plan Status:SNF Medically Cleared to Leave:05/20/2018 Discharge Date:05/20/2018 CM D/C Disposition:Snf Facility ADT D/C Disposition: Projected Discharge Date:05/20/2018 11:00 AM Transportation at D/C:Other Discharge Delay Reason: Follow-Up Date:05/20/2018 11:00 AM Discharge Slot:2 - 12:01 pm - 18:00 pm Final Diagnosis:Pyelonephritis Placement Information Referral Type:*Senior Living/SNF Referral ID:[facility]-[id number] Provider Name:[facility] Address 1:[address] Address 2: City:[place] Selection Factors: State:[place] Patient Contact Information Contact Name:SANIA Relationship:Son Address: Work Phone: [facility]:[place] Alternate Phone: [facility]/Zip Code:[place] [address] Email: Financial Information Financial Class:Medicare Primary Plan Desc:MEDICARE INPATIENT Primary Plan Number:[id number] Secondary Plan Desc:[place] Secondary Plan Number:[id number] Assessment Information LACE LACE Acuity / Level of Answers: Yes Care: Did the patient have an inpatient admission? Comorbidities - select Answers: Any tumor (including all that apply lymphoma or leukemia) Diabetes (uncontrolled or controlled) Opioid dependence / Chronic pain Other Notes: DVT; HTN # of Emergency department Answers: 1-2 visits in the last 6 months Social determinants Answers: Mental health diagnosis (anxiety, depression, pers onality disorders, etc.) Score: 15 Date Signed: 05/16/2018 02:21 PM Electronically Signed By:Rula Villasenor [facility] CM Progress Note CM Note CM Note Notes: Pt is a 73 yo F presents with UTI and acute encephalopy. She lives at [facility]. At this time PT is recommending she return there. CM confirmed this with [facility] and they are coming to see her. CM to follow. Plan: return to [facility] once medically stable. Date Signed: 05/17/2018 01:46 PM Electronically Signed By:CORRY Walton Case Management Discharge Plan Note Case Management Discharge Discharge Order Complete? Answers: Yes Patient to Obtain Answers: Other Notes: [facility] Medications Transportation Arranged Answers: [facility] [employer] Transport will Pick (Date 05/20/2018 12:00 AM & Time) Case Management Transport Answers: Yes Notes: PCS for [facility] Form Complete Faxed Final Orders Answers: Yes Notes: [facility] Agency/Facility Transfer Answers: Yes Notes: [facility] Report Printed & Faxed to Receiving Agency Family Notified Answers: Yes Notes: sonIsai Discharge Comments Notes: Patient is discharging today back to [facility] where she is a resident. Transport was arranged with [facility] [employer] at 3:30 today, 05-20-2018. Discharge summaries forwarded to [facility] through [employer]. Nurse to nurse report done by patient's nurse, Tia. No further needs. Date Signed: 05/20/2018 11:11 AM Electronically Signed By:Za Nieves LCSW Intervention Information Intervention Type:ROBBINS-Not Delivered Date of Service:05/17/2018 10:25 AM Patient Type:Observation Staff Member:Rula Villasenor Hours: Discipline: Severity: Comment:Patient is exhibiting worsening obtund ation - Unable to review Medicare form.
--- NOTE | 2018-05-20 11:13 | ASMTDCNOTE ---
Case Management Discharge Discharge Order Complete? Answers: Yes Patient to Obtain Answers: Other Notes: [facility] Medications Transportation Arranged Answers: [facility] Transport will Pick (Date 05/20/2018 12:00 AM & Time) Case Management Transport Answers: Yes Notes: [facility]CS for [facility] Form Complete Faxed Final Orders Answers: Yes Notes: [facility] Agency/Facility Transfer Answers: Yes Notes: [facility] Report Printed & Faxed to Receiving Agency Family Notified Answers: Yes Notes: son, Isai Discharge Comments Notes: Patient is discharging today back to [facility] where she is a resident. Transport was arranged with [facility] for stretcher at 3:30 today, 05-20-2018. Discharge summaries forwarded to [facility] through [employer]. Nurse to nurse report done by patient's nurse, Tia. No further needs. Date Signed: 05/20/2018 11:11 AM Electronically Signed By:aZ Nieves LCSW
[2018-05-20] MEDS ORDERED: diphenhydrAMINE 25 MG CAP PO ONE (11:15)
--- NOTE | 2018-05-20 12:04 | PDIAF ---
- Diagnosis Diagnosis: Pyelonephritis Code Status: Full Code - Medication Management Ink Maker Antibiotics: Ceftriaxone 2 g IV Q 24 hr Shelter Antibiotic Stop Date: 05/25/18 Discharge Medications: electronically signed and located in the Home Medication List. PICC Care - Routine: Yes - Orders Isolation Type: Chemotherapy Isolation Diet Recommendation: no restrictions on diet Diet Texture: Dysphagia 3 - Advanced - Moist, Bite-Size, Thin Liquids, Meds Whole in Puree Additional Instructions: Activity: As tolerated F/U: 1: with PCP next week 2: with Urologist. An appointment is needed 3: with ID: in 2-4 weeks, appointment is needed - Follow Up Care Current Providers and Referrals: Adolfo Lawrence MD [Medical Doctor] - 06/06/18 2:00 pm Patient,NotPresent [Primary Care Provider] - As per Instructions
--- NOTE | 2018-05-20 12:05 | PCMIDPN ---
Assessment/Plan: Assessment/Plan: * Coag-negative staphylococcal bacteremia: Initial blood cultures now both showing 2 separate species of coagulase-negative staphylococci. Additionally, subsequent cultures are showing no growth. Multiplicity of coagulase-negative staphylococcal species consistent with contamination rather than true bacteremia. No further targeted therapy. * Sepsis: Likely associated with urinary tract infection due to E coli. This is in the setting of ongoing nephrolithiasis. Will plan 10 total days of ceftriaxone. Reviewed with Hospital Service that patient should undergo urologic followup given presence of stone in right distal ureter. If this fails to pass, she may ultimately require suppressive oral antibiotics pending stone passage as this will create risk of recurrent urinary tract infection. Will arrange for ongoing follow-up in my office over time. 05/20/18 11:54 Subjective: Patient states she "feels good". Objective: Vital Signs Temp Pulse Resp BP Pulse Ox 36.4 C 66 13 106/60 99 05/20/18 08:00 05/20/18 08:00 05/20/18 08:00 05/20/18 08:00 05/20/18 08:00 Microbiology 05/17/18 15:37 Gram Stain - Final Cerebral Spinal Fluid Laboratory Results 05/20/18 09:15 05/20/18 09:15 05/19/18 05/20/18 05/21/18 05:59 05:59 05:59 Intake Total 4466 2135 Output Total 150 1450 Balance 4316 685 Ceftriaxone # 5 - Physical Exam General Appearance: alert, no apparent distress EENT: No scleral icterus, No conjunctival petechiae Respiratory: lungs clear, No respiratory distress Cardiac/Chest: regular rate, rhythm Abdomen: non-tender, No distended - Line/s RUE PICC Lines: No drainage, No erythema ICD10 Worksheet Patient Problems: Problems Problem Status Onset Encephalopathy acute Acute UTI (urinary tract infection) Acute Altered mental status Acute Altered mental status Acute Aspiration of food Acute Chronic Disease Mgmt/Transitional Care Acute History of DVT (deep vein thrombosis) Acute MRSA (methicillin resistant Staphylococcus aureus) Acute 05/16/15 Palliative care encounter Acute Pneumonia Acute Respiratory distress Acute Respiratory failure Acute Sepsis Acute
--- NOTE | 2018-05-20 12:08 | PDDCSUM ---
Discharge Summary Discharge Summary: This is a 73 yo female who was admitted with severe sepsis per below. She had urosepsis. She has been treated with Rocephin and will require a 10 day course. She has f/u with ID. She also needs f/u with Urology and our CM is obtaining an appointment. DDX: * Severe sepsis -BC + 2 sets with Coag negative Staph but different species making the possibility of contamination high -ID following: -IV Vanco 1 g q 12 stopped on 05/18 given possibility of contamination -Rocephin 2g q 24hr through 05/01 - uCX C/W E-Coli. PCN allergy noted. High dose given the calculi -ECHO with no e/o endocarditis * Severe metabolic encephalopathy due to sepsis -LP negative for meningitis -no indication for MRI -resolved * UTI: -EColi, pansensitive -IV ceftriaxone per ID * h/o staghorn calculus -CT 05/18 c/w nephrolithiasis with possible stone at right distal ureter. No obstructive uropathy. Will need f/u with Urology. This is being set up * h/o PE -restarted Xarelto on 05/18 * Bipolar -depakote * NHL s/p stem cell transplant * Breast cancer -Arimidex * Weakness and Deconditioning -chronically wheelchair bound * Anemia, Thrombocytopenia: follow * Hypokalemia, replace per protocol * Insomnia: start Melatonin Exam: NAD AAOX3 RRR CTA B S/NT/ND MEDS: SEE MED REC TOTAL TIME SPENT ON D/C IS 35 MINS
[2018-05-20] MEDS: RIVAROXABAN 20 MG TAB PO SCH (15:37)
== END 2018-05-20 15:35 | DRG 871 ==
LOC: EDUNIT# → INTOOBSV 12:31 → F1N 13:59 → F2N 20:27 → OBSVTOIN 05-17 10:39
PROVIDERS: ADMIT Internal Medicine; ATTEND Internal Medicine
PROC: 02HV33Z Insertion of Infusion Device into Superior Vena Cava, Percutaneous Approach (ICD-10-PCS; principal; 2018-05-17)
PROC: 009U3ZZ Drainage of Spinal Canal, Percutaneous Approach (ICD-10-PCS; principal; 2018-05-17)
DX: A41.9 Sepsis, unspecified organism (principal); R65.20 Severe sepsis without septic shock; N10 Acute pyelonephritis; B96.20 Unspecified Escherichia coli [E. coli] as the cause of diseases classified elsewhere; N20.2 Calculus of kidney with calculus of ureter; G93.41 Metabolic encephalopathy; N17.9 Acute kidney failure, unspecified; E86.0 Dehydration; E87.1 Hypo-osmolality and hyponatremia; E87.6 Hypokalemia; D69.59 Other secondary thrombocytopenia; D64.9 Anemia, unspecified; I35.0 Nonrheumatic aortic (valve) stenosis; R53.1 Weakness; Z99.3 Dependence on wheelchair; G47.00 Insomnia, unspecified; I10 Essential (primary) hypertension; E03.9 Hypothyroidism, unspecified; F31.9 Bipolar disorder, unspecified; Z86.711 Personal history of pulmonary embolism; Z86.718 Personal history of other venous thrombosis and embolism; Z79.01 Long term (current) use of anticoagulants; Z85.3 Personal history of malignant neoplasm of breast; Z90.13 Acquired absence of bilateral breasts and nipples; Z85.72 Personal history of non-Hodgkin lymphomas; Z94.84 Stem cells transplant status; Z98.1 Arthrodesis status; Z96.651 Presence of right artificial knee joint
CPT/HCPCS: 82435-PO; 82565-PO; 82947-PO; 84132-PO; 84295-PO; 84484-ER; 84520-PO; 85014-ER; 92526-GN; 92610-GN; 96365; 97163-GP; 97167-GO; C1751; G0378; J0696; J1650; J1956; J2405; J3370; J3475; Q9967

== ENCOUNTER → 2018-07-05 | Outpatient (CLI) | payer OTHER, MEDICAID | LOC: FIMAGING 10:20 ==

== ENCOUNTER 2018-07-26 21:58 | Inpatient (IN) | payer OTHER, MEDICAID | END 2018-07-30 13:02 | LOC: F3E 23:30 ==